=== PATIENT | female | born 1980 | race African-American/Black ===

== ENCOUNTER 2020-04-25 16:19 | Inpatient (IN) | payer SELFPAY ==
[~2020-04-25] VITALS: Ht 167.6 cm; Wt 188.5 kg
[2020-04-25 16:15] VITALS: BP 145/97
[2020-04-25] MEDS ORDERED: TIZA4TAB2 PO (16:32)
[2020-04-25] MEDS ORDERED: PROP80CA3 PO (16:32)
[2020-04-25] MEDS ORDERED: CELE200C PO (16:32)
[2020-04-25] MEDS ORDERED: FLUO20TA11 PO (16:32)
[2020-04-25] MEDS ORDERED: METF-658 PO (16:32)
[2020-04-25] MEDS ORDERED: AMLO10TA8 PO (16:32)
--- NOTE | 2020-04-25 16:50 | NUR ---
The patient, MARGIE MOY, 39 y/o, F admitted by MARIEL AGUIAR MD, was given written information regarding hospital policies, unit procedures and contact persons. Valuables were checked and patient settled in room, orders received from Dr. Aguiar, and consults called.
[2020-04-25] MEDS ORDERED: PIPERACILLIN/TAZOBACTAM 3.375 GM in IV NORMAL SALINE 50ML 50 ML IV SCH (17:00)
[2020-04-25] MEDS: MORPHINE SULFATE 4 MG/ML VIAL. IV PRN (17:27)
[2020-04-25] MEDS: IV NORMAL SALINE 1000ML BAG 1,000 ML IV SCH (17:27)
[2020-04-25 19:00] VITALS: BP 117/82
[2020-04-25] MEDS: PIPERACILLIN/TAZOBACTAM 3.375 GM in IV NORMAL SALINE 50ML 50 ML IV SCH (19:07)
[2020-04-25 23:00] VITALS: BP 106/75
[2020-04-26 03:00] VITALS: BP 102/76
[2020-04-26] MEDS: IV NORMAL SALINE 1000ML BAG 1,000 ML IV SCH (03:45)
[2020-04-26] MEDS: MORPHINE SULFATE 4 MG/ML VIAL. IV PRN ×2 (04:12→15:33)
[2020-04-26] MEDS: ONDANSETRON PF 4 MG/2 ML VIAL. IVP PRN ×3 (04:24→15:45)
[2020-04-26 04:27] LABS: BASO # 0.1 x10^3/uL (0.0-0.2); BASO % 1 % (0-3); EOS # 0.1 x10^3/uL (0.0-0.7); EOS % 2 % (0-3); HEMATOCRIT 35.1 % (36.0-47.0); HEMOGLOBIN 11.3 g/dL (12.0-15.5); LYMPH # 1.8 x10^3/uL (1.0-4.8); LYMPH % 18 % (24-48); MEAN CORPUSCULAR HEMOGLOBIN 27 pg (25-35); MEAN CORPUSCULAR HGB CONC 32 g/dL (31-37); MEAN CORPUSCULAR VOLUME 82 fL (79-100); MONO # 0.6 x10^3/uL (0.0-1.1); MONO % 6 % (0-9); NEUT # 7.2 x10^3/uL (1.8-7.7); NEUT % 74 % (31-73); PLATELET COUNT 240 x10^3/uL (140-400); RED BLOOD COUNT 4.26 x10^6/uL (3.50-5.40); RED CELL DISTRIBUTION WIDTH 15.2 % (11.5-14.5); WHITE BLOOD COUNT 9.7 x10^3/uL (4.0-11.0)
[2020-04-26 04:51] LABS: ALBUMIN 2.3 g/dL (3.4-5.0); ALBUMIN/GLOBULIN RATIO 0.5 (1.0-1.7); CALCIUM 8.4 mg/dL (8.5-10.1); CREATININE 0.8 mg/dL (0.6-1.0); GFR 96.1; POTASSIUM 3.3 mmol/L (3.5-5.1); TOTAL BILIRUBIN 0.5 mg/dL (0.2-1.0); TOTAL PROTEIN 7.1 g/dL (6.4-8.2)
[2020-04-26] MEDS: PIPERACILLIN/TAZOBACTAM 3.375 GM in IV NORMAL SALINE 50ML 50 ML IV SCH ×4 (05:57→18:18)
[2020-04-26 07:59] VITALS: BP 116/75
--- NOTE | 2020-04-26 08:53 | HP ---
ADMIT DATE: 04/25/2020 HISTORY OF PRESENT ILLNESS: The patient is a 39-year-old -[place] female patient, who presented to the Emergency Room of [facility] with a complaint of abdominal pain and discomfort. She stated that her pain started on Tuesday with also some nausea and vomiting and continued on Tuesday and and she came to the Emergency Room yesterday. She stated that she has also had dark and bloody stools over the last 2 days. She stated that blood tinge present when she wipes after a bowel movement. States she is dizzy when she tries to stand or walk, but denied any urinary or vaginal complaints. She is not on any blood thinners. She denies any other complaint. She was evaluated in the Emergency Room. Her lab work showed she has leukocytosis, white cell count of 15,800. Her chemistry was mostly unremarkable and urinalysis was essentially unremarkable. She has had a CT scan of the abdomen and pelvis with oral and IV contrast, which basically showed that she has diverticulitis with walled-off microperforation; there is no free fluid, free air or abscess. The patient was transferred to [facility]. She was kept n.p.o., started on IV fluid, IV antibiotic in the form of Zosyn, and started on pain medication and antiemetic, and we consulted the Surgical team. PAST MEDICAL HISTORY: Significant for hypertension, polycystic ovary syndrome and migraine. PAST SURGICAL HISTORY: Significant for , cholecystectomy and placement of intrauterine device. ALLERGIES: She has no known drug allergies. MEDICATIONS: She is currently on the following medications: She is on propranolol extended release, fluoxetine, Celebrex and metformin 500 mg once a day. FAMILY HISTORY: She has 6 half-sisters from her mother, one half-brother and one half-sister from her father's side and she has 2 stepbrothers. SOCIAL HISTORY: She is single, has a son and a daughter. She smokes occasionally, drinks alcohol occasionally, does not use any drugs. She is currently unemployed. Takes care of her granddaughter. REVIEW OF SYSTEMS: As per history of present illness. PHYSICAL EXAMINATION: GENERAL: On arrival to the Emergency Room, the patient looked well and was clearly in no apparent respiratory distress. No pallor, jaundice, cyanosis or thyromegaly. No jugular venous distention. No lower limb edema. VITAL SIGNS: Her heart rate was 128, blood pressure was 125/74, temperature was 98.1, respiratory rate was 16 and oxygen saturation was 93% on room air. HEAD, EYES, EARS, NOSE AND THROAT: Normocephalic, atraumatic. NECK: Supple. HEART: Showed normal first and second heart sounds. No gallop, rub or murmur. CHEST: Clear to auscultation. No crepitation or rhonchi. ABDOMEN: Distended, soft, with tenderness mostly in the left lower quadrant. There is no guarding or rigidity, no organomegaly. All hernial orifices are intact. Bowel sounds are normal. NEUROLOGICAL: Grossly normal. LABORATORY DATA: Her white cell count was 15,800, hemoglobin 12.5, hematocrit 38.9, MCV 82 and platelet count 254,000. Her chemistry showed a serum sodium of 136, potassium 3.5, chloride 99, bicarbonate 26, anion gap of 11, BUN 10, creatinine 1, estimated GFR was 74 mL per minute, her glucose was 116, calcium was 9.1. Total bilirubin, AST, ALT, alkaline phosphatase were normal. Total protein was 8.2. Albumin was 3.7. Her urinalysis showed the urine was red, bloody, with too numerous to count rbc's, occasional wbc's and few bacteria. Her urine test was negative. IMAGING STUDIES: Her CT scan of the abdomen showed that the patient has linear opacity in the right lung base, likely discoid atelectasis. The appendix is normal. She has an intrauterine device in the uterus that appears to be well seated. There is moderate wall thickening, about 12 cm length, of the proximal and mid sigmoid colon with surrounding inflammation, diverticula, with multiple foci of air projecting outside the lumen, but no walled-off abscess. Her liver, spleen, pancreas, adrenal and kidneys are unremarkable. There is no mass or lymphadenopathy. There is no free air, no free fluid. The urinary bladder was mostly collapsed. ASSESSMENT AND PLAN: The patient basically diagnosed with acute diverticulitis with walled-off microperforation. There is no free fluid or free air or an abscess. The patient was basically transferred to [facility]. She was kept n.p.o., started on IV fluid, also start her on IV Zosyn at 3.375 g IV q.8 hourly, pain medication and antiemetic, and we have consulted the Surgical team. Her other medical problems include hypertension, migraine headache as well as questionable diabetes versus polycystic ovary syndrome. MARIEL AGUIAR MD DR: IMANI/farheen JOB#: [id number] / [id number]
[2020-04-26] MEDS: POTASSIUM CL 40MEQ IN 0.9%NACL 1,000 ML IV SCH ×2 (09:12→21:40)
--- NOTE | 2020-04-26 09:32 | PDOC2 ---
CONSULT Date of Consult Date of Consult DATE: 04/26/20 TIME: 09:29 Reason for Consult Reason for Consult: Abdominal pain with nausea vomiting Referring Physician Referring Physician: Arslan Identification/Chief Complaint Chief Complaint Abdominal pain Source Source: Chart review, Patient History of Present Illness Reason for Visit: 39-year-old morbidly obese female was seen in the emergency department at [facility] with complaints of abdominal pain nausea and some vomiting over the last 4 days as well as some bloody stools. On further evaluation emergency department CT scan done of the abdomen showed inflammation of the sigmoid colon consistent with diverticulitis and a small amount of extraluminal air no free air within the abdomen no ascites or abscess Past Medical History Cardiovascular: HTN Pulmonary: No pertinent hx GI: Other (Morbidly obese) Heme/Onc: No pertinent hx Hepatobiliary: No pertinent hx Psych: No pertinent hx Infectious disease: No pertinent hx ENT: No pertinent hx Renal/: No pertinent hx Endocrine: No pertinent hx Dermatology: No pertinent hx Past Surgical History Past Surgical History: No pertinent history Family History Family History: No Significant Social History No ALCOHOL: rare Drugs: None Lives: with Family Current Medications Current Medications Current Medications Sodium Chloride 1,000 ml @ 100 mls/hr Q10H IV Last administered on 04/26/20at 03:45; Start 04/25/20 at 16:45; Stop 04/26/20 at 08:15; Status DC Morphine Sulfate (Morphine Sulfate) 4 mg PRN Q4HRS PRN IV PAIN Last administered on 04/26/20at 04:12; Start 04/25/20 at 16:45 Ondansetron HCl (Zofran) 4 mg PRN Q4HRS PRN IVP NAUSEA/VOMITING Last administered on 04/26/20at 04:24; Start 04/25/20 at 16:45 Piperacillin Sod/ Tazobactam Sod 3.375 gm/Sodium Chloride 50 ml @ 100 mls/hr Q6HRS IV ; Start 04/25/20 at 17:00; Stop 04/25/20 at 17:16; Status DC Piperacillin Sod/ Tazobactam Sod 3.375 gm/Sodium Chloride 50 ml @ 100 mls/hr Q6HRS IV Last administered on 04/26/20at 05:57; Start 04/25/20 at 19:00 Potassium Chloride/Sodium Chloride 1,000 ml @ 100 mls/hr Q10H IV Last administered on 04/26/20at 09:12; Start 04/26/20 at 08:30 Active Scripts Active Reported Tizanidine Hcl 4 Mg Tablet 1 Tab PO BID Amlodipine Besylate 10 Mg Tablet 10 Mg PO DAILY Celebrex (Celecoxib) 200 Mg Capsule 200 Mg PO DAILY 30 Days Fluoxetine Hcl 20 Mg Tablet 20 Mg PO DAILY Propranolol Hcl 80 Mg Cap.sa.24h 80 Mg PO DAILY Metformin Hcl Er (Metformin Hcl) 500 Mg Tab.er.24h 500 Mg PO DAILYWBKFT Allergies Allergies: Coded Allergies: No Known Drug Allergies (Unverified , 04/25/20) ROS Gastrointestinal: Yes Nausea, Yes Vomiting, Yes Abdominal Pain Physical Exam General: Alert, Oriented X3, Cooperative, mild distress HEENT: Atraumatic Lungs: Clear to auscultation, Normal air movement Heart: Regular rate, No murmurs Abdomen: Normal bowel sounds, Soft, Other (Tender to palpation left lower quadrant) Extremities: No edema Skin: No significant lesion Neuro: Normal speech Psych/Mental Status: Mental status NL Vitals VITALS Vital Signs Date Time Temp Pulse Resp B/P (MAP) Pulse Ox O2 Delivery O2 Flow Rate FiO2 04/26/20 07:59 97.9 95 18 116/75 (89) 93 Room Air 97.9 Labs Labs Laboratory Tests Test 04/25/20 16:47 04/26/20 03:25 Glucose (Fingerstick) 105 mg/dL (70-99) White Blood Count 9.7 x10^3/uL (4.0-11.0) Red Blood Count 4.26 x10^6/uL (3.50-5.40) Hemoglobin 11.3 g/dL (12.0-15.5) Hematocrit 35.1 % (36.0-47.0) Mean Corpuscular Volume 82 fL (79-100) Mean Corpuscular Hemoglobin 27 pg (25-35) Mean Corpuscular Hemoglobin Concent 32 g/dL (31-37) Red Cell Distribution Width 15.2 % (11.5-14.5) Platelet Count 240 x10^3/uL (140-400) Neutrophils (%) (Auto) 74 % (31-73) Lymphocytes (%) (Auto) 18 % (24-48) Monocytes (%) (Auto) 6 % (0-9) Eosinophils (%) (Auto) 2 % (0-3) Basophils (%) (Auto) 1 % (0-3) Neutrophils # (Auto) 7.2 x10^3/uL (1.8-7.7) Lymphocytes # (Auto) 1.8 x10^3/uL (1.0-4.8) Monocytes # (Auto) 0.6 x10^3/uL (0.0-1.1) Eosinophils # (Auto) 0.1 x10^3/uL (0.0-0.7) Basophils # (Auto) 0.1 x10^3/uL (0.0-0.2) Sodium Level 140 mmol/L (136-145) Potassium Level 3.3 mmol/L (3.5-5.1) Chloride Level 104 mmol/L (98-107) Carbon Dioxide Level 26 mmol/L (21-32) Anion Gap 10 (6-14) Blood Urea Nitrogen 10 mg/dL (7-20) Creatinine 0.8 mg/dL (0.6-1.0) Estimated GFR (Cockcroft-Gault) 96.1 BUN/Creatinine Ratio 13 (6-20) Glucose Level 91 mg/dL (70-99) Calcium Level 8.4 mg/dL (8.5-10.1) Total Bilirubin 0.5 mg/dL (0.2-1.0) Aspartate Amino Transf (AST/SGOT) 22 U/L (15-37) Alanine Aminotransferase (ALT/SGPT) 23 U/L (14-59) Alkaline Phosphatase 87 U/L (46-116) Total Protein 7.1 g/dL (6.4-8.2) Albumin 2.3 g/dL (3.4-5.0) Albumin/Globulin Ratio 0.5 (1.0-1.7) Laboratory Tests Test 04/25/20 16:47 04/26/20 03:25 Glucose (Fingerstick) 105 mg/dL (70-99) White Blood Count 9.7 x10^3/uL (4.0-11.0) Red Blood Count 4.26 x10^6/uL (3.50-5.40) Hemoglobin 11.3 g/dL (12.0-15.5) Hematocrit 35.1 % (36.0-47.0) Mean Corpuscular Volume 82 fL (79-100) Mean Corpuscular Hemoglobin 27 pg (25-35) Mean Corpuscular Hemoglobin Concent 32 g/dL (31-37) Red Cell Distribution Width 15.2 % (11.5-14.5) Platelet Count 240 x10^3/uL (140-400) Neutrophils (%) (Auto) 74 % (31-73) Lymphocytes (%) (Auto) 18 % (24-48) Monocytes (%) (Auto) 6 % (0-9) Eosinophils (%) (Auto) 2 % (0-3) Basophils (%) (Auto) 1 % (0-3) Neutrophils # (Auto) 7.2 x10^3/uL (1.8-7.7) Lymphocytes # (Auto) 1.8 x10^3/uL (1.0-4.8) Monocytes # (Auto) 0.6 x10^3/uL (0.0-1.1) Eosinophils # (Auto) 0.1 x10^3/uL (0.0-0.7) Basophils # (Auto) 0.1 x10^3/uL (0.0-0.2) Sodium Level 140 mmol/L (136-145) Potassium Level 3.3 mmol/L (3.5-5.1) Chloride Level 104 mmol/L (98-107) Carbon Dioxide Level 26 mmol/L (21-32) Anion Gap 10 (6-14) Blood Urea Nitrogen 10 mg/dL (7-20) Creatinine 0.8 mg/dL (0.6-1.0) Estimated GFR (Cockcroft-Gault) 96.1 BUN/Creatinine Ratio 13 (6-20) Glucose Level 91 mg/dL (70-99) Calcium Level 8.4 mg/dL (8.5-10.1) Total Bilirubin 0.5 mg/dL (0.2-1.0) Aspartate Amino Transf (AST/SGOT) 22 U/L (15-37) Alanine Aminotransferase (ALT/SGPT) 23 U/L (14-59) Alkaline Phosphatase 87 U/L (46-116) Total Protein 7.1 g/dL (6.4-8.2) Albumin 2.3 g/dL (3.4-5.0) Albumin/Globulin Ratio 0.5 (1.0-1.7) Assessment/Plan Assessment/Plan Diverticulitis with microperforation no free air Agree with bowel rest n.p.o. and IV antibiotics will follow EMILIE MCFADDEN MD Apr 26, 2020 09:32
[2020-04-26] MEDS: ACETAMINOPHEN 325 MG TABLET. PO PRN (09:42)
[2020-04-26 11:59] VITALS: BP 128/84
--- NOTE | 2020-04-26 12:00 | NUR ---
Patient was given Tylenol po with sip water for c/o headache. Patient now relates that her headache is completely gone.
--- NOTE | 2020-04-26 13:10 | PN ---
DATE: 04/26/2020 SUBJECTIVE: The patient is sitting in the edge of the bed comfortably, in no apparent distress. She continued to have abdominal pain, but denied any nausea or vomiting. Denied any chills, rigors or fever. PHYSICAL EXAMINATION: GENERAL: When I examined her, she looked pale, no jaundice, cyanosis or thyromegaly. No jugular venous distention. No lower limb edema. VITAL SIGNS: Her heart rate was 103, blood pressure was 102/76, her temperature was 98.3, respiratory rate was 16, and oxygen saturation was 97% on room air. ABDOMEN: She continued to have tenderness in the left lower quadrant. NEUROLOGIC: She was grossly intact. The rest of clinical exam is stable. Her intake and output are incompletely recorded. LABORATORY DATA: Her lab work this morning showed white cell count is down to 9700, hemoglobin 11, hematocrit 35, MCV 82 and platelet count of 240,000 with normal manual differential. Her chemistry showed a serum sodium 140, potassium 3.3, chloride 104, bicarbonate 26, anion gap of 10, BUN 10, creatinine 0.8, estimated GFR was 96 mL per minute. Her glucose was 91, calcium was 8.4. Total bilirubin, AST, ALT, alkaline phosphatase were normal. Total protein was 7.1 and albumin was 2.3. ASSESSMENT: 1. Diverticulitis with microperforation with no walled off abscess. There is no free air or free fluid. 2. Hypertension. 3. Migraine headache. 4. Polycystic ovary syndrome. 5. Questionable type 2 diabetes. 6. Hypokalemia. PLAN: My plan is to change IV fluid to normal saline with some potassium. We will continue to monitor her progress on a daily basis and if she remained stable, we will start her on a clear liquid diet and advance as tolerated. MARIEL AGUIAR MD DR: IMANI/farheen JOB#: [id number] / [id number]
--- NOTE | 2020-04-26 14:00 | NUR ---
Patient up to bathroom, passing gas, had small loose bm, difficult to assess color, poss yellow. Patient having some bloody spotting, reported hadn't had any for close to year (has Mirena device in place)
--- NOTE | 2020-04-26 14:03 | PDOC2 ---
GI CONSULT Reason For Consult: diverticulitis with microperf HPI: HPI: 39-year-old female patient, who presented to the Emergency Room of [facility] with a complaint of left sided abdominal pain and discomfort and dark and bloody stools over the last 2 days. Her white cell count of 15,800. Her chemistry was mostly unremarkable and urinalysis was essentially unremarkable. CT scan of the abdomen and pelvis with oral and IV contrast showed that she has diverticulitis with walled-off microperforation; there is no free fluid, free air or abscess. PMH: PMH: PAST MEDICAL HISTORY: Significant for hypertension, polycystic ovary syndrome and migraine. PAST SURGICAL HISTORY: Significant for , cholecystectomy and placement of intrauterine device. ALLERGIES: She has no known drug allergies. MEDICATIONS: She is currently on the following medications: She is on propranolol extended release, fluoxetine, Celebrex and metformin 500 mg once a day. FAMILY HISTORY: She has 6 half-sisters from her mother, one half-brother and one half-sister from her father's side and she has 2 stepbrothers. SOCIAL HISTORY: She is single, has a son and a daughter. She smokes occasionally, drinks alcohol occasionally, does not use any drugs. She is currently unemployed. Takes care of her granddaughter. Social History: Smoke: No ALCOHOL: rare Drugs: None ROS: GEN: Denies fevers, chills, sweats HEENT: Denies blurred vision, sore throat CV: Denies chest pain RESP: Denies shortness of air, cough GI: Per HPI : Denies hematuria, dysuria ENDO: Denies weight changes NEURO: Denies confusion, dizziness MSK: Denies weakness, joint pain/swelling SKIN: Denies jaundice, pruritus VItals: Vitals: Vital Signs Date Time Temp Pulse Resp B/P (MAP) Pulse Ox O2 Delivery O2 Flow Rate FiO2 04/26/20 11:59 98.1 93 18 128/84 (99) 98 Room Air 98.1 Labs: Labs: Laboratory Tests Test 04/25/20 16:47 04/26/20 03:25 Glucose (Fingerstick) 105 mg/dL (70-99) White Blood Count 9.7 x10^3/uL (4.0-11.0) Red Blood Count 4.26 x10^6/uL (3.50-5.40) Hemoglobin 11.3 g/dL (12.0-15.5) Hematocrit 35.1 % (36.0-47.0) Mean Corpuscular Volume 82 fL (79-100) Mean Corpuscular Hemoglobin 27 pg (25-35) Mean Corpuscular Hemoglobin Concent 32 g/dL (31-37) Red Cell Distribution Width 15.2 % (11.5-14.5) Platelet Count 240 x10^3/uL (140-400) Neutrophils (%) (Auto) 74 % (31-73) Lymphocytes (%) (Auto) 18 % (24-48) Monocytes (%) (Auto) 6 % (0-9) Eosinophils (%) (Auto) 2 % (0-3) Basophils (%) (Auto) 1 % (0-3) Neutrophils # (Auto) 7.2 x10^3/uL (1.8-7.7) Lymphocytes # (Auto) 1.8 x10^3/uL (1.0-4.8) Monocytes # (Auto) 0.6 x10^3/uL (0.0-1.1) Eosinophils # (Auto) 0.1 x10^3/uL (0.0-0.7) Basophils # (Auto) 0.1 x10^3/uL (0.0-0.2) Sodium Level 140 mmol/L (136-145) Potassium Level 3.3 mmol/L (3.5-5.1) Chloride Level 104 mmol/L (98-107) Carbon Dioxide Level 26 mmol/L (21-32) Anion Gap 10 (6-14) Blood Urea Nitrogen 10 mg/dL (7-20) Creatinine 0.8 mg/dL (0.6-1.0) Estimated GFR (Cockcroft-Gault) 96.1 BUN/Creatinine Ratio 13 (6-20) Glucose Level 91 mg/dL (70-99) Calcium Level 8.4 mg/dL (8.5-10.1) Total Bilirubin 0.5 mg/dL (0.2-1.0) Aspartate Amino Transf (AST/SGOT) 22 U/L (15-37) Alanine Aminotransferase (ALT/SGPT) 23 U/L (14-59) Alkaline Phosphatase 87 U/L (46-116) Total Protein 7.1 g/dL (6.4-8.2) Albumin 2.3 g/dL (3.4-5.0) Albumin/Globulin Ratio 0.5 (1.0-1.7) Imaging: Imaging: CT scan of the abdomen showed that the patient has linear opacity in the right lung base, likely discoid atelectasis. The appendix is normal. She has an intrauterine device in the uterus that appears to be well seated. There is moderate wall thickening, about 12 cm length, of the proximal and mid sigmoid colon with surrounding inflammation, diverticula, with multiple foci of air projecting outside the lumen, but no walled-off abscess. Her liver, spleen, pancreas, adrenal and kidneys are unremarkable. There is no mass or lymphadenopathy. There is no free air, no free fluid. The urinary bladder was mostly collapsed. PE: HEAD, EYES, EARS, NOSE AND THROAT: Normocephalic, atraumatic. NECK: Supple. HEART: Showed normal first and second heart sounds. No gallop, rub or murmur. CHEST: Clear to auscultation. No crepitation or rhonchi. ABDOMEN: Distended, soft, with tenderness mostly in the left lower quadrant. There is no guarding or rigidity, no organomegaly. All hernial orifices are intact. Bowel sounds are normal. NEUROLOGICAL: Grossly normal. A/P: A/P: A) Diverticulitis with microperforation P) 1) IV Abx 2) PO when able 3) Will need colonoscopy 6 weeks after healing of perf AISHA KINCAID MD Apr 26, 2020 14:03
[2020-04-26 15:59] VITALS: BP 143/88
[2020-04-26 19:15] VITALS: BP 108/75
[2020-04-26 23:37] VITALS: BP 133/96
[2020-04-27] MEDS: MORPHINE SULFATE 4 MG/ML VIAL. IV PRN ×3 (00:06→21:02)
[2020-04-27] MEDS: PIPERACILLIN/TAZOBACTAM 3.375 GM in IV NORMAL SALINE 50ML 50 ML IV SCH ×5 (00:06→23:31)
[2020-04-27 03:40] VITALS: BP 125/78
[2020-04-27] MEDS: POTASSIUM CL 40MEQ IN 0.9%NACL 1,000 ML IV SCH ×3 (04:30→21:03)
[2020-04-27 07:31] LABS: HEMATOCRIT 33.8 % (36.0-47.0); HEMOGLOBIN 10.9 g/dL (12.0-15.5); RED BLOOD COUNT 4.13 x10^6/uL (3.50-5.40); RED CELL DISTRIBUTION WIDTH 15.1 % (11.5-14.5)
[2020-04-27 07:48] LABS: CREATININE 0.8 mg/dL (0.6-1.0); GFR 96.1; POTASSIUM 3.7 mmol/L (3.5-5.1)
[2020-04-27 07:59] VITALS: BP 143/106
[2020-04-27] MEDS: ONDANSETRON PF 4 MG/2 ML VIAL. IVP PRN ×2 (08:00→21:02)
[2020-04-27] MEDS: ACETAMINOPHEN 325 MG TABLET. PO PRN (08:06)
--- NOTE | 2020-04-27 08:23 | PDOC ---
SURGICAL PROGRESS NOTE Subjective Patient feeling better today has had several bowel movements mostly loose Vital Signs Vital Signs Date Time Temp Pulse Resp B/P (MAP) Pulse Ox O2 Delivery O2 Flow Rate FiO2 04/27/20 08:06 20 99 Room Air 04/27/20 03:40 98.0 98 125/78 (94) 98.0 I&O Intake and Output 04/27/20 07:00 Intake Total 1790 ml Balance 1790 ml Intake Oral 90 ml IV Total 1700 ml # Voids 1 PATIENT HAS A GAGNON: No General: Alert, Oriented X3, Cooperative, mild distress Abdomen: Normal bowel sounds, Soft, Other (Mildly tender to palpation left lower quadrant improved from yesterday) Labs Laboratory Tests Test 04/25/20 16:47 04/26/20 03:25 04/27/20 06:15 Glucose (Fingerstick) 105 mg/dL (70-99) White Blood Count 9.7 x10^3/uL (4.0-11.0) 7.0 x10^3/uL (4.0-11.0) Red Blood Count 4.26 x10^6/uL (3.50-5.40) 4.13 x10^6/uL (3.50-5.40) Hemoglobin 11.3 g/dL (12.0-15.5) 10.9 g/dL (12.0-15.5) Hematocrit 35.1 % (36.0-47.0) 33.8 % (36.0-47.0) Mean Corpuscular Volume 82 fL (79-100) 82 fL (79-100) Mean Corpuscular Hemoglobin 27 pg (25-35) 26 pg (25-35) Mean Corpuscular Hemoglobin Concent 32 g/dL (31-37) 32 g/dL (31-37) Red Cell Distribution Width 15.2 % (11.5-14.5) 15.1 % (11.5-14.5) Platelet Count 240 x10^3/uL (140-400) 252 x10^3/uL (140-400) Neutrophils (%) (Auto) 74 % (31-73) Lymphocytes (%) (Auto) 18 % (24-48) Monocytes (%) (Auto) 6 % (0-9) Eosinophils (%) (Auto) 2 % (0-3) Basophils (%) (Auto) 1 % (0-3) Neutrophils # (Auto) 7.2 x10^3/uL (1.8-7.7) Lymphocytes # (Auto) 1.8 x10^3/uL (1.0-4.8) Monocytes # (Auto) 0.6 x10^3/uL (0.0-1.1) Eosinophils # (Auto) 0.1 x10^3/uL (0.0-0.7) Basophils # (Auto) 0.1 x10^3/uL (0.0-0.2) Sodium Level 140 mmol/L (136-145) 140 mmol/L (136-145) Potassium Level 3.3 mmol/L (3.5-5.1) 3.7 mmol/L (3.5-5.1) Chloride Level 104 mmol/L (98-107) 104 mmol/L (98-107) Carbon Dioxide Level 26 mmol/L (21-32) 27 mmol/L (21-32) Anion Gap 10 (6-14) 9 (6-14) Blood Urea Nitrogen 10 mg/dL (7-20) 7 mg/dL (7-20) Creatinine 0.8 mg/dL (0.6-1.0) 0.8 mg/dL (0.6-1.0) Estimated GFR (Cockcroft-Gault) 96.1 96.1 BUN/Creatinine Ratio 13 (6-20) Glucose Level 91 mg/dL (70-99) 81 mg/dL (70-99) Calcium Level 8.4 mg/dL (8.5-10.1) 8.0 mg/dL (8.5-10.1) Total Bilirubin 0.5 mg/dL (0.2-1.0) Aspartate Amino Transf (AST/SGOT) 22 U/L (15-37) Alanine Aminotransferase (ALT/SGPT) 23 U/L (14-59) Alkaline Phosphatase 87 U/L (46-116) Total Protein 7.1 g/dL (6.4-8.2) Albumin 2.3 g/dL (3.4-5.0) Albumin/Globulin Ratio 0.5 (1.0-1.7) Laboratory Tests Test 04/27/20 06:15 White Blood Count 7.0 x10^3/uL (4.0-11.0) Red Blood Count 4.13 x10^6/uL (3.50-5.40) Hemoglobin 10.9 g/dL (12.0-15.5) Hematocrit 33.8 % (36.0-47.0) Mean Corpuscular Volume 82 fL (79-100) Mean Corpuscular Hemoglobin 26 pg (25-35) Mean Corpuscular Hemoglobin Concent 32 g/dL (31-37) Red Cell Distribution Width 15.1 % (11.5-14.5) Platelet Count 252 x10^3/uL (140-400) Sodium Level 140 mmol/L (136-145) Potassium Level 3.7 mmol/L (3.5-5.1) Chloride Level 104 mmol/L (98-107) Carbon Dioxide Level 27 mmol/L (21-32) Anion Gap 9 (6-14) Blood Urea Nitrogen 7 mg/dL (7-20) Creatinine 0.8 mg/dL (0.6-1.0) Estimated GFR (Cockcroft-Gault) 96.1 Glucose Level 81 mg/dL (70-99) Calcium Level 8.0 mg/dL (8.5-10.1) Assessment/Plan Diverticulitis sigmoid colon with microperforation appears to be improving on IV antibiotics afebrile white count normal We will continue IV antibiotics advance diet to clear liquids Justicifation of Admission Dx: Justifications for Admission: Justification of Admission Dx: N/A EMILIE MCFADDEN MD Apr 27, 2020 08:22
--- NOTE | 2020-04-27 08:48 | PN ---
DATE: 04/27/2020 SUBJECTIVE: The patient is resting, slightly propped up in bed, in no apparent distress. She is awake, alert. On questioning her, she said she continued to have mild discomfort in her left lower quadrant. Denied any nausea or vomiting. Denied any chills, rigors or fever. PHYSICAL EXAMINATION: GENERAL: When I examined her, she looked well and was clearly in no apparent respiratory distress, pale, but no jaundice or cyanosis. No lymphadenopathy, no thyromegaly. No jugular venous distention. No limb edema. VITAL SIGNS: Her heart rate was 98, blood pressure was 125/78, temperature was 98, respiratory rate was 18 and oxygen saturation was 99%. HEAD, EYES, EARS, NOSE AND THROAT: Showed normocephalic, atraumatic. NECK: Supple. HEART: Showed normal first and second heart sounds. No gallop or murmur. CHEST: Shows central trachea, equal bilateral expansion, air entry, vesicular breath sounds. No crepitation or rhonchi. ABDOMEN: Markedly distended, soft, mild tenderness in the left lower quadrant. There is no guarding or rigidity. No organomegaly. All hernial orifice intact. Bowel sounds normal. NEUROLOGIC: She is awake, alert, responding appropriately. All her cranial nerves intact. She moves extremities without difficulty. She ambulates without assistance or assistive devices. Her intake and output are incompletely recorded. LABORATORY DATA: As of this morning showed a white cell count 7000, hemoglobin 11, hematocrit 33, MCV 82, and platelet count 252,000. Her chemistry showed a serum sodium 140, potassium 3.7, chloride 104, bicarbonate 27, anion gap of 9, BUN 7, creatinine 0.8, estimated GFR was 96 mL per minute. Her glucose was 81, calcium was 8. ASSESSMENT: 1. Diverticulitis with microperforation with no walled off abscess. There is no free air or free fluid, currently on IV antibiotics. 2. Hypertension, well controlled. 3. Migraine headache. 4. Polycystic ovary syndrome. 5. Questionable type 2 diabetes. 6. Hypokalemia which has resolved. PLAN: To continue with IV fluid. Apparently, she was seen by the surgical team and she is now on a clear liquid diet. MARIEL AGUIAR MD DR: IMANI/farheen JOB#: [id number] / [id number]
[2020-04-27 13:00] VITALS: BP 148/112
--- NOTE | 2020-04-27 14:47 | PDOC ---
Subjective: Subjective: feels better. haviing BMs with blood and mucus. LLQ pain better Objective: Vital Signs: Vital Signs Date Time Temp Pulse Resp B/P (MAP) Pulse Ox O2 Delivery O2 Flow Rate FiO2 04/27/20 13:00 97.8 119 20 148/112 (124) 97 Room Air 97.8 Labs: Laboratory Tests Test 04/27/20 06:15 White Blood Count 7.0 x10^3/uL (4.0-11.0) Red Blood Count 4.13 x10^6/uL (3.50-5.40) Hemoglobin 10.9 g/dL (12.0-15.5) Hematocrit 33.8 % (36.0-47.0) Mean Corpuscular Volume 82 fL (79-100) Mean Corpuscular Hemoglobin 26 pg (25-35) Mean Corpuscular Hemoglobin Concent 32 g/dL (31-37) Red Cell Distribution Width 15.1 % (11.5-14.5) Platelet Count 252 x10^3/uL (140-400) Sodium Level 140 mmol/L (136-145) Potassium Level 3.7 mmol/L (3.5-5.1) Chloride Level 104 mmol/L (98-107) Carbon Dioxide Level 27 mmol/L (21-32) Anion Gap 9 (6-14) Blood Urea Nitrogen 7 mg/dL (7-20) Creatinine 0.8 mg/dL (0.6-1.0) Estimated GFR (Cockcroft-Gault) 96.1 Glucose Level 81 mg/dL (70-99) Calcium Level 8.0 mg/dL (8.5-10.1) Iron Level 59 ug/dL (50-170) Total Iron Binding Capacity 230 ug/dL (250-450) Iron Saturation 26 % (15-34) Ferritin 186 ng/mL (8-252) Physical Exam: Physical Exam: HEAD, EYES, EARS, NOSE AND THROAT: Normocephalic, atraumatic. NECK: Supple. HEART: Showed normal first and second heart sounds. No gallop, rub or murmur. CHEST: Clear to auscultation. No crepitation or rhonchi. ABDOMEN: Distended, soft, with tenderness mostly in the left lower quadrant. There is no guarding or rigidity, no organomegaly. All hernial orifices are intact. Bowel sounds are normal. NEUROLOGICAL: Grossly normal. Assessment & Plan: Assessment : A 1) Diverticulitis with microperf 2) indeterminate COVID test Plan: P 1) Favor PO abx when ready 2) ADAT 3) repeat COVID test- defer to primary Justicifation of Admission Dx: Justifications for Admission: Justification of Admission Dx: N/A AISHA KINCAID MD Apr 27, 2020 14:47
[2020-04-27 15:59] VITALS: BP 127/95
[2020-04-27] MEDS: amLODIPine BESYLATE 10 MG TABLET PO SCH (16:04)
[2020-04-27 19:00] VITALS: BP 157/88
[2020-04-27] MEDS: LACTOBACILLUS RHAMNOSUS GG 1 CAPSULE. PO SCH (21:02)
[2020-04-27 23:00] VITALS: BP 133/90
[2020-04-28 03:00] VITALS: BP 139/92
[2020-04-28 04:56] LABS: HEMATOCRIT 33.9 % (36.0-47.0); HEMOGLOBIN 10.8 g/dL (12.0-15.5); RED BLOOD COUNT 4.13 x10^6/uL (3.50-5.40); RED CELL DISTRIBUTION WIDTH 14.9 % (11.5-14.5); WHITE BLOOD COUNT 6.6 x10^3/uL (4.0-11.0)
[2020-04-28 05:12] LABS: CALCIUM 8.2 mg/dL (8.5-10.1); CREATININE 0.8 mg/dL (0.6-1.0); GFR 96.1; POTASSIUM 3.8 mmol/L (3.5-5.1)
[2020-04-28] MEDS: PIPERACILLIN/TAZOBACTAM 3.375 GM in IV NORMAL SALINE 50ML 50 ML IV SCH ×3 (05:36→18:09)
[2020-04-28 07:15] VITALS: BP 150/98
[2020-04-28] MEDS: LACTOBACILLUS RHAMNOSUS GG 1 CAPSULE. PO SCH ×2 (08:27→20:41)
[2020-04-28] MEDS: amLODIPine BESYLATE 10 MG TABLET PO SCH (08:27)
--- NOTE | 2020-04-28 08:51 | NUR ---
SW following. Discussed with RN, pt from home alone, independent. RN advised no SW needs, outpatient colonoscopy recommended. RN anticipates discharge today. SW will continue to follow should any discharge needs arise.
[2020-04-28] MEDS: POTASSIUM CL 40MEQ IN 0.9%NACL 1,000 ML IV SCH ×2 (10:30→20:30)
[2020-04-28 11:00] VITALS: BP 135/84
[2020-04-28] MEDS: ACETAMINOPHEN 325 MG TABLET. PO PRN ×2 (11:05→18:12)
--- NOTE | 2020-04-28 13:33 | PDOC ---
Subjective: Subjective: Tolerating clears, pain is better, going to take a shower. Started spotting before admission - sees scant amount of blood in underwear but usually doesn't see any when she wears a pad. "I don't know where it's coming from." Noted w/ wiping and urinating and stooling. Doesn't have periods because has Mirena. Objective: Vital Signs: Vital Signs Date Time Temp Pulse Resp B/P (MAP) Pulse Ox O2 Delivery O2 Flow Rate FiO2 04/28/20 11:00 97.5 98 16 135/84 (101) 100 Room Air 97.5 PE: GEN: NAD, sitting in chair LUNGS: CTAB HEART: RRR ABD: obese, non-tender NEURO/PSYCH: A & O 3 A/P: Diverticulitis with microperf ?vaginal bleeding vs hematochezia Anemia - low TIBC, iron and saturation WNL -- Seen this morning when [employer] unavailable Nurse says Dr. Mcdaniels would like to possibly advance diet and consider DC - gave okay to try full liquids, will review possible DC w/ Dr. Santa. Outpt colonoscopy in a couple months. Justicifation of Admission Dx: Justifications for Admission: Justification of Admission Dx: N/A BAO EMERSON Apr 28, 2020 13:33
--- NOTE | 2020-04-28 14:12 | PDOC ---
VAN GONZALEZ WINCH OPERATOR 04/28/20 1412: SURGICAL PROGRESS NOTE Subjective tolerating diet feels well no pain Vital Signs Vital Signs Date Time Temp Pulse Resp B/P (MAP) Pulse Ox O2 Delivery O2 Flow Rate FiO2 04/28/20 11:00 97.5 98 16 135/84 (101) 100 Room Air 97.5 I&O Intake and Output 04/28/20 06:59 Intake Total 1250 ml Balance 1250 ml Intake Oral 200 ml IV Total 1050 ml # Voids 2 General: Alert, Oriented X3, Cooperative Abdomen: Soft, No tenderness Labs Laboratory Tests Test 04/27/20 06:15 04/28/20 04:30 White Blood Count 7.0 x10^3/uL (4.0-11.0) 6.6 x10^3/uL (4.0-11.0) Red Blood Count 4.13 x10^6/uL (3.50-5.40) 4.13 x10^6/uL (3.50-5.40) Hemoglobin 10.9 g/dL (12.0-15.5) 10.8 g/dL (12.0-15.5) Hematocrit 33.8 % (36.0-47.0) 33.9 % (36.0-47.0) Mean Corpuscular Volume 82 fL (79-100) 82 fL (79-100) Mean Corpuscular Hemoglobin 26 pg (25-35) 26 pg (25-35) Mean Corpuscular Hemoglobin Concent 32 g/dL (31-37) 32 g/dL (31-37) Red Cell Distribution Width 15.1 % (11.5-14.5) 14.9 % (11.5-14.5) Platelet Count 252 x10^3/uL (140-400) 280 x10^3/uL (140-400) Sodium Level 140 mmol/L (136-145) 141 mmol/L (136-145) Potassium Level 3.7 mmol/L (3.5-5.1) 3.8 mmol/L (3.5-5.1) Chloride Level 104 mmol/L (98-107) 106 mmol/L (98-107) Carbon Dioxide Level 27 mmol/L (21-32) 28 mmol/L (21-32) Anion Gap 9 (6-14) 7 (6-14) Blood Urea Nitrogen 7 mg/dL (7-20) 3 mg/dL (7-20) Creatinine 0.8 mg/dL (0.6-1.0) 0.8 mg/dL (0.6-1.0) Estimated GFR (Cockcroft-Gault) 96.1 96.1 Glucose Level 81 mg/dL (70-99) 97 mg/dL (70-99) Calcium Level 8.0 mg/dL (8.5-10.1) 8.2 mg/dL (8.5-10.1) Iron Level 59 ug/dL (50-170) Total Iron Binding Capacity 230 ug/dL (250-450) Iron Saturation 26 % (15-34) Ferritin 186 ng/mL (8-252) Laboratory Tests Test 04/28/20 04:30 White Blood Count 6.6 x10^3/uL (4.0-11.0) Red Blood Count 4.13 x10^6/uL (3.50-5.40) Hemoglobin 10.8 g/dL (12.0-15.5) Hematocrit 33.9 % (36.0-47.0) Mean Corpuscular Volume 82 fL (79-100) Mean Corpuscular Hemoglobin 26 pg (25-35) Mean Corpuscular Hemoglobin Concent 32 g/dL (31-37) Red Cell Distribution Width 14.9 % (11.5-14.5) Platelet Count 280 x10^3/uL (140-400) Sodium Level 141 mmol/L (136-145) Potassium Level 3.8 mmol/L (3.5-5.1) Chloride Level 106 mmol/L (98-107) Carbon Dioxide Level 28 mmol/L (21-32) Anion Gap 7 (6-14) Blood Urea Nitrogen 3 mg/dL (7-20) Creatinine 0.8 mg/dL (0.6-1.0) Estimated GFR (Cockcroft-Gault) 96.1 Glucose Level 97 mg/dL (70-99) Calcium Level 8.2 mg/dL (8.5-10.1) Problem List diverticulitis improving continue abx, scope as outpt per GI Justicifation of Admission Dx: Justifications for Admission: Justification of Admission Dx: N/A EMILIE MCFADDEN MD 04/29/20 0623: SURGICAL PROGRESS NOTE Assessment/Plan Overall patient improving. Continue with current care. Agree with Delmer's assessment and plan VAN GONZALEZ APRN Apr 28, 2020 14:12 EMILIE MCFADDEN MD Apr 29, 2020 06:23
[2020-04-28] MEDS ORDERED: METR-34 PO (14:48)
[2020-04-28] MEDS ORDERED: CIPR500T94 PO (14:49)
[2020-04-28] MEDS ORDERED: HYDR-2761 PO (14:50)
[2020-04-28 15:00] VITALS: BP 145/94
[2020-04-28 19:00] VITALS: BP 154/98
[2020-04-28 23:00] VITALS: BP 143/85
[2020-04-29] MEDS: PIPERACILLIN/TAZOBACTAM 3.375 GM in IV NORMAL SALINE 50ML 50 ML IV SCH ×3 (00:39→12:00)
[2020-04-29 03:00] VITALS: BP 156/89
[2020-04-29] MEDS: ACETAMINOPHEN 325 MG TABLET. PO PRN (06:12)
[2020-04-29] MEDS: POTASSIUM CL 40MEQ IN 0.9%NACL 1,000 ML IV SCH (06:30)
[2020-04-29 07:00] VITALS: BP 147/90
--- NOTE | 2020-04-29 08:57 | NUR ---
SW following. Discussed with RN, pt did not discharge yesterday as needed one more day of IV abx. RN advised plan for pt to discharge home today. SW will continue to follow should any discharge needs arise.
--- NOTE | 2020-04-29 09:28 | PDOC ---
SURGICAL PROGRESS NOTE Subjective no pain tolerating diet no n/v Vital Signs Vital Signs Date Time Temp Pulse Resp B/P (MAP) Pulse Ox O2 Delivery O2 Flow Rate FiO2 04/29/20 07:00 97.8 110 16 147/90 (109) 95 Room Air 97.8 I&O Intake and Output 04/29/20 07:00 Intake Total 770 ml Balance 770 ml Intake Oral 720 ml IV Total 50 ml # Voids 3 # Bowel Movements 1 General: Alert, Oriented X3, Cooperative Abdomen: Soft, No tenderness Labs Laboratory Tests Test 04/27/20 15:15 04/28/20 04:30 Coronavirus (COVID-19)(PCR) Not detected (NOT DETECT.) White Blood Count 6.6 x10^3/uL (4.0-11.0) Red Blood Count 4.13 x10^6/uL (3.50-5.40) Hemoglobin 10.8 g/dL (12.0-15.5) Hematocrit 33.9 % (36.0-47.0) Mean Corpuscular Volume 82 fL (79-100) Mean Corpuscular Hemoglobin 26 pg (25-35) Mean Corpuscular Hemoglobin Concent 32 g/dL (31-37) Red Cell Distribution Width 14.9 % (11.5-14.5) Platelet Count 280 x10^3/uL (140-400) Sodium Level 141 mmol/L (136-145) Potassium Level 3.8 mmol/L (3.5-5.1) Chloride Level 106 mmol/L (98-107) Carbon Dioxide Level 28 mmol/L (21-32) Anion Gap 7 (6-14) Blood Urea Nitrogen 3 mg/dL (7-20) Creatinine 0.8 mg/dL (0.6-1.0) Estimated GFR (Cockcroft-Gault) 96.1 Glucose Level 97 mg/dL (70-99) Calcium Level 8.2 mg/dL (8.5-10.1) Problem List continue abx, oral at dc FU with GI for scope Justicifation of Admission Dx: Justifications for Admission: Justification of Admission Dx: N/A VAN GONZALEZ BUSINESS SERVICES SPECIALIST SALES Apr 29, 2020 09:28
--- NOTE | 2020-04-29 09:55 | PDOC ---
Subjective: Subjective: Tolerating full liquids, no abd pain, stooling w/o blood, really wants to go home today. Objective: Vital Signs: Vital Signs Date Time Temp Pulse Resp B/P (MAP) Pulse Ox O2 Delivery O2 Flow Rate FiO2 04/29/20 07:00 97.8 110 16 147/90 (109) 95 Room Air 97.8 PE: GEN: NAD LUNGS: CTAB HEART: mildly tachycardic ABD: obese, quiet BS, non-tender NEURO/PSYCH: A & O 3 A/P: Diverticulitis with microperf -- Reviewed w/ Dr. Santa - she's anxious to DC - okay w/ GI on PO antibiotics per primary. Follow-up for colonoscopy as outpt. Justicifation of Admission Dx: Justifications for Admission: Justification of Admission Dx: N/A BAO EMERSON Apr 29, 2020 09:55
[2020-04-29] MEDS: amLODIPine BESYLATE 10 MG TABLET PO SCH (10:09)
[2020-04-29] MEDS: LACTOBACILLUS RHAMNOSUS GG 1 CAPSULE. PO SCH (10:09)
[2020-04-29 11:00] VITALS: BP 127/84
--- NOTE | 2020-04-29 11:04 | DS ---
DATE OF DISCHARGE: 04/29/2020 HOSPITAL COURSE: The patient is a 39-year-old -[place] female patient who was admitted as a transfer from [facility] Emergency Room where she was evaluated and was found to have with acute diverticulitis and walled-off microperforation. She was initially kept n.p.o., started on IV fluid, pain management and antiemetic, and she did well. We did start her on a clear liquid diet and her diet was advanced and she did well. She remained hemodynamically stable, afebrile. She was seen in consultation by the surgical team as well as benefits manager and the patient is tolerating diet. No nausea, no vomiting, no pain and therefore decision was made to discharge her to continue with oral antibiotic, to follow with GI team in 6 weeks' time for colonoscopy. PHYSICAL EXAMINATION: GENERAL: When I saw her this afternoon, she looked well and was clearly in no apparent respiratory distress. No pallor, jaundice, cyanosis or thyromegaly. No jugular venous distention. No limb edema. VITAL SIGNS: Her heart rate was 110, blood pressure was 147/90, her temperature was 97.8, respiratory rate was 16, and oxygen saturation was 95%. HEAD, EYES, EARS, NOSE AND THROAT: Normocephalic, atraumatic. NECK: Supple. HEART: Showed normal first and second heart sounds. No gallop or murmur. CHEST: Clear to auscultation. No crepitation or rhonchi. ABDOMEN: Distended, soft, nontender. NEUROLOGIC: She is awake, alert, responding appropriately. All cranial nerves intact. She moves extremities without difficulty. She ambulates without assistance or assistive devices. Her COVID-19 by PCR was not detected. LABORATORY DATA: White cell count was 6600, hemoglobin 11, hematocrit 33, MCV 82, and platelet count 280,000. Serum sodium was 141, potassium 3.8, chloride 106, bicarbonate 28, anion gap of 7, BUN 3, creatinine 0.8, estimated GFR was 96 mL per minute. Her glucose was 97, calcium was 8.2, serum iron was 59, TIBC was 213, iron saturation was 26%, and serum ferritin was high at 186. Her liver enzymes were all normal. The patient was discharged home to continue on amlodipine besylate 10 mg once a day, Celebrex 200 mg once a day, ciprofloxacin 500 mg twice a day for 7 days, fluoxetine 20 mg daily, hydrocodone/APAP 5/325 one tablet every 6 hours, metformin 500 mg with breakfast, Flagyl 500 mg 3 times a day and propranolol 80 mg daily and tizanidine 4 mg twice a day. FINAL DISCHARGE DIAGNOSES: 1. Acute diverticulitis with walled off microperforation. 2. Other medical problems include hypertension, well controlled. 3. Migraine headache. 4. Polycystic ovary syndrome. 5. Questionable type 2 diabetes. 6. Hypokalemia, it has resolved. MARIEL AGUIAR MD DR: IMANI/farheen JOB#: [id number] / [id number]
--- NOTE | 2020-04-29 11:52 | NUR ---
Patient verbalized discharge instructions. Patient stated she will follow up with Dr. Thong Hodge instead of Dr. Mcdaniels.
--- NOTE | 2020-04-29 12:24 | NUR ---
Patient discharged at approximately 1155.
== END 2020-04-29 11:55 | disposition home or self-care (01) | DRG 392 ==
LOC: 4 NORTH 16:19
PROVIDERS: ADMIT Internal Medicine; ATTEND Internal Medicine
DX: K57.20 Diverticulitis of large intestine with perforation and abscess without bleeding (principal); Z68.44 Body mass index [BMI] 60.0-69.9, adult; Z56.0 Unemployment, unspecified; I10 Essential (primary) hypertension; G43.909 Migraine, unspecified, not intractable, without status migrainosus; F17.200 Nicotine dependence, unspecified, uncomplicated; E87.6 Hypokalemia; E66.01 Morbid (severe) obesity due to excess calories; E28.2 Polycystic ovarian syndrome; Z20.828 Contact with and (suspected) exposure to other viral communicable diseases; Z79.899 Other long term (current) drug therapy; E11.9 Type 2 diabetes mellitus without complications
CPT/HCPCS: 36415; 80048; 80053; 82728; 82962; 83540; 83550; 85025; 85027; 96374; J2270; J2405; J2543; J3480; J7030; P9612; 99285-25; G0378; U0003-CS

== ENCOUNTER 2020-04-30 23:37 | Inpatient (IN) | payer SELFPAY ==
[~2020-04-30] VITALS: Ht 170.2 cm; Wt 191.9 kg
[~2020-04-30 23:37] MED LIST: AMLO10TA8 PO; CELE200C PO; CIPR500T94 PO; FLUO20TA11 PO; HYDR-2761 PO; METF-658 PO; METR-34 PO; PROP80CA3 PO; TIZA4TAB2 PO
--- NOTE | 2020-05-01 00:53 | PHYS DOC ---
Past Medical History Past Medical History: Unknown Smoking Status: Current Some Day Smoker Alcohol Use: Occasionally General Adult EDM: Chief Complaint: ABDOMINAL PAIN HPI: HPI: Patient is a 39 year old female with past medical history of diverticulitis presents with a chief complaint of lower abdominal pain. Patient states abdominal pain started approximately 3045 minutes prior to arrival. Patient states she had just taken a bowel movement and shortly after started to feel pressure in her lower abdomen. Patient denies any associated nausea or vomiting. Patient was just discharged from the hospital yesterday she was diagnosed and treated for diverticulitis. Review of Systems: Review of Systems: Constitutional: Denies fever or chills. [] Eyes: Denies change in visual acuity. [] HENT: Denies nasal congestion or sore throat. [] Respiratory: Denies cough or shortness of breath. [] Cardiovascular: Denies chest pain or edema. [] GI: Positive abdominal pain denies nausea denies vomiting denies diarrhea : Denies dysuria. [] Musculoskeletal: Denies back pain or joint pain. [] Integument: Denies rash. [] Neurologic: Denies headache, focal weakness or sensory changes. [] Endocrine: Denies polyuria or polydipsia. [] Lymphatic: Denies swollen glands. [] Psychiatric: Denies depression or anxiety. [] Heart Score: Risk Factors: Risk Factors: DM, Current or recent (<one month) smoker, HTN, HLP, family history of CAD, obesity. Risk Scores: Score 0 - 3: 2.5% MACE over next 6 weeks - Discharge Home Score 4 - 6: 20.3% MACE over next 6 weeks - Admit for Clinical Observation Score 7 - 10: 72.7% MACE over next 6 weeks - Early Invasive Strategies Current Medications: Current Medications Medications (Trade) Dose Ordered Sig/Keegan Start Time Stop Time Status Last Admin Dose Admin Ketorolac Tromethamine (Toradol 30mg Vial) 30 mg 1X ONCE 05/01/20 01:00 05/01/20 01:01 UNV Allergies: Allergies: Allergies Coded Allergies Type Severity Reaction Last Updated Verified No Known Drug Allergies 04/25/20 No Physical Exam: PE: Constitutional: Well developed, well nourished, no acute distress, non-toxic appearance. [] HENT: Normocephalic, atraumatic, bilateral external ears normal, oropharynx moist, no oral exudates, nose normal. [] Eyes: PERRLA, EOMI, conjunctiva normal, no discharge. [] Neck: Normal range of motion, no tenderness, supple, no stridor. [] Cardiovascular:Heart rate regular rhythm, no murmur [] Lungs & Thorax: Bilateral breath sounds clear to auscultation [] Abdomen: Bowel sounds normal, soft, no tenderness, no masses, no pulsatile masses. [] Skin: Warm, dry, no erythema, no rash. [] Back: No tenderness, no CVA tenderness. [] Extremities: No tenderness, no cyanosis, no clubbing, ROM intact, no edema. [] Neurologic: Alert and oriented X 3, normal motor function, normal sensory function, no focal deficits noted. [] Psychologic: Affect normal, judgement normal, mood normal. [] Current Patient Data: Vital Signs: Vital Signs Date Time Temp Pulse Resp B/P (MAP) Pulse Ox O2 Delivery O2 Flow Rate FiO2 05/01/20 00:15 98.3 80 16 128/74 (92) 100 Room Air 98.3 EKG: EKG: [] Radiology/Procedures: Radiology/Procedures: [] Impression: Comparison: None. Technique: After administration of intravenous contrast, helical CT of the abdomen and pelvis was performed from the lung bases through the ischial tuberosities. Coronal and sagittal reconstructions were obtained. 75 mL of Omnipaque 300 were used. One or more of the following dose reduction techniques were utilized: Automated exposure control (AEC), Adjustment of mA and/or kV according to patient size, Use of iterative reconstruction technique such as ASiR, CT scan done according to ALARA and image gently/image wisely Abdomen Findings: The visualized lung bases are clear. Cholecystectomy. The liver, pancreas, spleen, and bilateral adrenal glands are normal. Symmetric renal enhancement. There is no focal renal mass. There is no hydronephrosis. The visualized loops of small bowel are normal. Sigmoid colon diverticulosis with pericolic inflammation and several foci of adjacent extraluminal gas. Small amount of pneumoperitoneum also noted along the hepatic dome. There is no evidence of bowel obstruction. Appendix is normal. There is no free fluid. There is no mesenteric or retroperitoneal adenopathy. The abdominal aorta is normal in caliber. Pelvis Findings: Urinary bladder is normal. Uterus is present with IUD in place. No pelvic free fluid. There is no pelvic or inguinal adenopathy. There is no acute bony abnormality. IMPRESSION: Acute sigmoid diverticulitis with small amount of pneumoperitoneum adjacent to the colon and along the hepatic dome consistent with perforation. No fluid collection. Course & Med Decision Making: Course & Med Decision Making Pertinent Labs and Imaging studies reviewed. (See chart for details) []CT and labs reviewed. Patient with perforation. Patient treated with morphine and zofran. Kept NPO. Admitted to hospitalist with surgery consult. Dragon Disclaimer: Diana Disclaimer: This electronic medical record was generated, in whole or in part, using a voice recognition dictation system. Departure Departure Impression: Primary Impression: Acute diverticulitis Additional Impressions: Colon perforation Perforated diverticulum Disposition: ADMITTED INPATIENT Admitting Physician: SOLITARIO Condition: STABLE Referrals: NO PCP (PCP) Justicifation of Admission Dx: Justifications for Admission: Justification of Admission Dx: N/A NATALI CORDOBA DO May 01, 2020 00:53
[2020-05-01 00:55] LABS: BASO # 0.1 x10^3/uL (0.0-0.2); BASO % 1 % (0-3); EOS # 0.2 x10^3/uL (0.0-0.7); EOS % 2 % (0-3); HEMATOCRIT 36.3 % (36.0-47.0); HEMOGLOBIN 11.9 g/dL (12.0-15.5); LYMPH % 27 % (24-48); MEAN CORPUSCULAR HEMOGLOBIN 27 pg (25-35); MEAN CORPUSCULAR HGB CONC 33 g/dL (31-37); MEAN CORPUSCULAR VOLUME 82 fL (79-100); MONO # 0.4 x10^3/uL (0.0-1.1); MONO % 5 % (0-9); NEUT # 4.9 x10^3/uL (1.8-7.7); NEUT % 65 % (31-73); PLATELET COUNT 350 x10^3/uL (140-400); RED BLOOD COUNT 4.45 x10^6/uL (3.50-5.40); RED CELL DISTRIBUTION WIDTH 14.7 % (11.5-14.5); WHITE BLOOD COUNT 7.5 x10^3/uL (4.0-11.0)
[2020-05-01] MEDS ORDERED: KETOROLAC 30 MG/ML VIAL. IVP ONE (01:00)
[2020-05-01 01:04] LABS: CALCIUM 8.4 mg/dL (8.5-10.1); CREATININE 0.9 mg/dL (0.6-1.0); GFR 83.9; POTASSIUM 3.3 mmol/L (3.5-5.1)
[2020-05-01 01:10] LABS: ALBUMIN 2.8 g/dL (3.4-5.0); ALBUMIN/GLOBULIN RATIO 0.6 (1.0-1.7); TOTAL BILIRUBIN 0.2 mg/dL (0.2-1.0); TOTAL PROTEIN 7.4 g/dL (6.4-8.2)
[2020-05-01] MEDS ORDERED: IOHEXOL 300 MG/ML 100ML VIAL. IV ONE (02:00)
[2020-05-01] MEDS ORDERED: CONTRAST GIVEN. MC PRN (02:00)
--- NOTE | 2020-05-01 02:21 | RAD ---
CT ABD PELV W/ IV CONTRST ONLY History: Reason: abd pain / Spl. Instructions: / History: Comparison: None. Technique: After administration of intravenous contrast, helical CT of the abdomen and pelvis was performed from the lung bases through the ischial tuberosities. Coronal and sagittal reconstructions were obtained. 75 mL of Omnipaque 300 were used. One or more of the following dose reduction techniques were utilized: Automated exposure control (AEC), Adjustment of mA and/or kV according to patient size, Use of iterative reconstruction technique such as ASiR, CT scan done according to ALARA and image gently/image wisely Abdomen Findings: The visualized lung bases are clear. Cholecystectomy. The liver, pancreas, spleen, and bilateral adrenal glands are normal. Symmetric renal enhancement. There is no focal renal mass. There is no hydronephrosis. The visualized loops of small bowel are normal. Sigmoid colon diverticulosis with pericolic inflammation and several foci of adjacent extraluminal gas. Small amount of pneumoperitoneum also noted along the hepatic dome. There is no evidence of bowel obstruction. Appendix is normal. There is no free fluid. There is no mesenteric or retroperitoneal adenopathy. The abdominal aorta is normal in caliber. Pelvis Findings: Urinary bladder is normal. Uterus is present with IUD in place. No pelvic free fluid. There is no pelvic or inguinal adenopathy. There is no acute bony abnormality. IMPRESSION: Acute sigmoid diverticulitis with small amount of pneumoperitoneum adjacent to the colon and along the hepatic dome consistent with perforation. No fluid collection. Findings were called to the emergency department at 2:15 AM on 05/01/2020. FOR INTERNAL CODING PURPOSES RESULT CODE: (C) Electronically signed by: Stefan Hairston MD (05/01/2020 2:18 AM) [facility]
[2020-05-01] MEDS ORDERED: MORPHINE SULFATE 4 MG/ML VIAL. IV ONE (02:30)
[2020-05-01] MEDS ORDERED: ONDANSETRON PF 4 MG/2 ML VIAL. IM ONE (02:45)
[2020-05-01] MEDS ORDERED: PIPERACILLIN/TAZOBACTAM 4.5 GM in IV NORMAL SALINE 100ML 100 ML IV ONE (03:00)
[2020-05-01 03:39] VITALS: BP 119/76
[2020-05-01] MEDS ORDERED: PIPERACILLIN/TAZOBACTAM 4.5 GM in IV NORMAL SALINE 100ML 100 ML IV SCH (06:00)
[2020-05-01] MEDS: PIPERACILLIN/TAZOBACTAM 4.5 GM in IV NORMAL SALINE 100ML 100 ML IV SCH ×3 (06:12→18:35)
[2020-05-01 07:16] VITALS: BP 123/86
[2020-05-01] MEDS: MORPHINE SULFATE 4 MG/ML VIAL. IV PRN ×3 (09:13→21:05)
[2020-05-01] MEDS: ONDANSETRON PF 4 MG/2 ML VIAL. IVP PRN ×2 (09:14→21:05)
--- NOTE | 2020-05-01 09:45 | PDOC2 ---
VAN GONZALEZ [employer] 05/01/20 0945: CONSULT Date of Consult Date of Consult DATE: 05/01/20 TIME: 09:38 Reason for Consult Reason for Consult: diverticulitis Referring Physician Referring Physician: ER Identification/Chief Complaint Chief Complaint abdominal pain Source Source: Chart review, Patient History of Present Illness Reason for Visit: Known from admission last week, similar pain(however this time it was worse). She discharged on Tuesday and by Tuesday evening pain had returned. [place] pressure to pelvis after using bathroom. Loose stools, no blood Past Medical History Cardiovascular: HTN Pulmonary: No pertinent hx GI: Other Heme/Onc: No pertinent hx Hepatobiliary: No pertinent hx Psych: No pertinent hx Infectious disease: No pertinent hx Renal/: No pertinent hx Endocrine: No pertinent hx Past Surgical History Past Surgical History: No pertinent history Family History Family History: No Significant Social History ALCOHOL: rare Drugs: None Lives: with Family Current Problem List Problem List Problems Medical Problems: (1) Colon perforation Status: Acute (2) Perforated diverticulum Status: Acute Current Medications Current Medications Current Medications Ketorolac Tromethamine (Toradol 30mg Vial) 30 mg 1X ONCE IVP Last administered on 05/01/20at 01:22; Start 05/01/20 at 01:00; Stop 05/01/20 at 01:01; Status DC Iohexol (Omnipaque 300 Mg/ml) 75 ml 1X ONCE IV Last administered on 05/01/20at 02:10; Start 05/01/20 at 02:00; Stop 05/01/20 at 02:01; Status DC Info (CONTRAST GIVEN -- Rx MONITORING) 1 each PRN DAILY PRN MC SEE COMMENTS; Start 05/01/20 at 02:00; Stop 05/03/20 at 01:59 Morphine Sulfate (Morphine Sulfate) 4 mg 1X ONCE IV Last administered on 05/01/20at 02:32; Start 05/01/20 at 02:30; Stop 05/01/20 at 02:31; Status DC Ondansetron HCl (Zofran) 4 mg 1X ONCE IM Last administered on 05/01/20at 02:38; Start 05/01/20 at 02:45; Stop 05/01/20 at 02:46; Status DC Piperacillin Sod/ Tazobactam Sod 4.5 gm/Sodium Chloride 100 ml @ 200 mls/hr 1X ONCE IV Last administered on 05/01/20at 03:12; Start 05/01/20 at 03:00; Stop 05/01/20 at 03:29; Status DC Piperacillin Sod/ Tazobactam Sod 4.5 gm/Sodium Chloride 100 ml @ 200 mls/hr Q6HRS IV ; Start 05/01/20 at 06:00; Stop 05/01/20 at 05:05; Status DC Morphine Sulfate (Morphine Sulfate) 4 mg PRN Q2HR PRN IV PAIN Last administered on 05/01/20at 09:13; Start 05/01/20 at 03:30 Ondansetron HCl (Zofran) 4 mg PRN Q6HRS PRN IVP NAUSEA/VOMITING Last a dministered on 05/01/20at 09:14; Start 05/01/20 at 03:30 Piperacillin Sod/ Tazobactam Sod 4.5 gm/Sodium Chloride 100 ml @ 200 mls/hr Q6HRS IV Last administered on 05/01/20at 06:12; Start 05/01/20 at 06:00 Active Scripts Active Reported Hydrocodone-Apap 5-325 (Hydrocodone Bit/Acetaminophen) 1 Tab Tablet 1 Tab PO PRN Q6HRS PRN Cipro (Ciprofloxacin Hcl) 500 Mg Tablet 1 Tab PO BID 7 Days Metronidazole 500 Mg Tablet 1 Tab PO TID 7 Days Tizanidine Hcl 4 Mg Tablet 1 Tab PO BID Amlodipine Besylate 10 Mg Tablet 10 Mg PO DAILY Celebrex (Celecoxib) 200 Mg Capsule 200 Mg PO DAILY 30 Days Fluoxetine Hcl 20 Mg Tablet 20 Mg PO DAILY Propranolol Hcl 80 Mg Cap.sa.24h 80 Mg PO DAILY Metformin Hcl Er (Metformin Hcl) 500 Mg Tab.er.24h 500 Mg PO DAILYWBKFT Allergies Allergies: Coded Allergies: No Known Drug Allergies (Unverified , 04/25/20) ROS General: No: Chills, Other (fevers ) PSYCHOLOGICAL ROS: No: Anxiety, Depression Eyes: No Blurry vision, No Double vision HEENT: No: Heacaches, Sore Throat Hematological and Lymphatic: No: Bleeding Problems, Blood Clots Respiratory: No: Cough, Shortness of breath Cardiovascular: No Chest Pain, No Palpitations Gastrointestinal: Yes Other (see hpi) Genitourinary: No Dysuria, No Hematuria Musculoskeletal: No Joint Pain, No Muscle Pain Neurological: No Impaired Coord/balance, No Numbness/Tingling Skin: No Pruritus, No Rash Physical Exam General: Alert, Oriented X3, Cooperative HEENT: Atraumatic, PERRLA Lungs: Clear to auscultation Heart: No murmurs, Other (tachy low 100s) Abdomen: Soft, Other (TTP lower abdomen moderate, no guarding ) Extremities: No clubbing, No cyanosis Skin: No rashes, No breakdown Neuro: Normal gait, Normal speech Psych/Mental Status: Mental status NL, Mood NL MUSCULOSKELETAL: No deformity, No swelling Vitals VITALS Vital Signs Date Time Temp Pulse Resp B/P (MAP) Pulse Ox O2 Delivery O2 Flow Rate FiO2 05/01/20 09:13 18 Room Air 05/01/20 07:16 99.1 108 123/86 (98) 96 99.1 Labs Labs Laboratory Tests Test 05/01/20 00:45 White Blood Count 7.5 x10^3/uL (4.0-11.0) Red Blood Count 4.45 x10^6/uL (3.50-5.40) Hemoglobin 11.9 g/dL (12.0-15.5) Hematocrit 36.3 % (36.0-47.0) Mean Corpuscular Volume 82 fL (79-100) Mean Corpuscular Hemoglobin 27 pg (25-35) Mean Corpuscular Hemoglobin Concent 33 g/dL (31-37) Red Cell Distribution Width 14.7 % (11.5-14.5) Platelet Count 350 x10^3/uL (140-400) Neutrophils (%) (Auto) 65 % (31-73) Lymphocytes (%) (Auto) 27 % (24-48) Monocytes (%) (Auto) 5 % (0-9) Eosinophils (%) (Auto) 2 % (0-3) Basophils (%) (Auto) 1 % (0-3) Neutrophils # (Auto) 4.9 x10^3/uL (1.8-7.7) Lymphocytes # (Auto) 2.0 x10^3/uL (1.0-4.8) Monocytes # (Auto) 0.4 x10^3/uL (0.0-1.1) Eosinophils # (Auto) 0.2 x10^3/uL (0.0-0.7) Basophils # (Auto) 0.1 x10^3/uL (0.0-0.2) Sodium Level 142 mmol/L (136-145) Potassium Level 3.3 mmol/L (3.5-5.1) Chloride Level 104 mmol/L (98-107) Carbon Dioxide Level 29 mmol/L (21-32) Anion Gap 9 (6-14) Blood Urea Nitrogen 4 mg/dL (7-20) Creatinine 0.9 mg/dL (0.6-1.0) Estimated GFR (Cockcroft-Gault) 83.9 BUN/Creatinine Ratio 4 (6-20) Glucose Level 118 mg/dL (70-99) Calcium Level 8.4 mg/dL (8.5-10.1) Total Bilirubin 0.2 mg/dL (0.2-1.0) Aspartate Amino Transf (AST/SGOT) 18 U/L (15-37) Alanine Aminotransferase (ALT/SGPT) 32 U/L (14-59) Alkaline Phosphatase 65 U/L (46-116) Total Protein 7.4 g/dL (6.4-8.2) Albumin 2.8 g/dL (3.4-5.0) Albumin/Globulin Ratio 0.6 (1.0-1.7) Laboratory Tests Test 05/01/20 00:45 White Blood Count 7.5 x10^3/uL (4.0-11.0) Red Blood Count 4.45 x10^6/uL (3.50-5.40) Hemoglobin 11.9 g/dL (12.0-15.5) Hematocrit 36.3 % (36.0-47.0) Mean Corpuscular Volume 82 fL (79-100) Mean Corpuscular Hemoglobin 27 pg (25-35) Mean Corpuscular Hemoglobin Concent 33 g/dL (31-37) Red Cell Distribution Width 14.7 % (11.5-14.5) Platelet Count 350 x10^3/uL (140-400) Neutrophils (%) (Auto) 65 % (31-73) Lymphocytes (%) (Auto) 27 % (24-48) Monocytes (%) (Auto) 5 % (0-9) Eosinophils (%) (Auto) 2 % (0-3) Basophils (%) (Auto) 1 % (0-3) Neutrophils # (Auto) 4.9 x10^3/uL (1.8-7.7) Lymphocytes # (Auto) 2.0 x10^3/uL (1.0-4.8) Monocytes # (Auto) 0.4 x10^3/uL (0.0-1.1) Eosinophils # (Auto) 0.2 x10^3/uL (0.0-0.7) Basophils # (Auto) 0.1 x10^3/uL (0.0-0.2) Sodium Level 142 mmol/L (136-145) Potassium Level 3.3 mmol/L (3.5-5.1) Chloride Level 104 mmol/L (98-107) Carbon Dioxide Level 29 mmol/L (21-32) Anion Gap 9 (6-14) Blood Urea Nitrogen 4 mg/dL (7-20) Creatinine 0.9 mg/dL (0.6-1.0) Estimated GFR (Cockcroft-Gault) 83.9 BUN/Creatinine Ratio 4 (6-20) Glucose Level 118 mg/dL (70-99) Calcium Level 8.4 mg/dL (8.5-10.1) Total Bilirubin 0.2 mg/dL (0.2-1.0) Aspartate Amino Transf (AST/SGOT) 18 U/L (15-37) Alanine Aminotransferase (ALT/SGPT) 32 U/L (14-59) Alkaline Phosphatase 65 U/L (46-116) Total Protein 7.4 g/dL (6.4-8.2) Albumin 2.8 g/dL (3.4-5.0) Albumin/Globulin Ratio 0.6 (1.0-1.7) Assessment/Plan Assessment/Plan acute diverticulitis CT reviewed, no fluid collection WBC 7.9 obesity with BMI 66.3 attempt to manage with bowel rest, EMILIE Barboza MD 05/01/20 1040: CONSULT Assessment/Plan Assessment/Plan Patient seen and examined by me she states that she was at home ate a meal "ate the wrong thing and began having more severe abdominal pain is why she came back to the emergency department. Currently resting fairly comfortably in bed she does describe some left lower quadrant abdominal pain abdomen is morbidly obese tender to palpation in the left lower quadrant not much change from when she was previously in the hospital. CT scan reviewed showing diverticulitis similar to when she was previously in no evidence of fluid collection or abscess. Agree with Lay assessment plan treat with antibiotics bowel rest once taking diet might recommend gentle bowel prep with MiraLAX VAN GONZALEZ APRN May 01, 2020 09:45 EMILIE MCFADDEN MD May 01, 2020 10:40
[2020-05-01 11:12] VITALS: BP 114/79
[2020-05-01 11:48] LABS: CALCIUM 8.3 mg/dL (8.5-10.1); CREATININE 0.9 mg/dL (0.6-1.0); GFR 83.9; POTASSIUM 3.6 mmol/L (3.5-5.1)
--- NOTE | 2020-05-01 11:48 | PDOC1 ---
History and Physical Date of Admission: Date of Admission DATE: 05/01/20 TIME: 11:46 Chief Complaint: Problems: (1) Hypertension (2) Colon perforation (3) Perforated diverticulum (4) Acute diverticulitis Chief Complain: Abdominal pain History of Present Illness: HPI: This is a middle-aged -[place] female who had a recent perforated colon She was treated with antibiotics and observation and did well and was discharged a couple days ago Last night she returned after eating some broccoli and cheese soup with increasing abdominal pain I discussed case with ER physician Were going to admit and give her IV antibiotics Past Medical/Surgical History: PMH/PSH: Recent perforated bowel Overweight Allergies: Allergies: Coded Allergies: No Known Drug Allergies (Unverified , 04/25/20) Family History: Family History: Hypertension Current Medications: Current Medications Current Medications Ketorolac Tromethamine (Toradol 30mg Vial) 30 mg 1X ONCE IVP Last administered on 05/01/20at 01:22; Start 05/01/20 at 01:00; Stop 05/01/20 at 01:01; Status DC Iohexol (Omnipaque 300 Mg/ml) 75 ml 1X ONCE IV Last administered on 05/01/20at 02:10; Start 05/01/20 at 02:00; Stop 05/01/20 at 02:01; Status DC Info (CONTRAST GIVEN -- Rx MONITORING) 1 each PRN DAILY PRN MC SEE COMMENTS; Start 05/01/20 at 02:00; Stop 05/03/20 at 01:59 Morphine Sulfate (Morphine Sulfate) 4 mg 1X ONCE IV Last administered on 05/01/20at 02:32; Start 05/01/20 at 02:30; Stop 05/01/20 at 02:31; Status DC Ondansetron HCl (Zofran) 4 mg 1X ONCE IM Last administered on 05/01/20at 02:38; Start 05/01/20 at 02:45; Stop 05/01/20 at 02:46; Status DC Piperacillin Sod/ Tazobactam Sod 4.5 gm/Sodium Chloride 100 ml @ 200 mls/hr 1X ONCE IV Last administered on 05/01/20at 03:12; Start 05/01/20 at 03:00; Stop 05/01/20 at 03:29; Status DC Piperacillin Sod/ Tazobactam Sod 4.5 gm/Sodium Chloride 100 ml @ 200 mls/hr Q6HRS IV ; Start 05/01/20 at 06:00; Stop 05/01/20 at 05:05; Status DC Morphine Sulfate (Morphine Sulfate) 4 mg PRN Q2HR PRN IV PAIN Last administered on 05/01/20at 09:13; Start 05/01/20 at 03:30 Ondansetron HCl (Zofran) 4 mg PRN Q6HRS PRN IVP NAUSEA/VOMITING Last ad ministered on 05/01/20at 09:14; Start 05/01/20 at 03:30 Piperacillin Sod/ Tazobactam Sod 4.5 gm/Sodium Chloride 100 ml @ 200 mls/hr Q6HRS IV Last administered on 05/01/20at 06:12; Start 05/01/20 at 06:00 Metronidazole 100 ml @ 100 mls/hr Q8HRS IV Last administered on 05/01/20at 10:52; Start 05/01/20 at 10:00 Active Scripts Active Reported Hydrocodone-Apap 5-325 (Hydrocodone Bit/Acetaminophen) 1 Tab Tablet 1 Tab PO PRN Q6HRS PRN Cipro (Ciprofloxacin Hcl) 500 Mg Tablet 1 Tab PO BID 7 Days Metronidazole 500 Mg Tablet 1 Tab PO TID 7 Days Tizanidine Hcl 4 Mg Tablet 1 Tab PO BID Amlodipine Besylate 10 Mg Tablet 10 Mg PO DAILY Celebrex (Celecoxib) 200 Mg Capsule 200 Mg PO DAILY 30 Days Fluoxetine Hcl 20 Mg Tablet 20 Mg PO DAILY Propranolol Hcl 80 Mg Cap.sa.24h 80 Mg PO DAILY Metformin Hcl Er (Metformin Hcl) 500 Mg Tab.er.24h 500 Mg PO DAILYWBKFT ROS: Review of Systems Review of System REVIEW OF SYSTEMS: GENERAL: Denies weakness SKIN: No bruising, hair changes or rashes. EYES: No blurred, double or loss of vision. NOSE AND THROAT: No history of nosebleeds, hoarseness or sore throat. HEART: No history of palpitations, chest pain or shortness of breath on exertion. LUNGS: Denies cough, hemoptysis, wheezing or shortness of breath. GASTROINTESTINAL: Denies changes in appetite, nausea, vomiting, diarrhea or constipation. GENITOURINARY: No history of frequency, urgency, hesitancy or nocturia. NEUROLOGIC: Denies history of numbness, tingling, or tremor. PSYCHIATRIC: No history of panic, anxiety or depression. ENDOCRINE: No history of heat or cold intolerance, polyuria or polydipsia. EXTREMITIES: Denies joint pain, pain on walking or stiffness. Physical Exam: Vital Signs: Vital Signs Date Time Temp Pulse Resp B/P (MAP) Pulse Ox O2 Delivery O2 Flow Rate FiO2 05/01/20 11:12 99.2 111 17 114/79 (91) 95 Room Air 99.2 Physcial Exam: GEN: No apparent distress. Alert and oriented HEENT: Normal cephalic, atraumatic, external auditory canals are patent EYES: Extraocular muscles are intact, pupil are equally round and reactive to light and accommodation MUSCULOSKELETAL: Well developed , well nourished, good range of motion ENDOCRINE: No thyromegaly was palpated LYMPHATICS: No cervical chain or axillary nodes were noted HEMATOPOIETIC: No bruising NECK: Supple, no JVD, no thyromegaly was noted LUNGS: Clear to auscultation in all lung santos without rhonchi or wheezing HEART: RRR, S!, S2 present. Peripheral pulses intact, no obvious murmurs noted ABDOMEN: Soft, nontender. Positive bowel sounds, no organomegaly, normal bowel sounds EXTREMITIES: Without clubbing, cyanosis, or edema. Pedal pulses intact. Negative Homans sign NEUROLOGIC: Normal speech and tone. A&O x 3, moves all extremities, no obvious focal deficits PSYCHIATRIC: Normal affect, normal mood. Stable SKIN: No ulcerations or rashes, good skin turgor, no jaundice VASCULAR: Good capillary refill, neurovascular bundle appears to be intact Labs: Labs: Laboratory Tests Test 05/01/20 00:45 White Blood Count 7.5 x10^3/uL (4.0-11.0) Red Blood Count 4.45 x10^6/uL (3.50-5.40) Hemoglobin 11.9 g/dL (12.0-15.5) Hematocrit 36.3 % (36.0-47.0) Mean Corpuscular Volume 82 fL (79-100) Mean Corpuscular Hemoglobin 27 pg (25-35) Mean Corpuscular Hemoglobin Concent 33 g/dL (31-37) Red Cell Distribution Width 14.7 % (11.5-14.5) Platelet Count 350 x10^3/uL (140-400) Neutrophils (%) (Auto) 65 % (31-73) Lymphocytes (%) (Auto) 27 % (24-48) Monocytes (%) (Auto) 5 % (0-9) Eosinophils (%) (Auto) 2 % (0-3) Basophils (%) (Auto) 1 % (0-3) Neutrophils # (Auto) 4.9 x10^3/uL (1.8-7.7) Lymphocytes # (Auto) 2.0 x10^3/uL (1.0-4.8) Monocytes # (Auto) 0.4 x10^3/uL (0.0-1.1) Eosinophils # (Auto) 0.2 x10^3/uL (0.0-0.7) Basophils # (Auto) 0.1 x10^3/uL (0.0-0.2) Sodium Level 142 mmol/L (136-145) Potassium Level 3.3 mmol/L (3.5-5.1) Chloride Level 104 mmol/L (98-107) Carbon Dioxide Level 29 mmol/L (21-32) Anion Gap 9 (6-14) Blood Urea Nitrogen 4 mg/dL (7-20) Creatinine 0.9 mg/dL (0.6-1.0) Estimated GFR (Cockcroft-Gault) 83.9 BUN/Creatinine Ratio 4 (6-20) Glucose Level 118 mg/dL (70-99) Calcium Level 8.4 mg/dL (8.5-10.1) Total Bilirubin 0.2 mg/dL (0.2-1.0) Aspartate Amino Transf (AST/SGOT) 18 U/L (15-37) Alanine Aminotransferase (ALT/SGPT) 32 U/L (14-59) Alkaline Phosphatase 65 U/L (46-116) Total Protein 7.4 g/dL (6.4-8.2) Albumin 2.8 g/dL (3.4-5.0) Albumin/Globulin Ratio 0.6 (1.0-1.7) Laboratory Tests Test 05/01/20 00:45 White Blood Count 7.5 x10^3/uL (4.0-11.0) Red Blood Count 4.45 x10^6/uL (3.50-5.40) Hemoglobin 11.9 g/dL (12.0-15.5) Hematocrit 36.3 % (36.0-47.0) Mean Corpuscular Volume 82 fL (79-100) Mean Corpuscular Hemoglobin 27 pg (25-35) Mean Corpuscular Hemoglobin Concent 33 g/dL (31-37) Red Cell Distribution Width 14.7 % (11.5-14.5) Platelet Count 350 x10^3/uL (140-400) Neutrophils (%) (Auto) 65 % (31-73) Lymphocytes (%) (Auto) 27 % (24-48) Monocytes (%) (Auto) 5 % (0-9) Eosinophils (%) (Auto) 2 % (0-3) Basophils (%) (Auto) 1 % (0-3) Neutrophils # (Auto) 4.9 x10^3/uL (1.8-7.7) Lymphocytes # (Auto) 2.0 x10^3/uL (1.0-4.8) Monocytes # (Auto) 0.4 x10^3/uL (0.0-1.1) Eosinophils # (Auto) 0.2 x10^3/uL (0.0-0.7) Basophils # (Auto) 0.1 x10^3/uL (0.0-0.2) Sodium Level 142 mmol/L (136-145) Potassium Level 3.3 mmol/L (3.5-5.1) Chloride Level 104 mmol/L (98-107) Carbon Dioxide Level 29 mmol/L (21-32) Anion Gap 9 (6-14) Blood Urea Nitrogen 4 mg/dL (7-20) Creatinine 0.9 mg/dL (0.6-1.0) Estimated GFR (Cockcroft-Gault) 83.9 BUN/Creatinine Ratio 4 (6-20) Glucose Level 118 mg/dL (70-99) Calcium Level 8.4 mg/dL (8.5-10.1) Total Bilirubin 0.2 mg/dL (0.2-1.0) Aspartate Amino Transf (AST/SGOT) 18 U/L (15-37) Alanine Aminotransferase (ALT/SGPT) 32 U/L (14-59) Alkaline Phosphatase 65 U/L (46-116) Total Protein 7.4 g/dL (6.4-8.2) Albumin 2.8 g/dL (3.4-5.0) Albumin/Globulin Ratio 0.6 (1.0-1.7) Assessment/Plan Assessment/Plan Perforated bowel diverticulitis overweight Plan IV antibiotics Consult general surgery Home meds DVT prophylaxis Full code N.p.o. IV fluids PRN pain meds Prognosis guarded Justicifation of Admission Dx: Justifications for Admission: Justification of Admission Dx: N/A JESSICA PEREA III DO May 01, 2020 11:48
[2020-05-01 15:10] VITALS: BP 114/79
--- NOTE | 2020-05-01 17:15 | NUR ---
SW following. Reviewed chart and spoke with RN and CM. Pt from home. Pt consulted for pulmonology and nephrology. Pt on oral medications and room air. SW to continue following.
[2020-05-01 19:00] VITALS: BP 115/65
[2020-05-01 23:00] VITALS: BP 110/64
[2020-05-02] MEDS: PIPERACILLIN/TAZOBACTAM 4.5 GM in IV NORMAL SALINE 100ML 100 ML IV SCH ×4 (01:28→17:40)
[2020-05-02 05:47] LABS: BASO % 0 % (0-3); EOS # 0.1 x10^3/uL (0.0-0.7); EOS % 0 % (0-3); HEMATOCRIT 35.2 % (36.0-47.0); HEMOGLOBIN 11.5 g/dL (12.0-15.5); LYMPH # 1.2 x10^3/uL (1.0-4.8); LYMPH % 9 % (24-48); MEAN CORPUSCULAR HEMOGLOBIN 27 pg (25-35); MEAN CORPUSCULAR HGB CONC 33 g/dL (31-37); MEAN CORPUSCULAR VOLUME 82 fL (79-100); MONO # 0.6 x10^3/uL (0.0-1.1); MONO % 4 % (0-9); NEUT # 12.4 x10^3/uL (1.8-7.7); NEUT % 86 % (31-73); PLATELET COUNT 334 x10^3/uL (140-400); RED BLOOD COUNT 4.32 x10^6/uL (3.50-5.40); RED CELL DISTRIBUTION WIDTH 15.3 % (11.5-14.5); WHITE BLOOD COUNT 14.4 x10^3/uL (4.0-11.0)
[2020-05-02] MEDS: ONDANSETRON PF 4 MG/2 ML VIAL. IVP PRN ×2 (06:31→15:38)
[2020-05-02] MEDS: MORPHINE SULFATE 4 MG/ML VIAL. IV PRN (06:32)
[2020-05-02 07:29] LABS: % BANDS 10 % (0-9); % LYMPHS 9 % (24-48); % MONOS 4 % (0-10); % SEGS 77 % (35-66); PLT ESTIMATE ADEQUATE (ADEQUATE)
[2020-05-02 07:55] VITALS: BP 109/65
--- NOTE | 2020-05-02 09:58 | PDOC2 ---
CONSULT Date of Consult Date of Consult DATE: 05/02/20 TIME: 09:53 Reason for Consult Reason for Consult: Abdominal pain history of diverticulitis Referring Physician Referring Physician: Basia Identification/Chief Complaint Chief Complaint Abdominal pain after eating dinner Source Source: Chart review, Patient History of Present Illness Reason for Visit: 39-year-old female morbidly obese hospitalized last week with a diverticulitis with microperforation by CT scan she underwent treatment with IV antibiotics and was improving had started on liquid diet was discharged to home on oral antibiotics. The patient states that she ate broccoli and cheese and became severely ill with severe abdominal pain after eating. She states she is been having bowel movements no blood in her stool this time Past Medical History Cardiovascular: HTN Pulmonary: No pertinent hx GI: Other Heme/Onc: No pertinent hx Hepatobiliary: No pertinent hx Psych: No pertinent hx Infectious disease: No pertinent hx Renal/: No pertinent hx Endocrine: No pertinent hx Past Surgical History Past Surgical History: No pertinent history Family History Family History: No Significant Social History ALCOHOL: rare Drugs: None Lives: with Family Current Problem List Problem List Problems Medical Problems: (1) Colon perforation Status: Acute (2) Perforated diverticulum Status: Acute Current Medications Current Medications Current Medications Ketorolac Tromethamine (Toradol 30mg Vial) 30 mg 1X ONCE IVP Last administered on 05/01/20at 01:22; Start 05/01/20 at 01:00; Stop 05/01/20 at 01:01; Status DC Iohexol (Omnipaque 300 Mg/ml) 75 ml 1X ONCE IV Last administered on 05/01/20at 02:10; Start 05/01/20 at 02:00; Stop 05/01/20 at 02:01; Status DC Info (CONTRAST GIVEN -- Rx MONITORING) 1 each PRN DAILY PRN MC SEE COMMENTS; Start 05/01/20 at 02:00; Stop 05/03/20 at 01:59 Morphine Sulfate (Morphine Sulfate) 4 mg 1X ONCE IV Last administered on 05/01/20at 02:32; Start 05/01/20 at 02:30; Stop 05/01/20 at 02:31; Status DC Ondansetron HCl (Zofran) 4 mg 1X ONCE IM Last administered on 05/01/20at 02:38; Start 05/01/20 at 02:45; Stop 05/01/20 at 02:46; Status DC Piperacillin Sod/ Tazobactam Sod 4.5 gm/Sodium Chloride 100 ml @ 200 mls/hr 1X ONCE IV Last administered on 05/01/20at 03:12; Start 05/01/20 at 03:00; Stop 05/01/20 at 03:29; Status DC Piperacillin Sod/ Tazobactam Sod 4.5 gm/Sodium Chloride 100 ml @ 200 mls/hr Q6HRS IV ; Start 05/01/20 at 06:00; Stop 05/01/20 at 05:05; Status DC Morphine Sulfate (Morphine Sulfate) 4 mg PRN Q2HR PRN IV PAIN Last administered on 05/02/20at 06:32; Start 05/01/20 at 03:30 Ondansetron HCl (Zofran) 4 mg PRN Q6HRS PRN IVP NAUSEA/VOMITING Last administered on 05/02/20at 06:31; Start 05/01/20 at 03:30 Piperacillin Sod/ Tazobactam Sod 4.5 gm/Sodium Chloride 100 ml @ 200 mls/hr Q6HRS IV Last administered on 05/02/20at 06:25; Start 05/01/20 at 06:00 Metronidazole 100 ml @ 100 mls/hr Q8HRS IV Last administered on 05/02/20at 0 6:26; Start 05/01/20 at 10:00 Active Scripts Active Reported Hydrocodone-Apap 5-325 (Hydrocodone Bit/Acetaminophen) 1 Tab Tablet 1 Tab PO PRN Q6HRS PRN Cipro (Ciprofloxacin Hcl) 500 Mg Tablet 1 Tab PO BID 7 Days Metronidazole 500 Mg Tablet 1 Tab PO TID 7 Days Tizanidine Hcl 4 Mg Tablet 1 Tab PO BID Amlodipine Besylate 10 Mg Tablet 10 Mg PO DAILY Celebrex (Celecoxib) 200 Mg Capsule 200 Mg PO DAILY 30 Days Fluoxetine Hcl 20 Mg Tablet 20 Mg PO DAILY Propranolol Hcl 80 Mg Cap.sa.24h 80 Mg PO DAILY Metformin Hcl Er (Metformin Hcl) 500 Mg Tab.er.24h 500 Mg PO DAILYWBKFT Allergies Allergies: Coded Allergies: No Known Drug Allergies (Unverified , 04/25/20) ROS Gastrointestinal: Yes Abdominal Pain Physical Exam General: Alert, Oriented X3, Cooperative, mild distress HEENT: Atraumatic Lungs: Clear to auscultation, Normal air movement Heart: Regular rate, No murmurs Abdomen: Normal bowel sounds, Soft, Other (Tender to palpation across the lower abdomen worse on the right side than left) Extremities: No edema Skin: No significant lesion Neuro: Normal speech Psych/Mental Status: Mental status NL Vitals VITALS Vital Signs Date Time Temp Pulse Resp B/P (MAP) Pulse Ox O2 Delivery O2 Flow Rate FiO2 05/02/20 07:55 97.7 120 16 109/65 (80) 92 Room Air 97.7 Labs Labs Laboratory Tests Test 05/01/20 00:45 05/01/20 11:25 05/02/20 04:30 White Blood Count 7.5 x10^3/uL (4.0-11.0) 14.4 x10^3/uL (4.0-11.0) Red Blood Count 4.45 x10^6/uL (3.50-5.40) 4.32 x10^6/uL (3.50-5.40) Hemoglobin 11.9 g/dL (12.0-15.5) 11.5 g/dL (12.0-15.5) Hematocrit 36.3 % (36.0-47.0) 35.2 % (36.0-47.0) Mean Corpuscular Volume 82 fL (79-100) 82 fL (79-100) Mean Corpuscular Hemoglobin 27 pg (25-35) 27 pg (25-35) Mean Corpuscular Hemoglobin Concent 33 g/dL (31-37) 33 g/dL (31-37) Red Cell Distribution Width 14.7 % (11.5-14.5) 15.3 % (11.5-14.5) Platelet Count 350 x10^3/uL (140-400) 334 x10^3/uL (140-400) Neutrophils (%) (Auto) 65 % (31-73) 86 % (31-73) Lymphocytes (%) (Auto) 27 % (24-48) 9 % (24-48) Monocytes (%) (Auto) 5 % (0-9) 4 % (0-9) Eosinophils (%) (Auto) 2 % (0-3) 0 % (0-3) Basophils (%) (Auto) 1 % (0-3) 0 % (0-3) Neutrophils # (Auto) 4.9 x10^3/uL (1.8-7.7) 12.4 x10^3/uL (1.8-7.7) Lymphocytes # (Auto) 2.0 x10^3/uL (1.0-4.8) 1.2 x10^3/uL (1.0-4.8) Monocytes # (Auto) 0.4 x10^3/uL (0.0-1.1) 0.6 x10^3/uL (0.0-1.1) Eosinophils # (Auto) 0.2 x10^3/uL (0.0-0.7) 0.1 x10^3/uL (0.0-0.7) Basophils # (Auto) 0.1 x10^3/uL (0.0-0.2) 0.0 x10^3/uL (0.0-0.2) Sodium Level 142 mmol/L (136-145) 140 mmol/L (136-145) Potassium Level 3.3 mmol/L (3.5-5.1) 3.6 mmol/L (3.5-5.1) Chloride Level 104 mmol/L (98-107) 103 mmol/L (98-107) Carbon Dioxide Level 29 mmol/L (21-32) 30 mmol/L (21-32) Anion Gap 9 (6-14) 7 (6-14) Blood Urea Nitrogen 4 mg/dL (7-20) 3 mg/dL (7-20) Creatinine 0.9 mg/dL (0.6-1.0) 0.9 mg/dL (0.6-1.0) Estimated GFR (Cockcroft-Gault) 83.9 83.9 BUN/Creatinine Ratio 4 (6-20) Glucose Level 118 mg/dL (70-99) 108 mg/dL (70-99) Calcium Level 8.4 mg/dL (8.5-10.1) 8.3 mg/dL (8.5-10.1) Total Bilirubin 0.2 mg/dL (0.2-1.0) Aspartate Amino Transf (AST/SGOT) 18 U/L (15-37) Alanine Aminotransferase (ALT/SGPT) 32 U/L (14-59) Alkaline Phosphatase 65 U/L (46-116) Total Protein 7.4 g/dL (6.4-8.2) Albumin 2.8 g/dL (3.4-5.0) Albumin/Globulin Ratio 0.6 (1.0-1.7) Segmented Neutrophils % 77 % (35-66) Band Neutrophils % 10 % (0-9) Lymphocytes % 9 % (24-48) Monocytes % 4 % (0-10) Platelet Estimate Adequate (ADEQUATE) Giant Platelets Occ Laboratory Tests Test 05/01/20 11:25 05/02/20 04:30 Sodium Level 140 mmol/L (136-145) Potassium Level 3.6 mmol/L (3.5-5.1) Chloride Level 103 mmol/L (98-107) Carbon Dioxide Level 30 mmol/L (21-32) Anion Gap 7 (6-14) Blood Urea Nitrogen 3 mg/dL (7-20) Creatinine 0.9 mg/dL (0.6-1.0) Estimated GFR (Cockcroft-Gault) 83.9 Glucose Level 108 mg/dL (70-99) Calcium Level 8.3 mg/dL (8.5-10.1) White Blood Count 14.4 x10^3/uL (4.0-11.0) Red Blood Count 4.32 x10^6/uL (3.50-5.40) Hemoglobin 11.5 g/dL (12.0-15.5) Hematocrit 35.2 % (36.0-47.0) Mean Corpuscular Volume 82 fL (79-100) Mean Corpuscular Hemoglobin 27 pg (25-35) Mean Corpuscular Hemoglobin Concent 33 g/dL (31-37) Red Cell Distribution Width 15.3 % (11.5-14.5) Platelet Count 334 x10^3/uL (140-400) Neutrophils (%) (Auto) 86 % (31-73) Lymphocytes (%) (Auto) 9 % (24-48) Monocytes (%) (Auto) 4 % (0-9) Eosinophils (%) (Auto) 0 % (0-3) Basophils (%) (Auto) 0 % (0-3) Neutrophils # (Auto) 12.4 x10^3/uL (1.8-7.7) Lymphocytes # (Auto) 1.2 x10^3/uL (1.0-4.8) Monocytes # (Auto) 0.6 x10^3/uL (0.0-1.1) Eosinophils # (Auto) 0.1 x10^3/uL (0.0-0.7) Basophils # (Auto) 0.0 x10^3/uL (0.0-0.2) Segmented Neutrophils % 77 % (35-66) Band Neutrophils % 10 % (0-9) Lymphocytes % 9 % (24-48) Monocytes % 4 % (0-10) Platelet Estimate Adequate (ADEQUATE) Giant Platelets Occ Assessment/Plan Assessment/Plan Lower abdominal pain likely due to her diverticulitis, leukocytosis low-grade fever Agree with IV antibiotic treatment of her diverticulitis will follow EMILIE MCFADDEN MD May 02, 2020 09:58
[2020-05-02 11:00] VITALS: BP 119/84
[2020-05-02] MEDS: IV NORMAL SALINE 1000ML BAG 1,000 ML IV SCH (12:58)
[2020-05-02] MEDS: metFORMIN XR 500 MG TAB.ER.24H PO SCH (13:00)
--- NOTE | 2020-05-02 13:10 | PDOC ---
[employer] PROGRESS NOTE Chief Complaint Chief Complaint Perforated bowel diverticulitis overweight History of Present Illness History of Present Illness 05/02/2020 Patient seen and examined She is about the same clinically Still having some abdominal pain Her urine looks awfully dark (she has a clear wick device on) Chart reviewed Discussed with case management Discussed with RN Vitals/I&O Vitals/I&O: Vital Signs Date Time Temp Pulse Resp B/P (MAP) Pulse Ox O2 Delivery O2 Flow Rate FiO2 05/02/20 11:00 99.1 122 17 119/84 (96) 95 Room Air 99.1 I & O 05/01/20 05/01/20 05/02/20 15:00 23:00 07:00 Intake Total 50 ml 0 ml 0 ml Output Total 800 ml 600 ml Balance -750 ml -600 ml 0 ml Physical Exam General: Alert, Oriented X3, Cooperative, mild distress Heart: Regular rate, No murmurs Lungs: Clear Abdomen: Normal bowel sounds, Soft, Other (Tender to palpation across the lower abdomen worse on the right side than left) Extremities: No clubbing, No edema Skin: No rashes, No significant lesion Labs Labs: Laboratory Tests Test 05/02/20 04:30 White Blood Count 14.4 x10^3/uL (4.0-11.0) Red Blood Count 4.32 x10^6/uL (3.50-5.40) Hemoglobin 11.5 g/dL (12.0-15.5) Hematocrit 35.2 % (36.0-47.0) Mean Corpuscular Volume 82 fL (79-100) Mean Corpuscular Hemoglobin 27 pg (25-35) Mean Corpuscular Hemoglobin Concent 33 g/dL (31-37) Red Cell Distribution Width 15.3 % (11.5-14.5) Platelet Count 334 x10^3/uL (140-400) Neutrophils (%) (Auto) 86 % (31-73) Lymphocytes (%) (Auto) 9 % (24-48) Monocytes (%) (Auto) 4 % (0-9) Eosinophils (%) (Auto) 0 % (0-3) Basophils (%) (Auto) 0 % (0-3) Neutrophils # (Auto) 12.4 x10^3/uL (1.8-7.7) Lymphocytes # (Auto) 1.2 x10^3/uL (1.0-4.8) Monocytes # (Auto) 0.6 x10^3/uL (0.0-1.1) Eosinophils # (Auto) 0.1 x10^3/uL (0.0-0.7) Basophils # (Auto) 0.0 x10^3/uL (0.0-0.2) Segmented Neutrophils % 77 % (35-66) Band Neutrophils % 10 % (0-9) Lymphocytes % 9 % (24-48) Monocytes % 4 % (0-10) Platelet Estimate Adequate (ADEQUATE) Giant Platelets Occ Assessment and Plan Assessmemt and Plan Problems Medical Problems: (1) Colon perforation Status: Acute (2) Perforated diverticulum Status: Acute Perforated bowel Diverticulitis Overweight Hypertension Plan IV antibiotics General surgery follow Suspect she might need some more imaging but will await subspecialist recommendations on that Home meds if possible PRN ice chips DVT prophylaxis Full code Trend labs PRN pain meds N.p.o. IV fluids PRN pain meds Appreciate subspecialist input Prognosis improved Comment Review of Relevant I have reviewed the following items karyna (where applicable) has been applied. Medications: Current Medications Medications (Trade) Dose Ordered Sig/Keegan Route PRN Reason Start Time Stop Time Status Last Admin Dose Admin Sodium Chloride 1,000 ml @ 75 mls/hr [id number] IV 05/02/20 13:00 05/02/20 12:58 Justicifation of Admission Dx: Justifications for Admission: Justification of Admission Dx: N/A JESSICA PEREA III, DO May 02, 2020 13:10
[2020-05-02] MEDS ORDERED: metroNIDAZOLE 500 MG TABLET PO SCH (14:00)
[2020-05-02 15:00] VITALS: BP 115/76
[2020-05-02] MEDS: PROPRANOLOL ER 80 MG CAP.ER.24H. PO SCH (15:37)
[2020-05-02] MEDS: HYDROcodone/APAP 5/325MG 1 TAB TABLET PO PRN ×2 (15:38→21:48)
[2020-05-02] MEDS: amLODIPine BESYLATE 10 MG TABLET PO SCH (15:38)
[2020-05-02] MEDS: FLUoxetine HCL 20 MG CAPSULE PO SCH (15:38)
[2020-05-02] MEDS: CELECOXIB 100 MG CAPSULE. PO SCH (15:38)
--- NOTE | 2020-05-02 16:36 | NUR ---
SW following. Spoke with RN and reviewed chart. Pt from home with plans to return at discharge. SW to continue following but RN states no SW needs at this time.
[2020-05-02 19:00] VITALS: BP 97/65
[2020-05-02 23:00] VITALS: BP 100/56
[2020-05-03] MEDS: PIPERACILLIN/TAZOBACTAM 4.5 GM in IV NORMAL SALINE 100ML 100 ML IV SCH ×4 (02:01→18:26)
[2020-05-03] MEDS: IV NORMAL SALINE 1000ML BAG 1,000 ML IV SCH ×2 (02:20→20:35)
[2020-05-03 03:33] VITALS: BP 89/55
[2020-05-03 03:47] LABS: BASO # 0.1 x10^3/uL (0.0-0.2); BASO % 0 % (0-3); EOS # 0.2 x10^3/uL (0.0-0.7); EOS % 1 % (0-3); HEMATOCRIT 36.4 % (36.0-47.0); HEMOGLOBIN 11.5 g/dL (12.0-15.5); LYMPH # 1.4 x10^3/uL (1.0-4.8); LYMPH % 8 % (24-48); MEAN CORPUSCULAR HEMOGLOBIN 26 pg (25-35); MEAN CORPUSCULAR HGB CONC 32 g/dL (31-37); MEAN CORPUSCULAR VOLUME 83 fL (79-100); MONO # 0.7 x10^3/uL (0.0-1.1); MONO % 4 % (0-9); NEUT % 86 % (31-73); PLATELET COUNT 303 x10^3/uL (140-400); RED CELL DISTRIBUTION WIDTH 15.5 % (11.5-14.5); WHITE BLOOD COUNT 17.3 x10^3/uL (4.0-11.0)
[2020-05-03 06:43] VITALS: BP 105/68
[2020-05-03] MEDS: HYDROcodone/APAP 5/325MG 1 TAB TABLET PO PRN ×2 (07:05→17:39)
[2020-05-03] MEDS: metFORMIN XR 500 MG TAB.ER.24H PO SCH (08:00)
[2020-05-03] MEDS: amLODIPine BESYLATE 10 MG TABLET PO SCH (09:33)
[2020-05-03] MEDS: CELECOXIB 100 MG CAPSULE. PO SCH (09:33)
[2020-05-03] MEDS: PROPRANOLOL ER 80 MG CAP.ER.24H. PO SCH (09:33)
[2020-05-03] MEDS: FLUoxetine HCL 20 MG CAPSULE PO SCH (09:33)
[2020-05-03 11:00] VITALS: BP 106/67
--- NOTE | 2020-05-03 14:11 | PDOC ---
SURGICAL PROGRESS NOTE Subjective Pt with c/o abd pain, but improved, passing stools Vital Signs Vital Signs Date Time Temp Pulse Resp B/P (MAP) Pulse Ox O2 Delivery O2 Flow Rate FiO2 05/03/20 11:00 98.0 85 20 106/67 (80) Room Air 93.0 98.0 05/03/20 06:43 95 I&O Intake and Output 05/03/20 07:00 Intake Total 0 ml Balance 0 ml Intake Oral 0 ml # Voids 4 # Bowel Movements 2 General: Alert, Oriented X3, Cooperative, No acute distress Abdomen: Soft, Other (mild TTP suprapubic) Labs Laboratory Tests Test 05/02/20 04:30 05/03/20 03:30 White Blood Count 14.4 x10^3/uL (4.0-11.0) 17.3 x10^3/uL (4.0-11.0) Red Blood Count 4.32 x10^6/uL (3.50-5.40) 4.40 x10^6/uL (3.50-5.40) Hemoglobin 11.5 g/dL (12.0-15.5) 11.5 g/dL (12.0-15.5) Hematocrit 35.2 % (36.0-47.0) 36.4 % (36.0-47.0) Mean Corpuscular Volume 82 fL (79-100) 83 fL (79-100) Mean Corpuscular Hemoglobin 27 pg (25-35) 26 pg (25-35) Mean Corpuscular Hemoglobin Concent 33 g/dL (31-37) 32 g/dL (31-37) Red Cell Distribution Width 15.3 % (11.5-14.5) 15.5 % (11.5-14.5) Platelet Count 334 x10^3/uL (140-400) 303 x10^3/uL (140-400) Neutrophils (%) (Auto) 86 % (31-73) 86 % (31-73) Lymphocytes (%) (Auto) 9 % (24-48) 8 % (24-48) Monocytes (%) (Auto) 4 % (0-9) 4 % (0-9) Eosinophils (%) (Auto) 0 % (0-3) 1 % (0-3) Basophils (%) (Auto) 0 % (0-3) 0 % (0-3) Neutrophils # (Auto) 12.4 x10^3/uL (1.8-7.7) 15.0 x10^3/uL (1.8-7.7) Lymphocytes # (Auto) 1.2 x10^3/uL (1.0-4.8) 1.4 x10^3/uL (1.0-4.8) Monocytes # (Auto) 0.6 x10^3/uL (0.0-1.1) 0.7 x10^3/uL (0.0-1.1) Eosinophils # (Auto) 0.1 x10^3/uL (0.0-0.7) 0.2 x10^3/uL (0.0-0.7) Basophils # (Auto) 0.0 x10^3/uL (0.0-0.2) 0.1 x10^3/uL (0.0-0.2) Segmented Neutrophils % 77 % (35-66) Band Neutrophils % 10 % (0-9) Lymphocytes % 9 % (24-48) Monocytes % 4 % (0-10) Platelet Estimate Adequate (ADEQUATE) Giant Platelets Occ Laboratory Tests Test 05/03/20 03:30 White Blood Count 17.3 x10^3/uL (4.0-11.0) Red Blood Count 4.40 x10^6/uL (3.50-5.40) Hemoglobin 11.5 g/dL (12.0-15.5) Hematocrit 36.4 % (36.0-47.0) Mean Corpuscular Volume 83 fL (79-100) Mean Corpuscular Hemoglobin 26 pg (25-35) Mean Corpuscular Hemoglobin Concent 32 g/dL (31-37) Red Cell Distribution Width 15.5 % (11.5-14.5) Platelet Count 303 x10^3/uL (140-400) Neutrophils (%) (Auto) 86 % (31-73) Lymphocytes (%) (Auto) 8 % (24-48) Monocytes (%) (Auto) 4 % (0-9) Eosinophils (%) (Auto) 1 % (0-3) Basophils (%) (Auto) 0 % (0-3) Neutrophils # (Auto) 15.0 x10^3/uL (1.8-7.7) Lymphocytes # (Auto) 1.4 x10^3/uL (1.0-4.8) Monocytes # (Auto) 0.7 x10^3/uL (0.0-1.1) Eosinophils # (Auto) 0.2 x10^3/uL (0.0-0.7) Basophils # (Auto) 0.1 x10^3/uL (0.0-0.2) Problem List Problems Medical Problems: (1) Colon perforation Status: Acute (2) Perforated diverticulum Status: Acute Assessment/Plan will try clears cont abx and supportive care Justicifation of Admission Dx: Justifications for Admission: Justification of Admission Dx: N/A HAMMAD SINGH MD May 03, 2020 14:11
[2020-05-03 15:00] VITALS: BP 112/64
[2020-05-03 17:19] LABS: BILIRUBIN,URINE SMALL (NEG); CLARITY,URINE CLEAR; COLOR,URINE AMBER; NITRITE,URINE NEGATIVE (NEG); PROTEIN,URINE 100 mg/dL (NEG-TRACE); UROBILINOGEN,URINE 0.2 mg/dL (0.2 mg/dL)
[2020-05-03 17:31] LABS: SQUAMOUS EPITHELIAL CELL,UR MANY /LPF
[2020-05-03 17:32] LABS: RBC,URINE >40 /HPF (0-2); YEAST,URINE PRESENT /HPF
[2020-05-03 17:34] LABS: BACTERIA,URINE FEW /HPF (0-FEW)
--- NOTE | 2020-05-03 17:51 | PDOC ---
GENERAL General: Patient examined chart reviewed today is hospital day 3 for this patient with continued severe abdominal pain was here last week with the same issue of acute diverticulitis with perforation. She is doing well with bowel rest. She had clear liquid diet today and tolerated that well. We appreciate surgical support. She is hoping to get away without surgical intervention. Continue intravenous antibiotics. Continue current management otherwise. Problems: (1) Acute diverticulitis (2) Perforated diverticulum VITAL SIGNS Vital Signs/I&O: Vital Signs Date Time Temp Pulse Resp B/P (MAP) Pulse Ox O2 Delivery O2 Flow Rate FiO2 05/03/20 17:39 95 Room Air 93.0 05/03/20 11:00 98.0 85 20 106/67 (80) 98.0 I & O 05/02/20 05/02/20 05/03/20 15:00 23:00 07:00 Intake Total 0 ml Balance 0 ml In general the patient is pleasant alert and oriented x3 no acute distress HEENT exam is unremarkable Chest is clear to auscultation Heart S1-S2 normal regular rate and rhythm no murmurs or gallops are noted Abdomen obese bowel sounds are present though diminished soft nontender nondistended Extremity exam is unremarkable for acute abnormality ALLERGIES Allergies: Allergies Coded Allergies Type Severity Reaction Last Updated Verified No Known Drug Allergies 04/25/20 No MEDS Medications: Current Medications Medications (Trade) Dose Ordered Sig/Keegan Start Time Stop Time Status Last Admin Dose Admin Acetaminophen/ Hydrocodone Bitart (Lortab 5/325) 1 tab PRN Q6HRS PRN 05/02/20 12:30 05/03/20 17:39 Amlodipine Besylate (Norvasc) 10 mg DAILY 05/02/20 13:00 05/03/20 09:33 Celecoxib (CeleBREX) 200 mg DAILY 05/02/20 13:00 05/03/20 09:33 Fluoxetine HCl (PROzac) 20 mg DAILY 05/02/20 13:00 05/03/20 09:33 Info (CONTRAST GIVEN -- Rx MONITORING) 1 each PRN DAILY PRN 05/01/20 02:00 05/03/20 01:59 DC Iohexol (Omnipaque 300 Mg/ml) 75 ml 1X ONCE 05/01/20 02:00 05/01/20 02:01 DC 05/01/20 02:10 Ketorolac Tromethamine (Toradol 30mg Vial) 30 mg 1X ONCE 05/01/20 01:00 05/01/20 01:01 DC 05/01/20 01:22 Metformin HCl (Glucophage Xr) 500 mg [id number] 05/02/20 13:00 Metronidazole (Flagyl) 500 mg TID 05/02/20 14:00 Cancel Morphine Sulfate (Morphine Sulfate) 4 mg PRN Q2HR PRN 05/01/20 03:30 05/02/20 06:32 Ondansetron HCl (Zofran) 4 mg PRN Q6HRS PRN 05/01/20 03:30 05/02/20 15:38 Piperacillin Sod/ Tazobactam Sod 4.5 gm/Sodium Chloride 100 ml @ 200 mls/hr Q6HRS 05/01/20 06:00 05/03/20 13:39 Propranolol HCl (Inderal La) 80 mg DAILY 05/02/20 13:00 05/03/20 09:33 Sodium Chloride 1,000 ml @ 75 mls/hr [id number] 05/02/20 13:00 05/02/20 12:58 LAB Lab: Laboratory Tests Test 05/03/20 03:30 05/03/20 16:45 White Blood Count 17.3 x10^3/uL (4.0-11.0) H Red Blood Count 4.40 x10^6/uL (3.50-5.40) Hemoglobin 11.5 g/dL (12.0-15.5) L Hematocrit 36.4 % (36.0-47.0) Mean Corpuscular Volume 83 fL (79-100) Mean Corpuscular Hemoglobin 26 pg (25-35) Mean Corpuscular Hemoglobin Concent 32 g/dL (31-37) Red Cell Distribution Width 15.5 % (11.5-14.5) H Platelet Count 303 x10^3/uL (140-400) Neutrophils (%) (Auto) 86 % (31-73) H Lymphocytes (%) (Auto) 8 % (24-48) L Monocytes (%) (Auto) 4 % (0-9) Eosinophils (%) (Auto) 1 % (0-3) Basophils (%) (Auto) 0 % (0-3) Neutrophils # (Auto) 15.0 x10^3/uL (1.8-7.7) H Lymphocytes # (Auto) 1.4 x10^3/uL (1.0-4.8) Monocytes # (Auto) 0.7 x10^3/uL (0.0-1.1) Eosinophils # (Auto) 0.2 x10^3/uL (0.0-0.7) Basophils # (Auto) 0.1 x10^3/uL (0.0-0.2) Urine Collection Type Unknown Urine Color Charlene Urine Clarity Clear Urine pH 6.0 (<5.0-8.0) Urine Specific [place] >=1.030 (1.000-1.030) Urine Protein 100 mg/dL (NEG-TRACE) Urine Glucose (UA) Negative mg/dL (NEG) Urine Ketones (Stick) >=80 mg/dL (NEG) Urine Blood Large (NEG) Urine Nitrite Negative (NEG) Urine Bilirubin Small (NEG) Urine Urobilinogen Dipstick 0.2 mg/dL (0.2 mg/dL) Urine Leukocyte Esterase Small (NEG) Urine RBC >40 /HPF (0-2) Urine WBC 1-4 /HPF (0-4) Urine Squamous Epithelial Cells Many /LPF Urine Bacteria Few /HPF (0-FEW) Urine Mucus Mod /LPF Urine Yeast Present /HPF Laboratory Tests 05/03/20 03:30 IMAGING Imaging: Reviewed from admission ASSESSMENT & PLAN A&P Plan as noted above This note was created using [employer] and may have omissions and/or errors due to the nature of real-time voice health systems analyst. Justicifation of Admission Dx: Justifications for Admission: Justification of Admission Dx: N/A JONATHAN MUNOZ MD May 03, 2020 17:51
[2020-05-03 20:38] VITALS: BP 97/62
[2020-05-03] MEDS: ONDANSETRON PF 4 MG/2 ML VIAL. IVP PRN (21:55)
[2020-05-03] MEDS: MORPHINE SULFATE 4 MG/ML VIAL. IV PRN (21:55)
[2020-05-03 23:30] VITALS: BP 102/62
[2020-05-04] VITALS (8 sets, daily range): BP systolic 91–159; BP diastolic 59–85
[2020-05-04] MEDS: IV NORMAL SALINE 1000ML BAG 1,000 ML IV SCH ×2 (00:34→18:20)
[2020-05-04] MEDS: PIPERACILLIN/TAZOBACTAM 4.5 GM in IV NORMAL SALINE 100ML 100 ML IV SCH ×5 (01:02→23:52)
[2020-05-04] MEDS: HYDROcodone/APAP 5/325MG 1 TAB TABLET PO PRN ×3 (03:09→18:04)
[2020-05-04 03:42] LABS: BASO # 0.1 x10^3/uL (0.0-0.2); BASO % 0 % (0-3); EOS # 0.3 x10^3/uL (0.0-0.7); EOS % 2 % (0-3); HEMOGLOBIN 10.9 g/dL (12.0-15.5); LYMPH # 1.4 x10^3/uL (1.0-4.8); LYMPH % 11 % (24-48); MEAN CORPUSCULAR HEMOGLOBIN 26 pg (25-35); MEAN CORPUSCULAR HGB CONC 32 g/dL (31-37); MEAN CORPUSCULAR VOLUME 82 fL (79-100); MONO # 0.4 x10^3/uL (0.0-1.1); MONO % 3 % (0-9); NEUT # 10.7 x10^3/uL (1.8-7.7); NEUT % 83 % (31-73); PLATELET COUNT 304 x10^3/uL (140-400); RED BLOOD COUNT 4.14 x10^6/uL (3.50-5.40); RED CELL DISTRIBUTION WIDTH 15.4 % (11.5-14.5); WHITE BLOOD COUNT 12.9 x10^3/uL (4.0-11.0)
[2020-05-04] MEDS: metFORMIN XR 500 MG TAB.ER.24H PO SCH (08:00)
[2020-05-04] MEDS: amLODIPine BESYLATE 10 MG TABLET PO SCH (09:00)
[2020-05-04] MEDS: FLUoxetine HCL 20 MG CAPSULE PO SCH (09:20)
[2020-05-04] MEDS: CELECOXIB 100 MG CAPSULE. PO SCH (09:20)
[2020-05-04] MEDS: PROPRANOLOL ER 80 MG CAP.ER.24H. PO SCH (09:21)
--- NOTE | 2020-05-04 11:28 | PDOC ---
SURGICAL PROGRESS NOTE Subjective Pt feels somewhat better, no N/V, laila clears, passing stools Vital Signs Vital Signs Date Time Temp Pulse Resp B/P (MAP) Pulse Ox O2 Delivery O2 Flow Rate FiO2 05/04/20 09:21 95 93/63 05/04/20 09:21 18 Room Air 05/04/20 07:00 97.6 95 97.6 05/03/20 17:39 93.0 I&O Intake and Output 05/04/20 07:00 Intake Total 1630 ml Output Total 150 ml Balance 1480 ml Intake Oral 1380 ml Blood Product IV Normal Saline Flush 250 ml Output Urine Total 150 ml # Voids 3 # Bowel Movements 2 General: Alert, Oriented X3, Cooperative, No acute distress Abdomen: Soft, Other (mild TTP) Labs Laboratory Tests Test 05/03/20 03:30 05/03/20 16:45 05/04/20 03:30 White Blood Count 17.3 x10^3/uL (4.0-11.0) 12.9 x10^3/uL (4.0-11.0) Red Blood Count 4.40 x10^6/uL (3.50-5.40) 4.14 x10^6/uL (3.50-5.40) Hemoglobin 11.5 g/dL (12.0-15.5) 10.9 g/dL (12.0-15.5) Hematocrit 36.4 % (36.0-47.0) 34.0 % (36.0-47.0) Mean Corpuscular Volume 83 fL (79-100) 82 fL (79-100) Mean Corpuscular Hemoglobin 26 pg (25-35) 26 pg (25-35) Mean Corpuscular Hemoglobin Concent 32 g/dL (31-37) 32 g/dL (31-37) Red Cell Distribution Width 15.5 % (11.5-14.5) 15.4 % (11.5-14.5) Platelet Count 303 x10^3/uL (140-400) 304 x10^3/uL (140-400) Neutrophils (%) (Auto) 86 % (31-73) 83 % (31-73) Lymphocytes (%) (Auto) 8 % (24-48) 11 % (24-48) Monocytes (%) (Auto) 4 % (0-9) 3 % (0-9) Eosinophils (%) (Auto) 1 % (0-3) 2 % (0-3) Basophils (%) (Auto) 0 % (0-3) 0 % (0-3) Neutrophils # (Auto) 15.0 x10^3/uL (1.8-7.7) 10.7 x10^3/uL (1.8-7.7) Lymphocytes # (Auto) 1.4 x10^3/uL (1.0-4.8) 1.4 x10^3/uL (1.0-4.8) Monocytes # (Auto) 0.7 x10^3/uL (0.0-1.1) 0.4 x10^3/uL (0.0-1.1) Eosinophils # (Auto) 0.2 x10^3/uL (0.0-0.7) 0.3 x10^3/uL (0.0-0.7) Basophils # (Auto) 0.1 x10^3/uL (0.0-0.2) 0.1 x10^3/uL (0.0-0.2) Urine Collection Type Unknown Urine Color Charlene Urine Clarity Clear Urine pH 6.0 (<5.0-8.0) Urine Specific [place] >=1.030 (1.000-1.030) Urine Protein 100 mg/dL (NEG-TRACE) Urine Glucose (UA) Negative mg/dL (NEG) Urine Ketones (Stick) >=80 mg/dL (NEG) Urine Blood Large (NEG) Urine Nitrite Negative (NEG) Urine Bilirubin Small (NEG) Urine Urobilinogen Dipstick 0.2 mg/dL (0.2 mg/dL) Urine Leukocyte Esterase Small (NEG) Urine RBC >40 /HPF (0-2) Urine WBC 1-4 /HPF (0-4) Urine Squamous Epithelial Cells Many /LPF Urine Bacteria Few /HPF (0-FEW) Urine Mucus Mod /LPF Urine Yeast Present /HPF Laboratory Tests Test 05/03/20 16:45 05/04/20 03:30 Urine Collection Type Unknown Urine Color Charlene Urine Clarity Clear Urine pH 6.0 (<5.0-8.0) Urine Specific [place] >=1.030 (1.000-1.030) Urine Protein 100 mg/dL (NEG-TRACE) Urine Glucose (UA) Negative mg/dL (NEG) Urine Ketones (Stick) >=80 mg/dL (NEG) Urine Blood Large (NEG) Urine Nitrite Negative (NEG) Urine Bilirubin Small (NEG) Urine Urobilinogen Dipstick 0.2 mg/dL (0.2 mg/dL) Urine Leukocyte Esterase Small (NEG) Urine RBC >40 /HPF (0-2) Urine WBC 1-4 /HPF (0-4) Urine Squamous Epithelial Cells Many /LPF Urine Bacteria Few /HPF (0-FEW) Urine Mucus Mod /LPF Urine Yeast Present /HPF White Blood Count 12.9 x10^3/uL (4.0-11.0) Red Blood Count 4.14 x10^6/uL (3.50-5.40) Hemoglobin 10.9 g/dL (12.0-15.5) Hematocrit 34.0 % (36.0-47.0) Mean Corpuscular Volume 82 fL (79-100) Mean Corpuscular Hemoglobin 26 pg (25-35) Mean Corpuscular Hemoglobin Concent 32 g/dL (31-37) Red Cell Distribution Width 15.4 % (11.5-14.5) Platelet Count 304 x10^3/uL (140-400) Neutrophils (%) (Auto) 83 % (31-73) Lymphocytes (%) (Auto) 11 % (24-48) Monocytes (%) (Auto) 3 % (0-9) Eosinophils (%) (Auto) 2 % (0-3) Basophils (%) (Auto) 0 % (0-3) Neutrophils # (Auto) 10.7 x10^3/uL (1.8-7.7) Lymphocytes # (Auto) 1.4 x10^3/uL (1.0-4.8) Monocytes # (Auto) 0.4 x10^3/uL (0.0-1.1) Eosinophils # (Auto) 0.3 x10^3/uL (0.0-0.7) Basophils # (Auto) 0.1 x10^3/uL (0.0-0.2) Problem List Problems Medical Problems: (1) Colon perforation Status: Acute (2) Perforated diverticulum Status: Acute Assessment/Plan will try full liquids cont abx consider outpt colonoscopy however, pt would be poor surgical candidate, given super obesity Justicifation of Admission Dx: Justifications for Admission: Justification of Admission Dx: N/A HAMMAD SINGH MD May 04, 2020 11:28
--- NOTE | 2020-05-04 17:34 | PDOC ---
GENERAL General: Patient examined chart reviewed doing a little bit better today. She is tolerated a full liquid diet. Pain is controlled. She denies any nausea or v omiting. Stools are soft. We appreciate subspecialty support. Continue conservative management for her diverticulitis. Problems: (1) Acute diverticulitis VITAL SIGNS Vital Signs/I&O: Vital Signs Date Time Temp Pulse Resp B/P (MAP) Pulse Ox O2 Delivery O2 Flow Rate FiO2 05/04/20 17:00 98.0 86 18 132/85 (101) 96 Room Air 98.0 05/04/20 15:00 96.0 I & O 05/03/20 05/03/20 05/04/20 15:00 23:00 07:00 Intake Total 480 ml 450 ml 700 ml Output Total 150 ml Balance 480 ml 300 ml 700 ml In general the patient is pleasant resting comfortably in her bed no acute distress Chest is clear to auscultation Heart S1-S2 normal regular rate and rhythm no murmurs or gallops are noted Abdomen is obese soft nontender nondistended no masses organomegaly noted Extremity exam is unremarkable for acute abnormality ALLERGIES Allergies: Allergies Coded Allergies Type Severity Reaction Last Updated Verified No Known Drug Allergies 04/25/20 No MEDS Medications: Current Medications Medications (Trade) Dose Ordered Sig/Keegan Start Time Stop Time Status Last Admin Dose Admin Acetaminophen/ Hydrocodone Bitart (Lortab 5/325) 1 tab PRN Q6HRS PRN 05/02/20 12:30 05/04/20 09:21 Amlodipine Besylate (Norvasc) 10 mg DAILY 05/02/20 13:00 05/03/20 09:33 Celecoxib (CeleBREX) 200 mg DAILY 05/02/20 13:00 05/04/20 09:20 Fluoxetine HCl (PROzac) 20 mg DAILY 05/02/20 13:00 05/04/20 09:20 Info (CONTRAST GIVEN -- Rx MONITORING) 1 each PRN DAILY PRN 05/01/20 02:00 05/03/20 01:59 DC Iohexol (Omnipaque 300 Mg/ml) 75 ml 1X ONCE 05/01/20 02:00 05/01/20 02:01 DC 05/01/20 02:10 Ketorolac Tromethamine (Toradol 30mg Vial) 30 mg 1X ONCE 05/01/20 01:00 05/01/20 01:01 DC 05/01/20 01:22 Metformin HCl (Glucophage Xr) 500 mg DAILYWBKFT 05/02/20 13:00 Metronidazole (Flagyl) 500 mg TID 05/02/20 14:00 Cancel Morphine Sulfate (Morphine Sulfate) 4 mg PRN Q2HR PRN 05/01/20 03:30 05/03/20 21:55 Ondansetron HCl (Zofran) 4 mg PRN Q6HRS PRN 05/01/20 03:30 05/03/20 21:55 Piperacillin Sod/ Tazobactam Sod 4.5 gm/Sodium Chloride 100 ml @ 200 mls/hr Q6HRS 05/01/20 06:00 05/04/20 12:13 Propranolol HCl (Inderal La) 80 mg DAILY 05/02/20 13:00 05/04/20 09:21 Sodium Chloride 1,000 ml @ 75 mls/hr [id number] 05/02/20 13:00 05/04/20 00:34 LAB Lab: Laboratory Tests Test 05/04/20 03:30 White Blood Count 12.9 x10^3/uL (4.0-11.0) H Red Blood Count 4.14 x10^6/uL (3.50-5.40) Hemoglobin 10.9 g/dL (12.0-15.5) L Hematocrit 34.0 % (36.0-47.0) L Mean Corpuscular Volume 82 fL (79-100) Mean Corpuscular Hemoglobin 26 pg (25-35) Mean Corpuscular Hemoglobin Concent 32 g/dL (31-37) Red Cell Distribution Width 15.4 % (11.5-14.5) H Platelet Count 304 x10^3/uL (140-400) Neutrophils (%) (Auto) 83 % (31-73) H Lymphocytes (%) (Auto) 11 % (24-48) L Monocytes (%) (Auto) 3 % (0-9) Eosinophils (%) (Auto) 2 % (0-3) Basophils (%) (Auto) 0 % (0-3) Neutrophils # (Auto) 10.7 x10^3/uL (1.8-7.7) H Lymphocytes # (Auto) 1.4 x10^3/uL (1.0-4.8) Monocytes # (Auto) 0.4 x10^3/uL (0.0-1.1) Eosinophils # (Auto) 0.3 x10^3/uL (0.0-0.7) Basophils # (Auto) 0.1 x10^3/uL (0.0-0.2) Laboratory Tests 05/04/20 03:30 ASSESSMENT & PLAN A&P Plan as noted above This note was created using [employer] and may have omissions and/or errors due to the nature of real-time voice supervisor hand workers. Justicifation of Admission Dx: Justifications for Admission: Justification of Admission Dx: N/A JONATHAN MUNOZ MD May 04, 2020 17:34
[2020-05-05] MEDS: HYDROcodone/APAP 5/325MG 1 TAB TABLET PO PRN ×3 (00:11→16:25)
[2020-05-05 03:03] VITALS: BP 124/80
[2020-05-05 05:22] LABS: BASO % 0 % (0-3); EOS # 0.3 x10^3/uL (0.0-0.7); EOS % 3 % (0-3); HEMATOCRIT 33.2 % (36.0-47.0); LYMPH # 1.1 x10^3/uL (1.0-4.8); LYMPH % 11 % (24-48); MEAN CORPUSCULAR HEMOGLOBIN 27 pg (25-35); MEAN CORPUSCULAR HGB CONC 33 g/dL (31-37); MEAN CORPUSCULAR VOLUME 80 fL (79-100); MONO # 0.4 x10^3/uL (0.0-1.1); MONO % 4 % (0-9); NEUT % 81 % (31-73); PLATELET COUNT 346 x10^3/uL (140-400); RED BLOOD COUNT 4.13 x10^6/uL (3.50-5.40); RED CELL DISTRIBUTION WIDTH 15.1 % (11.5-14.5); WHITE BLOOD COUNT 9.8 x10^3/uL (4.0-11.0)
[2020-05-05 05:45] LABS: ALBUMIN/GLOBULIN RATIO 0.4 (1.0-1.7); CALCIUM 8.1 mg/dL (8.5-10.1); CREATININE 0.7 mg/dL (0.6-1.0); GFR 112.1; TOTAL BILIRUBIN 0.1 mg/dL (0.2-1.0); TOTAL PROTEIN 6.5 g/dL (6.4-8.2)
[2020-05-05 07:00] VITALS: BP 136/85
[2020-05-05] MEDS: PIPERACILLIN/TAZOBACTAM 4.5 GM in IV NORMAL SALINE 100ML 100 ML IV SCH ×4 (07:28→23:35)
[2020-05-05] MEDS: FLUoxetine HCL 20 MG CAPSULE PO SCH (07:34)
[2020-05-05] MEDS: CELECOXIB 100 MG CAPSULE. PO SCH (07:35)
[2020-05-05] MEDS: PROPRANOLOL ER 80 MG CAP.ER.24H. PO SCH (07:35)
[2020-05-05] MEDS: amLODIPine BESYLATE 10 MG TABLET PO SCH (07:35)
[2020-05-05] MEDS: IV NORMAL SALINE 1000ML BAG 1,000 ML IV SCH ×2 (07:36→21:00)
[2020-05-05] MEDS: metFORMIN XR 500 MG TAB.ER.24H PO SCH (07:36)
--- NOTE | 2020-05-05 08:47 | PDOC ---
PROGRESS NOTES Chief Complaint Chief Complaint IMPRESSION: Acute sigmoid diverticulitis with small amount of pneumoperitoneum adjacent to the colon and along the hepatic dome consistent with perforation. No fluid collection. overweight poor surgical candidate, given super obesity PLAN Surgery consulted npo iv fluid support IV ANTIBIOTICS, CONTINUE History of Present Illness History of Present Illness 05/05/2020 Patient seen and examined She is about the same clinically Still having some abdominal pain Chart reviewed Discussed with case management Discussed with RN Vitals Vitals Vital Signs Date Time Temp Pulse Resp B/P (MAP) Pulse Ox O2 Delivery O2 Flow Rate FiO2 05/05/20 08:00 Room Air 05/05/20 07:35 83 136/85 05/05/20 07:00 97.9 16 16 97.9 05/04/20 15:00 96.0 Physical Exam General: Alert, Oriented X3, Cooperative, No acute distress Heart: Regular rate, No murmurs Lungs: Clear Abdomen: Soft, Other (mild TTP) Extremities: No clubbing, No edema Skin: No rashes, No significant lesion Labs LABS CT ABD PELV W/ IV CONTRST ONLY History: Reason: abd pain / Spl. Instructions: / History: Comparison: None. Technique: After administration of intravenous contrast, helical CT of the abdomen and pelvis was performed from the lung bases through the ischial tuberosities. Coronal and sagittal reconstructions were obtained. 75 mL of Omnipaque 300 were used. One or more of the following dose reduction techniques were utilized: Automated exposure control (AEC), Adjustment of mA and/or kV according to patient size, Use of iterative reconstruction technique such as ASiR, CT scan done according to ALARA and image gently/image wisely Abdomen Findings: The visualized lung bases are clear. Cholecystectomy. The liver, pancreas, spleen, and bilateral adrenal glands are normal. Symmetric renal enhancement. There is no focal renal mass. There is no hydronephrosis. The visualized loops of small bowel are normal. Sigmoid colon diverticulosis with pericolic inflammation and several foci of adjacent extraluminal gas. Small amount of pneumoperitoneum also noted along the hepatic dome. There is no evidence of bowel obstruction. Appendix is normal. There is no free fluid. There is no mesenteric or retroperitoneal adenopathy. The abdominal aorta is normal in caliber. Pelvis Findings: Urinary bladder is normal. Uterus is present with IUD in place. No pelvic free fluid. There is no pelvic or inguinal adenopathy. There is no acute bony abnormality. IMPRESSION: Acute sigmoid diverticulitis with small amount of pneumoperitoneum adjacent to the colon and along the hepatic dome consistent with perforation. No fluid collection. Findings were called to the emergency department at 2:15 AM on 05/01/2020. FOR INTERNAL CODING PURPOSES RESULT CODE: (C) Electronically signed by: Sendy Haas MD (05/01/2020 2:18 AM) [facility] DICTATED and SIGNED BY: SENDY HAAS MD DATE: 05/01/20 0218 Laboratory Tests Test 05/05/20 03:40 White Blood Count 9.8 x10^3/uL (4.0-11.0) Red Blood Count 4.13 x10^6/uL (3.50-5.40) Hemoglobin 11.0 g/dL (12.0-15.5) Hematocrit 33.2 % (36.0-47.0) Mean Corpuscular Volume 80 fL (79-100) Mean Corpuscular Hemoglobin 27 pg (25-35) Mean Corpuscular Hemoglobin Concent 33 g/dL (31-37) Red Cell Distribution Width 15.1 % (11.5-14.5) Platelet Count 346 x10^3/uL (140-400) Neutrophils (%) (Auto) 81 % (31-73) Lymphocytes (%) (Auto) 11 % (24-48) Monocytes (%) (Auto) 4 % (0-9) Eosinophils (%) (Auto) 3 % (0-3) Basophils (%) (Auto) 0 % (0-3) Neutrophils # (Auto) 8.0 x10^3/uL (1.8-7.7) Lymphocytes # (Auto) 1.1 x10^3/uL (1.0-4.8) Monocytes # (Auto) 0.4 x10^3/uL (0.0-1.1) Eosinophils # (Auto) 0.3 x10^3/uL (0.0-0.7) Basophils # (Auto) 0.0 x10^3/uL (0.0-0.2) Sodium Level 140 mmol/L (136-145) Potassium Level 3.0 mmol/L (3.5-5.1) Chloride Level 102 mmol/L (98-107) Carbon Dioxide Level 28 mmol/L (21-32) Anion Gap 10 (6-14) Blood Urea Nitrogen 6 mg/dL (7-20) Creatinine 0.7 mg/dL (0.6-1.0) Estimated GFR (Cockcroft-Gault) 112.1 BUN/Creatinine Ratio 9 (6-20) Glucose Level 85 mg/dL (70-99) Calcium Level 8.1 mg/dL (8.5-10.1) Total Bilirubin 0.1 mg/dL (0.2-1.0) Aspartate Amino Transf (AST/SGOT) 10 U/L (15-37) Alanine Aminotransferase (ALT/SGPT) 14 U/L (14-59) Alkaline Phosphatase 74 U/L (46-116) Total Protein 6.5 g/dL (6.4-8.2) Albumin 2.0 g/dL (3.4-5.0) Albumin/Globulin Ratio 0.4 (1.0-1.7) Assessment and Plan Assessmemt and Plan Problems Medical Problems: (1) Colon perforation Status: Acute (2) Perforated diverticulum Status: Acute Comment Review of Relevant I have reviewed the following items karyna (where applicable) has been applied. Labs Laboratory Tests Test 05/03/20 16:45 05/04/20 03:30 05/05/20 03:40 Urine Collection Type Unknown Urine Color Charlene Urine Clarity Clear Urine pH 6.0 (<5.0-8.0) Urine Specific [place] >=1.030 (1.000-1.030) Urine Protein 100 mg/dL (NEG-TRACE) Urine Glucose (UA) Negative mg/dL (NEG) Urine Ketones (Stick) >=80 mg/dL (NEG) Urine Blood Large (NEG) Urine Nitrite Negative (NEG) Urine Bilirubin Small (NEG) Urine Urobilinogen Dipstick 0.2 mg/dL (0.2 mg/dL) Urine Leukocyte Esterase Small (NEG) Urine RBC >40 /HPF (0-2) Urine WBC 1-4 /HPF (0-4) Urine Squamous Epithelial Cells Many /LPF Urine Bacteria Few /HPF (0-FEW) Urine Mucus Mod /LPF Urine Yeast Present /HPF White Blood Count 12.9 x10^3/uL (4.0-11.0) 9.8 x10^3/uL (4.0-11.0) Red Blood Count 4.14 x10^6/uL (3.50-5.40) 4.13 x10^6/uL (3.50-5.40) Hemoglobin 10.9 g/dL (12.0-15.5) 11.0 g/dL (12.0-15.5) Hematocrit 34.0 % (36.0-47.0) 33.2 % (36.0-47.0) Mean Corpuscular Volume 82 fL (79-100) 80 fL (79-100) Mean Corpuscular Hemoglobin 26 pg (25-35) 27 pg (25-35) Mean Corpuscular Hemoglobin Concent 32 g/dL (31-37) 33 g/dL (31-37) Red Cell Distribution Width 15.4 % (11.5-14.5) 15.1 % (11.5-14.5) Platelet Count 304 x10^3/uL (140-400) 346 x10^3/uL (140-400) Neutrophils (%) (Auto) 83 % (31-73) 81 % (31-73) Lymphocytes (%) (Auto) 11 % (24-48) 11 % (24-48) Monocytes (%) (Auto) 3 % (0-9) 4 % (0-9) Eosinophils (%) (Auto) 2 % (0-3) 3 % (0-3) Basophils (%) (Auto) 0 % (0-3) 0 % (0-3) Neutrophils # (Auto) 10.7 x10^3/uL (1.8-7.7) 8.0 x10^3/uL (1.8-7.7) Lymphocytes # (Auto) 1.4 x10^3/uL (1.0-4.8) 1.1 x10^3/uL (1.0-4.8) Monocytes # (Auto) 0.4 x10^3/uL (0.0-1.1) 0.4 x10^3/uL (0.0-1.1) Eosinophils # (Auto) 0.3 x10^3/uL (0.0-0.7) 0.3 x10^3/uL (0.0-0.7) Basophils # (Auto) 0.1 x10^3/uL (0.0-0.2) 0.0 x10^3/uL (0.0-0.2) Sodium Level 140 mmol/L (136-145) Potassium Level 3.0 mmol/L (3.5-5.1) Chloride Level 102 mmol/L (98-107) Carbon Dioxide Level 28 mmol/L (21-32) Anion Gap 10 (6-14) Blood Urea Nitrogen 6 mg/dL (7-20) Creatinine 0.7 mg/dL (0.6-1.0) Estimated GFR (Cockcroft-Gault) 112.1 BUN/Creatinine Ratio 9 (6-20) Glucose Level 85 mg/dL (70-99) Calcium Level 8.1 mg/dL (8.5-10.1) Total Bilirubin 0.1 mg/dL (0.2-1.0) Aspartate Amino Transf (AST/SGOT) 10 U/L (15-37) Alanine Aminotransferase (ALT/SGPT) 14 U/L (14-59) Alkaline Phosphatase 74 U/L (46-116) Total Protein 6.5 g/dL (6.4-8.2) Albumin 2.0 g/dL (3.4-5.0) Albumin/Globulin Ratio 0.4 (1.0-1.7) Laboratory Tests Test 05/05/20 03:40 White Blood Count 9.8 x10^3/uL (4.0-11.0) Red Blood Count 4.13 x10^6/uL (3.50-5.40) Hemoglobin 11.0 g/dL (12.0-15.5) Hematocrit 33.2 % (36.0-47.0) Mean Corpuscular Volume 80 fL (79-100) Mean Corpuscular Hemoglobin 27 pg (25-35) Mean Corpuscular Hemoglobin Concent 33 g/dL (31-37) Red Cell Distribution Width 15.1 % (11.5-14.5) Platelet Count 346 x10^3/uL (140-400) Neutrophils (%) (Auto) 81 % (31-73) Lymphocytes (%) (Auto) 11 % (24-48) Monocytes (%) (Auto) 4 % (0-9) Eosinophils (%) (Auto) 3 % (0-3) Basophils (%) (Auto) 0 % (0-3) Neutrophils # (Auto) 8.0 x10^3/uL (1.8-7.7) Lymphocytes # (Auto) 1.1 x10^3/uL (1.0-4.8) Monocytes # (Auto) 0.4 x10^3/uL (0.0-1.1) Eosinophils # (Auto) 0.3 x10^3/uL (0.0-0.7) Basophils # (Auto) 0.0 x10^3/uL (0.0-0.2) Sodium Level 140 mmol/L (136-145) Potassium Level 3.0 mmol/L (3.5-5.1) Chloride Level 102 mmol/L (98-107) Carbon Dioxide Level 28 mmol/L (21-32) Anion Gap 10 (6-14) Blood Urea Nitrogen 6 mg/dL (7-20) Creatinine 0.7 mg/dL (0.6-1.0) Estimated GFR (Cockcroft-Gault) 112.1 BUN/Creatinine Ratio 9 (6-20) Glucose Level 85 mg/dL (70-99) Calcium Level 8.1 mg/dL (8.5-10.1) Total Bilirubin 0.1 mg/dL (0.2-1.0) Aspartate Amino Transf (AST/SGOT) 10 U/L (15-37) Alanine Aminotransferase (ALT/SGPT) 14 U/L (14-59) Alkaline Phosphatase 74 U/L (46-116) Total Protein 6.5 g/dL (6.4-8.2) Albumin 2.0 g/dL (3.4-5.0) Albumin/Globulin Ratio 0.4 (1.0-1.7) Medications Current Medications Ketorolac Tromethamine (Toradol 30mg Vial) 30 mg 1X ONCE IVP Last administered on 05/01/20at 01:22; Start 05/01/20 at 01:00; Stop 05/01/20 at 01:01; Status DC Iohexol (Omnipaque 300 Mg/ml) 75 ml 1X ONCE IV Last administered on 05/01/20at 02:10; Start 05/01/20 at 02:00; Stop 05/01/20 at 02:01; Status DC Info (CONTRAST GIVEN -- Rx MONITORING) 1 each PRN DAILY PRN MC SEE COMMENTS; Start 05/01/20 at 02:00; Stop 05/03/20 at 01:59; Status DC Morphine Sulfate (Morphine Sulfate) 4 mg 1X ONCE IV Last administered on 05/01/20at 02:32; Start 05/01/20 at 02:30; Stop 05/01/20 at 02:31; Status DC Ondansetron HCl (Zofran) 4 mg 1X ONCE IM Last administered on 05/01/20at 02:38; Start 05/01/20 at 02:45; Stop 05/01/20 at 02:46; Status DC Piperacillin Sod/ Tazobactam Sod 4.5 gm/Sodium Chloride 100 ml @ 200 mls/hr 1X ONCE IV Last administered on 05/01/20at 03:12; Start 05/01/20 at 03:00; Stop 05/01/20 at 03:29; Status DC Piperacillin Sod/ Tazobactam Sod 4.5 gm/Sodium Chloride 100 ml @ 200 mls/hr Q6HRS IV ; Start 05/01/20 at 06:00; Stop 05/01/20 at 05:05; Status DC Morphine Sulfate (Morphine Sulfate) 4 mg PRN Q2HR PRN IV PAIN Last administered on 05/03/20at 21:55; Start 05/01/20 at 03:30 Ondansetron HCl (Zofran) 4 mg PRN Q6HRS PRN IVP NAUSEA/VOMITING Last administered on 05/03/20at 21:55; Start 05/01/20 at 03:30 Piperacillin Sod/ Tazobactam Sod 4.5 gm/Sodium Chloride 100 ml @ 200 mls/hr Q6HRS IV Last administered on 05/05/20at 07:28; Start 05/01/20 at 06:00 Metronidazole 100 ml @ 100 mls/hr Q8HRS IV Last administered on 05/05/20at 06:12; Start 05/01/20 at 10:00 Amlodipine Besylate (Norvasc) 10 mg DAILY PO Last administered on 05/05/20at 07:35; Start 05/02/20 at 13:00 Acetaminophen/ Hydrocodone Bitart (Lortab 5/325) 1 tab PRN Q6HRS PRN PO PAIN Last administered on 05/05/20at 06:15; Start 05/02/20 at 12:30 Metformin HCl (Glucophage Xr) 500 mg DAILYWBKFT PO ; Start 05/02/20 at 13:00 Metronidazole (Flagyl) 500 mg TID PO ; Start 05/02/20 at 14:00; Status Cancel Propranolol HCl (Inderal La) 80 mg DAILY PO Last administered on 05/05/20at 07:35; Start 05/02/20 at 13:00 Celecoxib (CeleBREX) 200 mg DAILY PO Last administered on 05/05/20at 07:35; Start 05/02/20 at 13:00 Fluoxetine HCl (PROzac) 20 mg DAILY PO Last administered on 05/05/20at 07:34; Start 05/02/20 at 13:00 Sodium Chloride 1,000 ml @ 75 mls/hr [id number] IV Last administered on 05/04/20at 00:34; Start 05/02/20 at 13:00 Active Scripts Active Reported Hydrocodone-Apap 5-325 (Hydrocodone Bit/Acetaminophen) 1 Tab Tablet 1 Tab PO PRN Q6HRS PRN Cipro (Ciprofloxacin Hcl) 500 Mg Tablet 1 Tab PO BID 7 Days Metronidazole 500 Mg Tablet 1 Tab PO TID 7 Days Tizanidine Hcl 4 Mg Tablet 1 Tab PO BID Amlodipine Besylate 10 Mg Tablet 10 Mg PO DAILY Celebrex (Celecoxib) 200 Mg Capsule 200 Mg PO DAILY 30 Days Fluoxetine Hcl 20 Mg Tablet 20 Mg PO DAILY Propranolol Hcl 80 Mg Cap.sa.24h 80 Mg PO DAILY Metformin Hcl Er (Metformin Hcl) 500 Mg Tab.er.24h 500 Mg PO DAILYWBKFT Vitals/I & O Vital Sign - Last 24 Hours 05/04/20 05/04/20 05/04/20 05/04/20 09:00 09:21 09:21 10:21 Pulse 94 95 Resp 18 18 B/P (MAP) 100/59 93/63 O2 Delivery Room Air Room Air 05/04/20 05/04/20 05/04/20 05/04/20 11:00 15:00 17:00 18:04 Temp 97.8 98.0 98.0 97.8 98.0 98.0 Pulse 94 86 86 Resp 18 18 18 18 B/P (MAP) 100/59 (73) 132/85 (101) 132/85 (101) Pulse Ox 96 96 O2 Delivery Room Air Room Air Room Air Room Air O2 Flow Rate 96.0 05/04/20 05/04/20 05/04/20 05/04/20 19:45 22:12 23:00 23:00 Temp 98.4 97.5 98.4 97.5 Pulse 87 85 Resp 18 20 B/P (MAP) 102/72 (82) 118/73 (88) Pulse Ox 96 94 O2 Delivery Room Air Room Air Room Air Room Air 05/05/20 05/05/20 05/05/20 05/05/20 00:11 01:11 03:03 06:15 Temp 98.0 98.0 Pulse 92 Resp 18 20 B/P (MAP) 124/80 (95) Pulse Ox 99 O2 Delivery Room Air Room Air Room Air Room Air 05/05/20 05/05/20 05/05/20 05/05/20 07:00 07:35 07:35 07:36 Temp 97.9 97.9 Pulse 80 83 83 Resp 16 B/P (MAP) 136/85 (102) 136/85 136/85 Pulse Ox 16 O2 Delivery Room Air Room Air 05/05/20 08:00 O2 Delivery Room Air Intake and Output 05/04/20 05/04/20 05/05/20 15:00 23:00 07:00 Intake Total 970 ml 920 ml Output Total 0 ml Balance 970 ml 920 ml 0 ml Justicifation of Admission Dx: Justifications for Admission: Justification of Admission Dx: N/A EMILIE ALVAREZ MD May 05, 2020 08:47
--- NOTE | 2020-05-05 08:56 | PDOC ---
[facility] [employer] 05/05/20 0856: SURGICAL PROGRESS NOTE Subjective taking full liquids pain mainly with movement --about the same no emesis Vital Signs Vital Signs Date Time Temp Pulse Resp B/P (MAP) Pulse Ox O2 Delivery O2 Flow Rate FiO2 05/05/20 08:00 Room Air 05/05/20 07:35 83 136/85 05/05/20 07:00 97.9 16 16 97.9 05/04/20 15:00 96.0 I&O Intake and Output 05/05/20 07:00 Intake Total 1890 ml Output Total 0 ml Balance 1890 ml Intake Oral 1890 ml Output Urine Total 0 ml # Voids 4 # Bowel Movements 3 General: Alert, Oriented X3, Cooperative Abdomen: Soft, No tenderness Labs Laboratory Tests Test 05/03/20 16:45 05/04/20 03:30 05/05/20 03:40 Urine Collection Type Unknown Urine Color Charlene Urine Clarity Clear Urine pH 6.0 (<5.0-8.0) Urine Specific [place] >=1.030 (1.000-1.030) Urine Protein 100 mg/dL (NEG-TRACE) Urine Glucose (UA) Negative mg/dL (NEG) Urine Ketones (Stick) >=80 mg/dL (NEG) Urine Blood Large (NEG) Urine Nitrite Negative (NEG) Urine Bilirubin Small (NEG) Urine Urobilinogen Dipstick 0.2 mg/dL (0.2 mg/dL) Urine Leukocyte Esterase Small (NEG) Urine RBC >40 /HPF (0-2) Urine WBC 1-4 /HPF (0-4) Urine Squamous Epithelial Cells Many /LPF Urine Bacteria Few /HPF (0-FEW) Urine Mucus Mod /LPF Urine Yeast Present /HPF White Blood Count 12.9 x10^3/uL (4.0-11.0) 9.8 x10^3/uL (4.0-11.0) Red Blood Count 4.14 x10^6/uL (3.50-5.40) 4.13 x10^6/uL (3.50-5.40) Hemoglobin 10.9 g/dL (12.0-15.5) 11.0 g/dL (12.0-15.5) Hematocrit 34.0 % (36.0-47.0) 33.2 % (36.0-47.0) Mean Corpuscular Volume 82 fL (79-100) 80 fL (79-100) Mean Corpuscular Hemoglobin 26 pg (25-35) 27 pg (25-35) Mean Corpuscular Hemoglobin Concent 32 g/dL (31-37) 33 g/dL (31-37) Red Cell Distribution Width 15.4 % (11.5-14.5) 15.1 % (11.5-14.5) Platelet Count 304 x10^3/uL (140-400) 346 x10^3/uL (140-400) Neutrophils (%) (Auto) 83 % (31-73) 81 % (31-73) Lymphocytes (%) (Auto) 11 % (24-48) 11 % (24-48) Monocytes (%) (Auto) 3 % (0-9) 4 % (0-9) Eosinophils (%) (Auto) 2 % (0-3) 3 % (0-3) Basophils (%) (Auto) 0 % (0-3) 0 % (0-3) Neutrophils # (Auto) 10.7 x10^3/uL (1.8-7.7) 8.0 x10^3/uL (1.8-7.7) Lymphocytes # (Auto) 1.4 x10^3/uL (1.0-4.8) 1.1 x10^3/uL (1.0-4.8) Monocytes # (Auto) 0.4 x10^3/uL (0.0-1.1) 0.4 x10^3/uL (0.0-1.1) Eosinophils # (Auto) 0.3 x10^3/uL (0.0-0.7) 0.3 x10^3/uL (0.0-0.7) Basophils # (Auto) 0.1 x10^3/uL (0.0-0.2) 0.0 x10^3/uL (0.0-0.2) Sodium Level 140 mmol/L (136-145) Potassium Level 3.0 mmol/L (3.5-5.1) Chloride Level 102 mmol/L (98-107) Carbon Dioxide Level 28 mmol/L (21-32) Anion Gap 10 (6-14) Blood Urea Nitrogen 6 mg/dL (7-20) Creatinine 0.7 mg/dL (0.6-1.0) Estimated GFR (Cockcroft-Gault) 112.1 BUN/Creatinine Ratio 9 (6-20) Glucose Level 85 mg/dL (70-99) Calcium Level 8.1 mg/dL (8.5-10.1) Total Bilirubin 0.1 mg/dL (0.2-1.0) Aspartate Amino Transf (AST/SGOT) 10 U/L (15-37) Alanine Aminotransferase (ALT/SGPT) 14 U/L (14-59) Alkaline Phosphatase 74 U/L (46-116) Total Protein 6.5 g/dL (6.4-8.2) Albumin 2.0 g/dL (3.4-5.0) Albumin/Globulin Ratio 0.4 (1.0-1.7) Laboratory Tests Test 05/05/20 03:40 White Blood Count 9.8 x10^3/uL (4.0-11.0) Red Blood Count 4.13 x10^6/uL (3.50-5.40) Hemoglobin 11.0 g/dL (12.0-15.5) Hematocrit 33.2 % (36.0-47.0) Mean Corpuscular Volume 80 fL (79-100) Mean Corpuscular Hemoglobin 27 pg (25-35) Mean Corpuscular Hemoglobin Concent 33 g/dL (31-37) Red Cell Distribution Width 15.1 % (11.5-14.5) Platelet Count 346 x10^3/uL (140-400) Neutrophils (%) (Auto) 81 % (31-73) Lymphocytes (%) (Auto) 11 % (24-48) Monocytes (%) (Auto) 4 % (0-9) Eosinophils (%) (Auto) 3 % (0-3) Basophils (%) (Auto) 0 % (0-3) Neutrophils # (Auto) 8.0 x10^3/uL (1.8-7.7) Lymphocytes # (Auto) 1.1 x10^3/uL (1.0-4.8) Monocytes # (Auto) 0.4 x10^3/uL (0.0-1.1) Eosinophils # (Auto) 0.3 x10^3/uL (0.0-0.7) Basophils # (Auto) 0.0 x10^3/uL (0.0-0.2) Sodium Level 140 mmol/L (136-145) Potassium Level 3.0 mmol/L (3.5-5.1) Chloride Level 102 mmol/L (98-107) Carbon Dioxide Level 28 mmol/L (21-32) Anion Gap 10 (6-14) Blood Urea Nitrogen 6 mg/dL (7-20) Creatinine 0.7 mg/dL (0.6-1.0) Estimated GFR (Cockcroft-Gault) 112.1 BUN/Creatinine Ratio 9 (6-20) Glucose Level 85 mg/dL (70-99) Calcium Level 8.1 mg/dL (8.5-10.1) Total Bilirubin 0.1 mg/dL (0.2-1.0) Aspartate Amino Transf (AST/SGOT) 10 U/L (15-37) Alanine Aminotransferase (ALT/SGPT) 14 U/L (14-59) Alkaline Phosphatase 74 U/L (46-116) Total Protein 6.5 g/dL (6.4-8.2) Albumin 2.0 g/dL (3.4-5.0) Albumin/Globulin Ratio 0.4 (1.0-1.7) Problem List Problems Medical Problems: (1) Colon perforation Status: Acute (2) Perforated diverticulum Status: Acute Assessment/Plan continue abx gradual improvement Justicifation of Admission Dx: Justifications for Admission: Justification of Admission Dx: N/A EMILIE MCFADDEN MD 05/05/20 1001: SURGICAL PROGRESS NOTE Assessment/Plan Agree with Rosanne assessment and plan advance diet as tolerated will ask nutrition consult for a low fiber diet until acute episode is resolved and she has gotten her colonoscopy VAN GONZALEZ APRN May 05, 2020 08:56 EMILIE MCFADDEN MD May 05, 2020 10:01
[2020-05-05] MEDS: POLYETHYLENE GLYCOL 3350 17 GM PACKET. PO SCH (10:00)
[2020-05-05 11:00] VITALS: BP 120/76
--- NOTE | 2020-05-05 12:11 | NUR ---
SW following. Discussed with RN, pt from home, room air, IV abx. RN advised pt is not being discharged today because of the IV abx. HCFS following for self pay status. SW will continue to follow.
[2020-05-05 15:00] VITALS: BP 114/82
[2020-05-05 19:00] VITALS: BP 121/80
[2020-05-05] MEDS: LACTOBACILLUS RHAMNOSUS GG 1 CAPSULE. PO SCH (21:20)
[2020-05-05 23:00] VITALS: BP 129/80
[2020-05-06] MEDS: HYDROcodone/APAP 5/325MG 1 TAB TABLET PO PRN ×3 (03:30→20:24)
[2020-05-06] MEDS: PIPERACILLIN/TAZOBACTAM 4.5 GM in IV NORMAL SALINE 100ML 100 ML IV SCH ×4 (06:00→23:42)
[2020-05-06 07:00] VITALS: BP 128/83
[2020-05-06] MEDS: metFORMIN XR 500 MG TAB.ER.24H PO SCH (08:00)
[2020-05-06 08:43] LABS: BASO % 0 % (0-3); EOS # 0.3 x10^3/uL (0.0-0.7); EOS % 3 % (0-3); HEMATOCRIT 33.5 % (36.0-47.0); HEMOGLOBIN 10.7 g/dL (12.0-15.5); LYMPH # 1.5 x10^3/uL (1.0-4.8); LYMPH % 16 % (24-48); MEAN CORPUSCULAR HEMOGLOBIN 26 pg (25-35); MEAN CORPUSCULAR HGB CONC 32 g/dL (31-37); MEAN CORPUSCULAR VOLUME 81 fL (79-100); MONO # 0.6 x10^3/uL (0.0-1.1); MONO % 6 % (0-9); NEUT # 7.2 x10^3/uL (1.8-7.7); NEUT % 75 % (31-73); PLATELET COUNT 342 x10^3/uL (140-400); RED BLOOD COUNT 4.14 x10^6/uL (3.50-5.40); RED CELL DISTRIBUTION WIDTH 15.5 % (11.5-14.5); WHITE BLOOD COUNT 9.5 x10^3/uL (4.0-11.0)
[2020-05-06 08:47] LABS: ALBUMIN/GLOBULIN RATIO 0.4 (1.0-1.7); CALCIUM 8.1 mg/dL (8.5-10.1); CREATININE 0.6 mg/dL (0.6-1.0); TOTAL BILIRUBIN 0.1 mg/dL (0.2-1.0); TOTAL PROTEIN 6.5 g/dL (6.4-8.2)
[2020-05-06] MEDS: POLYETHYLENE GLYCOL 3350 17 GM PACKET. PO SCH (09:00)
[2020-05-06] MEDS: LACTOBACILLUS RHAMNOSUS GG 1 CAPSULE. PO SCH ×2 (09:22→20:23)
[2020-05-06] MEDS: FLUoxetine HCL 20 MG CAPSULE PO SCH (09:23)
[2020-05-06] MEDS: PROPRANOLOL ER 80 MG CAP.ER.24H. PO SCH (09:23)
[2020-05-06] MEDS: CELECOXIB 100 MG CAPSULE. PO SCH (09:23)
[2020-05-06] MEDS: amLODIPine BESYLATE 10 MG TABLET PO SCH (09:23)
[2020-05-06] MEDS: IV NORMAL SALINE 1000ML BAG 1,000 ML IV SCH ×2 (09:24→20:26)
--- NOTE | 2020-05-06 09:42 | PDOC ---
VAN GONZALEZ CO DIRECTOR 05/06/20 0942: SURGICAL PROGRESS NOTE Subjective tolerating diet mild LLQ pain no n/v Vital Signs Vital Signs Date Time Temp Pulse Resp B/P (MAP) Pulse Ox O2 Delivery O2 Flow Rate FiO2 05/06/20 09:23 100 128/83 05/06/20 08:00 Room Air 05/06/20 07:00 97.5 20 96 97.5 I&O Intake and Output 05/06/20 06:59 Intake Total 120 ml Balance 120 ml Intake Oral 120 ml # Voids 4 General: Alert, Oriented X3, Cooperative Abdomen: Soft, Other (NTTP) Labs Laboratory Tests Test 05/05/20 03:40 05/06/20 05:25 White Blood Count 9.8 x10^3/uL (4.0-11.0) 9.5 x10^3/uL (4.0-11.0) Red Blood Count 4.13 x10^6/uL (3.50-5.40) 4.14 x10^6/uL (3.50-5.40) Hemoglobin 11.0 g/dL (12.0-15.5) 10.7 g/dL (12.0-15.5) Hematocrit 33.2 % (36.0-47.0) 33.5 % (36.0-47.0) Mean Corpuscular Volume 80 fL (79-100) 81 fL (79-100) Mean Corpuscular Hemoglobin 27 pg (25-35) 26 pg (25-35) Mean Corpuscular Hemoglobin Concent 33 g/dL (31-37) 32 g/dL (31-37) Red Cell Distribution Width 15.1 % (11.5-14.5) 15.5 % (11.5-14.5) Platelet Count 346 x10^3/uL (140-400) 342 x10^3/uL (140-400) Neutrophils (%) (Auto) 81 % (31-73) 75 % (31-73) Lymphocytes (%) (Auto) 11 % (24-48) 16 % (24-48) Monocytes (%) (Auto) 4 % (0-9) 6 % (0-9) Eosinophils (%) (Auto) 3 % (0-3) 3 % (0-3) Basophils (%) (Auto) 0 % (0-3) 0 % (0-3) Neutrophils # (Auto) 8.0 x10^3/uL (1.8-7.7) 7.2 x10^3/uL (1.8-7.7) Lymphocytes # (Auto) 1.1 x10^3/uL (1.0-4.8) 1.5 x10^3/uL (1.0-4.8) Monocytes # (Auto) 0.4 x10^3/uL (0.0-1.1) 0.6 x10^3/uL (0.0-1.1) Eosinophils # (Auto) 0.3 x10^3/uL (0.0-0.7) 0.3 x10^3/uL (0.0-0.7) Basophils # (Auto) 0.0 x10^3/uL (0.0-0.2) 0.0 x10^3/uL (0.0-0.2) Sodium Level 140 mmol/L (136-145) 140 mmol/L (136-145) Potassium Level 3.0 mmol/L (3.5-5.1) 3.0 mmol/L (3.5-5.1) Chloride Level 102 mmol/L (98-107) 102 mmol/L (98-107) Carbon Dioxide Level 28 mmol/L (21-32) 27 mmol/L (21-32) Anion Gap 10 (6-14) 11 (6-14) Blood Urea Nitrogen 6 mg/dL (7-20) 4 mg/dL (7-20) Creatinine 0.7 mg/dL (0.6-1.0) 0.6 mg/dL (0.6-1.0) Estimated GFR (Cockcroft-Gault) 112.1 134.0 BUN/Creatinine Ratio 9 (6-20) 7 (6-20) Glucose Level 85 mg/dL (70-99) 83 mg/dL (70-99) Calcium Level 8.1 mg/dL (8.5-10.1) 8.1 mg/dL (8.5-10.1) Total Bilirubin 0.1 mg/dL (0.2-1.0) 0.1 mg/dL (0.2-1.0) Aspartate Amino Transf (AST/SGOT) 10 U/L (15-37) 12 U/L (15-37) Alanine Aminotransferase (ALT/SGPT) 14 U/L (14-59) 11 U/L (14-59) Alkaline Phosphatase 74 U/L (46-116) 51 U/L (46-116) Total Protein 6.5 g/dL (6.4-8.2) 6.5 g/dL (6.4-8.2) Albumin 2.0 g/dL (3.4-5.0) 2.0 g/dL (3.4-5.0) Albumin/Globulin Ratio 0.4 (1.0-1.7) 0.4 (1.0-1.7) Laboratory Tests Test 05/06/20 05:25 White Blood Count 9.5 x10^3/uL (4.0-11.0) Red Blood Count 4.14 x10^6/uL (3.50-5.40) Hemoglobin 10.7 g/dL (12.0-15.5) Hematocrit 33.5 % (36.0-47.0) Mean Corpuscular Volume 81 fL (79-100) Mean Corpuscular Hemoglobin 26 pg (25-35) Mean Corpuscular Hemoglobin Concent 32 g/dL (31-37) Red Cell Distribution Width 15.5 % (11.5-14.5) Platelet Count 342 x10^3/uL (140-400) Neutrophils (%) (Auto) 75 % (31-73) Lymphocytes (%) (Auto) 16 % (24-48) Monocytes (%) (Auto) 6 % (0-9) Eosinophils (%) (Auto) 3 % (0-3) Basophils (%) (Auto) 0 % (0-3) Neutrophils # (Auto) 7.2 x10^3/uL (1.8-7.7) Lymphocytes # (Auto) 1.5 x10^3/uL (1.0-4.8) Monocytes # (Auto) 0.6 x10^3/uL (0.0-1.1) Eosinophils # (Auto) 0.3 x10^3/uL (0.0-0.7) Basophils # (Auto) 0.0 x10^3/uL (0.0-0.2) Sodium Level 140 mmol/L (136-145) Potassium Level 3.0 mmol/L (3.5-5.1) Chloride Level 102 mmol/L (98-107) Carbon Dioxide Level 27 mmol/L (21-32) Anion Gap 11 (6-14) Blood Urea Nitrogen 4 mg/dL (7-20) Creatinine 0.6 mg/dL (0.6-1.0) Estimated GFR (Cockcroft-Gault) 134.0 BUN/Creatinine Ratio 7 (6-20) Glucose Level 83 mg/dL (70-99) Calcium Level 8.1 mg/dL (8.5-10.1) Total Bilirubin 0.1 mg/dL (0.2-1.0) Aspartate Amino Transf (AST/SGOT) 12 U/L (15-37) Alanine Aminotransferase (ALT/SGPT) 11 U/L (14-59) Alkaline Phosphatase 51 U/L (46-116) Total Protein 6.5 g/dL (6.4-8.2) Albumin 2.0 g/dL (3.4-5.0) Albumin/Globulin Ratio 0.4 (1.0-1.7) Problem List Problems Medical Problems: (1) Colon perforation Status: Acute (2) Perforated diverticulum Status: Acute Assessment/Plan WBC normal tolerating diet could work toward DC home on oral abx when medically ready, K low--defer to IPC Justicifation of Admission Dx: Justifications for Admission: Justification of Admission Dx: N/A EMILIE MCFADDEN MD 05/06/20 1420: SURGICAL PROGRESS NOTE Assessment/Plan Patient appears to be improving clinically normal white count tolerating diet having bowel movements. Agree with Lay assessment plan for discharge home on oral antibiotics when medically stable. No surgical plans VAN GONZALEZ APRN May 06, 2020 09:42 EMILIE MCFADDEN MD May 06, 2020 14:20
--- NOTE | 2020-05-06 10:02 | PDOC ---
PROGRESS NOTES Chief Complaint Chief Complaint IMPRESSION: Acute sigmoid diverticulitis with small amount of pneumoperitoneum adjacent to the colon and along the hepatic dome consistent with perforation. No fluid collection. overweight poor surgical candidate, given super obesity REPLACE K PLAN Surgery consulted npo iv fluid support IV ANTIBIOTICS, CONTINUE REPEAT CT ID CONSULT IV K D/W RN History of Present Illness History of Present Illness 05/05/2020 Patient seen and examined She is about the same clinically Still having some abdominal pain Chart reviewed Discussed with case management Discussed with RN Vitals Vitals Vital Signs Date Time Temp Pulse Resp B/P (MAP) Pulse Ox O2 Delivery O2 Flow Rate FiO2 05/06/20 09:23 100 128/83 05/06/20 08:00 Room Air 05/06/20 07:00 97.5 20 96 97.5 Physical Exam General: Alert, Oriented X3, Cooperative Heart: Regular rate, No murmurs Lungs: Clear Abdomen: Soft, Other (NTTP) Extremities: No clubbing, No edema Skin: No rashes, No significant lesion Labs LABS History: Reason: abd pain / Spl. Instructions: / History: Comparison: None. Technique: After administration of intravenous contrast, helical CT of the abdomen and pelvis was performed from the lung bases through the ischial tuberosities. Coronal and sagittal reconstructions were obtained. 75 mL of Omnipaque 300 were used. One or more of the following dose reduction techniques were utilized: Automated exposure control (AEC), Adjustment of mA and/or kV according to patient size, Use of iterative reconstruction technique such as ASiR, CT scan done according to ALARA and image gently/image wisely Abdomen Findings: The visualized lung bases are clear. Cholecystectomy. The liver, pancreas, spleen, and bilateral adrenal glands are normal. Symmetric renal enhancement. There is no focal renal mass. There is no hydronephrosis. The visualized loops of small bowel are normal. Sigmoid colon diverticulosis with pericolic inflammation and several foci of adjacent extraluminal gas. Small amount of pneumoperitoneum also noted along the hepatic dome. There is no evidence of bowel obstruction. Appendix is normal. There is no free fluid. There is no mesenteric or retroperitoneal adenopathy. The abdominal aorta is normal in caliber. Pelvis Findings: Urinary bladder is normal. Uterus is present with IUD in place. No pelvic free fluid. There is no pelvic or inguinal adenopathy. There is no acute bony abnormality. IMPRESSION: Acute sigmoid diverticulitis with small amount of pneumoperitoneum adjacent to the colon and along the hepatic dome consistent with perforation. No fluid collection. Findings were called to the emergency department at 2:15 AM on 05/01/2020. FOR INTERNAL CODING PURPOSES RESULT CODE: (C) Electronically signed by: Stefan Hairston MD (05/01/2020 2:18 AM) [facility] Laboratory Tests Test 05/06/20 05:25 White Blood Count 9.5 x10^3/uL (4.0-11.0) Red Blood Count 4.14 x10^6/uL (3.50-5.40) Hemoglobin 10.7 g/dL (12.0-15.5) Hematocrit 33.5 % (36.0-47.0) Mean Corpuscular Volume 81 fL (79-100) Mean Corpuscular Hemoglobin 26 pg (25-35) Mean Corpuscular Hemoglobin Concent 32 g/dL (31-37) Red Cell Distribution Width 15.5 % (11.5-14.5) Platelet Count 342 x10^3/uL (140-400) Neutrophils (%) (Auto) 75 % (31-73) Lymphocytes (%) (Auto) 16 % (24-48) Monocytes (%) (Auto) 6 % (0-9) Eosinophils (%) (Auto) 3 % (0-3) Basophils (%) (Auto) 0 % (0-3) Neutrophils # (Auto) 7.2 x10^3/uL (1.8-7.7) Lymphocytes # (Auto) 1.5 x10^3/uL (1.0-4.8) Monocytes # (Auto) 0.6 x10^3/uL (0.0-1.1) Eosinophils # (Auto) 0.3 x10^3/uL (0.0-0.7) Basophils # (Auto) 0.0 x10^3/uL (0.0-0.2) Sodium Level 140 mmol/L (136-145) Potassium Level 3.0 mmol/L (3.5-5.1) Chloride Level 102 mmol/L (98-107) Carbon Dioxide Level 27 mmol/L (21-32) Anion Gap 11 (6-14) Blood Urea Nitrogen 4 mg/dL (7-20) Creatinine 0.6 mg/dL (0.6-1.0) Estimated GFR (Cockcroft-Gault) 134.0 BUN/Creatinine Ratio 7 (6-20) Glucose Level 83 mg/dL (70-99) Calcium Level 8.1 mg/dL (8.5-10.1) Total Bilirubin 0.1 mg/dL (0.2-1.0) Aspartate Amino Transf (AST/SGOT) 12 U/L (15-37) Alanine Aminotransferase (ALT/SGPT) 11 U/L (14-59) Alkaline Phosphatase 51 U/L (46-116) Total Protein 6.5 g/dL (6.4-8.2) Albumin 2.0 g/dL (3.4-5.0) Albumin/Globulin Ratio 0.4 (1.0-1.7) Assessment and Plan Assessmemt and Plan Problems Medical Problems: (1) Colon perforation Status: Acute (2) Perforated diverticulum Status: Acute Comment Review of Relevant I have reviewed the following items karyna (where applicable) has been applied. Labs Laboratory Tests Test 05/05/20 03:40 05/06/20 05:25 White Blood Count 9.8 x10^3/uL (4.0-11.0) 9.5 x10^3/uL (4.0-11.0) Red Blood Count 4.13 x10^6/uL (3.50-5.40) 4.14 x10^6/uL (3.50-5.40) Hemoglobin 11.0 g/dL (12.0-15.5) 10.7 g/dL (12.0-15.5) Hematocrit 33.2 % (36.0-47.0) 33.5 % (36.0-47.0) Mean Corpuscular Volume 80 fL (79-100) 81 fL (79-100) Mean Corpuscular Hemoglobin 27 pg (25-35) 26 pg (25-35) Mean Corpuscular Hemoglobin Concent 33 g/dL (31-37) 32 g/dL (31-37) Red Cell Distribution Width 15.1 % (11.5-14.5) 15.5 % (11.5-14.5) Platelet Count 346 x10^3/uL (140-400) 342 x10^3/uL (140-400) Neutrophils (%) (Auto) 81 % (31-73) 75 % (31-73) Lymphocytes (%) (Auto) 11 % (24-48) 16 % (24-48) Monocytes (%) (Auto) 4 % (0-9) 6 % (0-9) Eosinophils (%) (Auto) 3 % (0-3) 3 % (0-3) Basophils (%) (Auto) 0 % (0-3) 0 % (0-3) Neutrophils # (Auto) 8.0 x10^3/uL (1.8-7.7) 7.2 x10^3/uL (1.8-7.7) Lymphocytes # (Auto) 1.1 x10^3/uL (1.0-4.8) 1.5 x10^3/uL (1.0-4.8) Monocytes # (Auto) 0.4 x10^3/uL (0.0-1.1) 0.6 x10^3/uL (0.0-1.1) Eosinophils # (Auto) 0.3 x10^3/uL (0.0-0.7) 0.3 x10^3/uL (0.0-0.7) Basophils # (Auto) 0.0 x10^3/uL (0.0-0.2) 0.0 x10^3/uL (0.0-0.2) Sodium Level 140 mmol/L (136-145) 140 mmol/L (136-145) Potassium Level 3.0 mmol/L (3.5-5.1) 3.0 mmol/L (3.5-5.1) Chloride Level 102 mmol/L (98-107) 102 mmol/L (98-107) Carbon Dioxide Level 28 mmol/L (21-32) 27 mmol/L (21-32) Anion Gap 10 (6-14) 11 (6-14) Blood Urea Nitrogen 6 mg/dL (7-20) 4 mg/dL (7-20) Creatinine 0.7 mg/dL (0.6-1.0) 0.6 mg/dL (0.6-1.0) Estimated GFR (Cockcroft-Gault) 112.1 134.0 BUN/Creatinine Ratio 9 (6-20) 7 (6-20) Glucose Level 85 mg/dL (70-99) 83 mg/dL (70-99) Calcium Level 8.1 mg/dL (8.5-10.1) 8.1 mg/dL (8.5-10.1) Total Bilirubin 0.1 mg/dL (0.2-1.0) 0.1 mg/dL (0.2-1.0) Aspartate Amino Transf (AST/SGOT) 10 U/L (15-37) 12 U/L (15-37) Alanine Aminotransferase (ALT/SGPT) 14 U/L (14-59) 11 U/L (14-59) Alkaline Phosphatase 74 U/L (46-116) 51 U/L (46-116) Total Protein 6.5 g/dL (6.4-8.2) 6.5 g/dL (6.4-8.2) Albumin 2.0 g/dL (3.4-5.0) 2.0 g/dL (3.4-5.0) Albumin/Globulin Ratio 0.4 (1.0-1.7) 0.4 (1.0-1.7) Laboratory Tests Test 05/06/20 05:25 White Blood Count 9.5 x10^3/uL (4.0-11.0) Red Blood Count 4.14 x10^6/uL (3.50-5.40) Hemoglobin 10.7 g/dL (12.0-15.5) Hematocrit 33.5 % (36.0-47.0) Mean Corpuscular Volume 81 fL (79-100) Mean Corpuscular Hemoglobin 26 pg (25-35) Mean Corpuscular Hemoglobin Concent 32 g/dL (31-37) Red Cell Distribution Width 15.5 % (11.5-14.5) Platelet Count 342 x10^3/uL (140-400) Neutrophils (%) (Auto) 75 % (31-73) Lymphocytes (%) (Auto) 16 % (24-48) Monocytes (%) (Auto) 6 % (0-9) Eosinophils (%) (Auto) 3 % (0-3) Basophils (%) (Auto) 0 % (0-3) Neutrophils # (Auto) 7.2 x10^3/uL (1.8-7.7) Lymphocytes # (Auto) 1.5 x10^3/uL (1.0-4.8) Monocytes # (Auto) 0.6 x10^3/uL (0.0-1.1) Eosinophils # (Auto) 0.3 x10^3/uL (0.0-0.7) Basophils # (Auto) 0.0 x10^3/uL (0.0-0.2) Sodium Level 140 mmol/L (136-145) Potassium Level 3.0 mmol/L (3.5-5.1) Chloride Level 102 mmol/L (98-107) Carbon Dioxide Level 27 mmol/L (21-32) Anion Gap 11 (6-14) Blood Urea Nitrogen 4 mg/dL (7-20) Creatinine 0.6 mg/dL (0.6-1.0) Estimated GFR (Cockcroft-Gault) 134.0 BUN/Creatinine Ratio 7 (6-20) Glucose Level 83 mg/dL (70-99) Calcium Level 8.1 mg/dL (8.5-10.1) Total Bilirubin 0.1 mg/dL (0.2-1.0) Aspartate Amino Transf (AST/SGOT) 12 U/L (15-37) Alanine Aminotransferase (ALT/SGPT) 11 U/L (14-59) Alkaline Phosphatase 51 U/L (46-116) Total Protein 6.5 g/dL (6.4-8.2) Albumin 2.0 g/dL (3.4-5.0) Albumin/Globulin Ratio 0.4 (1.0-1.7) Medications Current Medications Ketorolac Tromethamine (Toradol 30mg Vial) 30 mg 1X ONCE IVP Last administered on 05/01/20at 01:22; Start 05/01/20 at 01:00; Stop 05/01/20 at 01:01; Status DC Iohexol (Omnipaque 300 Mg/ml) 75 ml 1X ONCE IV Last administered on 05/01/20at 02:10; Start 05/01/20 at 02:00; Stop 05/01/20 at 02:01; Status DC Info (CONTRAST GIVEN -- Rx MONITORING) 1 each PRN DAILY PRN MC SEE COMMENTS; Start 05/01/20 at 02:00; Stop 05/03/20 at 01:59; Status DC Morphine Sulfate (Morphine Sulfate) 4 mg 1X ONCE IV Last administered on 05/01/20at 02:32; Start 05/01/20 at 02:30; Stop 05/01/20 at 02:31; Status DC Ondansetron HCl (Zofran) 4 mg 1X ONCE IM Last administered on 05/01/20at 02:38; Start 05/01/20 at 02:45; Stop 05/01/20 at 02:46; Status DC Piperacillin Sod/ Tazobactam Sod 4.5 gm/Sodium Chloride 100 ml @ 200 mls/hr 1X ONCE IV Last administered on 05/01/20at 03:12; Start 05/01/20 at 03:00; Stop 05/01/20 at 03:29; Status DC Piperacillin Sod/ Tazobactam Sod 4.5 gm/Sodium Chloride 100 ml @ 200 mls/hr Q6HRS IV ; Start 05/01/20 at 06:00; Stop 05/01/20 at 05:05; Status DC Morphine Sulfate (Morphine Sulfate) 4 mg PRN Q2HR PRN IV PAIN Last administered on 05/03/20at 21:55; Start 05/01/20 at 03:30 Ondansetron HCl (Zofran) 4 mg PRN Q6HRS PRN IVP NAUSEA/VOMITING Last administered on 05/03/20at 21:55; Start 05/01/20 at 03:30 Piperacillin Sod/ Tazobactam Sod 4.5 gm/Sodium Chloride 100 ml @ 200 mls/hr Q6HRS IV Last administered on 05/06/20at 06:00; Start 05/01/20 at 06:00 Metronidazole 100 ml @ 100 mls/hr Q8HRS IV Last administered on 05/06/20at 06:35; Start 05/01/20 at 10:00 Amlodipine Besylate (Norvasc) 10 mg DAILY PO Last administered on 05/06/20at 09:23; Start 05/02/20 at 13:00 Acetaminophen/ Hydrocodone Bitart (Lortab 5/325) 1 tab PRN Q6HRS PRN PO PAIN Last administered on 05/06/20at 03:30; Start 05/02/20 at 12:30 Metformin HCl (Glucophage Xr) 500 mg DAILYWBKFT PO ; Start 05/02/20 at 13:00 Metronidazole (Flagyl) 500 mg TID PO ; Start 05/02/20 at 14:00; Status Cancel Propranolol HCl (Inderal La) 80 mg DAILY PO Last administered on 05/06/20at 09:23; Start 05/02/20 at 13:00 Celecoxib (CeleBREX) 200 mg DAILY PO Last administered on 05/06/20at 09:23; Start 05/02/20 at 13:00 Fluoxetine HCl (PROzac) 20 mg DAILY PO Last administered on 05/06/20at 09:23; Start 05/02/20 at 13:00 Sodium Chloride 1,000 ml @ 75 mls/hr [id number] IV Last administered on 05/04/20at 00:34; Start 05/02/20 at 13:00 Polyethylene Glycol (miraLAX PACKET) 17 gm DAILY PO ; Start 05/05/20 at 10:00 Lactobacillus Rhamnosus (Culturelle) 1 cap BID PO Last administered on 05/06/20at 09:22; Start 05/05/20 at 21:00 Active Scripts Active Reported Hydrocodone-Apap 5-325 (Hydrocodone Bit/Acetaminophen) 1 Tab Tablet 1 Tab PO PRN Q6HRS PRN Cipro (Ciprofloxacin Hcl) 500 Mg Tablet 1 Tab PO BID 7 Days Metronidazole 500 Mg Tablet 1 Tab PO TID 7 Days Tizanidine Hcl 4 Mg Tablet 1 Tab PO BID Amlodipine Besylate 10 Mg Tablet 10 Mg PO DAILY Celebrex (Celecoxib) 200 Mg Capsule 200 Mg PO DAILY 30 Days Fluoxetine Hcl 20 Mg Tablet 20 Mg PO DAILY Propranolol Hcl 80 Mg Cap.sa.24h 80 Mg PO DAILY Metformin Hcl Er (Metformin Hcl) 500 Mg Tab.er.24h 500 Mg PO DAILYWBKFT Vitals/I & O Vital Sign - Last 24 Hours 05/05/20 05/05/20 05/05/20 05/05/20 11:00 15:00 16:25 17:25 Temp 98.3 98.4 98.3 98.4 Pulse 87 90 Resp 16 16 B/P (MAP) 120/76 (91) 114/82 (93) Pulse Ox 96 97 O2 Delivery Room Air Room Air Room Air Room Air 7/05/05/20 05/05/20 05/06/20 19:00 20:00 23:00 03:30 Temp 98.2 98.1 98.2 98.1 Pulse 89 95 Resp 18 18 14 B/P (MAP) 121/80 (94) 129/80 (96) Pulse Ox 100 97 O2 Delivery Room Air Room Air Room Air Room Air 05/06/20 05/06/20 05/06/20 05/06/20 07:00 08:00 09:23 09:23 Temp 97.5 97.5 Pulse 100 100 100 Resp 20 B/P (MAP) 128/83 (98) 128/83 128/83 Pulse Ox 96 O2 Delivery Room Air Room Air Intake and Output 05/05/20 05/05/20 05/06/20 15:00 23:00 07:00 Intake Total 120 ml Balance 120 ml Justicifation of Admission Dx: Justifications for Admission: Justification of Admission Dx: N/A EMILIE ALVAREZ MD May 06, 2020 10:02
[2020-05-06 11:00] VITALS: BP 112/94
--- NOTE | 2020-05-06 11:39 | NUR ---
SW following. Discussed with RN, pt discharging home today with self care. RN advised no SW needs.
[2020-05-06] MEDS ORDERED: POTASSIUM CHLORIDE 10MEQ 100 ML IV SCH (12:00)
--- NOTE | 2020-05-06 12:24 | PDOC ---
Infectious Disease Note Vital Sign Vital Signs Vital Signs Date Time Temp Pulse Resp B/P (MAP) Pulse Ox O2 Delivery O2 Flow Rate FiO2 05/06/20 11:00 97.8 102 16 112/94 (100) 98 Room Air 97.8 Labs Lab Laboratory Tests Test 05/06/20 05:25 White Blood Count 9.5 x10^3/uL (4.0-11.0) Red Blood Count 4.14 x10^6/uL (3.50-5.40) Hemoglobin 10.7 g/dL (12.0-15.5) Hematocrit 33.5 % (36.0-47.0) Mean Corpuscular Volume 81 fL (79-100) Mean Corpuscular Hemoglobin 26 pg (25-35) Mean Corpuscular Hemoglobin Concent 32 g/dL (31-37) Red Cell Distribution Width 15.5 % (11.5-14.5) Platelet Count 342 x10^3/uL (140-400) Neutrophils (%) (Auto) 75 % (31-73) Lymphocytes (%) (Auto) 16 % (24-48) Monocytes (%) (Auto) 6 % (0-9) Eosinophils (%) (Auto) 3 % (0-3) Basophils (%) (Auto) 0 % (0-3) Neutrophils # (Auto) 7.2 x10^3/uL (1.8-7.7) Lymphocytes # (Auto) 1.5 x10^3/uL (1.0-4.8) Monocytes # (Auto) 0.6 x10^3/uL (0.0-1.1) Eosinophils # (Auto) 0.3 x10^3/uL (0.0-0.7) Basophils # (Auto) 0.0 x10^3/uL (0.0-0.2) Sodium Level 140 mmol/L (136-145) Potassium Level 3.0 mmol/L (3.5-5.1) Chloride Level 102 mmol/L (98-107) Carbon Dioxide Level 27 mmol/L (21-32) Anion Gap 11 (6-14) Blood Urea Nitrogen 4 mg/dL (7-20) Creatinine 0.6 mg/dL (0.6-1.0) Estimated GFR (Cockcroft-Gault) 134.0 BUN/Creatinine Ratio 7 (6-20) Glucose Level 83 mg/dL (70-99) Calcium Level 8.1 mg/dL (8.5-10.1) Total Bilirubin 0.1 mg/dL (0.2-1.0) Aspartate Amino Transf (AST/SGOT) 12 U/L (15-37) Alanine Aminotransferase (ALT/SGPT) 11 U/L (14-59) Alkaline Phosphatase 51 U/L (46-116) Total Protein 6.5 g/dL (6.4-8.2) Albumin 2.0 g/dL (3.4-5.0) Albumin/Globulin Ratio 0.4 (1.0-1.7) Objective Assessment pt seen, consult dictated Plan Plan of Care / CAITLIN MORGAN MD May 06, 2020 12:24
--- NOTE | 2020-05-06 12:39 | CONS ---
DATE OF CONSULTATION: 05/06/2020 REQUESTING PHYSICIAN: Jack Flor MD REASON FOR CONSULTATION: Diverticulitis, antibiotic management. HISTORY OF PRESENT ILLNESS: This is a 39-year-old -Citizen Of [place] female with morbid obesity, who presented with abdominal pain. The patient was diagnosed having diverticulitis with microperforation. The patient had been treated with conservative management and antibiotics. The patient has improved. The patient did have leukocytosis. The patient received Zosyn and Flagyl, feeling much better, and has no nausea, vomiting, diarrhea, chest pain, shortness of breath, abdominal pain. Repeat CT has been pending today. PAST MEDICAL HISTORY: Positive for morbid obesity and no other significant history. The patient does have polycystic ovarian disease, hypertension, has had cholecystectomy, depression. SOCIAL HISTORY: Positive for smoking, no alcohol use or drug use. ALLERGIES: No known drug allergies. CURRENT MEDICATIONS: Reviewed. REVIEW OF SYSTEMS: As per HPI, all other systems reviewed are negative. PHYSICAL EXAMINATION: GENERAL: Alert and oriented female, not in distress. VITAL SIGNS: Stable, afebrile. HEENT: NAD. NECK: Supple, no JVP, no lymphadenopathy. LUNGS: Clear. HEART: S1, S2 regular. ABDOMEN: Benign. EXTREMITIES: No edema, cyanosis. SKIN: Unremarkable. NEUROLOGIC: The patient is alert, awake and appropriate. No focal neurologic deficit. LABORATORY DATA: White count is down from 17,000 to normal. BUN and creatinine is normal. Urinalysis showing blood. CT, last CT was done on 05/01/2020 reviewed. IMPRESSION: 1. Diverticulitis with microperforation. 2. Morbid obesity. 3. Hypertension. 4. Chronic back problems. 5. Leukocytosis, which has improved. RECOMMENDATIONS: Repeat CT is improved. The patient can be discharged on p.o. Augmentin. Weight reduction advised to the patient, supportive care and discussed with Dr. Flor. Thank you very much, Dr. Flor, for giving me the opportunity to participate in this patient's care. CAITLIN MORGAN MD DR: KAMILA/farheen JOB#: [id number] / [id number]
[2020-05-06] MEDS ORDERED: POTASSIUM CHLORIDE 20 MEQ TABLET.ER. PO ONE (14:15)
[2020-05-06 15:00] VITALS: BP 119/82
--- NOTE | 2020-05-06 15:54 | RAD ---
Examination: CT ABDOMEN PELVIS WO CONTRAST History: Reason: PERFORATION DIVERTICULI / Comparison/Correlation: 05/01/2020 CT abdomen and pelvis with contrast Findings: Axial images of the abdomen and pelvis were obtained without contrast. Sagittal and coronal reformatted images were provided. There is moderate pleural effusion is present. Visualized lung bases are clear. Liver, spleen, pancreas, adrenal glands, and kidneys are unremarkable. Cholecystectomy noted. No radiopaque collecting system calculi. Appendix is normal. Small umbilical hernia containing omental fat. Extraluminal gas is present in small quantity within the nondependent abdomen primarily. There is a large gas/fluid collection along the right margin of the distal descending colon and proximal rectum measuring 11.7 cm longitudinal by 6.3 cm transverse by 9.2 cm anteroposterior. Mass effect upon the distal sigmoid colon with displacement to the left is noted. Circumferential wall thickening of the proximal and mid sigmoid colon is present. Small amount of fluid is present at the left iliac fossa and within the dependent pelvis. Intrauterine device is present within the uterus. Sacroiliac joint vacuum phenomenon is evident. Impression: Interval development of a large gas-fluid collection within the right pelvis extending slightly into the abdomen. Extraluminal gas. Circumferential wall thickening proximal to mid sigmoid colon of concern for acute acute diverticulitis. Follow-up to resolution recommended. The patient's nurse Rosana was informed on 05/06/2020 3:46 PM. PQRS Compliance Statement: One or more of the following individualized dose reduction techniques were utilized for this examination: 1. Automated exposure control 2. Adjustment of the mA and/or kV according to patient size 3. Use of iterative reconstruction technique Electronically signed by: Donte Valverde MD (05/06/2020 3:51 PM) [id number]
[2020-05-06 19:00] VITALS: BP 112/76
[2020-05-06 19:30] LABS: PROTHROMBIN TIME PATIENT 16.7 SEC (11.7-14.0)
[2020-05-06 23:00] VITALS: BP 120/72
[2020-05-07] VITALS (27 sets, daily range): BP systolic 106–136; BP diastolic 66–89
[2020-05-07] MEDS: IV NORMAL SALINE 1000ML BAG 1,000 ML IV SCH ×2 (04:28→11:53)
[2020-05-07] MEDS: PIPERACILLIN/TAZOBACTAM 4.5 GM in IV NORMAL SALINE 100ML 100 ML IV SCH ×3 (05:25→17:57)
--- NOTE | 2020-05-07 07:17 | PDOC ---
SURGICAL PROGRESS NOTE Subjective Patient states overall she is feeling well does have a little bit of abdominal pain periumbilical no nausea vomiting has been passing stool Vital Signs Vital Signs Date Time Temp Pulse Resp B/P (MAP) Pulse Ox O2 Delivery O2 Flow Rate FiO2 05/07/20 03:00 98.0 73 18 116/70 (85) 97 Room Air 98.0 I&O Intake and Output 05/07/20 07:00 Intake Total 1140 ml Output Total 0 ml Balance 1140 ml Intake Oral 520 ml IV Total 500 ml Other 120 ml Output Urine Total 0 ml # Voids 5 # Bowel Movements 1 PATIENT HAS A GAGNON: No General: Alert, Oriented X3, Cooperative, No acute distress Abdomen: Normal bowel sounds, Soft, Other (Mildly tender to palpation periumbilical no peritoneal signs) Labs Laboratory Tests Test 05/06/20 05:25 05/06/20 19:10 White Blood Count 9.5 x10^3/uL (4.0-11.0) Red Blood Count 4.14 x10^6/uL (3.50-5.40) Hemoglobin 10.7 g/dL (12.0-15.5) Hematocrit 33.5 % (36.0-47.0) Mean Corpuscular Volume 81 fL (79-100) Mean Corpuscular Hemoglobin 26 pg (25-35) Mean Corpuscular Hemoglobin Concent 32 g/dL (31-37) Red Cell Distribution Width 15.5 % (11.5-14.5) Platelet Count 342 x10^3/uL (140-400) Neutrophils (%) (Auto) 75 % (31-73) Lymphocytes (%) (Auto) 16 % (24-48) Monocytes (%) (Auto) 6 % (0-9) Eosinophils (%) (Auto) 3 % (0-3) Basophils (%) (Auto) 0 % (0-3) Neutrophils # (Auto) 7.2 x10^3/uL (1.8-7.7) Lymphocytes # (Auto) 1.5 x10^3/uL (1.0-4.8) Monocytes # (Auto) 0.6 x10^3/uL (0.0-1.1) Eosinophils # (Auto) 0.3 x10^3/uL (0.0-0.7) Basophils # (Auto) 0.0 x10^3/uL (0.0-0.2) Sodium Level 140 mmol/L (136-145) Potassium Level 3.0 mmol/L (3.5-5.1) Chloride Level 102 mmol/L (98-107) Carbon Dioxide Level 27 mmol/L (21-32) Anion Gap 11 (6-14) Blood Urea Nitrogen 4 mg/dL (7-20) Creatinine 0.6 mg/dL (0.6-1.0) Estimated GFR (Cockcroft-Gault) 134.0 BUN/Creatinine Ratio 7 (6-20) Glucose Level 83 mg/dL (70-99) Calcium Level 8.1 mg/dL (8.5-10.1) Total Bilirubin 0.1 mg/dL (0.2-1.0) Aspartate Amino Transf (AST/SGOT) 12 U/L (15-37) Alanine Aminotransferase (ALT/SGPT) 11 U/L (14-59) Alkaline Phosphatase 51 U/L (46-116) C-Reactive Protein, Quantitative 119.6 mg/L (0-3.3) Total Protein 6.5 g/dL (6.4-8.2) Albumin 2.0 g/dL (3.4-5.0) Albumin/Globulin Ratio 0.4 (1.0-1.7) Prothrombin Time 16.7 SEC (11.7-14.0) Prothromb Time International Ratio 1.4 (0.8-1.1) Laboratory Tests Test 05/06/20 19:10 Prothrombin Time 16.7 SEC (11.7-14.0) Prothromb Time International Ratio 1.4 (0.8-1.1) I have reviewed the following CT scan done 714 showing fluid collection within the pelvis consistent with abscess plan for drainage today Problem List Problems Medical Problems: (1) Colon perforation Status: Acute (2) Perforated diverticulum Status: Acute Assessment/Plan Diverticulitis with pelvic abscess IR to drain today White count normal afebrile Continue current therapies Justicifation of Admission Dx: Justifications for Admission: Justification of Admission Dx: N/A EMILIE MCFADDEN MD May 07, 2020 07:17
[2020-05-07] MEDS: metFORMIN XR 500 MG TAB.ER.24H PO SCH (08:00)
[2020-05-07] MEDS: MORPHINE SULFATE 4 MG/ML VIAL. IV PRN (08:09)
[2020-05-07 08:10] LABS: BASO % 0 % (0-3); EOS # 0.2 x10^3/uL (0.0-0.7); EOS % 1 % (0-3); HEMATOCRIT 33.3 % (36.0-47.0); HEMOGLOBIN 10.9 g/dL (12.0-15.5); LYMPH # 1.3 x10^3/uL (1.0-4.8); LYMPH % 11 % (24-48); MEAN CORPUSCULAR HEMOGLOBIN 26 pg (25-35); MEAN CORPUSCULAR HGB CONC 33 g/dL (31-37); MEAN CORPUSCULAR VOLUME 81 fL (79-100); MONO # 0.6 x10^3/uL (0.0-1.1); MONO % 5 % (0-9); NEUT % 83 % (31-73); PLATELET COUNT 353 x10^3/uL (140-400); RED BLOOD COUNT 4.12 x10^6/uL (3.50-5.40); RED CELL DISTRIBUTION WIDTH 15.5 % (11.5-14.5); WHITE BLOOD COUNT 12.1 x10^3/uL (4.0-11.0)
[2020-05-07] MEDS: ONDANSETRON PF 4 MG/2 ML VIAL. IVP PRN (08:11)
[2020-05-07 08:14] LABS: ALBUMIN/GLOBULIN RATIO 0.5 (1.0-1.7); CALCIUM 7.8 mg/dL (8.5-10.1); CREATININE 0.6 mg/dL (0.6-1.0); POTASSIUM 3.5 mmol/L (3.5-5.1); TOTAL BILIRUBIN 0.3 mg/dL (0.2-1.0); TOTAL PROTEIN 6.4 g/dL (6.4-8.2)
--- NOTE | 2020-05-07 08:37 | PDOC ---
PROGRESS NOTES Chief Complaint Chief Complaint IMPRESSION: Acute sigmoid diverticulitis with small amount of pneumoperitoneum adjacent to the colon and along the hepatic dome consistent with perforation. No fluid collection. 05/07Interval development of a large gas-fluid collection within the right pelvis extending slightly into the abdomen. Extraluminal gas. Circumferential wall thickening proximal to mid sigmoid colon of concern for acute acute diverticulitis. Follow-up to resolution recommended. 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 38 min pt exam, chart review, > 50% of time spent with exam, chart review, pt care coordination History of Present Illness History of Present Illness 05/05/2020 Patient seen and examined She is about the same clinically Still having some abdominal pain Chart reviewed Discussed with case management Discussed with RN Vitals Vitals Vital Signs Date Time Temp Pulse Resp B/P (MAP) Pulse Ox O2 Delivery O2 Flow Rate FiO2 05/07/20 08:09 Room Air 05/07/20 03:00 98.0 73 18 116/70 (85) 97 98.0 Physical Exam General: Alert, Oriented X3, Cooperative, No acute distress Heart: Regular rate, No murmurs Lungs: Clear Abdomen: Normal bowel sounds, Soft, Other (Mildly tender to palpation periumbilical no peritoneal signs) Extremities: No clubbing, No edema Skin: No rashes, No significant lesion Labs LABS PATIENT: MARGIE MOY AACCOUNT: [id number] : 1980 LOCATION: [address] [place] [address] AGE: 39 SEX: F EXAM STATUS: ADM IN ORD. PHYSICIAN: EMILIE ALVAREZ MD REASON: PERFORATION DIVERTICULI PROCEDURE: CT ABDOMEN PELVIS WO CONTRAST Examination: CT ABDOMEN PELVIS WO CONTRAST History: Reason: PERFORATION DIVERTICULI / Comparison/Correlation: 05/01/2020 CT abdomen and pelvis with contrast Findings: Axial images of the abdomen and pelvis were obtained without contrast. Sagittal and coronal reformatted images were provided. There is moderate pleural effusion is present. Visualized lung bases are clear. Liver, spleen, pancreas, adrenal glands, and kidneys are unremarkable. Cholecystectomy noted. No radiopaque collecting system calculi. Appendix is normal. Small umbilical hernia containing omental fat. Extraluminal gas is present in small quantity within the nondependent abdomen primarily. There is a large gas/fluid collection along the right margin of the distal descending colon and proximal rectum measuring 11.7 cm longitudinal by 6.3 cm transverse by 9.2 cm anteroposterior. Mass effect upon the distal sigmoid colon with displacement to the left is noted. Circumferential wall thickening of the proximal and mid sigmoid colon is present. Small amount of fluid is present at the left iliac fossa and within the dependent pelvis. Intrauterine device is present within the uterus. Sacroiliac joint vacuum phenomenon is evident. Impression: Interval development of a large gas-fluid collection within the right pelvis extending slightly into the abdomen. Extraluminal gas. Circumferential wall thickening proximal to mid sigmoid colon of concern for acute acute diverticulitis. Follow-up to resolution recommended. The patient's nurse Rosana was informed on 05/06/2020 3:46 PM. PQRS Compliance Statement: One or more of the following individualized dose reduction techniques were utilized for this examination: 1. Automated exposure control 2. Adjustment of the mA and/or kV according to patient size 3. Use of iterative reconstruction technique Electronically signed by: Donte Banerjee MD (05/06/2020 3:51 PM) [id number] DICTATED and SIGNED BY: DONTE BANERJEE MD DATE: 05/06/20 1551 Laboratory Tests Test 05/06/20 19:10 05/07/20 07:17 05/07/20 07:21 Prothrombin Time 16.7 SEC (11.7-14.0) Prothromb Time International Ratio 1.4 (0.8-1.1) White Blood Count 12.1 x10^3/uL (4.0-11.0) Red Blood Count 4.12 x10^6/uL (3.50-5.40) Hemoglobin 10.9 g/dL (12.0-15.5) Hematocrit 33.3 % (36.0-47.0) Mean Corpuscular Volume 81 fL (79-100) Mean Corpuscular Hemoglobin 26 pg (25-35) Mean Corpuscular Hemoglobin Concent 33 g/dL (31-37) Red Cell Distribution Width 15.5 % (11.5-14.5) Platelet Count 353 x10^3/uL (140-400) Neutrophils (%) (Auto) 83 % (31-73) Lymphocytes (%) (Auto) 11 % (24-48) Monocytes (%) (Auto) 5 % (0-9) Eosinophils (%) (Auto) 1 % (0-3) Basophils (%) (Auto) 0 % (0-3) Neutrophils # (Auto) 10.0 x10^3/uL (1.8-7.7) Lymphocytes # (Auto) 1.3 x10^3/uL (1.0-4.8) Monocytes # (Auto) 0.6 x10^3/uL (0.0-1.1) Eosinophils # (Auto) 0.2 x10^3/uL (0.0-0.7) Basophils # (Auto) 0.0 x10^3/uL (0.0-0.2) Sodium Level 139 mmol/L (136-145) Potassium Level 3.5 mmol/L (3.5-5.1) Chloride Level 102 mmol/L (98-107) Carbon Dioxide Level 27 mmol/L (21-32) Anion Gap 10 (6-14) Blood Urea Nitrogen 3 mg/dL (7-20) Creatinine 0.6 mg/dL (0.6-1.0) Estimated GFR (Cockcroft-Gault) 134.0 BUN/Creatinine Ratio 5 (6-20) Glucose Level 92 mg/dL (70-99) Calcium Level 7.8 mg/dL (8.5-10.1) Total Bilirubin 0.3 mg/dL (0.2-1.0) Aspartate Amino Transf (AST/SGOT) 20 U/L (15-37) Alanine Aminotransferase (ALT/SGPT) 15 U/L (14-59) Alkaline Phosphatase 79 U/L (46-116) Total Protein 6.4 g/dL (6.4-8.2) Albumin 2.0 g/dL (3.4-5.0) Albumin/Globulin Ratio 0.5 (1.0-1.7) Assessment and Plan Assessmemt and Plan Problems Medical Problems: (1) Colon perforation Status: Acute (2) Perforated diverticulum Status: Acute Comment Review of Relevant I have reviewed the following items karyna (where applicable) has been applied. Labs Laboratory Tests Test 05/06/20 05:25 05/06/20 19:10 05/07/20 07:17 05/07/20 07:21 White Blood Count 9.5 x10^3/uL (4.0-11.0) 12.1 x10^3/uL (4.0-11.0) Red Blood Count 4.14 x10^6/uL (3.50-5.40) 4.12 x10^6/uL (3.50-5.40) Hemoglobin 10.7 g/dL (12.0-15.5) 10.9 g/dL (12.0-15.5) Hematocrit 33.5 % (36.0-47.0) 33.3 % (36.0-47.0) Mean Corpuscular Volume 81 fL (79-100) 81 fL (79-100) Mean Corpuscular Hemoglobin 26 pg (25-35) 26 pg (25-35) Mean Corpuscular Hemoglobin Concent 32 g/dL (31-37) 33 g/dL (31-37) Red Cell Distribution Width 15.5 % (11.5-14.5) 15.5 % (11.5-14.5) Platelet Count 342 x10^3/uL (140-400) 353 x10^3/uL (140-400) Neutrophils (%) (Auto) 75 % (31-73) 83 % (31-73) Lymphocytes (%) (Auto) 16 % (24-48) 11 % (24-48) Monocytes (%) (Auto) 6 % (0-9) 5 % (0-9) Eosinophils (%) (Auto) 3 % (0-3) 1 % (0-3) Basophils (%) (Auto) 0 % (0-3) 0 % (0-3) Neutrophils # (Auto) 7.2 x10^3/uL (1.8-7.7) 10.0 x10^3/uL (1.8-7.7) Lymphocytes # (Auto) 1.5 x10^3/uL (1.0-4.8) 1.3 x10^3/uL (1.0-4.8) Monocytes # (Auto) 0.6 x10^3/uL (0.0-1.1) 0.6 x10^3/uL (0.0-1.1) Eosinophils # (Auto) 0.3 x10^3/uL (0.0-0.7) 0.2 x10^3/uL (0.0-0.7) Basophils # (Auto) 0.0 x10^3/uL (0.0-0.2) 0.0 x10^3/uL (0.0-0.2) Sodium Level 140 mmol/L (136-145) 139 mmol/L (136-145) Potassium Level 3.0 mmol/L (3.5-5.1) 3.5 mmol/L (3.5-5.1) Chloride Level 102 mmol/L (98-107) 102 mmol/L (98-107) Carbon Dioxide Level 27 mmol/L (21-32) 27 mmol/L (21-32) Anion Gap 11 (6-14) 10 (6-14) Blood Urea Nitrogen 4 mg/dL (7-20) 3 mg/dL (7-20) Creatinine 0.6 mg/dL (0.6-1.0) 0.6 mg/dL (0.6-1.0) Estimated GFR (Cockcroft-Gault) 134.0 134.0 BUN/Creatinine Ratio 7 (6-20) 5 (6-20) Glucose Level 83 mg/dL (70-99) 92 mg/dL (70-99) Calcium Level 8.1 mg/dL (8.5-10.1) 7.8 mg/dL (8.5-10.1) Total Bilirubin 0.1 mg/dL (0.2-1.0) 0.3 mg/dL (0.2-1.0) Aspartate Amino Transf (AST/SGOT) 12 U/L (15-37) 20 U/L (15-37) Alanine Aminotransferase (ALT/SGPT) 11 U/L (14-59) 15 U/L (14-59) Alkaline Phosphatase 51 U/L (46-116) 79 U/L (46-116) C-Reactive Protein, Quantitative 119.6 mg/L (0-3.3) Total Protein 6.5 g/dL (6.4-8.2) 6.4 g/dL (6.4-8.2) Albumin 2.0 g/dL (3.4-5.0) 2.0 g/dL (3.4-5.0) Albumin/Globulin Ratio 0.4 (1.0-1.7) 0.5 (1.0-1.7) Prothrombin Time 16.7 SEC (11.7-14.0) Prothromb Time International Ratio 1.4 (0.8-1.1) Laboratory Tests Test 05/06/20 19:10 05/07/20 07:17 05/07/20 07:21 Prothrombin Time 16.7 SEC (11.7-14.0) Prothromb Time International Ratio 1.4 (0.8-1.1) White Blood Count 12.1 x10^3/uL (4.0-11.0) Red Blood Count 4.12 x10^6/uL (3.50-5.40) Hemoglobin 10.9 g/dL (12.0-15.5) Hematocrit 33.3 % (36.0-47.0) Mean Corpuscular Volume 81 fL (79-100) Mean Corpuscular Hemoglobin 26 pg (25-35) Mean Corpuscular Hemoglobin Concent 33 g/dL (31-37) Red Cell Distribution Width 15.5 % (11.5-14.5) Platelet Count 353 x10^3/uL (140-400) Neutrophils (%) (Auto) 83 % (31-73) Lymphocytes (%) (Auto) 11 % (24-48) Monocytes (%) (Auto) 5 % (0-9) Eosinophils (%) (Auto) 1 % (0-3) Basophils (%) (Auto) 0 % (0-3) Neutrophils # (Auto) 10.0 x10^3/uL (1.8-7.7) Lymphocytes # (Auto) 1.3 x10^3/uL (1.0-4.8) Monocytes # (Auto) 0.6 x10^3/uL (0.0-1.1) Eosinophils # (Auto) 0.2 x10^3/uL (0.0-0.7) Basophils # (Auto) 0.0 x10^3/uL (0.0-0.2) Sodium Level 139 mmol/L (136-145) Potassium Level 3.5 mmol/L (3.5-5.1) Chloride Level 102 mmol/L (98-107) Carbon Dioxide Level 27 mmol/L (21-32) Anion Gap 10 (6-14) Blood Urea Nitrogen 3 mg/dL (7-20) Creatinine 0.6 mg/dL (0.6-1.0) Estimated GFR (Cockcroft-Gault) 134.0 BUN/Creatinine Ratio 5 (6-20) Glucose Level 92 mg/dL (70-99) Calcium Level 7.8 mg/dL (8.5-10.1) Total Bilirubin 0.3 mg/dL (0.2-1.0) Aspartate Amino Transf (AST/SGOT) 20 U/L (15-37) Alanine Aminotransferase (ALT/SGPT) 15 U/L (14-59) Alkaline Phosphatase 79 U/L (46-116) Total Protein 6.4 g/dL (6.4-8.2) Albumin 2.0 g/dL (3.4-5.0) Albumin/Globulin Ratio 0.5 (1.0-1.7) Microbiology 05/03/20 Urine Culture - Final, Complete Medications Current Medications Ketorolac Tromethamine (Toradol 30mg Vial) 30 mg 1X ONCE IVP Last administered on 05/01/20at 01:22; Start 05/01/20 at 01:00; Stop 05/01/20 at 01:01; Status DC Iohexol (Omnipaque 300 Mg/ml) 75 ml 1X ONCE IV Last administered on 05/01/20at 02:10; Start 05/01/20 at 02:00; Stop 05/01/20 at 02:01; Status DC Info (CONTRAST GIVEN -- Rx MONITORING) 1 each PRN DAILY PRN MC SEE COMMENTS; Start 05/01/20 at 02:00; Stop 05/03/20 at 01:59; Status DC Morphine Sulfate (Morphine Sulfate) 4 mg 1X ONCE IV Last administered on 05/01/20at 02:32; Start 05/01/20 at 02:30; Stop 05/01/20 at 02:31; Status DC Ondansetron HCl (Zofran) 4 mg 1X ONCE IM Last administered on 05/01/20at 02:38; Start 05/01/20 at 02:45; Stop 05/01/20 at 02:46; Status DC Piperacillin Sod/ Tazobactam Sod 4.5 gm/Sodium Chloride 100 ml @ 200 mls/hr 1X ONCE IV Last administered on 05/01/20at 03:12; Start 05/01/20 at 03:00; Stop 05/01/20 at 03:29; Status DC Piperacillin Sod/ Tazobactam Sod 4.5 gm/Sodium Chloride 100 ml @ 200 mls/hr Q6HRS IV ; Start 05/01/20 at 06:00; Stop 05/01/20 at 05:05; Status DC Morphine Sulfate (Morphine Sulfate) 4 mg PRN Q2HR PRN IV PAIN Last administered on 05/07/20at 08:09; Start 05/01/20 at 03:30 Ondansetron HCl (Zofran) 4 mg PRN Q6HRS PRN IVP NAUSEA/VOMITING Last administered on 05/07/20at 08:11; Start 05/01/20 at 03:30 Piperacillin Sod/ Tazobactam Sod 4.5 gm/Sodium Chloride 100 ml @ 200 mls/hr Q6HRS IV Last administered on 05/07/20at 05:25; Start 05/01/20 at 06:00 Metronidazole 100 ml @ 100 mls/hr Q8HRS IV Last administered on 05/07/20at 05:26; Start 05/01/20 at 10:00 Amlodipine Besylate (Norvasc) 10 mg DAILY PO Last administered on 05/06/20at 09:23; Start 05/02/20 at 13:00 Acetaminophen/ Hydrocodone Bitart (Lortab 5/325) 1 tab PRN Q6HRS PRN PO PAIN Last administered on 05/06/20at 20:24; Start 05/02/20 at 12:30 Metformin HCl (Glucophage Xr) 500 mg DAILYWBKFT PO ; Start 05/02/20 at 13:00 Metronidazole (Flagyl) 500 mg TID PO ; Start 05/02/20 at 14:00; Status Cancel Propranolol HCl (Inderal La) 80 mg DAILY PO Last administered on 05/06/20at 09:23; Start 05/02/20 at 13:00 Celecoxib (CeleBREX) 200 mg DAILY PO Last administered on 05/06/20at 09:23; Start 05/02/20 at 13:00 Fluoxetine HCl (PROzac) 20 mg DAILY PO Last administered on 05/06/20at 09:23; Start 05/02/20 at 13:00 Sodium Chloride 1,000 ml @ 135 mls/hr Q7H25M IV Last administered on 05/04/20at 00:34; Start 05/02/20 at 13:00 Polyethylene Glycol (miraLAX PACKET) 17 gm DAILY PO ; Start 05/05/20 at 10:00 Lactobacillus Rhamnosus (Culturelle) 1 cap BID PO Last administered on 05/06/20at 20:23; Start 05/05/20 at 21:00 Potassium Chloride/Water 100 ml @ 100 mls/hr Q1H IV ; Start 05/06/20 at 12:00; Stop 05/06/20 at 14:07; Status DC Potassium Chloride (Klor-Con) 40 meq 1X ONCE PO Last administered on 05/06/20at 14:15; Start 05/06/20 at 14:15; Stop 05/06/20 at 14:16; Status DC Active Scripts Active Reported Hydrocodone-Apap 5-325 (Hydrocodone Bit/Acetaminophen) 1 Tab Tablet 1 Tab PO PRN Q6HRS PRN Cipro (Ciprofloxacin Hcl) 500 Mg Tablet 1 Tab PO BID 7 Days Metronidazole 500 Mg Tablet 1 Tab PO TID 7 Days Tizanidine Hcl 4 Mg Tablet 1 Tab PO BID Amlodipine Besylate 10 Mg Tablet 10 Mg PO DAILY Celebrex (Celecoxib) 200 Mg Capsule 200 Mg PO DAILY 30 Days Fluoxetine Hcl 20 Mg Tablet 20 Mg PO DAILY Propranolol Hcl 80 Mg Cap.sa.24h 80 Mg PO DAILY Metformin Hcl Er (Metformin Hcl) 500 Mg Tab.er.24h 500 Mg PO DAILYWBKFT Vitals/I & O Vital Sign - Last 24 Hours 05/06/20 05/06/20 05/06/20 05/06/20 09:23 09:23 11:00 14:15 Temp 97.8 97.8 Pulse 100 100 102 Resp 16 B/P (MAP) 128/83 128/83 112/94 (100) Pulse Ox 98 O2 Delivery Room Air Room Air 05/06/20 05/06/20 05/06/20 05/06/20 15:00 15:15 19:00 20:00 Temp 97.8 98.9 97.8 98.9 Pulse 91 94 Resp 18 18 B/P (MAP) 119/82 (94) 112/76 (88) Pulse Ox 96 96 O2 Delivery Room Air Room Air Room Air Room Air 05/06/20 05/06/20 05/06/20 05/07/20 20:24 21:24 23:00 03:00 Temp 97.8 98.0 97.8 98.0 Pulse 96 73 Resp 16 16 18 18 B/P (MAP) 120/72 (88) 116/70 (85) Pulse Ox 95 97 O2 Delivery Room Air Room Air Room Air Room Air 05/07/20 08:09 O2 Delivery Room Air Intake and Output 05/06/20 05/06/20 05/07/20 15:00 23:00 07:00 Intake Total 120 ml 1020 ml Output Total 0 ml Balance 120 ml 1020 ml Justicifation of Admission Dx: Justifications for Admission: Justification of Admission Dx: N/A EMILIE ALVAREZ MD May 07, 2020 08:37
[2020-05-07] MEDS: FLUoxetine HCL 20 MG CAPSULE PO SCH (09:00)
[2020-05-07] MEDS: CELECOXIB 100 MG CAPSULE. PO SCH (09:00)
[2020-05-07] MEDS: amLODIPine BESYLATE 10 MG TABLET PO SCH (09:00)
[2020-05-07] MEDS: POLYETHYLENE GLYCOL 3350 17 GM PACKET. PO SCH (09:00)
[2020-05-07] MEDS: PROPRANOLOL ER 80 MG CAP.ER.24H. PO SCH (09:00)
[2020-05-07] MEDS: LACTOBACILLUS RHAMNOSUS GG 1 CAPSULE. PO SCH ×2 (09:00→20:48)
--- NOTE | 2020-05-07 09:55 | PDOC ---
Infectious Disease Note Subjective Subjective Patient is feeling good has no complaints ROS ROS Denies nausea vomiting diarrhea chest pain shortness of breath abdominal pain Vital Sign Vital Signs Vital Signs Date Time Temp Pulse Resp B/P (MAP) Pulse Ox O2 Delivery O2 Flow Rate FiO2 05/07/20 09:30 Room Air 05/07/20 07:00 97.9 97 17 106/76 (86) 96 97.9 Physical Exam PHYSICAL EXAM GENERAL: Alert and oriented female, not in distress. VITAL SIGNS: Stable, afebrile. HEENT: NAD. NECK: Supple, no JVP, no lymphadenopathy. LUNGS: Clear. HEART: S1, S2 regular. ABDOMEN: Benign. EXTREMITIES: No edema, cyanosis. SKIN: Unremarkable. NEUROLOGIC: The patient is alert, awake and appropriate. No focal neurologic deficit. Labs Lab Laboratory Tests Test 05/06/20 19:10 05/07/20 07:17 05/07/20 07:21 Prothrombin Time 16.7 SEC (11.7-14.0) Prothromb Time International Ratio 1.4 (0.8-1.1) White Blood Count 12.1 x10^3/uL (4.0-11.0) Red Blood Count 4.12 x10^6/uL (3.50-5.40) Hemoglobin 10.9 g/dL (12.0-15.5) Hematocrit 33.3 % (36.0-47.0) Mean Corpuscular Volume 81 fL (79-100) Mean Corpuscular Hemoglobin 26 pg (25-35) Mean Corpuscular Hemoglobin Concent 33 g/dL (31-37) Red Cell Distribution Width 15.5 % (11.5-14.5) Platelet Count 353 x10^3/uL (140-400) Neutrophils (%) (Auto) 83 % (31-73) Lymphocytes (%) (Auto) 11 % (24-48) Monocytes (%) (Auto) 5 % (0-9) Eosinophils (%) (Auto) 1 % (0-3) Basophils (%) (Auto) 0 % (0-3) Neutrophils # (Auto) 10.0 x10^3/uL (1.8-7.7) Lymphocytes # (Auto) 1.3 x10^3/uL (1.0-4.8) Monocytes # (Auto) 0.6 x10^3/uL (0.0-1.1) Eosinophils # (Auto) 0.2 x10^3/uL (0.0-0.7) Basophils # (Auto) 0.0 x10^3/uL (0.0-0.2) Sodium Level 139 mmol/L (136-145) Potassium Level 3.5 mmol/L (3.5-5.1) Chloride Level 102 mmol/L (98-107) Carbon Dioxide Level 27 mmol/L (21-32) Anion Gap 10 (6-14) Blood Urea Nitrogen 3 mg/dL (7-20) Creatinine 0.6 mg/dL (0.6-1.0) Estimated GFR (Cockcroft-Gault) 134.0 BUN/Creatinine Ratio 5 (6-20) Glucose Level 92 mg/dL (70-99) Calcium Level 7.8 mg/dL (8.5-10.1) Total Bilirubin 0.3 mg/dL (0.2-1.0) Aspartate Amino Transf (AST/SGOT) 20 U/L (15-37) Alanine Aminotransferase (ALT/SGPT) 15 U/L (14-59) Alkaline Phosphatase 79 U/L (46-116) Total Protein 6.4 g/dL (6.4-8.2) Albumin 2.0 g/dL (3.4-5.0) Albumin/Globulin Ratio 0.5 (1.0-1.7) Micro Microbiology 05/03/20 Urine Culture - Final, Complete Objective Assessment IMPRESSION: 1. Diverticulitis with perforation., Now has a large abdominal abscess 2. Morbid obesity. 3. Hypertension. 4. Chronic back problems. 5. Leukocytosis, which has improved. Plan Plan of Care CT drainage of the abscess and cultures Continue Zosyn Continue supportive care CAITLIN MORGAN MD May 07, 2020 09:55
--- NOTE | 2020-05-07 10:34 | PDOC2 ---
GI CONSULT Reason For Consult: diverticular mass/pelvic mass HPI: HPI: 39 y/o female who we recently saw for diverticulitis w/ microperf. Discharged last week on PO atbx and then returned a day or so later w/ worsening pain. [place] better w/ improvement of pain again, was eating bland diet and stooling. Then suddenly pain worsening yesterday and abdomen felt hard. Interval CTs as below, now w/ fluid collection. EGD in [place] >5 years ago for "ulcers." No previous colonoscopy. S/p cholecystectomy for stones. No pancreas or liver history. Celebrex on summary list. Surgery, ID, and [employer] following. PMH: PMH: diverticulitis, HTN, depression, PCOS cholecystectomy, , IUD FH: Family History: Other (mother - diverticulitis) Social History: Smoke: <1 pack per day ALCOHOL: none Drugs: None ROS: GEN: Denies fevers, chills, sweats HEENT: Denies blurred vision, sore throat CV: Denies chest pain RESP: Denies shortness of air, cough GI: Per HPI : Denies hematuria, dysuria ENDO: Denies weight changes NEURO: Denies confusion, dizziness MSK: Denies weakness, joint pain/swelling SKIN: Denies jaundice, pruritus Vitals: Vitals: Vital Signs Date Time Temp Pulse Resp B/P (MAP) Pulse Ox O2 Delivery O2 Flow Rate FiO2 05/07/20 09:30 Room Air 05/07/20 07:00 97.9 97 17 106/76 (86) 96 97.9 Labs: Labs: Laboratory Tests Test 05/06/20 19:10 05/07/20 07:17 05/07/20 07:21 Prothrombin Time 16.7 SEC (11.7-14.0) Prothromb Time International Ratio 1.4 (0.8-1.1) White Blood Count 12.1 x10^3/uL (4.0-11.0) Red Blood Count 4.12 x10^6/uL (3.50-5.40) Hemoglobin 10.9 g/dL (12.0-15.5) Hematocrit 33.3 % (36.0-47.0) Mean Corpuscular Volume 81 fL (79-100) Mean Corpuscular Hemoglobin 26 pg (25-35) Mean Corpuscular Hemoglobin Concent 33 g/dL (31-37) Red Cell Distribution Width 15.5 % (11.5-14.5) Platelet Count 353 x10^3/uL (140-400) Neutrophils (%) (Auto) 83 % (31-73) Lymphocytes (%) (Auto) 11 % (24-48) Monocytes (%) (Auto) 5 % (0-9) Eosinophils (%) (Auto) 1 % (0-3) Basophils (%) (Auto) 0 % (0-3) Neutrophils # (Auto) 10.0 x10^3/uL (1.8-7.7) Lymphocytes # (Auto) 1.3 x10^3/uL (1.0-4.8) Monocytes # (Auto) 0.6 x10^3/uL (0.0-1.1) Eosinophils # (Auto) 0.2 x10^3/uL (0.0-0.7) Basophils # (Auto) 0.0 x10^3/uL (0.0-0.2) Sodium Level 139 mmol/L (136-145) Potassium Level 3.5 mmol/L (3.5-5.1) Chloride Level 102 mmol/L (98-107) Carbon Dioxide Level 27 mmol/L (21-32) Anion Gap 10 (6-14) Blood Urea Nitrogen 3 mg/dL (7-20) Creatinine 0.6 mg/dL (0.6-1.0) Estimated GFR (Cockcroft-Gault) 134.0 BUN/Creatinine Ratio 5 (6-20) Glucose Level 92 mg/dL (70-99) Calcium Level 7.8 mg/dL (8.5-10.1) Total Bilirubin 0.3 mg/dL (0.2-1.0) Aspartate Amino Transf (AST/SGOT) 20 U/L (15-37) Alanine Aminotransferase (ALT/SGPT) 15 U/L (14-59) Alkaline Phosphatase 79 U/L (46-116) Total Protein 6.4 g/dL (6.4-8.2) Albumin 2.0 g/dL (3.4-5.0) Albumin/Globulin Ratio 0.5 (1.0-1.7) URINE CULTURE Final Final 40,000 CFU/ML YEAST on 05/06/20 at 1421 FINAL ID= [ROSE ALBICANS] Allergies: Coded Allergies: No Known Drug Allergies (Unverified , 04/25/20) Medications: Current Medications Medications (Trade) Dose Ordered Sig/Keegan Route PRN Reason Start Time Stop Time Status Last Admin Dose Admin Potassium Chloride (Klor-Con) 40 meq 1X ONCE PO 05/06/20 14:15 05/06/20 14:16 DC 05/06/20 14:15 Imaging: Imaging: CT A/P 05/01 IMPRESSION: Acute sigmoid diverticulitis with small amount of pneumoperitoneum adjacent to the colon and along the hepatic dome consistent with perforation. No fluid collection. CT A/P 05/06 Impression: Interval development of a large gas-fluid collection within the right pelvis extending slightly into the abdomen. Extraluminal gas. Circumferential wall thickening proximal to mid sigmoid colon of concern for acute acute diverticulitis. Follow-up to resolution recommended. PE: GEN: NAD, up in chair HEENT: Atraumatic, PERRL LUNGS: CTAB HEART: RRR ABD: obese, quiet BS, right-sided discomfort EXTREMITY: No edema SKIN: No rashes, no jaundice NEURO/PSYCH: A & O 3 A/P: A/P: Worsening abd pain Leukocytosis, anemia (stable) Perforated diverticulitis w/ fluid collection - CTs as above Remote h/o "ulcers" CRC screen - none S/p cholecystectomy NSAID use COVID-19 negative 04/27 Obesity -- IR ask to see re: drainage, await this. Continue atbx per ID. Empiric acid-dyeing machine tender for h/o ulcers and NSAID use. BAO EMERSON May 07, 2020 10:34
--- NOTE | 2020-05-07 10:36 | PDOC2 ---
CONSULT Date of Consult Date of Consult DATE: 05/07/20 TIME: 10:34 Reason for Consult Reason for Consult: Pelvic mass with IUD History of Present Illness Reason for Visit: HPI: 39y who was admitted for acute sigmoid diverticulitis. The pt originally presented on 04/25 with significant pain. She was dxed with diverticulitis with walled off microperforation. She was d/chad on 04/29, but ret urned to the ER on 05/01 with abd pain. She underwent a CT revealing a colon perforation. At that time no free fluid or pelvic adenopathy was noted. She was admitted for bowel rest and abx. When imaging was repeated on 05/06 revealed: Interval development of a large gas-fluid collection within the right pelvis extending slightly into the abdomen. Extraluminal gas. Circumferential wall thickening proximal to mid sigmoid colon of concern for acute acute diverticulitis. On both imaging the pts has been seen. She had her IUD placed May 2019 for contraception at the [facility]. She has had no issues with the device since placed. The pt was informed that the IUD should not impact the tx course and should not lead to any additional infection. With the IUD in place the pt typically does not have periods. Prior to the IUD the pt used Depo for ~3yrs. She was dxed with PCOS. The dxed was made based on her heavy periods. The pt states that w/o contraception she has nml monthly periods, but has at times gone 2-3 months of uninterrupted bleeding. The IUD many have the benefit of preventing hyperplasia as well as contraception. 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 SH: PPW, occ EtOH Past Medical History Cardiovascular: HTN Pulmonary: No pertinent hx GI: Other Heme/Onc: No pertinent hx Hepatobiliary: No pertinent hx Psych: No pertinent hx Infectious disease: No pertinent hx Renal/: No pertinent hx Endocrine: No pertinent hx Past Surgical History Past Surgical History: No pertinent history Family History Family History: No Significant Social History ALCOHOL: rare Drugs: None Lives: with Family Current Problem List Problem List Problems Medical Problems: (1) Colon perforation Status: Acute (2) Perforated diverticulum Status: Acute Current Medications Current Medications Current Medications Ketorolac Tromethamine (Toradol 30mg Vial) 30 mg 1X ONCE IVP Last administered on 05/01/20at 01:22; Start 05/01/20 at 01:00; Stop 05/01/20 at 01:01; Status DC Iohexol (Omnipaque 300 Mg/ml) 75 ml 1X ONCE IV Last administered on 05/01/20at 02:10; Start 05/01/20 at 02:00; Stop 05/01/20 at 02:01; Status DC Info (CONTRAST GIVEN -- Rx MONITORING) 1 each PRN DAILY PRN MC SEE COMMENTS; Start 05/01/20 at 02:00; Stop 05/03/20 at 01:59; Status DC Morphine Sulfate (Morphine Sulfate) 4 mg 1X ONCE IV Last administered on 05/01/20at 02:32; Start 05/01/20 at 02:30; Stop 05/01/20 at 02:31; Status DC Ondansetron HCl (Zofran) 4 mg 1X ONCE IM Last administered on 05/01/20at 02:38; Start 05/01/20 at 02:45; Stop 05/01/20 at 02:46; Status DC Piperacillin Sod/ Tazobactam Sod 4.5 gm/Sodium Chloride 100 ml @ 200 mls/hr 1X ONCE IV Last administered on 05/01/20at 03:12; Start 05/01/20 at 03:00; Stop 05/01/20 at 03:29; Status DC Piperacillin Sod/ Tazobactam Sod 4.5 gm/Sodium Chloride 100 ml @ 200 mls/hr Q6HRS IV ; Start 05/01/20 at 06:00; Stop 05/01/20 at 05:05; Status DC Morphine Sulfate (Morphine Sulfate) 4 mg PRN Q2HR PRN IV PAIN Last administered on 05/07/20at 08:09; Start 05/01/20 at 03:30 Ondansetron HCl (Zofran) 4 mg PRN Q6HRS PRN IVP NAUSEA/VOMITING Last administered on 05/07/20 08:11; Start 05/01/20 at 03:30 Piperacillin Sod/ Tazobactam Sod 4.5 gm/Sodium Chloride 100 ml @ 200 mls/hr Q6HRS IV Last administered on 05/07/20 05:25; Start 05/01/20 at 06:00 Metronidazole 100 ml @ 100 mls/hr Q8HRS IV Last administered on 05/07/20 05:26; Start 05/01/20 at 10:00 Amlodipine Besylate (Norvasc) 10 mg DAILY PO Last administered on 05/06/20 09:23; Start 05/02/20 at 13:00 Acetaminophen/ Hydrocodone Bitart (Lortab 5/325) 1 tab PRN Q6HRS PRN PO PAIN Last administered on 05/06/20 20:24; Start 05/02/20 at 12:30 Metformin HCl (Glucophage Xr) 500 mg DAILYWBKFT PO ; Start 05/02/20 at 13:00 Metronidazole (Flagyl) 500 mg TID PO ; Start 05/02/20 at 14:00; Status Cancel Propranolol HCl (Inderal La) 80 mg DAILY PO Last administered on 05/06/20 09:23; Start 05/02/20 at 13:00 Celecoxib (CeleBREX) 200 mg DAILY PO Last administered on 05/06/20 09:23; Start 05/02/20 at 13:00 Fluoxetine HCl (PROzac) 20 mg DAILY PO Last administered on 05/06/20at 09:23; Start 05/02/20 at 13:00 Sodium Chloride 1,000 ml @ 135 mls/hr Q7H25M IV Last administered on 05/04/20at 00:34; Start 05/02/20 at 13:00 Polyethylene Glycol (miraLAX PACKET) 17 gm DAILY PO ; Start 05/05/20 at 10:00 Lactobacillus Rhamnosus (Culturelle) 1 cap BID PO Last administered on 05/06/20at 20:23; Start 05/05/20 at 21:00 Potassium Chloride/Water 100 ml @ 100 mls/hr Q1H IV ; Start 05/06/20 at 12:00; Stop 05/06/20 at 14:07; Status DC Potassium Chloride (Klor-Con) 40 meq 1X ONCE PO Last administered on 05/06/20at 14:15; Start 05/06/20 at 14:15; Stop 05/06/20 at 14:16; Status DC Active Scripts Active Reported Hydrocodone-Apap 5-325 (Hydrocodone Bit/Acetaminophen) 1 Tab Tablet 1 Tab PO PRN Q6HRS PRN Cipro (Ciprofloxacin Hcl) 500 Mg Tablet 1 Tab PO BID 7 Days Metronidazole 500 Mg Tablet 1 Tab PO TID 7 Days Tizanidine Hcl 4 Mg Tablet 1 Tab PO BID Amlodipine Besylate 10 Mg Tablet 10 Mg PO DAILY Celebrex (Celecoxib) 200 Mg Capsule 200 Mg PO DAILY 30 Days Fluoxetine Hcl 20 Mg Tablet 20 Mg PO DAILY Propranolol Hcl 80 Mg Cap.sa.24h 80 Mg PO DAILY Metformin Hcl Er (Metformin Hcl) 500 Mg Tab.er.24h 500 Mg PO DAILYWBKFT Allergies Allergies: Coded Allergies: No Known Drug Allergies (Unverified , 04/25/20) Vitals VITALS Vital Signs Date Time Temp Pulse Resp B/P (MAP) Pulse Ox O2 Delivery O2 Flow Rate FiO2 05/07/20 09:30 Room Air 05/07/20 07:00 97.9 97 17 106/76 (86) 96 97.9 Labs Labs Laboratory Tests Test 05/06/20 05:25 05/06/20 19:10 05/07/20 07:17 05/07/20 07:21 White Blood Count 9.5 x10^3/uL (4.0-11.0) 12.1 x10^3/uL (4.0-11.0) Red Blood Count 4.14 x10^6/uL (3.50-5.40) 4.12 x10^6/uL (3.50-5.40) Hemoglobin 10.7 g/dL (12.0-15.5) 10.9 g/dL (12.0-15.5) Hematocrit 33.5 % (36.0-47.0) 33.3 % (36.0-47.0) Mean Corpuscular Volume 81 fL (79-100) 81 fL (79-100) Mean Corpuscular Hemoglobin 26 pg (25-35) 26 pg (25-35) Mean Corpuscular Hemoglobin Concent 32 g/dL (31-37) 33 g/dL (31-37) Red Cell Distribution Width 15.5 % (11.5-14.5) 15.5 % (11.5-14.5) Platelet Count 342 x10^3/uL (140-400) 353 x10^3/uL (140-400) Neutrophils (%) (Auto) 75 % (31-73) 83 % (31-73) Lymphocytes (%) (Auto) 16 % (24-48) 11 % (24-48) Monocytes (%) (Auto) 6 % (0-9) 5 % (0-9) Eosinophils (%) (Auto) 3 % (0-3) 1 % (0-3) Basophils (%) (Auto) 0 % (0-3) 0 % (0-3) Neutrophils # (Auto) 7.2 x10^3/uL (1.8-7.7) 10.0 x10^3/uL (1.8-7.7) Lymphocytes # (Auto) 1.5 x10^3/uL (1.0-4.8) 1.3 x10^3/uL (1.0-4.8) Monocytes # (Auto) 0.6 x10^3/uL (0.0-1.1) 0.6 x10^3/uL (0.0-1.1) Eosinophils # (Auto) 0.3 x10^3/uL (0.0-0.7) 0.2 x10^3/uL (0.0-0.7) Basophils # (Auto) 0.0 x10^3/uL (0.0-0.2) 0.0 x10^3/uL (0.0-0.2) Sodium Level 140 mmol/L (136-145) 139 mmol/L (136-145) Potassium Level 3.0 mmol/L (3.5-5.1) 3.5 mmol/L (3.5-5.1) Chloride Level 102 mmol/L (98-107) 102 mmol/L (98-107) Carbon Dioxide Level 27 mmol/L (21-32) 27 mmol/L (21-32) Anion Gap 11 (6-14) 10 (6-14) Blood Urea Nitrogen 4 mg/dL (7-20) 3 mg/dL (7-20) Creatinine 0.6 mg/dL (0.6-1.0) 0.6 mg/dL (0.6-1.0) Estimated GFR (Cockcroft-Gault) 134.0 134.0 BUN/Creatinine Ratio 7 (6-20) 5 (6-20) Glucose Level 83 mg/dL (70-99) 92 mg/dL (70-99) Calcium Level 8.1 mg/dL (8.5-10.1) 7.8 mg/dL (8.5-10.1) Total Bilirubin 0.1 mg/dL (0.2-1.0) 0.3 mg/dL (0.2-1.0) Aspartate Amino Transf (AST/SGOT) 12 U/L (15-37) 20 U/L (15-37) Alanine Aminotransferase (ALT/SGPT) 11 U/L (14-59) 15 U/L (14-59) Alkaline Phosphatase 51 U/L (46-116) 79 U/L (46-116) C-Reactive Protein, Quantitative 119.6 mg/L (0-3.3) Total Protein 6.5 g/dL (6.4-8.2) 6.4 g/dL (6.4-8.2) Albumin 2.0 g/dL (3.4-5.0) 2.0 g/dL (3.4-5.0) Albumin/Globulin Ratio 0.4 (1.0-1.7) 0.5 (1.0-1.7) Prothrombin Time 16.7 SEC (11.7-14.0) Prothromb Time International Ratio 1.4 (0.8-1.1) Laboratory Tests Test 05/06/20 19:10 05/07/20 07:17 05/07/20 07:21 Prothrombin Time 16.7 SEC (11.7-14.0) Prothromb Time International Ratio 1.4 (0.8-1.1) White Blood Count 12.1 x10^3/uL (4.0-11.0) Red Blood Count 4.12 x10^6/uL (3.50-5.40) Hemoglobin 10.9 g/dL (12.0-15.5) Hematocrit 33.3 % (36.0-47.0) Mean Corpuscular Volume 81 fL (79-100) Mean Corpuscular Hemoglobin 26 pg (25-35) Mean Corpuscular Hemoglobin Concent 33 g/dL (31-37) Red Cell Distribution Width 15.5 % (11.5-14.5) Platelet Count 353 x10^3/uL (140-400) Neutrophils (%) (Auto) 83 % (31-73) Lymphocytes (%) (Auto) 11 % (24-48) Monocytes (%) (Auto) 5 % (0-9) Eosinophils (%) (Auto) 1 % (0-3) Basophils (%) (Auto) 0 % (0-3) Neutrophils # (Auto) 10.0 x10^3/uL (1.8-7.7) Lymphocytes # (Auto) 1.3 x10^3/uL (1.0-4.8) Monocytes # (Auto) 0.6 x10^3/uL (0.0-1.1) Eosinophils # (Auto) 0.2 x10^3/uL (0.0-0.7) Basophils # (Auto) 0.0 x10^3/uL (0.0-0.2) Sodium Level 139 mmol/L (136-145) Potassium Level 3.5 mmol/L (3.5-5.1) Chloride Level 102 mmol/L (98-107) Carbon Dioxide Level 27 mmol/L (21-32) Anion Gap 10 (6-14) Blood Urea Nitrogen 3 mg/dL (7-20) Creatinine 0.6 mg/dL (0.6-1.0) Estimated GFR (Cockcroft-Gault) 134.0 BUN/Creatinine Ratio 5 (6-20) Glucose Level 92 mg/dL (70-99) Calcium Level 7.8 mg/dL (8.5-10.1) Total Bilirubin 0.3 mg/dL (0.2-1.0) Aspartate Amino Transf (AST/SGOT) 20 U/L (15-37) Alanine Aminotransferase (ALT/SGPT) 15 U/L (14-59) Alkaline Phosphatase 79 U/L (46-116) Total Protein 6.4 g/dL (6.4-8.2) Albumin 2.0 g/dL (3.4-5.0) Albumin/Globulin Ratio 0.5 (1.0-1.7) Assessment/Plan Assessment/Plan Assessment: 39y who was admitted for acute sigmoid diverticulitis Recommendations: 1.) Diverticulitis with pelvic abscess GI and Gen surg following, plan to have IR to drain abscess today 2.) Contraception IUD in place. Can remain in place, not likely to be nidus of infection or should lead to any drug interaction with tx plan 3.) PCOS IUD in place, should prevent endometrial hyperplasia. Pt with no bleeding with IUD in place. On Meformin 4.) HTN managed per primary team. Does not have a regular PCP (Sees DALY Hodge at clinic occ) 5.) Will continue to follow REED RAZO MD May 07, 2020 10:36
--- NOTE | 2020-05-07 11:21 | NUR ---
SW following. Discussed with RN, pt had CT scan yesterday which revealed an abscess. Pt having drain placed today. DR. Wharton advised pt may need superintendent container terminal IV abx, unknown at this stage. SW will continue to follow.
[2020-05-07] MEDS: PANTOPRAZOLE IV PUSH 40 MG VIAL. IVP SCH (11:57)
[2020-05-07] MEDS ORDERED: LIDOCAINE WITH 8.4% SOD BICARB 3 ML DISP.SYRIN. ONE ×3 (12:25→13:54)
[2020-05-07] MEDS ORDERED: fentaNYL PF VIAL 100 MCG/2 ML VIAL ONE (12:56)
[2020-05-07] MEDS ORDERED: MIDAZOLAM HCL/PF 5 MG/5 ML VIAL. ONE (12:56)
[2020-05-07] MEDS ORDERED: fentaNYL PF VIAL 100 MCG/2 ML VIAL IV ONE (13:15)
[2020-05-07] MEDS ORDERED: MIDAZOLAM HCL/PF 5 MG/5 ML VIAL. IV ONE (13:15)
[2020-05-07] MEDS ORDERED: LIDOCAINE WITH 8.4% SOD BICARB 3 ML DISP.SYRIN. IJ ONE (13:15)
[2020-05-07] MEDS: AMINO AC 3%/ELECTROLYTE/GLYCER 1,000 ML IV SCH (15:56)
[2020-05-07] MEDS: HYDROcodone/APAP 5/325MG 1 TAB TABLET PO PRN ×2 (17:57→22:06)
[2020-05-08] MEDS ORDERED: MORPHINE SULFATE 2 MG/ML VIAL. IV PRN
[2020-05-08] MEDS: PIPERACILLIN/TAZOBACTAM 4.5 GM in IV NORMAL SALINE 100ML 100 ML IV SCH ×4 (00:07→17:46)
[2020-05-08] MEDS: AMINO AC 3%/ELECTROLYTE/GLYCER 1,000 ML IV SCH ×4 (00:07→22:28)
[2020-05-08] MEDS ORDERED: HYDROcodone/APAP 5/325MG 1 TAB TABLET PO PRN (02:30)
[2020-05-08 03:08] VITALS: BP 113/73
[2020-05-08 03:47] LABS: BASO % 0 % (0-3); EOS # 0.2 x10^3/uL (0.0-0.7); EOS % 2 % (0-3); HEMATOCRIT 32.2 % (36.0-47.0); HEMOGLOBIN 10.6 g/dL (12.0-15.5); LYMPH # 1.4 x10^3/uL (1.0-4.8); LYMPH % 18 % (24-48); MEAN CORPUSCULAR HEMOGLOBIN 27 pg (25-35); MEAN CORPUSCULAR HGB CONC 33 g/dL (31-37); MEAN CORPUSCULAR VOLUME 80 fL (79-100); MONO # 0.4 x10^3/uL (0.0-1.1); MONO % 6 % (0-9); NEUT # 5.5 x10^3/uL (1.8-7.7); NEUT % 74 % (31-73); PLATELET COUNT 315 x10^3/uL (140-400); RED CELL DISTRIBUTION WIDTH 15.6 % (11.5-14.5); WHITE BLOOD COUNT 7.5 x10^3/uL (4.0-11.0)
[2020-05-08] MEDS: HYDROcodone/APAP 10/325 1 TAB TABLET PO PRN ×3 (04:31→17:51)
[2020-05-08] MEDS: PANTOPRAZOLE IV PUSH 40 MG VIAL. IVP SCH (05:27)
[2020-05-08 07:00] VITALS: BP 128/85
[2020-05-08] MEDS: metFORMIN XR 500 MG TAB.ER.24H PO SCH (08:00)
[2020-05-08] MEDS: POLYETHYLENE GLYCOL 3350 17 GM PACKET. PO SCH (08:25)
[2020-05-08] MEDS: FLUoxetine HCL 20 MG CAPSULE PO SCH (08:25)
[2020-05-08] MEDS: amLODIPine BESYLATE 10 MG TABLET PO SCH (08:26)
[2020-05-08] MEDS: PROPRANOLOL ER 80 MG CAP.ER.24H. PO SCH (08:26)
[2020-05-08] MEDS: LACTOBACILLUS RHAMNOSUS GG 1 CAPSULE. PO SCH ×2 (08:27→20:11)
[2020-05-08] MEDS: CELECOXIB 100 MG CAPSULE. PO SCH (08:27)
--- NOTE | 2020-05-08 08:31 | PDOC ---
PROGRESS NOTES Chief Complaint Chief Complaint IMPRESSION: Acute sigmoid diverticulitis with small amount of pneumoperitoneum adjacent to the colon and along the hepatic dome consistent with perforation. No fluid collection. 05/07Interval development of a large gas-fluid collection within the right pelvis extending slightly into the abdomen. Extraluminal gas. Circumferential wall thickening proximal to mid sigmoid colon of concern for acute acute diverticulitis. Follow-up to resolution recommended. 05/07 overweight poor surgical candidate, given super obesity REPLACE K Perforated diverticulitis w/ fluid collection s/p IR drainage - culture pending, atbx per ID PLAN admit Surgery consulted npo iv fluid support IV ANTIBIOTICS, CONTINUE REPEAT CT ID CONSULT IV K CONSULT IR CONSULT GI CONSULT RANGE AID 37 min pt exam, chart review, > 50% of time spent with exam, chart review, pt care coordination History of Present Illness History of Present Illness 05/05/2020 Patient seen and examined She is about the same clinically Still having some abdominal pain Chart reviewed Discussed with case management Discussed with RN Vitals Vitals Vital Signs Date Time Temp Pulse Resp B/P (MAP) Pulse Ox O2 Delivery O2 Flow Rate FiO2 05/08/20 08:26 104 128/85 05/08/20 07:00 98.1 17 94 Room Air 98.1 05/07/20 14:44 2.0 Physical Exam Physical Exam GENERAL: Alert and oriented female, not in distress. VITAL SIGNS: Stable, afebrile. HEENT: NAD. NECK: Supple, no JVP, no lymphadenopathy. LUNGS: Clear. HEART: S1, S2 regular. ABDOMEN: Benign. EXTREMITIES: No edema, cyanosis. SKIN: Unremarkable. NEUROLOGIC: The patient is alert, awake and appropriate. No focal neurologic deficit. General: Alert, Oriented X3, Cooperative, No acute distress Heart: Regular rate, No murmurs Lungs: Clear Abdomen: Normal bowel sounds, Soft, Other (Mildly tender to palpation periumbilical no peritoneal signs) Extremities: No clubbing, No edema Skin: No rashes, No significant lesion Labs LABS Laboratory Tests Test 05/08/20 03:00 White Blood Count 7.5 x10^3/uL (4.0-11.0) Red Blood Count 4.00 x10^6/uL (3.50-5.40) Hemoglobin 10.6 g/dL (12.0-15.5) Hematocrit 32.2 % (36.0-47.0) Mean Corpuscular Volume 80 fL (79-100) Mean Corpuscular Hemoglobin 27 pg (25-35) Mean Corpuscular Hemoglobin Concent 33 g/dL (31-37) Red Cell Distribution Width 15.6 % (11.5-14.5) Platelet Count 315 x10^3/uL (140-400) Neutrophils (%) (Auto) 74 % (31-73) Lymphocytes (%) (Auto) 18 % (24-48) Monocytes (%) (Auto) 6 % (0-9) Eosinophils (%) (Auto) 2 % (0-3) Basophils (%) (Auto) 0 % (0-3) Neutrophils # (Auto) 5.5 x10^3/uL (1.8-7.7) Lymphocytes # (Auto) 1.4 x10^3/uL (1.0-4.8) Monocytes # (Auto) 0.4 x10^3/uL (0.0-1.1) Eosinophils # (Auto) 0.2 x10^3/uL (0.0-0.7) Basophils # (Auto) 0.0 x10^3/uL (0.0-0.2) Assessment and Plan Assessmemt and Plan Problems Medical Problems: (1) Colon perforation Status: Acute (2) Perforated diverticulum Status: Acute Comment Review of Relevant I have reviewed the following items karyna (where applicable) has been applied. Labs Laboratory Tests Test 05/06/20 19:10 05/07/20 07:17 05/07/20 07:21 05/08/20 03:00 Prothrombin Time 16.7 SEC (11.7-14.0) Prothromb Time International Ratio 1.4 (0.8-1.1) White Blood Count 12.1 x10^3/uL (4.0-11.0) 7.5 x10^3/uL (4.0-11.0) Red Blood Count 4.12 x10^6/uL (3.50-5.40) 4.00 x10^6/uL (3.50-5.40) Hemoglobin 10.9 g/dL (12.0-15.5) 10.6 g/dL (12.0-15.5) Hematocrit 33.3 % (36.0-47.0) 32.2 % (36.0-47.0) Mean Corpuscular Volume 81 fL (79-100) 80 fL (79-100) Mean Corpuscular Hemoglobin 26 pg (25-35) 27 pg (25-35) Mean Corpuscular Hemoglobin Concent 33 g/dL (31-37) 33 g/dL (31-37) Red Cell Distribution Width 15.5 % (11.5-14.5) 15.6 % (11.5-14.5) Platelet Count 353 x10^3/uL (140-400) 315 x10^3/uL (140-400) Neutrophils (%) (Auto) 83 % (31-73) 74 % (31-73) Lymphocytes (%) (Auto) 11 % (24-48) 18 % (24-48) Monocytes (%) (Auto) 5 % (0-9) 6 % (0-9) Eosinophils (%) (Auto) 1 % (0-3) 2 % (0-3) Basophils (%) (Auto) 0 % (0-3) 0 % (0-3) Neutrophils # (Auto) 10.0 x10^3/uL (1.8-7.7) 5.5 x10^3/uL (1.8-7.7) Lymphocytes # (Auto) 1.3 x10^3/uL (1.0-4.8) 1.4 x10^3/uL (1.0-4.8) Monocytes # (Auto) 0.6 x10^3/uL (0.0-1.1) 0.4 x10^3/uL (0.0-1.1) Eosinophils # (Auto) 0.2 x10^3/uL (0.0-0.7) 0.2 x10^3/uL (0.0-0.7) Basophils # (Auto) 0.0 x10^3/uL (0.0-0.2) 0.0 x10^3/uL (0.0-0.2) Sodium Level 139 mmol/L (136-145) Potassium Level 3.5 mmol/L (3.5-5.1) Chloride Level 102 mmol/L (98-107) Carbon Dioxide Level 27 mmol/L (21-32) Anion Gap 10 (6-14) Blood Urea Nitrogen 3 mg/dL (7-20) Creatinine 0.6 mg/dL (0.6-1.0) Estimated GFR (Cockcroft-Gault) 134.0 BUN/Creatinine Ratio 5 (6-20) Glucose Level 92 mg/dL (70-99) Calcium Level 7.8 mg/dL (8.5-10.1) Total Bilirubin 0.3 mg/dL (0.2-1.0) Aspartate Amino Transf (AST/SGOT) 20 U/L (15-37) Alanine Aminotransferase (ALT/SGPT) 15 U/L (14-59) Alkaline Phosphatase 79 U/L (46-116) Total Protein 6.4 g/dL (6.4-8.2) Albumin 2.0 g/dL (3.4-5.0) Albumin/Globulin Ratio 0.5 (1.0-1.7) Laboratory Tests Test 05/08/20 03:00 White Blood Count 7.5 x10^3/uL (4.0-11.0) Red Blood Count 4.00 x10^6/uL (3.50-5.40) Hemoglobin 10.6 g/dL (12.0-15.5) Hematocrit 32.2 % (36.0-47.0) Mean Corpuscular Volume 80 fL (79-100) Mean Corpuscular Hemoglobin 27 pg (25-35) Mean Corpuscular Hemoglobin Concent 33 g/dL (31-37) Red Cell Distribution Width 15.6 % (11.5-14.5) Platelet Count 315 x10^3/uL (140-400) Neutrophils (%) (Auto) 74 % (31-73) Lymphocytes (%) (Auto) 18 % (24-48) Monocytes (%) (Auto) 6 % (0-9) Eosinophils (%) (Auto) 2 % (0-3) Basophils (%) (Auto) 0 % (0-3) Neutrophils # (Auto) 5.5 x10^3/uL (1.8-7.7) Lymphocytes # (Auto) 1.4 x10^3/uL (1.0-4.8) Monocytes # (Auto) 0.4 x10^3/uL (0.0-1.1) Eosinophils # (Auto) 0.2 x10^3/uL (0.0-0.7) Basophils # (Auto) 0.0 x10^3/uL (0.0-0.2) Microbiology 05/06/20 Blood Culture - Preliminary, Resulted NO GROWTH AFTER 1 DAY 05/03/20 Urine Culture - Final, Complete Medications Current Medications Ketorolac Tromethamine (Toradol 30mg Vial) 30 mg 1X ONCE IVP Last administered on 05/01/20at 01:22; Start 05/01/20 at 01:00; Stop 05/01/20 at 01:01; Status DC Iohexol (Omnipaque 300 Mg/ml) 75 ml 1X ONCE IV Last administered on 05/01/20at 02:10; Start 05/01/20 at 02:00; Stop 05/01/20 at 02:01; Status DC Info (CONTRAST GIVEN -- Rx MONITORING) 1 each PRN DAILY PRN MC SEE COMMENTS; Start 05/01/20 at 02:00; Stop 05/03/20 at 01:59; Status DC Morphine Sulfate (Morphine Sulfate) 4 mg 1X ONCE IV Last administered on 05/01/20at 02:32; Start 05/01/20 at 02:30; Stop 05/01/20 at 02:31; Status DC Ondansetron HCl (Zofran) 4 mg 1X ONCE IM Last administered on 05/01/20at 02:38; Start 05/01/20 at 02:45; Stop 05/01/20 at 02:46; Status DC Piperacillin Sod/ Tazobactam Sod 4.5 gm/Sodium Chloride 100 ml @ 200 mls/hr 1X ONCE IV Last administered on 05/01/20at 03:12; Start 05/01/20 at 03:00; Stop 05/01/20 at 03:29; Status DC Piperacillin Sod/ Tazobactam Sod 4.5 gm/Sodium Chloride 100 ml @ 200 mls/hr Q6HRS IV ; Start 05/01/20 at 06:00; Stop 05/01/20 at 05:05; Status DC Morphine Sulfate (Morphine Sulfate) 4 mg PRN Q2HR PRN IV PAIN Last administered on 05/07/20at 08:09; Start 05/01/20 at 03:30; Stop 05/07/20 at 23:51; Status DC Ondansetron HCl (Zofran) 4 mg PRN Q6HRS PRN IVP NAUSEA/VOMITING Last administered on 05/07/20 08:11; Start 05/01/20 at 03:30 Piperacillin Sod/ Tazobactam Sod 4.5 gm/Sodium Chloride 100 ml @ 200 mls/hr Q6HRS IV Last administered on 05/08/20 05:26; Start 05/01/20 at 06:00 Metronidazole 100 ml @ 100 mls/hr Q8HRS IV Last administered on 05/07/20 05:26; Start 05/01/20 at 10:00; Stop 05/07/20 at 12:35; Status DC Amlodipine Besylate (Norvasc) 10 mg DAILY PO Last administered on 05/08/20 08:26; Start 05/02/20 at 13:00 Acetaminophen/ Hydrocodone Bitart (Lortab 5/325) 1 tab PRN Q6HRS PRN PO PAIN Last administered on 05/07/20at 22:06; Start 05/02/20 at 12:30; Stop 05/07/20 at 23:51; Status DC Metformin HCl (Glucophage Xr) 500 mg DAILYWBKFT PO ; Start 05/02/20 at 13:00 Metronidazole (Flagyl) 500 mg TID PO ; Start 05/02/20 at 14:00; Status Cancel Propranolol HCl (Inderal La) 80 mg DAILY PO Last administered on 05/08/20 08:26; Start 05/02/20 at 13:00 Celecoxib (CeleBREX) 200 mg DAILY PO Last administered on 05/08/20at 08:27; Start 05/02/20 at 13:00 Fluoxetine HCl (PROzac) 20 mg DAILY PO Last administered on 05/08/20 08:25; Start 05/02/20 at 13:00 Sodium Chloride 1,000 ml @ 135 mls/hr Q7H25M IV Last administered on 05/04/20at 00:34; Start 05/02/20 at 13:00; Stop 05/07/20 at 14:18; Status DC Polyethylene Glycol (miraLAX PACKET) 17 gm DAILY PO Last administered on 05/08/20 08:25; Start 05/05/20 at 10:00 Lactobacillus Rhamnosus (Culturelle) 1 cap BID PO Last administered on 05/08/20at 08:27; Start 05/05/20 at 21:00 Potassium Chloride/Water 100 ml @ 100 mls/hr Q1H IV ; Start 05/06/20 at 12:00; Stop 05/06/20 at 14:07; Status DC Potassium Chloride (Klor-Con) 40 meq 1X ONCE PO Last administered on 05/06/20at 14:15; Start 05/06/20 at 14:15; Stop 05/06/20 at 14:16; Status DC Pantoprazole Sodium (PROTONIX VIAL for IV PUSH) 40 mg DAILYAC IVP Last administered on 05/08/20at 05:27; Start 05/07/20 at 11:30 Lidocaine HCl (Buffered Lidocaine 1%) 3 ml STK-MED ONCE .ROUTE ; Start 05/07/20 at 12:25; Stop 05/07/20 at 12:25; Status DC Midazolam HCl (Versed) 5 mg STK-MED ONCE .ROUTE ; Start 05/07/20 at 12:56; Stop 05/07/20 at 12:56; Status DC Fentanyl Citrate (Fentanyl 2ml Vial) 100 mcg STK-MED ONCE .ROUTE ; Start 05/07/20 at 12:56; Stop 05/07/20 at 12:57; Status DC Lidocaine HCl (Buffered Lidocaine 1%) 3 ml 1X ONCE IJ Last administered on 05/07/20at 13:15; Start 05/07/20 at 13:15; Stop 05/07/20 at 13:18; Status DC Midazolam HCl (Versed) 5 mg 1X ONCE IV Last administered on 05/07/20at 13:08; Start 05/07/20 at 13:15; Stop 05/07/20 at 13:18; Status DC Fentanyl Citrate (Fentanyl 2ml Vial) 100 mcg 1X ONCE IV Last administered on 05/07/20at 13:08; Start 05/07/20 at 13:15; Stop 05/07/20 at 13:18; Status DC Lidocaine HCl (Buffered Lidocaine 1%) 3 ml STK-MED ONCE .ROUTE ; Start 05/07/20 at 13:50; Stop 05/07/20 at 13:50; Status DC Lidocaine HCl (Buffered Lidocaine 1%) 3 ml STK-MED ONCE .ROUTE ; Start 05/07/20 at 13:54; Stop 05/07/20 at 13:54; Status DC Amino Acids/ Glycerin/ Electrolytes 1,000 ml @ 100 mls/hr Q10H IV Last administered on 05/08/20at 00:07; Start 05/07/20 at 14:30 Acetaminophen/ Hydrocodone Bitart (Lortab 5/325) 1 tab PRN Q4HRS PRN PO MODERATE PAIN 4-6; Start 05/08/20 at 02:30 Acetaminophen/ Hydrocodone Bitart (Lortab 10/325) 1 tab PRN Q4HRS PRN PO SEVERE PAIN 7-10 Last administered on 05/08/20at 04:31; Start 05/08/20 at 00:00 Morphine Sulfate (Morphine Sulfate) 2 mg PRN Q2HR PRN IV BREAKTHROUGH PAIN; Start 05/08/20 at 00:00 Active Scripts Active Reported Hydrocodone-Apap 5-325 (Hydrocodone Bit/Acetaminophen) 1 Tab Tablet 1 Tab PO PRN Q6HRS PRN Cipro (Ciprofloxacin Hcl) 500 Mg Tablet 1 Tab PO BID 7 Days Metronidazole 500 Mg Tablet 1 Tab PO TID 7 Days Tizanidine Hcl 4 Mg Tablet 1 Tab PO BID Amlodipine Besylate 10 Mg Tablet 10 Mg PO DAILY Celebrex (Celecoxib) 200 Mg Capsule 200 Mg PO DAILY 30 Days Fluoxetine Hcl 20 Mg Tablet 20 Mg PO DAILY Propranolol Hcl 80 Mg Cap.sa.24h 80 Mg PO DAILY Metformin Hcl Er (Metformin Hcl) 500 Mg Tab.er.24h 500 Mg PO DAILYWBKFT Vitals/I & O Vital Sign - Last 24 Hours 05/07/20 05/07/20 05/07/20 05/07/20 09:30 11:00 13:00 13:08 Temp 98.5 98.5 Pulse 95 103 Resp 18 22 17 B/P (MAP) 121/80 (94) Pulse Ox 95 97 O2 Delivery Room Air Room Air Room Air 05/07/20 05/07/20 05/07/20 05/07/20 13:09 13:12 13:17 13:20 Pulse 98 81 97 95 Resp 12 20 14 14 B/P (MAP) 109/82 (91) 118/80 (93) 125/82 (96) 125/81 (96) Pulse Ox 99 98 98 98 O2 Delivery Nasal Cannula Nasal Cannula Nasal Cannula Nasal Cannula O2 Flow Rate 2.0 2.0 2.0 2.0 05/07/20 05/07/20 05/07/20 05/07/20 13:25 13:30 13:35 13:40 Pulse 85 94 93 88 Resp 15 15 17 15 B/P (MAP) 114/81 (92) 125/89 (101) 120/81 (94) 123/85 (98) Pulse Ox 98 99 99 99 O2 Delivery Nasal Cannula Nasal Cannula Nasal Cannula Nasal Cannula O2 Flow Rate 2.0 2.0 2.0 2.0 05/07/20 05/07/20 05/07/20 05/07/20 13:45 13:50 13:55 14:00 Pulse 88 89 83 93 Resp 15 18 15 18 B/P (MAP) 131/85 (100) 123/85 (98) 126/82 (97) 120/88 (99) Pulse Ox 100 99 99 98 O2 Delivery Nasal Cannula Nasal Cannula Nasal Cannula Nasal Cannula O2 Flow Rate 2.0 2.0 2.0 2.0 05/07/20 05/07/20 05/07/20 05/07/20 14:05 14:10 14:15 14:20 Pulse 84 84 72 90 Resp 20 20 17 14 B/P (MAP) 119/80 (93) 112/88 (96) 121/80 (94) 121/88 (99) Pulse Ox 99 99 99 98 O2 Delivery Nasal Cannula Nasal Cannula Nasal Cannula Nasal Cannula O2 Flow Rate 2.0 2.0 2.0 2.0 05/07/20 05/07/20 05/07/20 05/07/20 14:25 14:30 14:35 14:44 Pulse 92 82 77 89 Resp 15 14 19 14 B/P (MAP) 117/79 (92) 124/84 (97) 124/81 (95) Pulse Ox 98 98 99 98 O2 Delivery Nasal Cannula Nasal Cannula Nasal Cannula Nasal Cannula O2 Flow Rate 2.0 2.0 2.0 2.0 05/07/20 05/07/20 05/07/20 05/07/20 15:00 15:47 17:57 19:00 Temp 98.1 98.5 98.1 98.5 Pulse 95 101 Resp 17 18 B/P (MAP) 130/83 (99) 123/80 (94) Pulse Ox 96 95 O2 Delivery Room Air Room Air Room Air Room Air 05/07/20 05/07/20 05/07/20 05/07/20 20:00 22:06 23:00 23:07 Temp 98.1 98.1 Pulse 102 Resp 16 18 16 B/P (MAP) 122/76 (91) Pulse Ox 96 O2 Delivery Room Air Room Air Room Air Room Air 05/08/20 05/08/20 05/08/20 05/08/20 03:08 04:31 05:31 07:00 Temp 98.1 98.1 98.1 98.1 Pulse 100 104 Resp 18 16 17 B/P (MAP) 113/73 (86) 128/85 (99) Pulse Ox 96 94 O2 Delivery Room Air Room Air Room Air Room Air 05/08/20 05/08/20 08:26 08:26 Pulse 104 104 B/P (MAP) 128/85 128/85 Intake and Output 05/07/20 05/07/20 05/08/20 15:00 23:00 07:00 Intake Total 400 ml 1500 ml Output Total 110 ml 10 ml Balance 290 ml 1490 ml Justicifation of Admission Dx: Justifications for Admission: Justification of Admission Dx: N/A EMILIE ALVAREZ MD May 08, 2020 08:30
--- NOTE | 2020-05-08 08:47 | PDOC ---
VAN G[employer] [employer] 05/08/20 0847: SURGICAL PROGRESS NOTE Subjective drain site pain overall does feel better no n/v Vital Signs Vital Signs Date Time Temp Pulse Resp B/P (MAP) Pulse Ox O2 Delivery O2 Flow Rate FiO2 05/08/20 08:26 104 128/85 05/08/20 07:00 98.1 17 94 Room Air 98.1 05/07/20 14:44 2.0 I&O Intake and Output 05/08/20 07:00 Intake Total 1900 ml Output Total 120 ml Balance 1780 ml Intake Oral 400 ml IV Total 1500 ml Drainage Total 120 ml # Voids 4 # Bowel Movements 1 General: Alert, Oriented X3, Cooperative Abdomen: Soft, Other (drain purulent ) Labs Laboratory Tests Test 05/06/20 19:10 05/07/20 07:17 05/07/20 07:21 05/08/20 03:00 Prothrombin Time 16.7 SEC (11.7-14.0) Prothromb Time International Ratio 1.4 (0.8-1.1) White Blood Count 12.1 x10^3/uL (4.0-11.0) 7.5 x10^3/uL (4.0-11.0) Red Blood Count 4.12 x10^6/uL (3.50-5.40) 4.00 x10^6/uL (3.50-5.40) Hemoglobin 10.9 g/dL (12.0-15.5) 10.6 g/dL (12.0-15.5) Hematocrit 33.3 % (36.0-47.0) 32.2 % (36.0-47.0) Mean Corpuscular Volume 81 fL (79-100) 80 fL (79-100) Mean Corpuscular Hemoglobin 26 pg (25-35) 27 pg (25-35) Mean Corpuscular Hemoglobin Concent 33 g/dL (31-37) 33 g/dL (31-37) Red Cell Distribution Width 15.5 % (11.5-14.5) 15.6 % (11.5-14.5) Platelet Count 353 x10^3/uL (140-400) 315 x10^3/uL (140-400) Neutrophils (%) (Auto) 83 % (31-73) 74 % (31-73) Lymphocytes (%) (Auto) 11 % (24-48) 18 % (24-48) Monocytes (%) (Auto) 5 % (0-9) 6 % (0-9) Eosinophils (%) (Auto) 1 % (0-3) 2 % (0-3) Basophils (%) (Auto) 0 % (0-3) 0 % (0-3) Neutrophils # (Auto) 10.0 x10^3/uL (1.8-7.7) 5.5 x10^3/uL (1.8-7.7) Lymphocytes # (Auto) 1.3 x10^3/uL (1.0-4.8) 1.4 x10^3/uL (1.0-4.8) Monocytes # (Auto) 0.6 x10^3/uL (0.0-1.1) 0.4 x10^3/uL (0.0-1.1) Eosinophils # (Auto) 0.2 x10^3/uL (0.0-0.7) 0.2 x10^3/uL (0.0-0.7) Basophils # (Auto) 0.0 x10^3/uL (0.0-0.2) 0.0 x10^3/uL (0.0-0.2) Sodium Level 139 mmol/L (136-145) Potassium Level 3.5 mmol/L (3.5-5.1) Chloride Level 102 mmol/L (98-107) Carbon Dioxide Level 27 mmol/L (21-32) Anion Gap 10 (6-14) Blood Urea Nitrogen 3 mg/dL (7-20) Creatinine 0.6 mg/dL (0.6-1.0) Estimated GFR (Cockcroft-Gault) 134.0 BUN/Creatinine Ratio 5 (6-20) Glucose Level 92 mg/dL (70-99) Calcium Level 7.8 mg/dL (8.5-10.1) Total Bilirubin 0.3 mg/dL (0.2-1.0) Aspartate Amino Transf (AST/SGOT) 20 U/L (15-37) Alanine Aminotransferase (ALT/SGPT) 15 U/L (14-59) Alkaline Phosphatase 79 U/L (46-116) Total Protein 6.4 g/dL (6.4-8.2) Albumin 2.0 g/dL (3.4-5.0) Albumin/Globulin Ratio 0.5 (1.0-1.7) Laboratory Tests Test 05/08/20 03:00 White Blood Count 7.5 x10^3/uL (4.0-11.0) Red Blood Count 4.00 x10^6/uL (3.50-5.40) Hemoglobin 10.6 g/dL (12.0-15.5) Hematocrit 32.2 % (36.0-47.0) Mean Corpuscular Volume 80 fL (79-100) Mean Corpuscular Hemoglobin 27 pg (25-35) Mean Corpuscular Hemoglobin Concent 33 g/dL (31-37) Red Cell Distribution Width 15.6 % (11.5-14.5) Platelet Count 315 x10^3/uL (140-400) Neutrophils (%) (Auto) 74 % (31-73) Lymphocytes (%) (Auto) 18 % (24-48) Monocytes (%) (Auto) 6 % (0-9) Eosinophils (%) (Auto) 2 % (0-3) Basophils (%) (Auto) 0 % (0-3) Neutrophils # (Auto) 5.5 x10^3/uL (1.8-7.7) Lymphocytes # (Auto) 1.4 x10^3/uL (1.0-4.8) Monocytes # (Auto) 0.4 x10^3/uL (0.0-1.1) Eosinophils # (Auto) 0.2 x10^3/uL (0.0-0.7) Basophils # (Auto) 0.0 x10^3/uL (0.0-0.2) Problem List Problems Medical Problems: (1) Colon perforation Status: Acute (2) Perforated diverticulum Status: Acute Assessment/Plan perc drain, abx Justicifation of Admission Dx: Justifications for Admission: Justification of Admission Dx: N/A EMILIE MCFADDEN MD 05/08/20 1129: SURGICAL PROGRESS NOTE Assessment/Plan Patient overall is feeling well she does describe some pain at the drain site. Drain in place with purulent material. Agree with Rosanne assessment plan continued IV antibiotics and drain will follow [employer] May 08, 2020 08:47 EMILIE MCFADDEN MD May 08, 2020 11:29
--- NOTE | 2020-05-08 09:09 | NUR ---
TIKA JAMAAL drain flushed with 10cc NS.
--- NOTE | 2020-05-08 09:28 | PDOC ---
Infectious Disease Note Subjective Subjective Patient is feeling good has no complaints Vital Sign Vital Signs Vital Signs Date Time Temp Pulse Resp B/P (MAP) Pulse Ox O2 Delivery O2 Flow Rate FiO2 05/08/20 08:26 104 128/85 05/08/20 07:25 Room Air 05/08/20 07:00 98.1 17 94 98.1 05/07/20 14:44 2.0 Physical Exam PHYSICAL EXAM GENERAL: Alert and oriented female, not in distress. VITAL SIGNS: Stable, afebrile. HEENT: NAD. NECK: Supple, no JVP, no lymphadenopathy. LUNGS: Clear. HEART: S1, S2 regular. ABDOMEN: Benign. EXTREMITIES: No edema, cyanosis. SKIN: Unremarkable. NEUROLOGIC: The patient is alert, awake and appropriate. No focal neurologic deficit. Labs Lab Laboratory Tests Test 05/08/20 03:00 White Blood Count 7.5 x10^3/uL (4.0-11.0) Red Blood Count 4.00 x10^6/uL (3.50-5.40) Hemoglobin 10.6 g/dL (12.0-15.5) Hematocrit 32.2 % (36.0-47.0) Mean Corpuscular Volume 80 fL (79-100) Mean Corpuscular Hemoglobin 27 pg (25-35) Mean Corpuscular Hemoglobin Concent 33 g/dL (31-37) Red Cell Distribution Width 15.6 % (11.5-14.5) Platelet Count 315 x10^3/uL (140-400) Neutrophils (%) (Auto) 74 % (31-73) Lymphocytes (%) (Auto) 18 % (24-48) Monocytes (%) (Auto) 6 % (0-9) Eosinophils (%) (Auto) 2 % (0-3) Basophils (%) (Auto) 0 % (0-3) Neutrophils # (Auto) 5.5 x10^3/uL (1.8-7.7) Lymphocytes # (Auto) 1.4 x10^3/uL (1.0-4.8) Monocytes # (Auto) 0.4 x10^3/uL (0.0-1.1) Eosinophils # (Auto) 0.2 x10^3/uL (0.0-0.7) Basophils # (Auto) 0.0 x10^3/uL (0.0-0.2) Micro Microbiology 05/03/20 Urine Culture - Final, Complete Objective Assessment IMPRESSION: 1. Diverticulitis with perforation., Now has a large abdominal abscess 2. Morbid obesity. 3. Hypertension. 4. Chronic back problems. 5. Leukocytosis, which has improved. Plan Plan of Care CT drainage of the abscess and cultures Continue Zosyn Continue supportive care CAITLIN MORGAN MD May 08, 2020 09:28
--- NOTE | 2020-05-08 10:00 | NUR ---
JACQUELINE following. Discussed with RN, and Dr. Wharton, pt had JAMAAL drain placed yesterday. Drainage from abscess cultured, IV abx currently. Dr. Wharton advised pt will likely have a couple of days with drain, then repeat CT scan to ensure abscess has improved. JACQUELINE will continue to follow.
[2020-05-08 11:00] VITALS: BP 105/68
--- NOTE | 2020-05-08 11:12 | PDOC ---
Subjective: Subjective: Feels better - thinks just a bit achy from hospital bed. Eating. Objective: Objective: D/w nurse. Vital Signs: Vital Signs Date Time Temp Pulse Resp B/P (MAP) Pulse Ox O2 Delivery O2 Flow Rate FiO2 05/08/20 08:26 104 128/85 05/08/20 07:25 Room Air 05/08/20 07:00 98.1 17 94 98.1 05/07/20 14:44 2.0 Labs: Laboratory Tests Test 05/08/20 03:00 White Blood Count 7.5 x10^3/uL Red Blood Count 4.00 x10^6/uL Hemoglobin 10.6 g/dL Hematocrit 32.2 % Mean Corpuscular Volume 80 fL Mean Corpuscular Hemoglobin 27 pg Mean Corpuscular Hemoglobin Concent 33 g/dL Red Cell Distribution Width 15.6 % Platelet Count 315 x10^3/uL Neutrophils (%) (Auto) 74 % Lymphocytes (%) (Auto) 18 % Monocytes (%) (Auto) 6 % Eosinophils (%) (Auto) 2 % Basophils (%) (Auto) 0 % Neutrophils # (Auto) 5.5 x10^3/uL Lymphocytes # (Auto) 1.4 x10^3/uL Monocytes # (Auto) 0.4 x10^3/uL Eosinophils # (Auto) 0.2 x10^3/uL Basophils # (Auto) 0.0 x10^3/uL Imaging: IR procedure 05/07 report pending PE: GEN: NAD, in chair LUNGS: CTAB HEART: RRR ABD: right-sided abd drain w/ purulent material NEURO/PSYCH: A & O 3 A/P: Perforated diverticulitis w/ fluid collection s/p IR drainage - culture pending, atbx per ID -- Pain improved w/ drainage, continue treatment. Justicifation of Admission Dx: Justifications for Admission: Justification of Admission Dx: N/A BAO EMERSON May 08, 2020 11:12
--- NOTE | 2020-05-08 11:39 | PDOC ---
Infectious Disease Note Subjective Subjective Patient is feeling good has no complaints ROS ROS No nausea vomiting diarrhea chest pain or abdominal pain Vital Sign Vital Signs Vital Signs Date Time Temp Pulse Resp B/P (MAP) Pulse Ox O2 Delivery O2 Flow Rate FiO2 05/08/20 08:26 104 128/85 05/08/20 07:25 Room Air 05/08/20 07:00 98.1 17 94 98.1 05/07/20 14:44 2.0 Physical Exam PHYSICAL EXAM GENERAL: Alert and oriented female, not in distress. VITAL SIGNS: Stable, afebrile. HEENT: NAD. NECK: Supple, no JVP, no lymphadenopathy. LUNGS: Clear. HEART: S1, S2 regular. ABDOMEN: Benign. Does have a JAMAAL drain EXTREMITIES: No edema, cyanosis. SKIN: Unremarkable. NEUROLOGIC: The patient is alert, awake and appropriate. No focal neurologic deficit. Labs Lab Laboratory Tests Test 05/08/20 03:00 White Blood Count 7.5 x10^3/uL (4.0-11.0) Red Blood Count 4.00 x10^6/uL (3.50-5.40) Hemoglobin 10.6 g/dL (12.0-15.5) Hematocrit 32.2 % (36.0-47.0) Mean Corpuscular Volume 80 fL (79-100) Mean Corpuscular Hemoglobin 27 pg (25-35) Mean Corpuscular Hemoglobin Concent 33 g/dL (31-37) Red Cell Distribution Width 15.6 % (11.5-14.5) Platelet Count 315 x10^3/uL (140-400) Neutrophils (%) (Auto) 74 % (31-73) Lymphocytes (%) (Auto) 18 % (24-48) Monocytes (%) (Auto) 6 % (0-9) Eosinophils (%) (Auto) 2 % (0-3) Basophils (%) (Auto) 0 % (0-3) Neutrophils # (Auto) 5.5 x10^3/uL (1.8-7.7) Lymphocytes # (Auto) 1.4 x10^3/uL (1.0-4.8) Monocytes # (Auto) 0.4 x10^3/uL (0.0-1.1) Eosinophils # (Auto) 0.2 x10^3/uL (0.0-0.7) Basophils # (Auto) 0.0 x10^3/uL (0.0-0.2) Micro Microbiology 05/03/20 Urine Culture - Final, Complete Objective Assessment IMPRESSION: 1. Diverticulitis with perforation., Now has a large abdominal abscess, status post drainage 2. Morbid obesity. 3. Hypertension. 4. Chronic back problems. 5. Leukocytosis, which has improved. Plan Plan of Care Culture is pending Continue Zosyn Continue supportive care CAITLIN MORGAN MD May 08, 2020 11:39
--- NOTE | 2020-05-08 12:37 | PDOC ---
GRAVITY PROSPECTING OBSERVER HELPER PROGRESS NOTE Subjective: The pt feels better Objective: Vital Signs: Vital Signs Date Time Temp Pulse Resp B/P (MAP) Pulse Ox O2 Delivery O2 Flow Rate FiO2 05/07/20 07:00 97.9 97 17 106/76 (86) 96 Room Air 97.9 05/07/20 13:09 2.0 Vital Signs Date Time Temp Pulse Resp B/P (MAP) Pulse Ox O2 Delivery O2 Flow Rate FiO2 05/08/20 11:00 97.4 88 18 105/68 (80) 92 Room Air 97.4 05/07/20 14:44 2.0 Labs: Laboratory Tests Test 05/08/20 03:00 White Blood Count 7.5 x10^3/uL (4.0-11.0) Red Blood Count 4.00 x10^6/uL (3.50-5.40) Hemoglobin 10.6 g/dL (12.0-15.5) L Hematocrit 32.2 % (36.0-47.0) L Mean Corpuscular Volume 80 fL (79-100) Mean Corpuscular Hemoglobin 27 pg (25-35) Mean Corpuscular Hemoglobin Concent 33 g/dL (31-37) Red Cell Distribution Width 15.6 % (11.5-14.5) H Platelet Count 315 x10^3/uL (140-400) Neutrophils (%) (Auto) 74 % (31-73) H Lymphocytes (%) (Auto) 18 % (24-48) L Monocytes (%) (Auto) 6 % (0-9) Eosinophils (%) (Auto) 2 % (0-3) Basophils (%) (Auto) 0 % (0-3) Neutrophils # (Auto) 5.5 x10^3/uL (1.8-7.7) Lymphocytes # (Auto) 1.4 x10^3/uL (1.0-4.8) Monocytes # (Auto) 0.4 x10^3/uL (0.0-1.1) Eosinophils # (Auto) 0.2 x10^3/uL (0.0-0.7) Basophils # (Auto) 0.0 x10^3/uL (0.0-0.2) Laboratory Tests 05/08/20 03:00 Laboratory Tests 05/08/20 03:00 Physical Exam: GENERAL: No apparent distress. Alert and oriented. HEENT: Head normocephalic, atraumatic. NECK: Supple LUNGS: Clear to auscultation. HEART: RRR, S1, S2 present, pulses intact ABDOMEN: Soft, positive bowel sounds. EXTREMITIES: No cyanosis or edema. NEUROLOGIC: Normal speech, normal tone PSYCHIATRIC: Normal affect, normal mood. SKIN: No ulceration. Assessment & Plan: A/P 39y who was admitted for acute sigmoid diverticulitis 1.) Diverticulitis with pelvic abscess IR drain placed, WBC decreasing again, GI and Gen surg following 2.) Contraception IUD in place. Can remain in place, not likely to be nidus of infection or should lead to any drug interaction with tx plan 3.) PCOS on Meformin 4.) HTN managed per primary team. 5.) Will continue to follow REED RAZO MD May 08, 2020 12:37
[2020-05-08 15:00] VITALS: BP 120/76
[2020-05-08 19:00] VITALS: BP 98/71
[2020-05-08 23:00] VITALS: BP 117/64
[2020-05-09] MEDS: HYDROcodone/APAP 10/325 1 TAB TABLET PO PRN ×4 (01:33→20:25)
[2020-05-09] MEDS: PIPERACILLIN/TAZOBACTAM 4.5 GM in IV NORMAL SALINE 100ML 100 ML IV SCH ×4 (01:34→18:00)
[2020-05-09 03:00] VITALS: BP 114/70
--- NOTE | 2020-05-09 06:36 | PDOC ---
PROGRESS NOTES Chief Complaint Chief Complaint IMPRESSION: Acute sigmoid diverticulitis with small amount of pneumoperitoneum adjacent to the colon and along the hepatic dome consistent with perforation. No fluid collection. 05/07Interval development of a large gas-fluid collection within the right pelvis extending slightly into the abdomen. Extraluminal gas. Circumferential wall thickening proximal to mid sigmoid colon of concern for acute acute diverticulitis. Follow-up to resolution recommended. 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 VITAL SIGNS: Stable, afebrile. HEENT: NAD. NECK: Supple, no JVP, no lymphadenopathy. LUNGS: Clear. HEART: S1, S2 regular. ABDOMEN: Benign. Does have a JAMAAL drain EXTREMITIES: No edema, cyanosis. SKIN: Unremarkable. NEUROLOGIC: The patient is alert, awake and appropriate. No focal neurologic deficit. General: Alert, Oriented X3, Cooperative Heart: Regular rate, No murmurs Lungs: Clear Abdomen: Soft, Other (drain purulent ) Extremities: No clubbing, No edema Skin: No rashes, No significant lesion Assessment and Plan Assessmemt and Plan Problems Medical Problems: (1) Colon perforation Status: Acute (2) Perforated diverticulum Status: Acute Comment Review of Relevant I have reviewed the following items karyna (where applicable) has been applied. Labs Laboratory Tests Test 05/07/20 07:17 05/07/20 07:21 05/08/20 03:00 White Blood Count 12.1 x10^3/uL (4.0-11.0) 7.5 x10^3/uL (4.0-11.0) Red Blood Count 4.12 x10^6/uL (3.50-5.40) 4.00 x10^6/uL (3.50-5.40) Hemoglobin 10.9 g/dL (12.0-15.5) 10.6 g/dL (12.0-15.5) Hematocrit 33.3 % (36.0-47.0) 32.2 % (36.0-47.0) Mean Corpuscular Volume 81 fL (79-100) 80 fL (79-100) Mean Corpuscular Hemoglobin 26 pg (25-35) 27 pg (25-35) Mean Corpuscular Hemoglobin Concent 33 g/dL (31-37) 33 g/dL (31-37) Red Cell Distribution Width 15.5 % (11.5-14.5) 15.6 % (11.5-14.5) Platelet Count 353 x10^3/uL (140-400) 315 x10^3/uL (140-400) Neutrophils (%) (Auto) 83 % (31-73) 74 % (31-73) Lymphocytes (%) (Auto) 11 % (24-48) 18 % (24-48) Monocytes (%) (Auto) 5 % (0-9) 6 % (0-9) Eosinophils (%) (Auto) 1 % (0-3) 2 % (0-3) Basophils (%) (Auto) 0 % (0-3) 0 % (0-3) Neutrophils # (Auto) 10.0 x10^3/uL (1.8-7.7) 5.5 x10^3/uL (1.8-7.7) Lymphocytes # (Auto) 1.3 x10^3/uL (1.0-4.8) 1.4 x10^3/uL (1.0-4.8) Monocytes # (Auto) 0.6 x10^3/uL (0.0-1.1) 0.4 x10^3/uL (0.0-1.1) Eosinophils # (Auto) 0.2 x10^3/uL (0.0-0.7) 0.2 x10^3/uL (0.0-0.7) Basophils # (Auto) 0.0 x10^3/uL (0.0-0.2) 0.0 x10^3/uL (0.0-0.2) Sodium Level 139 mmol/L (136-145) Potassium Level 3.5 mmol/L (3.5-5.1) Chloride Level 102 mmol/L (98-107) Carbon Dioxide Level 27 mmol/L (21-32) Anion Gap 10 (6-14) Blood Urea Nitrogen 3 mg/dL (7-20) Creatinine 0.6 mg/dL (0.6-1.0) Estimated GFR (Cockcroft-Gault) 134.0 BUN/Creatinine Ratio 5 (6-20) Glucose Level 92 mg/dL (70-99) Calcium Level 7.8 mg/dL (8.5-10.1) Total Bilirubin 0.3 mg/dL (0.2-1.0) Aspartate Amino Transf (AST/SGOT) 20 U/L (15-37) Alanine Aminotransferase (ALT/SGPT) 15 U/L (14-59) Alkaline Phosphatase 79 U/L (46-116) Total Protein 6.4 g/dL (6.4-8.2) Albumin 2.0 g/dL (3.4-5.0) Albumin/Globulin Ratio 0.5 (1.0-1.7) Microbiology 05/07/20 Gram Stain - Final, Resulted 05/07/20 Aerobic and Anaerobic Culture, Resulted Pending 05/06/20 Blood Culture - Preliminary, Resulted NO GROWTH AFTER 2 DAYS 05/03/20 Urine Culture - Final, Complete Medications Current Medications Ketorolac Tromethamine (Toradol 30mg Vial) 30 mg 1X ONCE IVP Last administered on 05/01/20at 01:22; Start 05/01/20 at 01:00; Stop 05/01/20 at 01:01; Status DC Iohexol (Omnipaque 300 Mg/ml) 75 ml 1X ONCE IV Last administered on 05/01/20at 02:10; Start 05/01/20 at 02:00; Stop 05/01/20 at 02:01; Status DC Info (CONTRAST GIVEN -- Rx MONITORING) 1 each PRN DAILY PRN MC SEE COMMENTS; Start 05/01/20 at 02:00; Stop 05/03/20 at 01:59; Status DC Morphine Sulfate (Morphine Sulfate) 4 mg 1X ONCE IV Last administered on 05/01/20at 02:32; Start 05/01/20 at 02:30; Stop 05/01/20 at 02:31; Status DC Ondansetron HCl (Zofran) 4 mg 1X ONCE IM Last administered on 05/01/20at 02:38; Start 05/01/20 at 02:45; Stop 05/01/20 at 02:46; Status DC Piperacillin Sod/ Tazobactam Sod 4.5 gm/Sodium Chloride 100 ml @ 200 mls/hr 1X ONCE IV Last administered on 05/01/20at 03:12; Start 05/01/20 at 03:00; Stop 05/01/20 at 03:29; Status DC Piperacillin Sod/ Tazobactam Sod 4.5 gm/Sodium Chloride 100 ml @ 200 mls/hr Q6HRS IV ; Start 05/01/20 at 06:00; Stop 05/01/20 at 05:05; Status DC Morphine Sulfate (Morphine Sulfate) 4 mg PRN Q2HR PRN IV PAIN Last administered on 05/07/20at 08:09; Start 05/01/20 at 03:30; Stop 05/07/20 at 23:51; Status DC Ondansetron HCl (Zofran) 4 mg PRN Q6HRS PRN IVP NAUSEA/VOMITING Last administered on 05/07/20at 08:11; Start 05/01/20 at 03:30 Piperacillin Sod/ Tazobactam Sod 4.5 gm/Sodium Chloride 100 ml @ 200 mls/hr Q6HRS IV Last administered on 05/09/20at 06:06; Start 05/01/20 at 06:00 Metronidazole 100 ml @ 100 mls/hr Q8HRS IV Last administered on 05/07/20at 05:26; Start 05/01/20 at 10:00; Stop 05/07/20 at 12:35; Status DC Amlodipine Besylate (Norvasc) 10 mg DAILY PO Last administered on 05/08/20at 08:26; Start 05/02/20 at 13:00 Acetaminophen/ Hydrocodone Bitart (Lortab 5/325) 1 tab PRN Q6HRS PRN PO PAIN Last administered on 05/07/20at 22:06; Start 05/02/20 at 12:30; Stop 05/07/20 at 23:51; Status DC Metformin HCl (Glucophage Xr) 500 mg DAILYWBKFT PO ; Start 05/02/20 at 13:00 Metronidazole (Flagyl) 500 mg TID PO ; Start 05/02/20 at 14:00; Status Cancel Propranolol HCl (Inderal La) 80 mg DAILY PO Last administered on 05/08/20at 08:26; Start 05/02/20 at 13:00 Celecoxib (CeleBREX) 200 mg DAILY PO Last administered on 05/08/20at 08:27; Start 05/02/20 at 13:00 Fluoxetine HCl (PROzac) 20 mg DAILY PO Last administered on 05/08/20at 08:25; Start 05/02/20 at 13:00 Sodium Chloride 1,000 ml @ 135 mls/hr Q7H25M IV Last administered on 05/04/20at 00:34; Start 05/02/20 at 13:00; Stop 05/07/20 at 14:18; Status DC Polyethylene Glycol (miraLAX PACKET) 17 gm DAILY PO Last administered on 05/08/20at 08:25; Start 05/05/20 at 10:00 Lactobacillus Rhamnosus (Culturelle) 1 cap BID PO Last administered on 05/08/20at 20:11; Start 05/05/20 at 21:00 Potassium Chloride/Water 100 ml @ 100 mls/hr Q1H IV ; Start 05/06/20 at 12:00; Stop 05/06/20 at 14:07; Status DC Potassium Chloride (Klor-Con) 40 meq 1X ONCE PO Last administered on 05/06/20at 14:15; Start 05/06/20 at 14:15; Stop 05/06/20 at 14:16; Status DC Pantoprazole Sodium (PROTONIX VIAL for IV PUSH) 40 mg DAILYAC IVP Last administered on 05/08/20at 05:27; Start 05/07/20 at 11:30; Stop 05/08/20 at 11:13; Status DC Lidocaine HCl (Buffered Lidocaine 1%) 3 ml STK-MED ONCE .ROUTE ; Start 05/07/20 at 12:25; Stop 05/07/20 at 12:25; Status DC Midazolam HCl (Versed) 5 mg STK-MED ONCE .ROUTE ; Start 05/07/20 at 12:56; Stop 05/07/20 at 12:56; Status DC Fentanyl Citrate (Fentanyl 2ml Vial) 100 mcg STK-MED ONCE .ROUTE ; Start 05/07/20 at 12:56; Stop 05/07/20 at 12:57; Status DC Lidocaine HCl (Buffered Lidocaine 1%) 3 ml 1X ONCE IJ Last administered on 05/07/20at 13:15; Start 05/07/20 at 13:15; Stop 05/07/20 at 13:18; Status DC Midazolam HCl (Versed) 5 mg 1X ONCE IV Last administered on 05/07/20at 13:08; Start 05/07/20 at 13:15; Stop 05/07/20 at 13:18; Status DC Fentanyl Citrate (Fentanyl 2ml Vial) 100 mcg 1X ONCE IV Last administered on 05/07/20at 13:08; Start 05/07/20 at 13:15; Stop 05/07/20 at 13:18; Status DC Lidocaine HCl (Buffered Lidocaine 1%) 3 ml STK-MED ONCE .ROUTE ; Start 05/07/20 at 13:50; Stop 05/07/20 at 13:50; Status DC Lidocaine HCl (Buffered Lidocaine 1%) 3 ml STK-MED ONCE .ROUTE ; Start 05/07/20 at 13:54; Stop 05/07/20 at 13:54; Status DC Amino Acids/ Glycerin/ Electrolytes 1,000 ml @ 130 mls/hr Q7H42M IV Last administered on 05/08/20at 22:28; Start 05/07/20 at 14:30 Acetaminophen/ Hydrocodone Bitart (Lortab 5/325) 1 tab PRN Q4HRS PRN PO MODERATE PAIN 4-6; Start 05/08/20 at 02:30 Acetaminophen/ Hydrocodone Bitart (Lortab 10/325) 1 tab PRN Q4HRS PRN PO SEVERE PAIN 7-10 Last administered on 05/09/20at 01:33; Start 05/08/20 at 00:00 Morphine Sulfate (Morphine Sulfate) 2 mg PRN Q2HR PRN IV BREAKTHROUGH PAIN; Start 05/08/20 at 00:00 Pantoprazole Sodium (Protonix) 40 mg DAILYAC PO ; Start 05/09/20 at 07:30 Active Scripts Active Reported Hydrocodone-Apap 5-325 (Hydrocodone Bit/Acetaminophen) 1 Tab Tablet 1 Tab PO PRN Q6HRS PRN Cipro (Ciprofloxacin Hcl) 500 Mg Tablet 1 Tab PO BID 7 Days Metronidazole 500 Mg Tablet 1 Tab PO TID 7 Days Tizanidine Hcl 4 Mg Tablet 1 Tab PO BID Amlodipine Besylate 10 Mg Tablet 10 Mg PO DAILY Celebrex (Celecoxib) 200 Mg Capsule 200 Mg PO DAILY 30 Days Fluoxetine Hcl 20 Mg Tablet 20 Mg PO DAILY Propranolol Hcl 80 Mg Cap.sa.24h 80 Mg PO DAILY Metformin Hcl Er (Metformin Hcl) 500 Mg Tab.er.24h 500 Mg PO DAILYWBKFT Vitals/I & O Vital Sign - Last 24 Hours 05/08/20 05/08/20 05/08/20 05/08/20 07:00 07:25 08:26 08:26 Temp 98.1 98.1 Pulse 104 104 104 Resp 17 B/P (MAP) 128/85 (99) 128/85 128/85 Pulse Ox 94 O2 Delivery Room Air Room Air 05/08/20 05/08/20 05/08/20 05/08/20 11:00 13:33 15:00 17:51 Temp 97.4 98.6 97.4 98.6 Pulse 88 93 Resp 18 18 B/P (MAP) 105/68 (80) 120/76 (91) Pulse Ox 92 96 O2 Delivery Room Air Room Air Room Air Nasal Cannula 05/08/20 05/08/20 05/08/20 05/08/20 19:00 19:04 20:00 23:00 Temp 98.0 98.6 98.0 98.6 Pulse 91 80 Resp 18 18 B/P (MAP) 98/71 (80) 117/64 (81) Pulse Ox 94 96 O2 Delivery Room Air Room Air Room Air Room Air 05/09/20 05/09/20 05/09/20 01:33 02:33 03:00 Temp 97.9 97.9 Pulse 81 Resp 20 18 18 B/P (MAP) 114/70 (85) Pulse Ox 96 96 96 O2 Delivery Room Air Room Air Room Air O2 Flow Rate 2.0 Justicifation of Admission Dx: Justifications for Admission: Justification of Admission Dx: N/A EMILIE ALVAREZ MD May 09, 2020 06:36
[2020-05-09 07:00] VITALS: BP 101/73
[2020-05-09] MEDS: AMINO AC 3%/ELECTROLYTE/GLYCER 1,000 ML IV SCH ×2 (07:11→14:56)
[2020-05-09] MEDS: PANTOPRAZOLE 40 MG TABLET.DR. PO SCH (07:11)
[2020-05-09] MEDS: POLYETHYLENE GLYCOL 3350 17 GM PACKET. PO SCH (07:53)
[2020-05-09] MEDS: metFORMIN XR 500 MG TAB.ER.24H PO SCH (07:53)
[2020-05-09] MEDS: CELECOXIB 100 MG CAPSULE. PO SCH (08:37)
[2020-05-09] MEDS: PROPRANOLOL ER 80 MG CAP.ER.24H. PO SCH (08:37)
[2020-05-09] MEDS: amLODIPine BESYLATE 10 MG TABLET PO SCH (08:37)
[2020-05-09] MEDS: FLUoxetine HCL 20 MG CAPSULE PO SCH (08:37)
[2020-05-09] MEDS: LACTOBACILLUS RHAMNOSUS GG 1 CAPSULE. PO SCH ×2 (08:37→20:25)
--- NOTE | 2020-05-09 08:41 | NUR ---
TIKA Hunter drain flushed with 10cc NS.
--- NOTE | 2020-05-09 08:51 | NUR ---
SW following. Discussed with RN, pt still on IV abx, still has JAMAAL drain, pt moving better today. SW will continue to follow.
--- NOTE | 2020-05-09 08:57 | PDOC ---
VAN GONZALEZ WORD PROCESSOR OPERATOR 05/09/20 0857: SURGICAL PROGRESS NOTE Subjective feels better pain mainly with movement at drain site Vital Signs Vital Signs Date Time Temp Pulse Resp B/P (MAP) Pulse Ox O2 Delivery O2 Flow Rate FiO2 05/09/20 08:37 Room Air 05/09/20 08:37 80 101/73 05/09/20 07:00 98.0 18 94 98.0 05/09/20 02:33 2.0 General: Alert, Oriented X3, Cooperative Abdomen: Soft, Other (drain more serous ) Labs Laboratory Tests Test 05/08/20 03:00 White Blood Count 7.5 x10^3/uL (4.0-11.0) Red Blood Count 4.00 x10^6/uL (3.50-5.40) Hemoglobin 10.6 g/dL (12.0-15.5) Hematocrit 32.2 % (36.0-47.0) Mean Corpuscular Volume 80 fL (79-100) Mean Corpuscular Hemoglobin 27 pg (25-35) Mean Corpuscular Hemoglobin Concent 33 g/dL (31-37) Red Cell Distribution Width 15.6 % (11.5-14.5) Platelet Count 315 x10^3/uL (140-400) Neutrophils (%) (Auto) 74 % (31-73) Lymphocytes (%) (Auto) 18 % (24-48) Monocytes (%) (Auto) 6 % (0-9) Eosinophils (%) (Auto) 2 % (0-3) Basophils (%) (Auto) 0 % (0-3) Neutrophils # (Auto) 5.5 x10^3/uL (1.8-7.7) Lymphocytes # (Auto) 1.4 x10^3/uL (1.0-4.8) Monocytes # (Auto) 0.4 x10^3/uL (0.0-1.1) Eosinophils # (Auto) 0.2 x10^3/uL (0.0-0.7) Basophils # (Auto) 0.0 x10^3/uL (0.0-0.2) Problem List Problems Medical Problems: (1) Colon perforation Status: Acute (2) Perforated diverticulum Status: Acute Assessment/Plan diverticulitis with abscess continue abx/drain--cultures pending Justicifation of Admission Dx: Justifications for Admission: Justification of Admission Dx: N/A EMILIE MCFADDEN MD 05/09/20 0918: SURGICAL PROGRESS NOTE Assessment/Plan Patient seen and examined by me she is resting comfortably in bed describes a little bit of pain at the drain site. JAMAAL drain intact with serous output nonpurulent. Agree with Rosanne assessment and plan awaiting IDs recommendations on oral antibiotics VAN GONZALEZ APRN May 09, 2020 08:57 EMILIE MCFADDEN MD May 09, 2020 09:18
--- NOTE | 2020-05-09 09:13 | PDOC ---
Infectious Disease Note Subjective Subjective Patient is feeling good has no complaints ROS ROS no n/v/d/sob Vital Sign Vital Signs Vital Signs Date Time Temp Pulse Resp B/P (MAP) Pulse Ox O2 Delivery O2 Flow Rate FiO2 05/09/20 08:37 Room Air 05/09/20 08:37 80 101/73 05/09/20 07:00 98.0 18 94 98.0 05/09/20 02:33 2.0 Physical Exam PHYSICAL EXAM GENERAL: Alert and oriented female, not in distress. VITAL SIGNS: Stable, afebrile. HEENT: NAD. NECK: Supple, no JVP, no lymphadenopathy. LUNGS: Clear. HEART: S1, S2 regular. ABDOMEN: Benign. Does have a JAMAAL drain EXTREMITIES: No edema, cyanosis. SKIN: Unremarkable. NEUROLOGIC: The patient is alert, awake and appropriate. No focal neurologic deficit. Labs Micro Microbiology 05/03/20 Urine Culture - Final, Complete Objective Assessment IMPRESSION: 1. Diverticulitis with perforation., Now has a large abdominal abscess, status post drainage 2. Morbid obesity. 3. Hypertension. 4. Chronic back problems. 5. Leukocytosis, which has improved. Plan Plan of Care Culture is pending Continue Zosyn Continue supportive care CAITLIN MORGAN MD May 09, 2020 09:13
--- NOTE | 2020-05-09 10:37 | PDOC ---
ASSOCIATE PRODUCT INTEGRITY ENGINEER PROGRESS NOTE Subjective: The pt feels better. Objective: Vital Signs: Vital Signs Date Time Temp Pulse Resp B/P (MAP) Pulse Ox O2 Delivery O2 Flow Rate FiO2 05/08/20 07:00 98.1 104 17 128/85 (99) 94 Room Air 98.1 05/09/20 02:33 2.0 Vital Signs Date Time Temp Pulse Resp B/P (MAP) Pulse Ox O2 Delivery O2 Flow Rate FiO2 05/09/20 08:37 Room Air 05/09/20 08:37 80 101/73 05/09/20 07:00 98.0 18 94 98.0 05/09/20 02:33 2.0 Physical Exam: GENERAL: No apparent distress. Alert and oriented. HEENT: Head normocephalic, atraumatic. NECK: Supple LUNGS: Clear to auscultation. HEART: RRR, S1, S2 present, pulses intact ABDOMEN: Soft, positive bowel sounds. EXTREMITIES: No cyanosis or edema. NEUROLOGIC: Normal speech, normal tone PSYCHIATRIC: Normal affect, normal mood. SKIN: No ulceration. Assessment & Plan: A/P 39y who was admitted for acute sigmoid diverticulitis 1.) Diverticulitis with pelvic abscess IR drain placed, WBC decreasing, May consider re-imaging tomorrow, GI and Gen surg following 2.) Contraception IUD in place. No indication for removal 3.) PCOS on Meformin 4.) HTN managed per primary team. REED RAZO MD May 09, 2020 10:37
[2020-05-09 11:00] VITALS: BP 112/72
--- NOTE | 2020-05-09 13:05 | PDOC ---
Objective: Objective: Reviewed chart. Vital Signs: Vital Signs Date Time Temp Pulse Resp B/P (MAP) Pulse Ox O2 Delivery O2 Flow Rate FiO2 05/09/20 11:00 98.0 86 18 112/72 (85) 94 Room Air 98.0 05/09/20 02:33 2.0 Labs: GRAM STAIN Final Final NO ORGANISMS SEEN. SQUAMOUS EPI CELL:NOT APPLICABLE PMN (WBCs):MANY Unless otherwise specified, Testing Performed by: [address] [address] For Inquires, the Physician may contact the Microbiology department at [phone] ANAEROBIC-AEROBIC CULTURE PENDING PE: GEN: NAD - in chair talking on phone - waves and says she's doing okay LUNGS: clear HEART: RRR ABD: drain output looks thinner NEURO/PSYCH: A & O 3 A/P: Perforated diverticulitis w/ fluid collection s/p IR drainage -- Continue per surgery, ID. Justicifation of Admission Dx: Justifications for Admission: Justification of Admission Dx: N/A BAO EMERSON May 09, 2020 13:05
[2020-05-09 15:00] VITALS: BP 150/92
--- NOTE | 2020-05-09 17:36 | NUR ---
Unable to obtain new iV. Jumana, Rn nursing line construction supervisor stated she would come look.
[2020-05-09 19:00] VITALS: BP 163/97
--- NOTE | 2020-05-09 22:41 | NUR ---
restaurant shift supervisor notified of IV access needing re-started.
[2020-05-09 23:00] VITALS: BP 120/40
[2020-05-10] MEDS: PIPERACILLIN/TAZOBACTAM 4.5 GM in IV NORMAL SALINE 100ML 100 ML IV SCH ×6 (02:26→23:32)
[2020-05-10 03:00] VITALS: BP 140/90
[2020-05-10] MEDS: HYDROcodone/APAP 10/325 1 TAB TABLET PO PRN ×4 (04:49→20:48)
[2020-05-10 07:00] VITALS: BP 106/39
[2020-05-10] MEDS: PANTOPRAZOLE 40 MG TABLET.DR. PO SCH (07:11)
[2020-05-10] MEDS: metFORMIN XR 500 MG TAB.ER.24H PO SCH (08:00)
[2020-05-10] MEDS: AMINO AC 3%/ELECTROLYTE/GLYCER 1,000 ML IV SCH ×2 (08:10→16:59)
[2020-05-10] MEDS: amLODIPine BESYLATE 10 MG TABLET PO SCH (08:59)
[2020-05-10] MEDS: PROPRANOLOL ER 80 MG CAP.ER.24H. PO SCH (08:59)
[2020-05-10] MEDS: POLYETHYLENE GLYCOL 3350 17 GM PACKET. PO SCH (08:59)
[2020-05-10] MEDS: FLUoxetine HCL 20 MG CAPSULE PO SCH (09:00)
[2020-05-10] MEDS: LACTOBACILLUS RHAMNOSUS GG 1 CAPSULE. PO SCH ×2 (09:00→20:46)
[2020-05-10] MEDS: CELECOXIB 100 MG CAPSULE. PO SCH (09:00)
--- NOTE | 2020-05-10 10:49 | PDOC ---
Infectious Disease Note Subjective Subjective Little bit of pain at the drain insertion site, otherwise comfortable Denies N/V/D/F/C ROS ROS as mentioned above Vital Sign Vital Signs Vital Signs Date Time Temp Pulse Resp B/P (MAP) Pulse Ox O2 Delivery O2 Flow Rate FiO2 05/10/20 08:59 94 106/39 05/10/20 08:58 95 Room Air 05/10/20 07:00 98.3 16 98.3 Physical Exam PHYSICAL EXAM GENERAL: Propped up in bed, alert and in NAD HEENT: Oral cavity clear NECK: Supple LUNGS: Clear. HEART: S1, S2 regular. ABDOMEN: Obese, soft and nontender. Right-sided JAMAAL intact EXTREMITIES: No edema, cyanosis. SKIN: warm to touch. No signs of rash NEUROLOGIC: ALert and answers questions appropriately PIV ok Labs Micro 05/03. URINE CULTURE Final Final 40,000 CFU/ML YEAST on 05/06/20 at 1421 FINAL ID= [ROSE ALBICANS] 05/06. BLOOD CULTURE Preliminary NO GROWTH AFTER 3 DAYS 05/07. ABD FL GRAM STAIN Final Final NO ORGANISMS SEEN. SQUAMOUS EPI CELL:NOT APPLICABLE PMN (WBCs):MANY ANAEROBIC-AEROBIC CULTURE PENDING Objective Assessment Diverticulitis with perforation., Now has a large abdominal abscess, status post drainage, 05/07. culture pending Morbid obesity. Hypertension. Chronic back problems. Leukocytosis, which has improved. Plan Plan of Care Continue Zosyn Probiotics f/u cultures Monitor WBC/temp Supportive care Attending Co-Sign The patient was seen and interviewed as well as examined at the bedside. The chart was reviewed. The case was discussed. Agree with the plan of care. MORENO AIKEN APRN May 10, 2020 10:49 CAITLIN MORGAN MD May 10, 2020 13:28
[2020-05-10 11:00] VITALS: BP 136/95
--- NOTE | 2020-05-10 11:22 | PDOC ---
PROGRESS NOTES Subjective Subjective pt states prior pain resolved; only pain is at drain site Objective Objective Vital Signs Date Time Temp Pulse Resp B/P (MAP) Pulse Ox O2 Delivery O2 Flow Rate FiO2 05/10/20 08:59 94 106/39 05/10/20 08:58 95 Room Air 05/10/20 07:00 98.3 16 98.3 05/09/20 02:33 2.0 Intake and Output 05/10/20 07:00 Intake Total 1080 ml Output Total 50 ml Balance 1030 ml Intake Oral 1080 ml Drainage Total 50 ml # Voids 4 # Bowel Movements 3 Physical Exam Abdomen: Soft, No tenderness, Other (R abdominal drain in place) Heart: Regular rate General: Alert, Oriented X3 HEENT: Atraumatic Lungs: Clear to auscultation Neuro: Normal speech Psych/Mental Status: Mental status NL Assessment Assessment Problems Medical Problems: (1) Colon perforation Status: Acute (2) Perforated diverticulum Status: Acute Plan Plan of Care Good improvement with drainage, abx; no surgical plans. Dr Corrales to revisit Tuesday, please call if needed sooner Comment Review of Relevant I have reviewed the following items karyna (where applicable) has been applied. Labs Microbiology 05/07/20 Gram Stain - Final, Resulted 05/07/20 Aerobic and Anaerobic Culture, Resulted Pending 05/06/20 Blood Culture - Preliminary, Resulted NO GROWTH AFTER 3 DAYS 05/03/20 Urine Culture - Final, Complete Medications Current Medications Ketorolac Tromethamine (Toradol 30mg Vial) 30 mg 1X ONCE IVP Last administered on 05/01/20at 01:22; Start 05/01/20 at 01:00; Stop 05/01/20 at 01:01; Status DC Iohexol (Omnipaque 300 Mg/ml) 75 ml 1X ONCE IV Last administered on 05/01/20at 02:10; Start 05/01/20 at 02:00; Stop 05/01/20 at 02:01; Status DC Info (CONTRAST GIVEN -- Rx MONITORING) 1 each PRN DAILY PRN MC SEE COMMENTS; Start 05/01/20 at 02:00; Stop 05/03/20 at 01:59; Status DC Morphine Sulfate (Morphine Sulfate) 4 mg 1X ONCE IV Last administered on 05/01/20at 02:32; Start 05/01/20 at 02:30; Stop 05/01/20 at 02:31; Status DC Ondansetron HCl (Zofran) 4 mg 1X ONCE IM Last administered on 05/01/20at 02:38; Start 05/01/20 at 02:45; Stop 05/01/20 at 02:46; Status DC Piperacillin Sod/ Tazobactam Sod 4.5 gm/Sodium Chloride 100 ml @ 200 mls/hr 1X ONCE IV Last administered on 05/01/20at 03:12; Start 05/01/20 at 03:00; Stop 05/01/20 at 03:29; Status DC Piperacillin Sod/ Tazobactam Sod 4.5 gm/Sodium Chloride 100 ml @ 200 mls/hr Q6HRS IV ; Start 05/01/20 at 06:00; Stop 05/01/20 at 05:05; Status DC Morphine Sulfate (Morphine Sulfate) 4 mg PRN Q2HR PRN IV PAIN Last administered on 05/07/20at 08:09; Start 05/01/20 at 03:30; Stop 05/07/20 at 23:51; Status DC Ondansetron HCl (Zofran) 4 mg PRN Q6HRS PRN IVP NAUSEA/VOMITING Last administered on 05/07/20at 08:11; Start 05/01/20 at 03:30 Piperacillin Sod/ Tazobactam Sod 4.5 gm/Sodium Chloride 100 ml @ 200 mls/hr Q6HRS IV Last administered on 05/10/20at 07:11; Start 05/01/20 at 06:00 Metronidazole 100 ml @ 100 mls/hr Q8HRS IV Last administered on 05/07/20at 05:26; Start 05/01/20 at 10:00; Stop 05/07/20 at 12:35; Status DC Amlodipine Besylate (Norvasc) 10 mg DAILY PO Last administered on 05/10/20at 08:59; Start 05/02/20 at 13:00 Acetaminophen/ Hydrocodone Bitart (Lortab 5/325) 1 tab PRN Q6HRS PRN PO PAIN Last administered on 05/07/20at 22:06; Start 05/02/20 at 12:30; Stop 05/07/20 at 23:51; Status DC Metformin HCl (Glucophage Xr) 500 mg DAILYWBKFT PO ; Start 05/02/20 at 13:00 Metronidazole (Flagyl) 500 mg TID PO ; Start 05/02/20 at 14:00; Status Cancel Propranolol HCl (Inderal La) 80 mg DAILY PO Last administered on 05/10/20at 08:59; Start 05/02/20 at 13:00 Celecoxib (CeleBREX) 200 mg DAILY PO Last administered on 05/10/20at 09:00; Start 05/02/20 at 13:00 Fluoxetine HCl (PROzac) 20 mg DAILY PO Last administered on 05/10/20at 09:00; Start 05/02/20 at 13:00 Sodium Chloride 1,000 ml @ 135 mls/hr Q7H25M IV Last administered on 05/04/20at 00:34; Start 05/02/20 at 13:00; Stop 05/07/20 at 14:18; Status DC Polyethylene Glycol (miraLAX PACKET) 17 gm DAILY PO Last administered on 05/10/20at 08:59; Start 05/05/20 at 10:00 Lactobacillus Rhamnosus (Culturelle) 1 cap BID PO Last administered on 05/10/20at 09:00; Start 05/05/20 at 21:00 Potassium Chloride/Water 100 ml @ 100 mls/hr Q1H IV ; Start 05/06/20 at 12:00; Stop 05/06/20 at 14:07; Status DC Potassium Chloride (Klor-Con) 40 meq 1X ONCE PO Last administered on 05/06/20at 14:15; Start 05/06/20 at 14:15; Stop 05/06/20 at 14:16; Status DC Pantoprazole Sodium (PROTONIX VIAL for IV PUSH) 40 mg DAILYAC IVP Last administered on 05/08/20at 05:27; Start 05/07/20 at 11:30; Stop 05/08/20 at 11:13; Status DC Lidocaine HCl (Buffered Lidocaine 1%) 3 ml STK-MED ONCE .ROUTE ; Start 05/07/20 at 12:25; Stop 05/07/20 at 12:25; Status DC Midazolam HCl (Versed) 5 mg STK-MED ONCE .ROUTE ; Start 05/07/20 at 12:56; Stop 05/07/20 at 12:56; Status DC Fentanyl Citrate (Fentanyl 2ml Vial) 100 mcg STK-MED ONCE .ROUTE ; Start 05/07/20 at 12:56; Stop 05/07/20 at 12:57; Status DC Lidocaine HCl (Buffered Lidocaine 1%) 3 ml 1X ONCE IJ Last administered on 05/07/20at 13:15; Start 05/07/20 at 13:15; Stop 05/07/20 at 13:18; Status DC Midazolam HCl (Versed) 5 mg 1X ONCE IV Last administered on 05/07/20at 13:08; Start 05/07/20 at 13:15; Stop 05/07/20 at 13:18; Status DC Fentanyl Citrate (Fentanyl 2ml Vial) 100 mcg 1X ONCE IV Last administered on 05/07/20at 13:08; Start 05/07/20 at 13:15; Stop 05/07/20 at 13:18; Status DC Lidocaine HCl (Buffered Lidocaine 1%) 3 ml STK-MED ONCE .ROUTE ; Start 05/07/20 at 13:50; Stop 05/07/20 at 13:50; Status DC Lidocaine HCl (Buffered Lidocaine 1%) 3 ml STK-MED ONCE .ROUTE ; Start 05/07/20 at 13:54; Stop 05/07/20 at 13:54; Status DC Amino Acids/ Glycerin/ Electrolytes 1,000 ml @ 80 mls/hr [id number] IV Last administered on 05/09/20at 14:56; Start 05/07/20 at 14:30 Acetaminophen/ Hydrocodone Bitart (Lortab 5/325) 1 tab PRN Q4HRS PRN PO MODERATE PAIN 4-6; Start 05/08/20 at 02:30 Acetaminophen/ Hydrocodone Bitart (Lortab 10/325) 1 tab PRN Q4HRS PRN PO SEVERE PAIN 7-10 Last administered on 05/10/20at 08:58; Start 05/08/20 at 00:00 Morphine Sulfate (Morphine Sulfate) 2 mg PRN Q2HR PRN IV BREAKTHROUGH PAIN; Start 05/08/20 at 00:00 Pantoprazole Sodium (Protonix) 40 mg DAILYAC PO Last administered on 05/10/20at 07:11; Start 05/09/20 at 07:30 Active Scripts Active Reported Hydrocodone-Apap 5-325 (Hydrocodone Bit/Acetaminophen) 1 Tab Tablet 1 Tab PO PRN Q6HRS PRN Cipro (Ciprofloxacin Hcl) 500 Mg Tablet 1 Tab PO BID 7 Days Metronidazole 500 Mg Tablet 1 Tab PO TID 7 Days Tizanidine Hcl 4 Mg Tablet 1 Tab PO BID Amlodipine Besylate 10 Mg Tablet 10 Mg PO DAILY Celebrex (Celecoxib) 200 Mg Capsule 200 Mg PO DAILY 30 Days Fluoxetine Hcl 20 Mg Tablet 20 Mg PO DAILY Propranolol Hcl 80 Mg Cap.sa.24h 80 Mg PO DAILY Metformin Hcl Er (Metformin Hcl) 500 Mg Tab.er.24h 500 Mg PO DAILYWBKFT Vitals/I & O Vital Sign - Last 24 Hours 05/09/20 05/09/20 05/09/20 05/09/20 14:54 15:00 16:43 19:00 Temp 98.0 98.1 98.0 98.1 Pulse 89 86 Resp 18 18 B/P (MAP) 150/92 (111) 163/97 (119) Pulse Ox 96 95 O2 Delivery Room Air Room Air Room Air Room Air 05/09/20 05/09/20 05/09/20 05/09/20 20:00 20:25 21:25 23:00 Temp 97.9 97.9 Pulse 98 Resp 20 20 18 B/P (MAP) 120/40 (66) Pulse Ox 96 95 95 O2 Delivery Room Air Room Air Room Air Room Air 05/10/20 05/10/20 05/10/20 05/10/20 03:00 04:49 07:00 08:58 Temp 97.6 98.3 97.6 98.3 Pulse 79 94 Resp 18 20 16 B/P (MAP) 140/90 (107) 106/39 (61) Pulse Ox 95 95 96 95 O2 Delivery Room Air Room Air Room Air Room Air 05/10/20 05/10/20 08:59 08:59 Pulse 94 94 B/P (MAP) 106/39 106/39 Intake and Output 05/09/20 05/09/20 05/10/20 15:00 23:00 07:00 Intake Total 480 ml 600 ml Output Total 50 ml Balance 480 ml 550 ml Justicifation of Admission Dx: Justifications for Admission: Justification of Admission Dx: N/A CLARE HUDSON MD May 10, 2020 11:22
--- NOTE | 2020-05-10 12:07 | PDOC ---
PROGRESS NOTES Chief Complaint Chief Complaint IMPRESSION: Acute sigmoid diverticulitis with small amount of pneumoperitoneum adjacent to the colon and along the hepatic dome consistent with perforation. No fluid collection. 05/07Interval development of a large gas-fluid collection within the right pelvis extending slightly into the abdomen. Extraluminal gas. Circumferential wall thickening proximal to mid sigmoid colon of concern for acute acute diverticulitis. Follow-up to resolution recommended. 05/07 overweight poor surgical candidate, given super obesity REPLACE K Perforated diverticulitis w/ fluid collection s/p IR drainage - culture pending, atbx per ID PLAN admit Surgery consulted npo iv fluid support IV ANTIBIOTICS, CONTINUE REPEAT CT ID CONSULT IV K CONSULT IR CONSULT GI CONSULT [employer] Good improvement with drainage, abx; no surgical plans. Dr Corrales to revisit Saturday 05/12 29 min pt exam, chart review, > 50% of time spent with exam, chart review, pt care coordination History of Present Illness History of Present Illness 05/10/2020 Patient seen and examined She is about the same clinically Still having some abdominal pain Chart reviewed Discussed with case management Discussed with RN Vitals Vitals Vital Signs Date Time Temp Pulse Resp B/P (MAP) Pulse Ox O2 Delivery O2 Flow Rate FiO2 05/10/20 11:38 98 Room Air 05/10/20 11:00 97.8 77 18 136/95 (109) 97.8 Physical Exam Physical Exam GENERAL: Propped up in bed, alert and in NAD HEENT: Oral cavity clear NECK: Supple LUNGS: Clear. HEART: S1, S2 regular. ABDOMEN: Obese, soft and nontender. Right-sided JAMAAL intact EXTREMITIES: No edema, cyanosis. SKIN: warm to touch. No signs of rash NEUROLOGIC: ALert and answers questions appropriately PIV ok General: Alert, Oriented X3, Cooperative, No acute distress Heart: Regular rate, Normal S1, Normal S2 Lungs: Clear Abdomen: Normal bowel sounds, Soft, No tenderness, Other (R abdominal drain in place) Extremities: No clubbing, No edema Skin: No rashes, No significant lesion Assessment and Plan Assessmemt and Plan Problems Medical Problems: (1) Colon perforation Status: Acute (2) Perforated diverticulum Status: Acute Comment Review of Relevant I have reviewed the following items karyna (where applicable) has been applied. Labs Microbiology 05/07/20 Gram Stain - Final, Resulted 05/07/20 Aerobic and Anaerobic Culture, Resulted Pending 05/06/20 Blood Culture - Preliminary, Resulted NO GROWTH AFTER 3 DAYS 05/03/20 Urine Culture - Final, Complete Medications Current Medications Ketorolac Tromethamine (Toradol 30mg Vial) 30 mg 1X ONCE IVP Last administered on 05/01/20at 01:22; Start 05/01/20 at 01:00; Stop 05/01/20 at 01:01; Status DC Iohexol (Omnipaque 300 Mg/ml) 75 ml 1X ONCE IV Last administered on 05/01/20at 02:10; Start 05/01/20 at 02:00; Stop 05/01/20 at 02:01; Status DC Info (CONTRAST GIVEN -- Rx MONITORING) 1 each PRN DAILY PRN MC SEE COMMENTS; Start 05/01/20 at 02:00; Stop 05/03/20 at 01:59; Status DC Morphine Sulfate (Morphine Sulfate) 4 mg 1X ONCE IV Last administered on 05/01/20at 02:32; Start 05/01/20 at 02:30; Stop 05/01/20 at 02:31; Status DC Ondansetron HCl (Zofran) 4 mg 1X ONCE IM Last administered on 05/01/20at 02:38; Start 05/01/20 at 02:45; Stop 05/01/20 at 02:46; Status DC Piperacillin Sod/ Tazobactam Sod 4.5 gm/Sodium Chloride 100 ml @ 200 mls/hr 1X ONCE IV Last administered on 05/01/20at 03:12; Start 05/01/20 at 03:00; Stop 05/01/20 at 03:29; Status DC Piperacillin Sod/ Tazobactam Sod 4.5 gm/Sodium Chloride 100 ml @ 200 mls/hr Q6HRS IV ; Start 05/01/20 at 06:00; Stop 05/01/20 at 05:05; Status DC Morphine Sulfate (Morphine Sulfate) 4 mg PRN Q2HR PRN IV PAIN Last administered on 05/07/20at 08:09; Start 05/01/20 at 03:30; Stop 05/07/20 at 23:51; Status DC Ondansetron HCl (Zofran) 4 mg PRN Q6HRS PRN IVP NAUSEA/VOMITING Last administered on 05/07/20at 08:11; Start 05/01/20 at 03:30 Piperacillin Sod/ Tazobactam Sod 4.5 gm/Sodium Chloride 100 ml @ 200 mls/hr Q6HRS IV Last administered on 05/10/20at 07:11; Start 05/01/20 at 06:00 Metronidazole 100 ml @ 100 mls/hr Q8HRS IV Last administered on 05/07/20at 05:26; Start 05/01/20 at 10:00; Stop 05/07/20 at 12:35; Status DC Amlodipine Besylate (Norvasc) 10 mg DAILY PO Last administered on 05/10/20at 08:59; Start 05/02/20 at 13:00 Acetaminophen/ Hydrocodone Bitart (Lortab 5/325) 1 tab PRN Q6HRS PRN PO PAIN Last administered on 05/07/20at 22:06; Start 05/02/20 at 12:30; Stop 05/07/20 at 23:51; Status DC Metformin HCl (Glucophage Xr) 500 mg DAILYWBKFT PO ; Start 05/02/20 at 13:00 Metronidazole (Flagyl) 500 mg TID PO ; Start 05/02/20 at 14:00; Status Cancel Propranolol HCl (Inderal La) 80 mg DAILY PO Last administered on 05/10/20at 08:59; Start 05/02/20 at 13:00 Celecoxib (CeleBREX) 200 mg DAILY PO Last administered on 05/10/20at 09:00; Start 05/02/20 at 13:00 Fluoxetine HCl (PROzac) 20 mg DAILY PO Last administered on 05/10/20at 09:00; Start 05/02/20 at 13:00 Sodium Chloride 1,000 ml @ 135 mls/hr Q7H25M IV Last administered on 05/04/20at 00:34; Start 05/02/20 at 13:00; Stop 05/07/20 at 14:18; Status DC Polyethylene Glycol (miraLAX PACKET) 17 gm DAILY PO Last administered on 0at 08:59; Start 05/05/20 at 10:00 Lactobacillus Rhamnosus (Culturelle) 1 cap BID PO Last administered on 05/10/20at 09:00; Start 05/05/20 at 21:00 Potassium Chloride/Water 100 ml @ 100 mls/hr Q1H IV ; Start 05/06/20 at 12:00; Stop 05/06/20 at 14:07; Status DC Potassium Chloride (Klor-Con) 40 meq 1X ONCE PO Last administered on 05/06/20at 14:15; Start 05/06/20 at 14:15; Stop 05/06/20 at 14:16; Status DC Pantoprazole Sodium (PROTONIX VIAL for IV PUSH) 40 mg DAILYAC IVP Last administered on 05/08/20at 05:27; Start 05/07/20 at 11:30; Stop 05/08/20 at 11:13; Status DC Lidocaine HCl (Buffered Lidocaine 1%) 3 ml STK-MED ONCE .ROUTE ; Start 05/07/20 at 12:25; Stop 05/07/20 at 12:25; Status DC Midazolam HCl (Versed) 5 mg STK-MED ONCE .ROUTE ; Start 05/07/20 at 12:56; Stop 05/07/20 at 12:56; Status DC Fentanyl Citrate (Fentanyl 2ml Vial) 100 mcg STK-MED ONCE .ROUTE ; Start 05/07/20 at 12:56; Stop 05/07/20 at 12:57; Status DC Lidocaine HCl (Buffered Lidocaine 1%) 3 ml 1X ONCE IJ Last administered on 05/07/20at 13:15; Start 05/07/20 at 13:15; Stop 05/07/20 at 13:18; Status DC Midazolam HCl (Versed) 5 mg 1X ONCE IV Last administered on 05/07/20at 13:08; Start 05/07/20 at 13:15; Stop 05/07/20 at 13:18; Status DC Fentanyl Citrate (Fentanyl 2ml Vial) 100 mcg 1X ONCE IV Last administered on 05/07/20at 13:08; Start 05/07/20 at 13:15; Stop 05/07/20 at 13:18; Status DC Lidocaine HCl (Buffered Lidocaine 1%) 3 ml STK-MED ONCE .ROUTE ; Start 05/07/20 at 13:50; Stop 05/07/20 at 13:50; Status DC Lidocaine HCl (Buffered Lidocaine 1%) 3 ml STK-MED ONCE .ROUTE ; Start 05/07/20 at 13:54; Stop 05/07/20 at 13:54; Status DC Amino Acids/ Glycerin/ Electrolytes 1,000 ml @ 80 mls/hr [id number] IV Last administered on 05/09/20at 14:56; Start 05/07/20 at 14:30 Acetaminophen/ Hydrocodone Bitart (Lortab 5/325) 1 tab PRN Q4HRS PRN PO MODERATE PAIN 4-6; Start 05/08/20 at 02:30 Acetaminophen/ Hydrocodone Bitart (Lortab 10/325) 1 tab PRN Q4HRS PRN PO SEVERE PAIN 7-10 Last administered on 05/10/20at 08:58; Start 05/08/20 at 00:00 Morphine Sulfate (Morphine Sulfate) 2 mg PRN Q2HR PRN IV BREAKTHROUGH PAIN; Start 05/08/20 at 00:00 Pantoprazole Sodium (Protonix) 40 mg DAILYAC PO Last administered on 05/10/20at 07:11; Start 05/09/20 at 07:30 Active Scripts Active Reported Hydrocodone-Apap 5-325 (Hydrocodone Bit/Acetaminophen) 1 Tab Tablet 1 Tab PO PRN Q6HRS PRN Cipro (Ciprofloxacin Hcl) 500 Mg Tablet 1 Tab PO BID 7 Days Metronidazole 500 Mg Tablet 1 Tab PO TID 7 Days Tizanidine Hcl 4 Mg Tablet 1 Tab PO BID Amlodipine Besylate 10 Mg Tablet 10 Mg PO DAILY Celebrex (Celecoxib) 200 Mg Capsule 200 Mg PO DAILY 30 Days Fluoxetine Hcl 20 Mg Tablet 20 Mg PO DAILY Propranolol Hcl 80 Mg Cap.sa.24h 80 Mg PO DAILY Metformin Hcl Er (Metformin Hcl) 500 Mg Tab.er.24h 500 Mg PO DAILYWBKFT Vitals/I & O Vital Sign - Last 24 Hours 05/09/20 05/09/20 05/09/20 05/09/20 14:54 15:00 16:43 19:00 Temp 98.0 98.1 98.0 98.1 Pulse 89 86 Resp 18 18 B/P (MAP) 150/92 (111) 163/97 (119) Pulse Ox 96 95 O2 Delivery Room Air Room Air Room Air Room Air 05/09/20 05/09/20 05/09/20 05/09/20 20:00 20:25 21:25 23:00 Temp 97.9 97.9 Pulse 98 Resp 20 20 18 B/P (MAP) 120/40 (66) Pulse Ox 96 95 95 O2 Delivery Room Air Room Air Room Air Room Air 05/10/20 05/10/20 05/10/20 05/10/20 03:00 04:49 07:00 08:00 Temp 97.6 98.3 97.6 98.3 Pulse 79 94 Resp 18 20 16 B/P (MAP) 140/90 (107) 106/39 (61) Pulse Ox 95 95 96 O2 Delivery Room Air Room Air Room Air Room Air 05/10/20 05/10/20 05/10/20 05/10/20 08:58 08:59 08:59 11:00 Temp 97.8 97.8 Pulse 94 94 77 Resp 18 B/P (MAP) 106/39 106/39 136/95 (109) Pulse Ox 95 98 O2 Delivery Room Air Room Air 05/10/20 11:38 Pulse Ox 98 O2 Delivery Room Air Intake and Output 05/09/20 05/09/20 05/10/20 15:00 23:00 07:00 Intake Total 480 ml 600 ml Output Total 50 ml Balance 480 ml 550 ml Justicifation of Admission Dx: Justifications for Admission: Justification of Admission Dx: N/A EMILIE ALVAREZ MD May 10, 2020 12:07
[2020-05-10 15:00] VITALS: BP 127/91
[2020-05-10 19:00] VITALS: BP 114/78
--- NOTE | 2020-05-10 20:00 | PDOC ---
[employer] PROGRESS NOTE Subjective: Pt feels good Objective: Vital Signs: Vital Signs Date Time Temp Pulse Resp B/P (MAP) Pulse Ox O2 Delivery O2 Flow Rate FiO2 05/09/20 07:00 98.0 80 18 101/73 (82) 94 Room Air 98.0 Vital Signs Date Time Temp Pulse Resp B/P (MAP) Pulse Ox O2 Delivery O2 Flow Rate FiO2 05/10/20 15:00 98.7 77 16 127/91 (103) 99 Room Air 98.7 Physical Exam: GENERAL: No apparent distress. Alert and oriented. HEENT: Head normocephalic, atraumatic. NECK: Supple LUNGS: Clear to auscultation. HEART: RRR, S1, S2 present, pulses intact ABDOMEN: Soft, positive bowel sounds. EXTREMITIES: No cyanosis or edema. NEUROLOGIC: Normal speech, normal tone PSYCHIATRIC: Normal affect, normal mood. SKIN: No ulceration. Assessment & Plan: A/P 39y who was admitted for acute sigmoid diverticulitis 1.) Diverticulitis with pelvic abscess IR drain placed, WBC improving since, GI and Gen surg following 2.) Contraception IUD in place. No indication for removal 3.) PCOS on Meformin 4.) HTN managed per primary team. REED RAZO MD May 10, 2020 20:00
[2020-05-10] MEDS: ONDANSETRON PF 4 MG/2 ML VIAL. IVP PRN (20:46)
[2020-05-10 23:00] VITALS: BP 124/94
[2020-05-11 03:00] VITALS: BP 135/81
[2020-05-11] MEDS: HYDROcodone/APAP 10/325 1 TAB TABLET PO PRN ×3 (05:35→18:04)
[2020-05-11] MEDS: PANTOPRAZOLE 40 MG TABLET.DR. PO SCH (05:35)
[2020-05-11] MEDS: AMINO AC 3%/ELECTROLYTE/GLYCER 1,000 ML IV SCH ×2 (05:36→18:00)
[2020-05-11] MEDS: PIPERACILLIN/TAZOBACTAM 4.5 GM in IV NORMAL SALINE 100ML 100 ML IV SCH ×3 (05:36→18:01)
[2020-05-11 07:00] VITALS: BP 156/104
[2020-05-11] MEDS: metFORMIN XR 500 MG TAB.ER.24H PO SCH (08:00)
[2020-05-11] MEDS: LACTOBACILLUS RHAMNOSUS GG 1 CAPSULE. PO SCH ×2 (08:49→20:27)
[2020-05-11] MEDS: FLUoxetine HCL 20 MG CAPSULE PO SCH (08:49)
[2020-05-11] MEDS: CELECOXIB 100 MG CAPSULE. PO SCH (08:49)
[2020-05-11] MEDS: POLYETHYLENE GLYCOL 3350 17 GM PACKET. PO SCH (08:50)
[2020-05-11] MEDS: amLODIPine BESYLATE 10 MG TABLET PO SCH (08:50)
[2020-05-11] MEDS: PROPRANOLOL ER 80 MG CAP.ER.24H. PO SCH (08:52)
--- NOTE | 2020-05-11 09:17 | PDOC ---
Infectious Disease Note Subjective Subjective Feeling alright Denies pain/F/C/N/V/D/SOA ROS ROS as mentioned above Vital Sign Vital Signs Vital Signs Date Time Temp Pulse Resp B/P (MAP) Pulse Ox O2 Delivery O2 Flow Rate FiO2 05/11/20 08:52 79 156/104 05/11/20 07:00 97.9 16 98 Room Air 97.9 Physical Exam PHYSICAL EXAM GENERAL: Propped up in bed, alert and in NAD HEENT: Oral cavity clear NECK: Supple LUNGS: Clear. HEART: S1, S2 regular. ABDOMEN: Obese, soft and nontender. Right-sided JAMAAL + purulence EXTREMITIES: No edema, cyanosis. SKIN: warm to touch. No signs of rash NEUROLOGIC: Alert and answers questions appropriately RUE-midline -bleeding/oozing Labs Micro 05/03. URINE CULTURE Final Final 40,000 CFU/ML YEAST on 05/06/20 at 1421 FINAL ID= [ROSE ALBICANS] 05/06. BLOOD CULTURE Preliminary NO GROWTH AFTER 4 DAYS 05/07. ABD FL GRAM STAIN Final Final NO ORGANISMS SEEN. SQUAMOUS EPI CELL:NOT APPLICABLE PMN (WBCs):MANY ANAEROBIC-AEROBIC CULTURE Preliminary Preliminary FEW [ROSE ALBICANS] on 05/10/20 at 1803 ROSE ALBICANS Objective Assessment Diverticulitis with perforation., Now has a large abdominal abscess, status post drainage, 05/07. + CALB Morbid obesity. Hypertension. Chronic back problems. Leukocytosis, which has improved. Plan Plan of Care Continue Zosyn, add antifungal coverage Probiotics f/u cultures Monitor WBC/temp Supportive care Attending Co-Sign The patient was seen and interviewed as well as examined at the bedside. The chart was reviewed. The case was discussed. Agree with the plan of care. MORENO AIKEN APRN May 11, 2020 09:17 CAITLIN MORGAN MD May 11, 2020 10:28
[2020-05-11 11:00] VITALS: BP 130/95
[2020-05-11] MEDS: FLUCONAZOLE 100 MG TABLET. PO SCH (12:35)
--- NOTE | 2020-05-11 13:52 | PDOC ---
PROGRESS NOTES Chief Complaint Chief Complaint IMPRESSION: Acute sigmoid diverticulitis with small amount of pneumoperitoneum adjacent to the colon and along the hepatic dome consistent with perforation. No fluid collection. 05/07Interval development of a large gas-fluid collection within the right pelvis extending slightly into the abdomen. Extraluminal gas. Circumferential wall thickening proximal to mid sigmoid colon of concern for acute acute diverticulitis. Follow-up to resolution recommended. 05/07 overweight poor surgical candidate, given super obesity REPLACE K Perforated diverticulitis w/ fluid collection s/p IR drainage - culture pending, atbx per ID PLAN admit Surgery consulted npo iv fluid support IV ANTIBIOTICS, CONTINUE REPEAT CT ID CONSULT IV K CONSULT IR CONSULT GI CONSULT [employer] Good improvement with drainage, abx; no surgical plans. Dr Corrales to revisit 05/12 still too MUCH DISCOMFORT TO SIT IN BEDSIDE CHAIR 27 min pt exam, chart review, > 50% of time spent with exam, chart review, pt care coordination History of Present Illness History of Present Illness 05/10/2020 Patient seen and examined She is about the same clinically Still having some abdominal pain Chart reviewed Discussed with case management Discussed with RN Vitals Vitals Vital Signs Date Time Temp Pulse Resp B/P (MAP) Pulse Ox O2 Delivery O2 Flow Rate FiO2 05/11/20 12:04 Room Air 05/11/20 11:00 98.3 90 16 130/95 (107) 95 98.3 Physical Exam Physical Exam GENERAL: Propped up in bed, alert and in NAD HEENT: Oral cavity clear NECK: Supple LUNGS: Clear. HEART: S1, S2 regular. ABDOMEN: Obese, soft and nontender. Right-sided JAMAAL + purulence EXTREMITIES: No edema, cyanosis. SKIN: warm to touch. No signs of rash NEUROLOGIC: Alert and answers questions appropriately RUE-midline -bleeding/oozing General: Alert, Oriented X3, Cooperative, No acute distress Heart: Regular rate, Normal S1, Normal S2 Lungs: Clear Abdomen: Normal bowel sounds, Soft, No tenderness, Other (R abdominal drain in place) Extremities: No clubbing, No edema Skin: No rashes, No significant lesion Assessment and Plan Assessmemt and Plan Problems Medical Problems: (1) Colon perforation Status: Acute (2) Perforated diverticulum Status: Acute Comment Review of Relevant I have reviewed the following items karyna (where applicable) has been applied. Labs Microbiology 05/07/20 Gram Stain - Final, Resulted 05/07/20 Aerobic and Anaerobic Culture - Preliminary, Resulted 05/06/20 Blood Culture - Preliminary, Resulted NO GROWTH AFTER 4 DAYS 05/03/20 Urine Culture - Final, Complete Medications Current Medications Ketorolac Tromethamine (Toradol 30mg Vial) 30 mg 1X ONCE IVP Last administered on 05/01/20at 01:22; Start 05/01/20 at 01:00; Stop 05/01/20 at 01:01; Status DC Iohexol (Omnipaque 300 Mg/ml) 75 ml 1X ONCE IV Last administered on 05/01/20at 02:10; Start 05/01/20 at 02:00; Stop 05/01/20 at 02:01; Status DC Info (CONTRAST GIVEN -- Rx MONITORING) 1 each PRN DAILY PRN MC SEE COMMENTS; Start 05/01/20 at 02:00; Stop 05/03/20 at 01:59; Status DC Morphine Sulfate (Morphine Sulfate) 4 mg 1X ONCE IV Last administered on 05/01/20at 02:32; Start 05/01/20 at 02:30; Stop 05/01/20 at 02:31; Status DC Ondansetron HCl (Zofran) 4 mg 1X ONCE IM Last administered on 05/01/20at 02:38; Start 05/01/20 at 02:45; Stop 05/01/20 at 02:46; Status DC Piperacillin Sod/ Tazobactam Sod 4.5 gm/Sodium Chloride 100 ml @ 200 mls/hr 1X ONCE IV Last administered on 05/01/20at 03:12; Start 05/01/20 at 03:00; Stop 05/01/20 at 03:29; Status DC Piperacillin Sod/ Tazobactam Sod 4.5 gm/Sodium Chloride 100 ml @ 200 mls/hr Q6HRS IV ; Start 05/01/20 at 06:00; Stop 05/01/20 at 05:05; Status DC Morphine Sulfate (Morphine Sulfate) 4 mg PRN Q2HR PRN IV PAIN Last administered on 05/07/20at 08:09; Start 05/01/20 at 03:30; Stop 05/07/20 at 23:51; Status DC Ondansetron HCl (Zofran) 4 mg PRN Q6HRS PRN IVP NAUSEA/VOMITING Last administered on 05/10/20at 20:46; Start 05/01/20 at 03:30 Piperacillin Sod/ Tazobactam Sod 4.5 gm/Sodium Chloride 100 ml @ 200 mls/hr Q6HRS IV Last administered on 05/11/20at 12:35; Start 05/01/20 at 06:00 Metronidazole 100 ml @ 100 mls/hr Q8HRS IV Last administered on 05/07/20at 05:26; Start 05/01/20 at 10:00; Stop 05/07/20 at 12:35; Status DC Amlodipine Besylate (Norvasc) 10 mg DAILY PO Last administered on 05/11/20 08:50; Start 05/02/20 at 13:00 Acetaminophen/ Hydrocodone Bitart (Lortab 5/325) 1 tab PRN Q6HRS PRN PO PAIN Last administered on 05/07/20at 22:06; Start 05/02/20 at 12:30; Stop 05/07/20 at 23:51; Status DC Metformin HCl (Glucophage Xr) 500 mg DAILYWBKFT PO ; Start 05/02/20 at 13:00 Metronidazole (Flagyl) 500 mg TID PO ; Start 05/02/20 at 14:00; Status Cancel Propranolol HCl (Inderal La) 80 mg DAILY PO Last administered on 05/11/20at 08:52; Start 05/02/20 at 13:00 Celecoxib (CeleBREX) 200 mg DAILY PO Last administered on 05/11/20at 08:49; Start 05/02/20 at 13:00 Fluoxetine HCl (PROzac) 20 mg DAILY PO Last administered on 05/11/20at 08:49; Start 05/02/20 at 13:00 Sodium Chloride 1,000 ml @ 135 mls/hr Q7H25M IV Last administered on 05/04/20at 00:34; Start 05/02/20 at 13:00; Stop 05/07/20 at 14:18; Status DC Polyethylene Glycol (miraLAX PACKET) 17 gm DAILY PO Last administered on 05/10/20at 08:59; Start 05/05/20 at 10:00 Lactobacillus Rhamnosus (Culturelle) 1 cap BID PO Last administered on 05/11/20at 08:49; Start 05/05/20 at 21:00 Potassium Chloride/Water 100 ml @ 100 mls/hr Q1H IV ; Start 05/06/20 at 12:00; Stop 05/06/20 at 14:07; Status DC Potassium Chloride (Klor-Con) 40 meq 1X ONCE PO Last administered on 05/06/20at 14:15; Start 05/06/20 at 14:15; Stop 05/06/20 at 14:16; Status DC Pantoprazole Sodium (PROTONIX VIAL for IV PUSH) 40 mg DAILYAC IVP Last administered on 05/08/20at 05:27; Start 05/07/20 at 11:30; Stop 05/08/20 at 11:13; Status DC Lidocaine HCl (Buffered Lidocaine 1%) 3 ml STK-MED ONCE .ROUTE ; Start 05/07/20 at 12:25; Stop 05/07/20 at 12:25; Status DC Midazolam HCl (Versed) 5 mg STK-MED ONCE .ROUTE ; Start 05/07/20 at 12:56; Stop 05/07/20 at 12:56; Status DC Fentanyl Citrate (Fentanyl 2ml Vial) 100 mcg STK-MED ONCE .ROUTE ; Start 05/07/20 at 12:56; Stop 05/07/20 at 12:57; Status DC Lidocaine HCl (Buffered Lidocaine 1%) 3 ml 1X ONCE IJ Last administered on 05/07/20at 13:15; Start 05/07/20 at 13:15; Stop 05/07/20 at 13:18; Status DC Midazolam HCl (Versed) 5 mg 1X ONCE IV Last administered on 05/07/20at 13:08; Start 05/07/20 at 13:15; Stop 05/07/20 at 13:18; Status DC Fentanyl Citrate (Fentanyl 2ml Vial) 100 mcg 1X ONCE IV Last administered on 05/07/20at 13:08; Start 05/07/20 at 13:15; Stop 05/07/20 at 13:18; Status DC Lidocaine HCl (Buffered Lidocaine 1%) 3 ml STK-MED ONCE .ROUTE ; Start 05/07/20 at 13:50; Stop 05/07/20 at 13:50; Status DC Lidocaine HCl (Buffered Lidocaine 1%) 3 ml STK-MED ONCE .ROUTE ; Start 05/07/20 at 13:54; Stop 05/07/20 at 13:54; Status DC Amino Acids/ Glycerin/ Electrolytes 1,000 ml @ 80 mls/hr [id number] IV Last administered on 05/11/20at 05:36; Start 05/07/20 at 14:30 Acetaminophen/ Hydrocodone Bitart (Lortab 5/325) 1 tab PRN Q4HRS PRN PO MODERATE PAIN 4-6; Start 05/08/20 at 02:30 Acetaminophen/ Hydrocodone Bitart (Lortab 10/325) 1 tab PRN Q4HRS PRN PO SEVERE PAIN 7-10 Last administered on 05/11/20at 11:04; Start 05/08/20 at 00:00 Morphine Sulfate (Morphine Sulfate) 2 mg PRN Q2HR PRN IV BREAKTHROUGH PAIN; Start 05/08/20 at 00:00 Pantoprazole Sodium (Protonix) 40 mg DAILYAC PO Last administered on 05/11/20at 05:35; Start 05/09/20 at 07:30 Fluconazole (Diflucan) 200 mg DAILY PO Last administered on 05/11/20at 12:35; Start 05/11/20 at 12:00 Active Scripts Active Reported Hydrocodone-Apap 5-325 (Hydrocodone Bit/Acetaminophen) 1 Tab Tablet 1 Tab PO PRN Q6HRS PRN Cipro (Ciprofloxacin Hcl) 500 Mg Tablet 1 Tab PO BID 7 Days Metronidazole 500 Mg Tablet 1 Tab PO TID 7 Days Tizanidine Hcl 4 Mg Tablet 1 Tab PO BID Amlodipine Besylate 10 Mg Tablet 10 Mg PO DAILY Celebrex (Celecoxib) 200 Mg Capsule 200 Mg PO DAILY 30 Days Fluoxetine Hcl 20 Mg Tablet 20 Mg PO DAILY Propranolol Hcl 80 Mg Cap.sa.24h 80 Mg PO DAILY Metformin Hcl Er (Metformin Hcl) 500 Mg Tab.er.24h 500 Mg PO DAILYWBKFT Vitals/I & O Vital Sign - Last 24 Hours 05/10/20 05/10/20 05/10/20 05/10/20 15:00 19:00 20:00 20:48 Temp 98.7 98.0 98.7 98.0 Pulse 77 81 Resp 16 18 16 B/P (MAP) 127/91 (103) 114/78 (90) Pulse Ox 99 100 O2 Delivery Room Air Room Air Room Air Room Air 05/10/20 05/10/20 05/11/20 05/11/20 21:48 23:00 03:00 05:35 Temp 98.8 98.0 98.8 98.0 Pulse 84 87 Resp 18 18 18 16 B/P (MAP) 124/94 (104) 135/81 (99) Pulse Ox 100 97 O2 Delivery Room Air Room Air Room Air Room Air 05/11/20 05/11/20 05/11/20 05/11/20 06:47 07:00 08:00 08:50 Temp 97.9 97.9 Pulse 79 79 Resp 16 16 B/P (MAP) 156/104 (121) 156/104 Pulse Ox 98 O2 Delivery Room Air Room Air Room Air 05/11/20 05/11/20 05/11/20 05/11/20 08:52 11:00 11:04 12:04 Temp 98.3 98.3 Pulse 79 90 Resp 16 B/P (MAP) 156/104 130/95 (107) Pulse Ox 95 O2 Delivery Room Air Room Air Room Air Intake and Output 05/10/20 05/10/20 05/11/20 15:00 23:00 07:00 Intake Total 200 ml 890 ml Output Total 25 ml 30 ml Balance -25 ml 200 ml 860 ml Justicifation of Admission Dx: Justifications for Admission: Justification of Admission Dx: N/A EMILIE ALVAREZ MD May 11, 2020 13:52
[2020-05-11 15:00] VITALS: BP 136/76
[2020-05-11] MEDS: ONDANSETRON PF 4 MG/2 ML VIAL. IVP PRN (18:00)
--- NOTE | 2020-05-11 18:31 | NUR ---
Flushed drain with 10cc of NS.
[2020-05-11 19:00] VITALS: BP 120/79
[2020-05-11 23:00] VITALS: BP 129/89
[2020-05-12] MEDS: PIPERACILLIN/TAZOBACTAM 4.5 GM in IV NORMAL SALINE 100ML 100 ML IV SCH ×4 (00:26→16:55)
[2020-05-12 03:00] VITALS: BP 142/88
[2020-05-12] MEDS: PANTOPRAZOLE 40 MG TABLET.DR. PO SCH (06:13)
[2020-05-12] MEDS: HYDROcodone/APAP 10/325 1 TAB TABLET PO PRN ×2 (06:14→18:37)
[2020-05-12 07:00] VITALS: BP 126/92
[2020-05-12] MEDS: metFORMIN XR 500 MG TAB.ER.24H PO SCH ×2 (08:00→08:24)
[2020-05-12] MEDS: FLUCONAZOLE 100 MG TABLET. PO SCH (08:24)
[2020-05-12] MEDS: FLUoxetine HCL 20 MG CAPSULE PO SCH (08:24)
[2020-05-12] MEDS: LACTOBACILLUS RHAMNOSUS GG 1 CAPSULE. PO SCH ×2 (08:24→20:40)
[2020-05-12] MEDS: CELECOXIB 100 MG CAPSULE. PO SCH (08:25)
[2020-05-12] MEDS: PROPRANOLOL ER 80 MG CAP.ER.24H. PO SCH (08:25)
[2020-05-12] MEDS: amLODIPine BESYLATE 10 MG TABLET PO SCH (08:29)
[2020-05-12] MEDS: POLYETHYLENE GLYCOL 3350 17 GM PACKET. PO SCH (08:30)
--- NOTE | 2020-05-12 09:21 | PDOC ---
PROGRESS NOTES Chief Complaint Chief Complaint IMPRESSION: Acute sigmoid diverticulitis with small amount of pneumoperitoneum adjacent to the colon and along the hepatic dome consistent with perforation. No fluid collection. 05/07Interval development of a large gas-fluid collection within the right pelvis extending slightly into the abdomen. Extraluminal gas. Circumferential wall thickening proximal to mid sigmoid colon of concern for acute acute diverticulitis. Follow-up to resolution recommended. 05/07 overweight poor surgical candidate, given super obesity REPLACE K Perforated diverticulitis w/ fluid collection s/p IR drainage - culture pending, atbx per ID PLAN admit Surgery consulted npo iv fluid support IV ANTIBIOTICS, CONTINUE REPEAT CT ID CONSULT IV K CONSULT IR CONSULT GI CONSULT [employer] Good improvement with drainage, abx; no surgical plans. Dr Corrales to revisit Saturday 05/12 Continue Zosyn, fluconazole Probiotics 05/11 still too MUCH DISCOMFORT TO SIT IN BEDSIDE CHAIR 37 min pt exam, chart review, > 50% of time spent with exam, chart review, pt c are coordination History of Present Illness History of Present Illness 05/10/2020 Patient seen and examined She is about the same clinically Still having some abdominal pain Chart reviewed Discussed with case management Discussed with RN Vitals Vitals Vital Signs Date Time Temp Pulse Resp B/P (MAP) Pulse Ox O2 Delivery O2 Flow Rate FiO2 05/12/20 08:29 74 126/92 05/12/20 08:04 Room Air 05/12/20 07:21 16 05/12/20 07:00 97.5 96 97.5 Physical Exam Physical Exam GENERAL: Propped up in bed, alert and in NAD HEENT: Oral cavity clear NECK: Supple LUNGS: Clear. HEART: S1, S2 regular. ABDOMEN: Obese, soft and nontender. Right-sided JAMAAL + purulence EXTREMITIES: No edema, cyanosis. SKIN: warm to touch. No signs of rash NEUROLOGIC: Alert and answers questions appropriately RUE-midline -bleeding/oozing General: Alert, Oriented X3, Cooperative, No acute distress Heart: Regular rate, Normal S1, Normal S2 Lungs: Clear Abdomen: Normal bowel sounds, Soft, No tenderness, Other (R abdominal drain in place) Extremities: No clubbing, No edema Skin: No rashes, No significant lesion Assessment and Plan Assessmemt and Plan Problems Medical Problems: (1) Colon perforation Status: Acute (2) Perforated diverticulum Status: Acute Comment Review of Relevant I have reviewed the following items karyna (where applicable) has been applied. Labs Microbiology 05/07/20 Gram Stain - Final, Resulted 05/07/20 Aerobic and Anaerobic Culture - Preliminary, Resulted 05/06/20 Blood Culture - Final, Complete NO GROWTH AFTER 5 DAYS 05/03/20 Urine Culture - Final, Complete Medications Current Medications Ketorolac Tromethamine (Toradol 30mg Vial) 30 mg 1X ONCE IVP Last administered on 05/01/20at 01:22; Start 05/01/20 at 01:00; Stop 05/01/20 at 01:01; Status DC Iohexol (Omnipaque 300 Mg/ml) 75 ml 1X ONCE IV Last administered on 05/01/20at 02:10; Start 05/01/20 at 02:00; Stop 05/01/20 at 02:01; Status DC Info (CONTRAST GIVEN -- Rx MONITORING) 1 each PRN DAILY PRN MC SEE COMMENTS; Start 05/01/20 at 02:00; Stop 05/03/20 at 01:59; Status DC Morphine Sulfate (Morphine Sulfate) 4 mg 1X ONCE IV Last administered on 05/01/20at 02:32; Start 05/01/20 at 02:30; Stop 05/01/20 at 02:31; Status DC Ondansetron HCl (Zofran) 4 mg 1X ONCE IM Last administered on 05/01/20at 02:38; Start 05/01/20 at 02:45; Stop 05/01/20 at 02:46; Status DC Piperacillin Sod/ Tazobactam Sod 4.5 gm/Sodium Chloride 100 ml @ 200 mls/hr 1X ONCE IV Last administered on 05/01/20at 03:12; Start 05/01/20 at 03:00; Stop 05/01/20 at 03:29; Status DC Piperacillin Sod/ Tazobactam Sod 4.5 gm/Sodium Chloride 100 ml @ 200 mls/hr Q6HRS IV ; Start 05/01/20 at 06:00; Stop 05/01/20 at 05:05; Status DC Morphine Sulfate (Morphine Sulfate) 4 mg PRN Q2HR PRN IV PAIN Last administered on 05/07/20at 08:09; Start 05/01/20 at 03:30; Stop 05/07/20 at 23:51; Status DC Ondansetron HCl (Zofran) 4 mg PRN Q6HRS PRN IVP NAUSEA/VOMITING Last adm inistered on 05/11/20at 18:00; Start 05/01/20 at 03:30 Piperacillin Sod/ Tazobactam Sod 4.5 gm/Sodium Chloride 100 ml @ 200 mls/hr Q6HRS IV Last administered on 05/12/20 06:13; Start 05/01/20 at 06:00 Metronidazole 100 ml @ 100 mls/hr Q8HRS IV Last administered on 05/07/20 05:26; Start 05/01/20 at 10:00; Stop 05/07/20 at 12:35; Status DC Amlodipine Besylate (Norvasc) 10 mg DAILY PO Last administered on 05/12/20 08:29; Start 05/02/20 at 13:00 Acetaminophen/ Hydrocodone Bitart (Lortab 5/325) 1 tab PRN Q6HRS PRN PO PAIN Last administered on 05/07/20at 22:06; Start 05/02/20 at 12:30; Stop 05/07/20 at 23:51; Status DC Metformin HCl (Glucophage Xr) 500 mg DAILYWBKFT PO ; Start 05/02/20 at 13:00 Metronidazole (Flagyl) 500 mg TID PO ; Start 05/02/20 at 14:00; Status Cancel Propranolol HCl (Inderal La) 80 mg DAILY PO Last administered on 05/12/20 08:25; Start 05/02/20 at 13:00 Celecoxib (CeleBREX) 200 mg DAILY PO Last administered on 05/12/20at 08:25; Start 05/02/20 at 13:00 Fluoxetine HCl (PROzac) 20 mg DAILY PO Last administered on 05/12/20 08:24; Start 05/02/20 at 13:00 Sodium Chloride 1,000 ml @ 135 mls/hr Q7H25M IV Last administered on 05/04/20at 00:34; Start 05/02/20 at 13:00; Stop 05/07/20 at 14:18; Status DC Polyethylene Glycol (miraLAX PACKET) 17 gm DAILY PO Last administered on 05/10/20 08:59; Start 05/05/20 at 10:00 Lactobacillus Rhamnosus (Culturelle) 1 cap BID PO Last administered on 05/12/20at 08:24; Start 05/05/20 at 21:00 Potassium Chloride/Water 100 ml @ 100 mls/hr Q1H IV ; Start 05/06/20 at 12:00; Stop 05/06/20 at 14:07; Status DC Potassium Chloride (Klor-Con) 40 meq 1X ONCE PO Last administered on 05/06/20at 14:15; Start 05/06/20 at 14:15; Stop 05/06/20 at 14:16; Status DC Pantoprazole Sodium (PROTONIX VIAL for IV PUSH) 40 mg DAILYAC IVP Last administered on 05/08/20at 05:27; Start 05/07/20 at 11:30; Stop 05/08/20 at 11:13; Status DC Lidocaine HCl (Buffered Lidocaine 1%) 3 ml STK-MED ONCE .ROUTE ; Start 05/07/20 at 12:25; Stop 05/07/20 at 12:25; Status DC Midazolam HCl (Versed) 5 mg STK-MED ONCE .ROUTE ; Start 05/07/20 at 12:56; Stop 05/07/20 at 12:56; Status DC Fentanyl Citrate (Fentanyl 2ml Vial) 100 mcg STK-MED ONCE .ROUTE ; Start 05/07/20 at 12:56; Stop 05/07/20 at 12:57; Status DC Lidocaine HCl (Buffered Lidocaine 1%) 3 ml 1X ONCE IJ Last administered on 05/07/20at 13:15; Start 05/07/20 at 13:15; Stop 05/07/20 at 13:18; Status DC Midazolam HCl (Versed) 5 mg 1X ONCE IV Last administered on 05/07/20at 13:08; Start 05/07/20 at 13:15; Stop 05/07/20 at 13:18; Status DC Fentanyl Citrate (Fentanyl 2ml Vial) 100 mcg 1X ONCE IV Last administered on 05/07/20at 13:08; Start 05/07/20 at 13:15; Stop 05/07/20 at 13:18; Status DC Lidocaine HCl (Buffered Lidocaine 1%) 3 ml STK-MED ONCE .ROUTE ; Start 05/07/20 at 13:50; Stop 05/07/20 at 13:50; Status DC Lidocaine HCl (Buffered Lidocaine 1%) 3 ml STK-MED ONCE .ROUTE ; Start 05/07/20 at 13:54; Stop 05/07/20 at 13:54; Status DC Amino Acids/ Glycerin/ Electrolytes 1,000 ml @ 80 mls/hr [id number] IV Last administered on 05/11/20at 18:00; Start 05/07/20 at 14:30 Acetaminophen/ Hydrocodone Bitart (Lortab 5/325) 1 tab PRN Q4HRS PRN PO MODERATE PAIN 4-6; Start 05/08/20 at 02:30 Acetaminophen/ Hydrocodone Bitart (Lortab 10/325) 1 tab PRN Q4HRS PRN PO SEVERE PAIN 7-10 Last administered on 05/12/20at 06:14; Start 05/08/20 at 00:00 Morphine Sulfate (Morphine Sulfate) 2 mg PRN Q2HR PRN IV BREAKTHROUGH PAIN; Start 05/08/20 at 00:00 Pantoprazole Sodium (Protonix) 40 mg DAILYAC PO Last administered on 05/12/20at 06:13; Start 05/09/20 at 07:30 Fluconazole (Diflucan) 200 mg DAILY PO Last administered on 05/12/20at 08:24; Start 05/11/20 at 12:00 Active Scripts Active Reported Hydrocodone-Apap 5-325 (Hydrocodone Bit/Acetaminophen) 1 Tab Tablet 1 Tab PO PRN Q6HRS PRN Cipro (Ciprofloxacin Hcl) 500 Mg Tablet 1 Tab PO BID 7 Days Metronidazole 500 Mg Tablet 1 Tab PO TID 7 Days Tizanidine Hcl 4 Mg Tablet 1 Tab PO BID Amlodipine Besylate 10 Mg Tablet 10 Mg PO DAILY Celebrex (Celecoxib) 200 Mg Capsule 200 Mg PO DAILY 30 Days Fluoxetine Hcl 20 Mg Tablet 20 Mg PO DAILY Propranolol Hcl 80 Mg Cap.sa.24h 80 Mg PO DAILY Metformin Hcl Er (Metformin Hcl) 500 Mg Tab.er.24h 500 Mg PO DAILYWBKFT Vitals/I & O Vital Sign - Last 24 Hours 05/11/20 05/11/20 05/11/20 05/11/20 11:00 11:04 12:04 15:00 Temp 98.3 97.9 98.3 97.9 Pulse 90 75 Resp 16 18 B/P (MAP) 130/95 (107) 136/76 (96) Pulse Ox 95 96 O2 Delivery Room Air Room Air Room Air Room Air 05/11/20 05/11/20 05/11/20 05/11/20 18:04 19:00 19:05 20:00 Temp 98.0 98.0 Pulse 77 Resp 16 18 B/P (MAP) 120/79 (93) Pulse Ox 100 O2 Delivery Room Air Room Air Room Air Room Air 05/11/20 05/12/20 05/12/20 05/12/20 23:00 03:00 06:14 07:00 Temp 98.0 98.0 97.5 98.0 98.0 97.5 Pulse 94 85 74 Resp 16 16 16 18 B/P (MAP) 129/89 (102) 142/88 (106) 126/92 (103) Pulse Ox 93 100 96 O2 Delivery Room Air Room Air Room Air Room Air 05/12/20 05/12/20 05/12/20 05/12/20 07:21 08:04 08:25 08:29 Pulse 74 74 Resp 16 B/P (MAP) 126/92 126/92 O2 Delivery Room Air Room Air Intake and Output 05/11/20 05/11/20 05/12/20 15:00 23:00 07:00 Intake Total 160 ml 200 ml 2230 ml Output Total 30 ml Balance 160 ml 200 ml 2200 ml Justicifation of Admission Dx: Justifications for Admission: Justification of Admission Dx: N/A EMILIE ALVAREZ MD May 12, 2020 09:21
--- NOTE | 2020-05-12 10:06 | PDOC ---
Infectious Disease Note Subjective: Subjective Feeling alright Denies pain/F/C/N/V/D/SOA Vital Signs: Vital Signs Vital Signs Date Time Temp Pulse Resp B/P (MAP) Pulse Ox O2 Delivery O2 Flow Rate FiO2 05/12/20 08:29 74 126/92 05/12/20 08:04 Room Air 05/12/20 07:21 16 05/12/20 07:00 97.5 96 97.5 Physical Exam: PHYSICAL EXAM GENERAL: Propped up in bed, alert and in NAD HEENT: Oral cavity clear NECK: Supple LUNGS: Clear. HEART: S1, S2 regular. ABDOMEN: Obese, soft and nontender. Right-sided JAMAAL + purulence EXTREMITIES: No edema, cyanosis. SKIN: warm to touch. No signs of rash NEUROLOGIC: Alert and answers questions appropriately RUE-midline -bleeding/oozing Medications: Inpatient Meds: Current Medications Medications (Trade) Dose Ordered Sig/Keegan Start Time Stop Time Status Last Admin Dose Admin Acetaminophen/ Hydrocodone Bitart (Lortab 10/325) 1 tab PRN Q4HRS PRN 05/08/20 00:00 05/12/20 06:14 1 TAB Acetaminophen/ Hydrocodone Bitart (Lortab 5/325) 1 tab PRN Q4HRS PRN 05/08/20 02:30 Amino Acids/ Glycerin/ Electrolytes 1,000 ml @ 80 mls/hr [id number] 05/07/20 14:30 05/11/20 18:00 80 MLS/HR Amlodipine Besylate (Norvasc) 10 mg DAILY 05/02/20 13:00 05/12/20 08:29 10 MG Celecoxib (CeleBREX) 200 mg DAILY 05/02/20 13:00 05/12/20 08:25 200 MG Fentanyl Citrate (Fentanyl 2ml Vial) 100 mcg 1X ONCE 05/07/20 13:15 05/07/20 13:18 DC 05/07/20 13:08 100 MCG Fluconazole (Diflucan) 200 mg DAILY 05/11/20 12:00 05/12/20 08:24 200 MG Fluoxetine HCl (PROzac) 20 mg DAILY 05/02/20 13:00 05/12/20 08:24 20 MG Info (CONTRAST GIVEN -- Rx MONITORING) 1 each PRN DAILY PRN 05/01/20 02:00 05/03/20 01:59 DC Iohexol (Omnipaque 300 Mg/ml) 75 ml 1X ONCE 05/01/20 02:00 05/01/20 02:01 DC 05/01/20 02:10 75 ML Ketorolac Tromethamine (Toradol 30mg Vial) 30 mg 1X ONCE 05/01/20 01:00 05/01/20 01:01 DC 05/01/20 01:22 30 MG Lactobacillus Rhamnosus (Culturelle) 1 cap BID 05/05/20 21:00 05/12/20 08:24 1 CAP Lidocaine HCl (Buffered Lidocaine 1%) 3 ml STK-MED ONCE 05/07/20 13:54 05/07/20 13:54 DC Metformin HCl (Glucophage Xr) 500 mg DAILYWBKFT 05/02/20 13:00 Metronidazole (Flagyl) 500 mg TID 05/02/20 14:00 Cancel Midazolam HCl (Versed) 5 mg 1X ONCE 05/07/20 13:15 05/07/20 13:18 DC 05/07/20 13:08 3 MG Morphine Sulfate (Morphine Sulfate) 2 mg PRN Q2HR PRN 05/08/20 00:00 Ondansetron HCl (Zofran) 4 mg PRN Q6HRS PRN 05/01/20 03:30 05/11/20 18:00 4 MG Pantoprazole Sodium (PROTONIX VIAL for IV PUSH) 40 mg DAILYAC 05/07/20 11:30 05/08/20 11:13 DC 05/08/20 05:27 40 MG Pantoprazole Sodium (Protonix) 40 mg DAILYAC 05/09/20 07:30 05/12/20 06:13 40 MG Piperacillin Sod/ Tazobactam Sod 4.5 gm/Sodium Chloride 100 ml @ 200 mls/hr Q6HRS 05/01/20 06:00 05/12/20 06:13 200 MLS/HR Polyethylene Glycol (miraLAX PACKET) 17 gm DAILY 05/05/20 10:00 05/10/20 08:59 17 GM Potassium Chloride/Water 100 ml @ 100 mls/hr Q1H 05/06/20 12:00 05/06/20 14:07 DC Potassium Chloride (Klor-Con) 40 meq 1X ONCE 05/06/20 14:15 05/06/20 14:16 DC 05/06/20 14:15 40 MEQ Propranolol HCl (Inderal La) 80 mg DAILY 05/02/20 13:00 05/12/20 08:25 80 MG Sodium Chloride 1,000 ml @ 135 mls/hr Q7H25M 05/02/20 13:00 05/07/20 14:18 DC 05/04/20 00:34 75 MLS/HR Objective: Assessment: Diverticulitis with perforation., Now has a large abdominal abscess, status post drainage, 05/07. + CALB Morbid obesity. Hypertension. Chronic back problems. Leukocytosis, which has improved. Plan: Plan of Care Continue Zosyn, fluconazole Probiotics f/u cultures Monitor WBC/temp Supportive care MYRON MORGAN MD May 12, 2020 10:06
--- NOTE | 2020-05-12 10:18 | PDOC ---
VAN GONZALEZ APRN 05/12/20 1018: SURGICAL PROGRESS NOTE Subjective no pain no nausea tolerating diet stooling Vital Signs Vital Signs Date Time Temp Pulse Resp B/P (MAP) Pulse Ox O2 Delivery O2 Flow Rate FiO2 05/12/20 08:29 74 126/92 05/12/20 08:04 Room Air 05/12/20 07:21 16 05/12/20 07:00 97.5 96 97.5 I&O Intake and Output 05/12/20 07:00 Intake Total 2590 ml Output Total 30 ml Balance 2560 ml Intake Oral 610 ml IV Total 1980 ml Drainage Total 30 ml # Voids 6 # Bowel Movements 1 General: Alert, Oriented X3, Cooperative Abdomen: Soft, No tenderness, Other (bernard drain, cloudy serous fluid ) Problem List Problems Medical Problems: (1) Colon perforation Status: Acute (2) Perforated diverticulum Status: Acute Assessment/Plan drain, abx Justicifation of Admission Dx: Justifications for Admission: Justification of Admission Dx: N/A EMILIE MCFADDEN MD 05/12/20 1257: SURGICAL PROGRESS NOTE Assessment/Plan Patient is clinically improved. No surgical plans at this time agree with Lay assessment plan VAN GONZALEZ APRN May 12, 2020 10:18 EMILIE MCFADDEN MD May 12, 2020 12:57
--- NOTE | 2020-05-12 10:39 | RAD ---
Procedure: CT-guided drainage, pelvic abscess Clinical Indication: Diverticular abscess Sedation: Conscious sedation was administered for 98 minutes. The patient was monitored by a qualified independent observer throughout the time of sedation. Please refer to the medical record for exact doses of medications utilized to achieve moderate sedation. Sterility: The procedure was performed in its entirety using appropriate elements of sterile technique. Consent: The procedure was explained in its entirety to the patient or the patients designated telephone sales representative by a member of the treatment team, including a discussion of the risks, benefits and commonly accepted alternatives to the procedure, as well as the expected consequences of no therapy whatsoever. Discussion of the risks included, but was not limited to, those that are most frequent and those that are rare but possibly severe or life-threatening, as well as the possibility of unforeseen complications. Technique and Findings: Following informed consent, the patient was prepped and draped in the usual sterile fashion. CT imaging redemonstrates a pelvic abscess, as previously seen. 1% lidocaine was administered for local anesthesia to the skin and subcutaneous tissues. A small dermatotomy was made. Under intermittent CT guidance a 17-gauge needle was advanced into the collection. A wire was advanced through this needle into the collection over which following dilatation a 10 Thai drain was placed. Serous material was aspirated and sent for Gram stain and culture. No immediate complications were identified. The catheter secured in place and sterile dressings were applied. Impression: CT-guided drainage, pelvic abscess PQRS Compliance Statement: One or more of the following individualized dose reduction techniques were utilized for this examination: 1. Automated exposure control 2. Adjustment of the mA and/or kV according to patient size 3. Use of iterative reconstruction technique
[2020-05-12] MEDS: AMINO AC 3%/ELECTROLYTE/GLYCER 1,000 ML IV SCH (10:48)
[2020-05-12 11:00] VITALS: BP 120/85
--- NOTE | 2020-05-12 11:29 | PDOC ---
Subjective: Subjective: Pain at drain site, otherwise doing okay. Stooling and eating. Objective: Vital Signs: Vital Signs Date Time Temp Pulse Resp B/P (MAP) Pulse Ox O2 Delivery O2 Flow Rate FiO2 05/12/20 08:29 74 126/92 05/12/20 08:04 Room Air 05/12/20 07:21 16 05/12/20 07:00 97.5 96 97.5 Labs: GRAM STAIN Final Final NO ORGANISMS SEEN. SQUAMOUS EPI CELL:NOT APPLICABLE PMN (WBCs):MANY Unless otherwise specified, Testing Performed by: [address] [id number] For Inquires, the Physician may contact the Microbiology department at [phone] ANAEROBIC-AEROBIC CULTURE Preliminary Preliminary FEW [ROSE ALBICANS] on 05/10/20 at 1803 ROSE ALBICANS PE: GEN: NAD, obese LUNGS: CTAB HEART: RRR ABD: soft, non-tender, right-sided drain w/ cloudy/watery material NEURO/PSYCH: A & O 3 A/P: Perforated diverticulitis w/ fluid collection s/p IR drain -- Continue per surgery, ID. Justicifation of Admission Dx: Justifications for Admission: Justification of Admission Dx: N/A BAO EMERSON May 12, 2020 11:29
[2020-05-12 15:12] VITALS: BP 133/85
--- NOTE | 2020-05-12 17:04 | NUR ---
SW following. Spoke with RN and reviewed chart. Pt can discharge 05/13/[address] Sutton. Pt remains on room air and IV Zosyn. Pt tolerating diet. SW to continue following as needed.
[2020-05-12 19:00] VITALS: BP 145/97
[2020-05-12] MEDS: NYSTATIN TOPICAL POWDER 15GM BOTTLE. TP SCH (20:40)
[2020-05-12 23:00] VITALS: BP 143/97
[2020-05-13] MEDS: AMINO AC 3%/ELECTROLYTE/GLYCER 1,000 ML IV SCH ×3 (00:21→23:40)
[2020-05-13] MEDS: PIPERACILLIN/TAZOBACTAM 4.5 GM in IV NORMAL SALINE 100ML 100 ML IV SCH ×4 (00:21→18:01)
[2020-05-13 03:00] VITALS: BP 138/78
[2020-05-13] MEDS: PANTOPRAZOLE 40 MG TABLET.DR. PO SCH (05:38)
[2020-05-13] MEDS: HYDROcodone/APAP 10/325 1 TAB TABLET PO PRN ×3 (05:39→18:40)
[2020-05-13 07:18] VITALS: BP 120/83
[2020-05-13] MEDS: metFORMIN XR 500 MG TAB.ER.24H PO SCH (08:00)
--- NOTE | 2020-05-13 08:25 | PDOC ---
PROGRESS NOTES Chief Complaint Chief Complaint IMPRESSION: Acute sigmoid diverticulitis with small amount of pneumoperitoneum adjacent to the colon and along the hepatic dome consistent with perforation. No fluid collection. 05/07Interval development of a large gas-fluid collection within the right pelvis extending slightly into the abdomen. Extraluminal gas. Circumferential wall thickening proximal to mid sigmoid colon of concern for acute acute diverticulitis. Follow-up to resolution recommended. 05/07 overweight poor surgical candidate, given super obesity REPLACE K Perforated diverticulitis w/ fluid collection s/p IR drainage - culture pending, atbx per ID PLAN admit Surgery consulted npo iv fluid support IV ANTIBIOTICS, CONTINUE REPEAT CT ID CONSULT IV K CONSULT IR CONSULT GI CONSULT PARTS WASHER Good improvement with drainage, abx; no surgical plans. Dr Corrales to revisit Saturday 05/12 Continue Zosyn, fluconazole Probiotics 05/11 still too MUCH DISCOMFORT TO SIT IN BEDSIDE CHAIR 05/13 SOME dce perfusion of feet noted in IR, CONSULT DR MUNOZ 37 min pt exam, chart review, > 50% of time spent with exam, chart review, pt care coordination History of Present Illness History of Present Illness 05/10/2020 Patient seen and examined She is about the same clinically Still having some abdominal pain Chart reviewed Discussed with case management Discussed with RN Vitals Vitals Vital Signs Date Time Temp Pulse Resp B/P (MAP) Pulse Ox O2 Delivery O2 Flow Rate FiO2 05/13/20 07:18 97.8 78 18 120/83 (95) 93 Room Air 97.8 Physical Exam Physical Exam GENERAL: Propped up in bed, alert and in NAD HEENT: Oral cavity clear NECK: Supple LUNGS: Clear. HEART: S1, S2 regular. ABDOMEN: Obese, soft and nontender. Right-sided BERNARD + purulence EXTREMITIES: No edema, cyanosis. SKIN: warm to touch. No signs of rash NEUROLOGIC: Alert and answers questions appropriately RUE-midline -bleeding/oozing General: Alert, Oriented X3, Cooperative, No acute distress Heart: Regular rate, Normal S1, Normal S2, No murmurs Lungs: Clear Abdomen: Normal bowel sounds, Soft, No tenderness, Other (bernard drain, cloudy serous fluid ) Extremities: No clubbing, No edema Skin: No rashes, No significant lesion Assessment and Plan Assessmemt and Plan Problems Medical Problems: (1) Colon perforation Status: Acute (2) Perforated diverticulum Status: Acute Comment Review of Relevant I have reviewed the following items karyna (where applicable) has been applied. Labs Microbiology 05/07/20 Gram Stain - Final, Resulted 05/07/20 Aerobic and Anaerobic Culture - Preliminary, Resulted 05/06/20 Blood Culture - Final, Complete NO GROWTH AFTER 5 DAYS 05/03/20 Urine Culture - Final, Complete Medications Current Medications Ketorolac Tromethamine (Toradol 30mg Vial) 30 mg 1X ONCE IVP Last administered on 05/01/20at 01:22; Start 05/01/20 at 01:00; Stop 05/01/20 at 01:01; Status DC Iohexol (Omnipaque 300 Mg/ml) 75 ml 1X ONCE IV Last administered on 05/01/20at 02:10; Start 05/01/20 at 02:00; Stop 05/01/20 at 02:01; Status DC Info (CONTRAST GIVEN -- Rx MONITORING) 1 each PRN DAILY PRN MC SEE COMMENTS; Start 05/01/20 at 02:00; Stop 05/03/20 at 01:59; Status DC Morphine Sulfate (Morphine Sulfate) 4 mg 1X ONCE IV Last administered on 05/01/20at 02:32; Start 05/01/20 at 02:30; Stop 05/01/20 at 02:31; Status DC Ondansetron HCl (Zofran) 4 mg 1X ONCE IM Last administered on 05/01/20at 02:38; Start 05/01/20 at 02:45; Stop 05/01/20 at 02:46; Status DC Piperacillin Sod/ Tazobactam Sod 4.5 gm/Sodium Chloride 100 ml @ 200 mls/hr 1X ONCE IV Last administered on 05/01/20at 03:12; Start 05/01/20 at 03:00; Stop 05/01/20 at 03:29; Status DC Piperacillin Sod/ Tazobactam Sod 4.5 gm/Sodium Chloride 100 ml @ 200 mls/hr Q6HRS IV ; Start 05/01/20 at 06:00; Stop 05/01/20 at 05:05; Status DC Morphine Sulfate (Morphine Sulfate) 4 mg PRN Q2HR PRN IV PAIN Last administered on 05/07/20at 08:09; Start 05/01/20 at 03:30; Stop 05/07/20 at 23:51; Status DC Ondansetron HCl (Zofran) 4 mg PRN Q6HRS PRN IVP NAUSEA/VOMITING Last administered on 05/11/20at 18:00; Start 05/01/20 at 03:30 Piperacillin Sod/ Tazobactam Sod 4.5 gm/Sodium Chloride 100 ml @ 200 mls/hr Q6HRS IV Last administered on 05/13/20at 05:38; Start 05/01/20 at 06:00 Metronidazole 100 ml @ 100 mls/hr Q8HRS IV Last administered on 05/07/20at 05:26; Start 05/01/20 at 10:00; Stop 05/07/20 at 12:35; Status DC Amlodipine Besylate (Norvasc) 10 mg DAILY PO Last administered on 05/12/20 08:29; Start 05/02/20 at 13:00 Acetaminophen/ Hydrocodone Bitart (Lortab 5/325) 1 tab PRN Q6HRS PRN PO PAIN Last administered on 05/07/20at 22:06; Start 05/02/20 at 12:30; Stop 05/07/20 at 23:51; Status DC Metformin HCl (Glucophage Xr) 500 mg DAILYWBKFT PO ; Start 05/02/20 at 13:00 Metronidazole (Flagyl) 500 mg TID PO ; Start 05/02/20 at 14:00; Status Cancel Propranolol HCl (Inderal La) 80 mg DAILY PO Last administered on 05/12/20at 08:25; Start 05/02/20 at 13:00 Celecoxib (CeleBREX) 200 mg DAILY PO Last administered on 05/12/20at 08:25; Start 05/02/20 at 13:00 Fluoxetine HCl (PROzac) 20 mg DAILY PO Last administered on 05/12/20at 08:24; Start 05/02/20 at 13:00 Sodium Chloride 1,000 ml @ 135 mls/hr Q7H25M IV Last administered on 05/04/20at 00:34; Start 05/02/20 at 13:00; Stop 05/07/20 at 14:18; Status DC Polyethylene Glycol (miraLAX PACKET) 17 gm DAILY PO Last administered on 05/10/20at 08:59; Start 05/05/20 at 10:00 Lactobacillus Rhamnosus (Culturelle) 1 cap BID PO Last administered on 05/12/20at 20:40; Start 05/05/20 at 21:00 Potassium Chloride/Water 100 ml @ 100 mls/hr Q1H IV ; Start 05/06/20 at 12:00; Stop 05/06/20 at 14:07; Status DC Potassium Chloride (Klor-Con) 40 meq 1X ONCE PO Last administered on 05/06/20at 14:15; Start 05/06/20 at 14:15; Stop 05/06/20 at 14:16; Status DC Pantoprazole Sodium (PROTONIX VIAL for IV PUSH) 40 mg DAILYAC IVP Last administered on 05/08/20at 05:27; Start 05/07/20 at 11:30; Stop 05/08/20 at 11:13; Status DC Lidocaine HCl (Buffered Lidocaine 1%) 3 ml STK-MED ONCE .ROUTE ; Start 05/07/20 at 12:25; Stop 05/07/20 at 12:25; Status DC Midazolam HCl (Versed) 5 mg STK-MED ONCE .ROUTE ; Start 05/07/20 at 12:56; Stop 05/07/20 at 12:56; Status DC Fentanyl Citrate (Fentanyl 2ml Vial) 100 mcg STK-MED ONCE .ROUTE ; Start 05/07/20 at 12:56; Stop 05/07/20 at 12:57; Status DC Lidocaine HCl (Buffered Lidocaine 1%) 3 ml 1X ONCE IJ Last administered on 05/07/20at 13:15; Start 05/07/20 at 13:15; Stop 05/07/20 at 13:18; Status DC Midazolam HCl (Versed) 5 mg 1X ONCE IV Last administered on 05/07/20at 13:08; Start 05/07/20 at 13:15; Stop 05/07/20 at 13:18; Status DC Fentanyl Citrate (Fentanyl 2ml Vial) 100 mcg 1X ONCE IV Last administered on 05/07/20at 13:08; Start 05/07/20 at 13:15; Stop 05/07/20 at 13:18; Status DC Lidocaine HCl (Buffered Lidocaine 1%) 3 ml STK-MED ONCE .ROUTE ; Start 05/07/20 at 13:50; Stop 05/07/20 at 13:50; Status DC Lidocaine HCl (Buffered Lidocaine 1%) 3 ml STK-MED ONCE .ROUTE ; Start 05/07/20 at 13:54; Stop 05/07/20 at 13:54; Status DC Amino Acids/ Glycerin/ Electrolytes 1,000 ml @ 80 mls/hr [id number] IV Last administered on 05/13/20at 00:21; Start 05/07/20 at 14:30 Acetaminophen/ Hydrocodone Bitart (Lortab 5/325) 1 tab PRN Q4HRS PRN PO MODERATE PAIN 4-6; Start 05/08/20 at 02:30 Acetaminophen/ Hydrocodone Bitart (Lortab 10/325) 1 tab PRN Q4HRS PRN PO SEVERE PAIN 7-10 Last administered on 05/13/20at 05:39; Start 05/08/20 at 00:00 Morphine Sulfate (Morphine Sulfate) 2 mg PRN Q2HR PRN IV BREAKTHROUGH PAIN; Start 05/08/20 at 00:00 Pantoprazole Sodium (Protonix) 40 mg DAILYAC PO Last administered on 05/13/20at 05:38; Start 05/09/20 at 07:30 Fluconazole (Diflucan) 200 mg DAILY PO Last administered on 05/12/20at 08:24; Start 05/11/20 at 12:00 Nystatin (Nystop) 1 chip BID TP Last administered on 05/12/20at 20:40; Start 05/12/20 at 21:00 Active Scripts Active Reported Hydrocodone-Apap 5-325 (Hydrocodone Bit/Acetaminophen) 1 Tab Tablet 1 Tab PO PRN Q6HRS PRN Cipro (Ciprofloxacin Hcl) 500 Mg Tablet 1 Tab PO BID 7 Days Metronidazole 500 Mg Tablet 1 Tab PO TID 7 Days Tizanidine Hcl 4 Mg Tablet 1 Tab PO BID Amlodipine Besylate 10 Mg Tablet 10 Mg PO DAILY Celebrex (Celecoxib) 200 Mg Capsule 200 Mg PO DAILY 30 Days Fluoxetine Hcl 20 Mg Tablet 20 Mg PO DAILY Propranolol Hcl 80 Mg Cap.sa.24h 80 Mg PO DAILY Metformin Hcl Er (Metformin Hcl) 500 Mg Tab.er.24h 500 Mg PO DAILYWBKFT Vitals/I & O Vital Sign - Last 24 Hours 05/12/20 05/12/20 05/12/20 05/12/20 08:29 11:00 15:12 18:37 Temp 98.0 98.0 98.0 98.0 Pulse 74 84 77 Resp 20 20 18 B/P (MAP) 126/92 120/85 (97) 133/85 (101) Pulse Ox 93 97 O2 Delivery Room Air Room Air 05/12/20 05/12/20 05/12/20 05/12/20 19:00 20:00 20:00 23:00 Temp 98.0 98.1 98.0 98.1 Pulse 82 78 Resp 18 18 18 B/P (MAP) 145/97 (113) 143/97 (112) Pulse Ox 93 92 O2 Delivery Room Air Room Air Room Air Room Air 05/13/20 05/13/20 05/13/20 05/13/20 03:00 05:39 07:16 07:18 Temp 98.1 97.8 98.1 97.8 Pulse 76 78 Resp 18 18 16 18 B/P (MAP) 138/78 (98) 120/83 (95) Pulse Ox 93 93 O2 Delivery Room Air Room Air Room Air Room Air Intake and Output 05/12/20 05/12/20 05/13/20 15:00 23:00 07:00 Intake Total 100 ml 2300 ml Output Total 35 ml Balance 100 ml 2265 ml Justicifation of Admission Dx: Justifications for Admission: Justification of Admission Dx: N/A EMILIE ALVAREZ MD May 13, 2020 08:25
[2020-05-13] MEDS: amLODIPine BESYLATE 10 MG TABLET PO SCH (08:26)
[2020-05-13] MEDS: LACTOBACILLUS RHAMNOSUS GG 1 CAPSULE. PO SCH ×2 (08:26→21:04)
[2020-05-13] MEDS: CELECOXIB 100 MG CAPSULE. PO SCH (08:26)
[2020-05-13] MEDS: FLUoxetine HCL 20 MG CAPSULE PO SCH (08:26)
[2020-05-13] MEDS: PROPRANOLOL ER 80 MG CAP.ER.24H. PO SCH (08:26)
[2020-05-13] MEDS: FLUCONAZOLE 100 MG TABLET. PO SCH (08:26)
[2020-05-13] MEDS: NYSTATIN TOPICAL POWDER 15GM BOTTLE. TP SCH ×2 (08:27→21:06)
[2020-05-13] MEDS: POLYETHYLENE GLYCOL 3350 17 GM PACKET. PO SCH (08:27)
--- NOTE | 2020-05-13 09:30 | PDOC ---
VAN GONZALEZ APRN 05/13/20 0929: SURGICAL PROGRESS NOTE Subjective pain to drain with movement no other complaints Vital Signs Vital Signs Date Time Temp Pulse Resp B/P (MAP) Pulse Ox O2 Delivery O2 Flow Rate FiO2 05/13/20 08:26 78 120/83 05/13/20 08:00 Room Air 05/13/20 07:18 97.8 18 93 97.8 I&O Intake and Output 05/13/20 07:00 Intake Total 2400 ml Output Total 35 ml Balance 2365 ml Intake Oral 1000 ml IV Total 1400 ml Drainage Total 35 ml # Voids 4 # Bowel Movements 2 General: Alert, Oriented X3, Cooperative Abdomen: Soft, Other (scant drainage in bernard) Problem List Problems Medical Problems: (1) Colon perforation Status: Acute (2) Perforated diverticulum Status: Acute Assessment/Plan stable, drain, abx no surgical plans Justicifation of Admission Dx: Justifications for Admission: Justification of Admission Dx: N/A EMILIE MCFADDEN MD 05/13/20 1348: SURGICAL PROGRESS NOTE Assessment/Plan No acute changes. Continue with medical therapy. No surgical plans at this time agree with Rosanne assessment plan VAN GONZALEZ APRN May 13, 2020 09:29 EMILIE MCFADDEN MD May 13, 2020 13:48
--- NOTE | 2020-05-13 09:48 | PDOC ---
Infectious Disease Note Subjective: Subjective Patient feels better Has abdominal pain with any movement occasional loose bowel movement Denies F/C/N/V/D/SOA Vital Signs: Vital Signs Vital Signs Date Time Temp Pulse Resp B/P (MAP) Pulse Ox O2 Delivery O2 Flow Rate FiO2 05/13/20 08:26 78 120/83 05/13/20 08:00 Room Air 05/13/20 07:18 97.8 18 93 97.8 Physical Exam: PHYSICAL EXAM GENERAL: Propped up in bed, alert and in NAD HEENT: Oral cavity clear NECK: Supple LUNGS: Clear. HEART: S1, S2 regular. ABDOMEN: Obese, soft and nontender. Right-sided JAMAAL + purulence EXTREMITIES: No edema, cyanosis. SKIN: warm to touch. No signs of rash NEUROLOGIC: Alert and answers questions appropriately RUE-midline -bleeding/oozing Medications: Inpatient Meds: Current Medications Medications (Trade) Dose Ordered Sig/Keegan Start Time Stop Time Status Last Admin Dose Admin Acetaminophen/ Hydrocodone Bitart (Lortab 10/325) 1 tab PRN Q4HRS PRN 05/08/20 00:00 05/13/20 05:39 1 TAB Acetaminophen/ Hydrocodone Bitart (Lortab 5/325) 1 tab PRN Q4HRS PRN 05/08/20 02:30 Amino Acids/ Glycerin/ Electrolytes 1,000 ml @ 80 mls/hr [id number] 05/07/20 14:30 05/13/20 00:21 80 MLS/HR Amlodipine Besylate (Norvasc) 10 mg DAILY 05/02/20 13:00 05/13/20 08:26 10 MG Celecoxib (CeleBREX) 200 mg DAILY 05/02/20 13:00 05/13/20 08:26 200 MG Fentanyl Citrate (Fentanyl 2ml Vial) 100 mcg 1X ONCE 05/07/20 13:15 05/07/20 13:18 DC 05/07/20 13:08 100 MCG Fluconazole (Diflucan) 200 mg DAILY 05/11/20 12:00 05/13/20 08:26 200 MG Fluoxetine HCl (PROzac) 20 mg DAILY 05/02/20 13:00 05/13/20 08:26 20 MG Info (CONTRAST GIVEN -- Rx MONITORING) 1 each PRN DAILY PRN 05/01/20 02:00 05/03/20 01:59 DC Iohexol (Omnipaque 300 Mg/ml) 75 ml 1X ONCE 05/01/20 02:00 05/01/20 02:01 DC 05/01/20 02:10 75 ML Ketorolac Tromethamine (Toradol 30mg Vial) 30 mg 1X ONCE 05/01/20 01:00 05/01/20 01:01 DC 05/01/20 01:22 30 MG Lactobacillus Rhamnosus (Culturelle) 1 cap BID 05/05/20 21:00 05/13/20 08:26 1 CAP Lidocaine HCl (Buffered Lidocaine 1%) 3 ml STK-MED ONCE 05/07/20 13:54 05/07/20 13:54 DC Metformin HCl (Glucophage Xr) 500 mg DAILYWBKFT 05/02/20 13:00 Metronidazole (Flagyl) 500 mg TID 05/02/20 14:00 Cancel Midazolam HCl (Versed) 5 mg 1X ONCE 05/07/20 13:15 05/07/20 13:18 DC 05/07/20 13:08 3 MG Morphine Sulfate (Morphine Sulfate) 2 mg PRN Q2HR PRN 05/08/20 00:00 Nystatin (Nystop) 1 chip BID 05/12/20 21:00 05/13/20 08:27 1 CHIP Ondansetron HCl (Zofran) 4 mg PRN Q6HRS PRN 05/01/20 03:30 05/11/20 18:00 4 MG Pantoprazole Sodium (PROTONIX VIAL for IV PUSH) 40 mg DAILYAC 05/07/20 11:30 05/08/20 11:13 DC 05/08/20 05:27 40 MG Pantoprazole Sodium (Protonix) 40 mg DAILYAC 05/09/20 07:30 05/13/20 05:38 40 MG Piperacillin Sod/ Tazobactam Sod 4.5 gm/Sodium Chloride 100 ml @ 200 mls/hr Q6HRS 05/01/20 06:00 05/13/20 05:38 200 MLS/HR Polyethylene Glycol (miraLAX PACKET) 17 gm DAILY 05/05/20 10:00 05/10/20 08:59 17 GM Potassium Chloride/Water 100 ml @ 100 mls/hr Q1H 05/06/20 12:00 05/06/20 14:07 DC Potassium Chloride (Klor-Con) 40 meq 1X ONCE 05/06/20 14:15 05/06/20 14:16 DC 05/06/20 14:15 40 MEQ Propranolol HCl (Inderal La) 80 mg DAILY 05/02/20 13:00 05/13/20 08:26 80 MG Sodium Chloride 1,000 ml @ 135 mls/hr Q7H25M 05/02/20 13:00 05/07/20 14:18 DC 05/04/20 00:34 75 MLS/HR Objective: Assessment: Diverticulitis with perforation., Repeat CT 714 now has a large abdominal abscess, status post drainage, 05/07. Cultures + for ROSE ALBICANS, LACTOBACILLUS RHAMNOSUS Morbid obesity. Hypertension. Chronic back problems. Leukocytosis, which has improved. Plan: Plan of Care Continue Zosyn ,cont fluconazole Probiotics f/u cultures Will need repeat CT imaging Continue drain management as directed General surgery following Supportive care MYRON MORGAN MD May 13, 2020 09:48
--- NOTE | 2020-05-13 10:05 | PDOC ---
Subjective: Subjective: Doing okay - mild pain around drain w/ movement. Objective: Objective: No GI concerns per nurse. Vital Signs: Vital Signs Date Time Temp Pulse Resp B/P (MAP) Pulse Ox O2 Delivery O2 Flow Rate FiO2 05/13/20 08:26 78 120/83 05/13/20 08:00 Room Air 05/13/20 07:18 97.8 18 93 97.8 Labs: GRAM STAIN Final Final NO ORGANISMS SEEN. SQUAMOUS EPI CELL:NOT APPLICABLE PMN (WBCs):MANY Unless otherwise specified, Testing Performed by: [address] [address] For Inquires, the Physician may contact the Microbiology department at [phone] ANAEROBIC-AEROBIC CULTURE Preliminary Preliminary FEW [ROSE ALBICANS] on 05/10/20 at 1803 RARE [LACTOBACILLUS RHAMNOSUS] ROSE ALBICANS LACTOBACILLUS RHAMNOSUS Unless otherwise specified, Testing Performed by: [address] [address] For Inquires, the Physician may contact the Microbiology department at [phone] PE: GEN: NAD LUNGS: CTAB HEART: RRR ABD: obese, clear yellow fluid in drain - not much NEURO/PSYCH: A & O 3 A/P: Perforated diverticulitis w/ fluid collection s/p IR drain -- Stable GI-coombs. Eventually should have outpt colonoscopy. Justicifation of Admission Dx: Justifications for Admission: Justification of Admission Dx: N/A BAO EMERSON May 13, 2020 10:05
--- NOTE | 2020-05-13 10:41 | NUR ---
SW following. Discussed with RN, pt still on IV abx, needs repeat CT scan. Pt will have drain at discharge. SW will continue to follow.
[2020-05-13 11:16] VITALS: BP 98/73
--- NOTE | 2020-05-13 12:59 | RAD ---
EXAM: CT ABDOMEN/PELVIS WITHOUT CONTRAST. HISTORY: Status post drainage of a pelvic abscess, diverticulitis. TECHNIQUE: Computed tomography of the abdomen and pelvis was performed without intravenous contrast. One or more of the following individualized dose reduction techniques were utilized for this examination: 1. Automated exposure control. 2. Adjustment of the mA and/or kV according to patient size. 3. Use of iterative reconstruction technique. COMPARISON: 05/06/2020. FINDINGS: Lung windows through the visualized portions of the bases reveal mild atelectasis. Bone windows reveal no suspicious lesions. A percutaneous drain along the right lower quadrant partially decompresses the right lower quadrant collection.. Now measures 3.9 x 2.2 cm as compared with 9.4 x 6.4 cm previously. A small amount of free pelvic fluid does not appear loculated. There is a small amount of pneumoperitoneum. Another fluid collection extends laterally and slightly superiorly from the main collection and measures 3.5 x 2.0 cm as seen on image 58. The drain partially traverses this collection. The collection also contains the appendix which is now thickened to 9 mm which may reflect secondary inflammation. Sigmoid diverticulosis is moderate. There is no small bowel obstruction. The gallbladder is surgically absent. The liver, pancreas, adrenal glands, spleen and kidneys are unremarkable without contrast. There are no pathologically enlarged lymph nodes. An intrauterine device is noted. IMPRESSION: 1. The drained collection in the right false pelvis has decreased in size but not completely resolved as above. 2. Another smaller fluid collection now extends laterally and superolaterally from the main collection. This surrounds the appendix which is thickened, suggesting secondary appendicitis. The drain partially traverses this collection. 3. Small pneumoperitoneum persists. Electronically signed by: Shree Awad MD (05/13/2020 12:56 PM) [id number]
[2020-05-13 14:20] LABS: BASO # 0.1 x10^3/uL (0.0-0.2); BASO % 1 % (0-3); EOS # 0.2 x10^3/uL (0.0-0.7); EOS % 4 % (0-3); HEMATOCRIT 33.8 % (36.0-47.0); LYMPH # 1.2 x10^3/uL (1.0-4.8); LYMPH % 20 % (24-48); MEAN CORPUSCULAR HEMOGLOBIN 26 pg (25-35); MEAN CORPUSCULAR HGB CONC 33 g/dL (31-37); MEAN CORPUSCULAR VOLUME 80 fL (79-100); MONO # 0.3 x10^3/uL (0.0-1.1); MONO % 6 % (0-9); NEUT # 4.1 x10^3/uL (1.8-7.7); NEUT % 70 % (31-73); PLATELET COUNT 279 x10^3/uL (140-400); RED CELL DISTRIBUTION WIDTH 15.4 % (11.5-14.5); WHITE BLOOD COUNT 5.8 x10^3/uL (4.0-11.0)
[2020-05-13 14:45] LABS: ALBUMIN 2.4 g/dL (3.4-5.0); ALBUMIN/GLOBULIN RATIO 0.5 (1.0-1.7); CALCIUM 8.4 mg/dL (8.5-10.1); CREATININE 0.8 mg/dL (0.6-1.0); GFR 96.1; POTASSIUM 4.1 mmol/L (3.5-5.1); TOTAL BILIRUBIN 0.2 mg/dL (0.2-1.0); TOTAL PROTEIN 6.9 g/dL (6.4-8.2)
[2020-05-13 15:10] VITALS: BP 107/76
[2020-05-13 19:00] VITALS: BP 114/77
--- NOTE | 2020-05-13 19:14 | NUR ---
Flushed drain with 10cc of NS.
[2020-05-13 23:00] VITALS: BP 116/72
[2020-05-14] MEDS: PIPERACILLIN/TAZOBACTAM 4.5 GM in IV NORMAL SALINE 100ML 100 ML IV SCH ×3 (00:11→12:00)
[2020-05-14 03:00] VITALS: BP 134/97
[2020-05-14] MEDS: PANTOPRAZOLE 40 MG TABLET.DR. PO SCH (06:05)
[2020-05-14] MEDS: HYDROcodone/APAP 10/325 1 TAB TABLET PO PRN ×2 (07:00→12:32)
[2020-05-14 07:28] VITALS: BP 137/90
[2020-05-14] MEDS: metFORMIN XR 500 MG TAB.ER.24H PO SCH (08:00)
[2020-05-14] MEDS: FLUoxetine HCL 20 MG CAPSULE PO SCH (08:38)
[2020-05-14] MEDS: LACTOBACILLUS RHAMNOSUS GG 1 CAPSULE. PO SCH (08:38)
[2020-05-14] MEDS: PROPRANOLOL ER 80 MG CAP.ER.24H. PO SCH (08:38)
[2020-05-14] MEDS: FLUCONAZOLE 100 MG TABLET. PO SCH (08:39)
[2020-05-14] MEDS: CELECOXIB 100 MG CAPSULE. PO SCH (08:39)
[2020-05-14] MEDS: amLODIPine BESYLATE 10 MG TABLET PO SCH (08:39)
[2020-05-14] MEDS: POLYETHYLENE GLYCOL 3350 17 GM PACKET. PO SCH (08:39)
[2020-05-14] MEDS: NYSTATIN TOPICAL POWDER 15GM BOTTLE. TP SCH (08:44)
--- NOTE | 2020-05-14 09:51 | PDOC ---
SURGICAL PROGRESS NOTE Subjective Patient doing well minimal pain only with walking. Tolerating diet. Would like to go home Vital Signs Vital Signs Date Time Temp Pulse Resp B/P (MAP) Pulse Ox O2 Delivery O2 Flow Rate FiO2 05/14/20 08:39 87 137/90 05/14/20 08:00 Room Air 05/14/20 07:28 97.9 20 95 97.9 05/14/20 03:00 2.0 I&O Intake and Output 05/14/20 07:00 Intake Total 2600 ml Output Total 1000 ml Balance 1600 ml Intake Oral 1200 ml IV Total 1400 ml Output Urine Total 1000 ml # Voids 4 # Bowel Movements 1 PATIENT HAS A GAGNON: No General: Alert, Oriented X3, Cooperative, No acute distress Abdomen: Normal bowel sounds, Soft, No tenderness, Other (JAMAAL drain intact with serous drainage) Labs Laboratory Tests Test 05/13/20 14:05 White Blood Count 5.8 x10^3/uL (4.0-11.0) Red Blood Count 4.20 x10^6/uL (3.50-5.40) Hemoglobin 11.0 g/dL (12.0-15.5) Hematocrit 33.8 % (36.0-47.0) Mean Corpuscular Volume 80 fL (79-100) Mean Corpuscular Hemoglobin 26 pg (25-35) Mean Corpuscular Hemoglobin Concent 33 g/dL (31-37) Red Cell Distribution Width 15.4 % (11.5-14.5) Platelet Count 279 x10^3/uL (140-400) Neutrophils (%) (Auto) 70 % (31-73) Lymphocytes (%) (Auto) 20 % (24-48) Monocytes (%) (Auto) 6 % (0-9) Eosinophils (%) (Auto) 4 % (0-3) Basophils (%) (Auto) 1 % (0-3) Neutrophils # (Auto) 4.1 x10^3/uL (1.8-7.7) Lymphocytes # (Auto) 1.2 x10^3/uL (1.0-4.8) Monocytes # (Auto) 0.3 x10^3/uL (0.0-1.1) Eosinophils # (Auto) 0.2 x10^3/uL (0.0-0.7) Basophils # (Auto) 0.1 x10^3/uL (0.0-0.2) Sodium Level 138 mmol/L (136-145) Potassium Level 4.1 mmol/L (3.5-5.1) Chloride Level 103 mmol/L (98-107) Carbon Dioxide Level 29 mmol/L (21-32) Anion Gap 6 (6-14) Blood Urea Nitrogen 7 mg/dL (7-20) Creatinine 0.8 mg/dL (0.6-1.0) Estimated GFR (Cockcroft-Gault) 96.1 BUN/Creatinine Ratio 9 (6-20) Glucose Level 107 mg/dL (70-99) Calcium Level 8.4 mg/dL (8.5-10.1) Total Bilirubin 0.2 mg/dL (0.2-1.0) Aspartate Amino Transf (AST/SGOT) 29 U/L (15-37) Alanine Aminotransferase (ALT/SGPT) 40 U/L (14-59) Alkaline Phosphatase 48 U/L (46-116) Total Protein 6.9 g/dL (6.4-8.2) Albumin 2.4 g/dL (3.4-5.0) Albumin/Globulin Ratio 0.5 (1.0-1.7) Laboratory Tests Test 05/13/20 14:05 White Blood Count 5.8 x10^3/uL (4.0-11.0) Red Blood Count 4.20 x10^6/uL (3.50-5.40) Hemoglobin 11.0 g/dL (12.0-15.5) Hematocrit 33.8 % (36.0-47.0) Mean Corpuscular Volume 80 fL (79-100) Mean Corpuscular Hemoglobin 26 pg (25-35) Mean Corpuscular Hemoglobin Concent 33 g/dL (31-37) Red Cell Distribution Width 15.4 % (11.5-14.5) Platelet Count 279 x10^3/uL (140-400) Neutrophils (%) (Auto) 70 % (31-73) Lymphocytes (%) (Auto) 20 % (24-48) Monocytes (%) (Auto) 6 % (0-9) Eosinophils (%) (Auto) 4 % (0-3) Basophils (%) (Auto) 1 % (0-3) Neutrophils # (Auto) 4.1 x10^3/uL (1.8-7.7) Lymphocytes # (Auto) 1.2 x10^3/uL (1.0-4.8) Monocytes # (Auto) 0.3 x10^3/uL (0.0-1.1) Eosinophils # (Auto) 0.2 x10^3/uL (0.0-0.7) Basophils # (Auto) 0.1 x10^3/uL (0.0-0.2) Sodium Level 138 mmol/L (136-145) Potassium Level 4.1 mmol/L (3.5-5.1) Chloride Level 103 mmol/L (98-107) Carbon Dioxide Level 29 mmol/L (21-32) Anion Gap 6 (6-14) Blood Urea Nitrogen 7 mg/dL (7-20) Creatinine 0.8 mg/dL (0.6-1.0) Estimated GFR (Cockcroft-Gault) 96.1 BUN/Creatinine Ratio 9 (6-20) Glucose Level 107 mg/dL (70-99) Calcium Level 8.4 mg/dL (8.5-10.1) Total Bilirubin 0.2 mg/dL (0.2-1.0) Aspartate Amino Transf (AST/SGOT) 29 U/L (15-37) Alanine Aminotransferase (ALT/SGPT) 40 U/L (14-59) Alkaline Phosphatase 48 U/L (46-116) Total Protein 6.9 g/dL (6.4-8.2) Albumin 2.4 g/dL (3.4-5.0) Albumin/Globulin Ratio 0.5 (1.0-1.7) Problem List Problems Medical Problems: (1) Colon perforation Status: Acute (2) Perforated diverticulum Status: Acute Assessment/Plan Diverticulitis with pelvic abscess status post drain by IR No new surgical recommendations Justicifation of Admission Dx: Justifications for Admission: Justification of Admission Dx: N/A EMILIE MCFADDEN MD May 14, 2020 09:51
--- NOTE | 2020-05-14 10:54 | PDOC ---
Subjective: Subjective: Doing better. Objective: Vital Signs: Vital Signs Date Time Temp Pulse Resp B/P (MAP) Pulse Ox O2 Delivery O2 Flow Rate FiO2 05/14/20 08:39 87 137/90 05/14/20 08:00 Room Air 05/14/20 07:28 97.9 20 95 97.9 05/14/20 03:00 2.0 Labs: Laboratory Tests Test 05/13/20 14:05 White Blood Count 5.8 x10^3/uL Red Blood Count 4.20 x10^6/uL Hemoglobin 11.0 g/dL Hematocrit 33.8 % Mean Corpuscular Volume 80 fL Mean Corpuscular Hemoglobin 26 pg Mean Corpuscular Hemoglobin Concent 33 g/dL Red Cell Distribution Width 15.4 % Platelet Count 279 x10^3/uL Neutrophils (%) (Auto) 70 % Lymphocytes (%) (Auto) 20 % Monocytes (%) (Auto) 6 % Eosinophils (%) (Auto) 4 % Basophils (%) (Auto) 1 % Neutrophils # (Auto) 4.1 x10^3/uL Lymphocytes # (Auto) 1.2 x10^3/uL Monocytes # (Auto) 0.3 x10^3/uL Eosinophils # (Auto) 0.2 x10^3/uL Basophils # (Auto) 0.1 x10^3/uL Sodium Level 138 mmol/L Potassium Level 4.1 mmol/L Chloride Level 103 mmol/L Carbon Dioxide Level 29 mmol/L Anion Gap 6 Blood Urea Nitrogen 7 mg/dL Creatinine 0.8 mg/dL Estimated GFR (Cockcroft-Gault) 96.1 BUN/Creatinine Ratio 9 Glucose Level 107 mg/dL Calcium Level 8.4 mg/dL Total Bilirubin 0.2 mg/dL Aspartate Amino Transf (AST/SGOT) 29 U/L Alanine Aminotransferase (ALT/SGPT) 40 U/L Alkaline Phosphatase 48 U/L Total Protein 6.9 g/dL Albumin 2.4 g/dL Albumin/Globulin Ratio 0.5 GRAM STAIN Final Final NO ORGANISMS SEEN. SQUAMOUS EPI CELL:NOT APPLICABLE PMN (WBCs):MANY Unless otherwise specified, Testing Performed by: [address] [address] For Inquires, the Physician may contact the Microbiology department at [phone] ANAEROBIC-AEROBIC CULTURE Final Final FEW [ROSE ALBICANS] on 05/10/20 at 1803 RARE [LACTOBACILLUS RHAMNOSUS] NO ANAEROBIC ORGANISMS ISOLATED on 05/13/20 at 1045 ROSE ALBICANS LACTOBACILLUS RHAMNOSUS Unless otherwise specified, Testing Performed by: [address] [address] For Inquires, the Physician may contact the Microbiology department at [phone] Imaging: CT A/P 05/13 IMPRESSION: 1. The drained collection in the right false pelvis has decreased in size but not completely resolved as above. 2. Another smaller fluid collection now extends laterally and superolaterally from the main collection. This surrounds the appendix which is thickened, suggesting secondary appendicitis. The drain partiallytraverses this collection. 3. Small pneumoperitoneum persists. PE: GEN: NAD LUNGS: CTAB HEART: RRR ABD: soft, non-tender NEURO/PSYCH: A & O 3 A/P: Perforated diverticulitis w/ fluid collection s/p IR drain -- Interval CT as above. Continue same per GI. Justicifation of Admission Dx: Justifications for Admission: Justification of Admission Dx: N/A BAO EMERSON May 14, 2020 10:53
--- NOTE | 2020-05-14 11:15 | PDOC ---
Infectious Disease Note Subjective: Subjective Patient without complaint Eager for discharge home today Denies fever, nausea, vomiting, shortness of breath, diarrhea, abdominal pain, rash Otherwise as above Vital Signs: Vital Signs Vital Signs Date Time Temp Pulse Resp B/P (MAP) Pulse Ox O2 Delivery O2 Flow Rate FiO2 05/14/20 08:39 87 137/90 05/14/20 08:00 Room Air 05/14/20 07:28 97.9 20 95 97.9 05/14/20 03:00 2.0 Physical Exam: PHYSICAL EXAM GENERAL: Propped up in bed, alert and in NAD HEENT: Oral cavity clear NECK: Supple LUNGS: Clear. HEART: S1, S2 regular. ABDOMEN: Obese, soft and nontender. Right-sided JAMAAL + purulence EXTREMITIES: No edema, cyanosis. SKIN: warm to touch. No signs of rash NEUROLOGIC: Alert and answers questions appropriately RUE-midline -bleeding/oozing Medications: Inpatient Meds: Current Medications Medications (Trade) Dose Ordered Sig/Keegan Start Time Stop Time Status Last Admin Dose Admin Acetaminophen/ Hydrocodone Bitart (Lortab 10/325) 1 tab PRN Q4HRS PRN 05/08/20 00:00 05/14/20 07:00 1 TAB Acetaminophen/ Hydrocodone Bitart (Lortab 5/325) 1 tab PRN Q4HRS PRN 05/08/20 02:30 Amino Acids/ Glycerin/ Electrolytes 1,000 ml @ 80 mls/hr [id number] 05/07/20 14:30 05/13/20 00:21 80 MLS/HR Amlodipine Besylate (Norvasc) 10 mg DAILY 05/02/20 13:00 05/14/20 08:39 10 MG Celecoxib (CeleBREX) 200 mg DAILY 05/02/20 13:00 05/14/20 08:39 200 MG Fentanyl Citrate (Fentanyl 2ml Vial) 100 mcg 1X ONCE 05/07/20 13:15 05/07/20 13:18 DC 05/07/20 13:08 100 MCG Fluconazole (Diflucan) 200 mg DAILY 05/11/20 12:00 05/14/20 08:39 200 MG Fluoxetine HCl (PROzac) 20 mg DAILY 05/02/20 13:00 05/14/20 08:38 20 MG Info (CONTRAST GIVEN -- Rx MONITORING) 1 each PRN DAILY PRN 05/01/20 02:00 05/03/20 01:59 DC Iohexol (Omnipaque 300 Mg/ml) 75 ml 1X ONCE 05/01/20 02:00 05/01/20 02:01 DC 05/01/20 02:10 75 ML Ketorolac Tromethamine (Toradol 30mg Vial) 30 mg 1X ONCE 05/01/20 01:00 05/01/20 01:01 DC 05/01/20 01:22 30 MG Lactobacillus Rhamnosus (Culturelle) 1 cap BID 05/05/20 21:00 05/14/20 08:38 1 CAP Lidocaine HCl (Buffered Lidocaine 1%) 3 ml STK-MED ONCE 05/07/20 13:54 05/07/20 13:54 DC Metformin HCl (Glucophage Xr) 500 mg [id number] 05/02/20 13:00 Metronidazole (Flagyl) 500 mg TID 05/02/20 14:00 Cancel Midazolam HCl (Versed) 5 mg 1X ONCE 05/07/20 13:15 05/07/20 13:18 DC 05/07/20 13:08 3 MG Morphine Sulfate (Morphine Sulfate) 2 mg PRN Q2HR PRN 05/08/20 00:00 Nystatin (Nystop) 1 chip BID 05/12/20 21:00 05/14/20 08:44 1 CHIP Ondansetron HCl (Zofran) 4 mg PRN Q6HRS PRN 05/01/20 03:30 05/11/20 18:00 4 MG Pantoprazole Sodium (PROTONIX VIAL for IV PUSH) 40 mg DAILYAC 05/07/20 11:30 05/08/20 11:13 DC 05/08/20 05:27 40 MG Pantoprazole Sodium (Protonix) 40 mg DAILYAC 05/09/20 07:30 05/14/20 06:05 40 MG Piperacillin Sod/ Tazobactam Sod 4.5 gm/Sodium Chloride 100 ml @ 200 mls/hr Q6HRS 05/01/20 06:00 05/14/20 06:05 200 MLS/HR Polyethylene Glycol (miraLAX PACKET) 17 gm DAILY 05/05/20 10:00 05/10/20 08:59 17 GM Potassium Chloride/Water 100 ml @ 100 mls/hr Q1H 05/06/20 12:00 05/06/20 14:07 DC Potassium Chloride (Klor-Con) 40 meq 1X ONCE 05/06/20 14:15 05/06/20 14:16 DC 05/06/20 14:15 40 MEQ Propranolol HCl (Inderal La) 80 mg DAILY 05/02/20 13:00 05/14/20 08:38 80 MG Sodium Chloride 1,000 ml @ 135 mls/hr [id number] 05/02/20 13:00 05/07/20 14:18 DC 05/04/20 00:34 75 MLS/HR Labs: Lab Laboratory Tests Test 05/13/20 14:05 White Blood Count 5.8 x10^3/uL (4.0-11.0) Red Blood Count 4.20 x10^6/uL (3.50-5.40) Hemoglobin 11.0 g/dL (12.0-15.5) Hematocrit 33.8 % (36.0-47.0) Mean Corpuscular Volume 80 fL (79-100) Mean Corpuscular Hemoglobin 26 pg (25-35) Mean Corpuscular Hemoglobin Concent 33 g/dL (31-37) Red Cell Distribution Width 15.4 % (11.5-14.5) Platelet Count 279 x10^3/uL (140-400) Neutrophils (%) (Auto) 70 % (31-73) Lymphocytes (%) (Auto) 20 % (24-48) Monocytes (%) (Auto) 6 % (0-9) Eosinophils (%) (Auto) 4 % (0-3) Basophils (%) (Auto) 1 % (0-3) Neutrophils # (Auto) 4.1 x10^3/uL (1.8-7.7) Lymphocytes # (Auto) 1.2 x10^3/uL (1.0-4.8) Monocytes # (Auto) 0.3 x10^3/uL (0.0-1.1) Eosinophils # (Auto) 0.2 x10^3/uL (0.0-0.7) Basophils # (Auto) 0.1 x10^3/uL (0.0-0.2) Sodium Level 138 mmol/L (136-145) Potassium Level 4.1 mmol/L (3.5-5.1) Chloride Level 103 mmol/L (98-107) Carbon Dioxide Level 29 mmol/L (21-32) Anion Gap 6 (6-14) Blood Urea Nitrogen 7 mg/dL (7-20) Creatinine 0.8 mg/dL (0.6-1.0) Estimated GFR (Cockcroft-Gault) 96.1 BUN/Creatinine Ratio 9 (6-20) Glucose Level 107 mg/dL (70-99) Calcium Level 8.4 mg/dL (8.5-10.1) Total Bilirubin 0.2 mg/dL (0.2-1.0) Aspartate Amino Transf (AST/SGOT) 29 U/L (15-37) Alanine Aminotransferase (ALT/SGPT) 40 U/L (14-59) Alkaline Phosphatase 48 U/L (46-116) Total Protein 6.9 g/dL (6.4-8.2) Albumin 2.4 g/dL (3.4-5.0) Albumin/Globulin Ratio 0.5 (1.0-1.7) Objective: Assessment: Diverticulitis with perforation., Repeat CT 714 large abdominal abscess, status post drainage, 05/07. Cultures + for ROSE ALBICANS, LACTOBACILLUS RHAMNOSUS Repeat CT abdomen May 13 1. The drained collection in the right false pelvis has decreased in size but not completely resolved as above. 2. Another smaller fluid collection now extends laterally and superolaterally from the main collection. This surrounds the appendix which is thickened, suggesting secondary appendicitis. The drain partially traverses this collection. 3. Small pneumoperitoneum persists. No surgery intervention per general surgery Morbid obesity. Hypertension. Chronic back problems. Leukocytosis, which has improved. 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 Tuesday labs CBC/BUN/creatinine. 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 Augmentin If symptoms worsen patient may need surgical intervention MYRON MORGAN MD May 14, 2020 11:15
[2020-05-14 11:55] VITALS: BP 117/66
--- NOTE | 2020-05-14 11:59 | NUR ---
JACQUELINE following. Discussed with RN, pt needing IV Invanz 1gm daily for 14 days. Pt lives in [place] and would prefer to go to [facility] outpatient infusion. JACQUELINE verified cost with Shabbir Benjamin ([facility] pharmacy) it is $30 day for the drug. JACQUELINE contacted [facility] outpatient infusion and spoke with asphalt paving supervisor, Nirmala - she is going to verify with [facility] pharmacy and let JACQUELINE know. JACQUELINE advised Nirmala of possible Invanz discount program. Jacqueline awaiting confirmation of roberts, to notify pt. JACQUELINE will continue to follow. Addendum: 05/14/20 at 1547 by VANI PHILLIPS Nirmala at [facility] called JACQUELINE a couple hours ago to advise pt owes them $20,000 and they will need approval from [facility] up, as well as money up front and a payment plan before they can accept pt for outpatient infusion. Nirmala advised JACQUELINE would be included in some email chains for plan for pt. JACQUELINE did not receive any emails, so contacted Nirmala again, Nirmala advised they're still deciding. Physicians wanting to discharge patient today, pt agreeable to coming to [facility] for infusion. JACQUELINE awaiting administration approval from [facility]. JACQUELINE will continue to follow. RN notified. Addendum: 05/14/20 at 1621 by VANI PHILLISP Jose Dumont approved outpatient infusion so pt can discharge home today. RN notifying pt of cost, and that outpatient infusion will contact her in the morning to schedule a time, as they had left before 1500 today. JACQUELINE faxed script to outpatient infusion (ph: [phone], fax: [phone]). No further SW needs.
[2020-05-14] MEDS ORDERED: ERTAPENEM 1GM IVPB (GENERIC) 50 ML IV ONE (12:00)
[2020-05-14] MEDS: AMINO AC 3%/ELECTROLYTE/GLYCER 1,000 ML IV SCH (12:10)
[2020-05-14 15:20] VITALS: BP 145/91
[2020-05-14] MEDS ORDERED: LACT1CAP19 PO (16:03)
[2020-05-14] MEDS ORDERED: HYDR-2761 PO (16:03)
--- NOTE | 2020-05-14 16:12 | PDOC3 ---
Discharge Summary Visit Information Date of Admission: May 01, 2020 Date of Discharge: May 14, 2020 Admitting Diagnosis Comment: (1) Hypertension (2) Colon perforation (3) Perforated diverticulum (4) Acute diverticulitis Final Diagnosis Problems Medical Problems: (1) Colon perforation Status: Acute (2) Perforated diverticulum Status: Acute Diverticulitis with perforation., Repeat CT 714 large abdominal abscess, status post drainage, 05/07. Cultures + for ROSE ALBICANS, LACTOBACILLUS RHAMNOSUS Morbid obesity. Hypertension. Chronic back problems. Leukocytosis, which has improved. Brief Hospital Course Allergies Allergies Coded Allergies Type Severity Reaction Last Updated Verified No Known Drug Allergies 04/25/20 No Vital Signs Vital Signs Date Time Temp Pulse Resp B/P (MAP) Pulse Ox O2 Delivery O2 Flow Rate FiO2 05/14/20 15:20 97.9 74 20 145/91 (109) 100 Room Air 97.9 05/14/20 03:00 2.0 Lab Results Laboratory Tests Test 05/13/20 14:05 White Blood Count 5.8 x10^3/uL (4.0-11.0) Red Blood Count 4.20 x10^6/uL (3.50-5.40) Hemoglobin 11.0 g/dL (12.0-15.5) Hematocrit 33.8 % (36.0-47.0) Mean Corpuscular Volume 80 fL (79-100) Mean Corpuscular Hemoglobin 26 pg (25-35) Mean Corpuscular Hemoglobin Concent 33 g/dL (31-37) Red Cell Distribution Width 15.4 % (11.5-14.5) Platelet Count 279 x10^3/uL (140-400) Neutrophils (%) (Auto) 70 % (31-73) Lymphocytes (%) (Auto) 20 % (24-48) Monocytes (%) (Auto) 6 % (0-9) Eosinophils (%) (Auto) 4 % (0-3) Basophils (%) (Auto) 1 % (0-3) Neutrophils # (Auto) 4.1 x10^3/uL (1.8-7.7) Lymphocytes # (Auto) 1.2 x10^3/uL (1.0-4.8) Monocytes # (Auto) 0.3 x10^3/uL (0.0-1.1) Eosinophils # (Auto) 0.2 x10^3/uL (0.0-0.7) Basophils # (Auto) 0.1 x10^3/uL (0.0-0.2) Sodium Level 138 mmol/L (136-145) Potassium Level 4.1 mmol/L (3.5-5.1) Chloride Level 103 mmol/L (98-107) Carbon Dioxide Level 29 mmol/L (21-32) Anion Gap 6 (6-14) Blood Urea Nitrogen 7 mg/dL (7-20) Creatinine 0.8 mg/dL (0.6-1.0) Estimated GFR (Cockcroft-Gault) 96.1 BUN/Creatinine Ratio 9 (6-20) Glucose Level 107 mg/dL (70-99) Calcium Level 8.4 mg/dL (8.5-10.1) Total Bilirubin 0.2 mg/dL (0.2-1.0) Aspartate Amino Transf (AST/SGOT) 29 U/L (15-37) Alanine Aminotransferase (ALT/SGPT) 40 U/L (14-59) Alkaline Phosphatase 48 U/L (46-116) Total Protein 6.9 g/dL (6.4-8.2) Albumin 2.4 g/dL (3.4-5.0) Albumin/Globulin Ratio 0.5 (1.0-1.7) Brief Hospital Course Ms. Pandey is a 39 old female who was admitted with abdominal discomfort and colon perforation secondary to diverticulitis, patient had a large pelvic abscess on imaging studies. Surgical consultation was C10 the recommendation was to start broad-spectrum antibiotics and to consult interventional radiology. The patient was taken to the interventional radiology suite where a CT-guided drainage of the pelvic abscess was performed report of this procedure is as follows: PATIENT: MARGIE PANDEY AACCOUNT: [id number] : 1980 LOCATION: [address] [place] [id number] AGE: 39 SEX: F EXAM STATUS: ADM IN ORD. PHYSICIAN: CAITLIN MORGAN MD REASON: LARGE PELVIC ABSCESS - NEEDS DRAINED PROCEDURE: [id number] ABSCESS DRAIN PERIT/RETR Procedure: CT-guided drainage, pelvic abscess Clinical Indication: Diverticular abscess Sedation: Conscious sedation was administered for 98 minutes. The patient was monitored by a qualified independent observer throughout the time of sedation. Please refer to the medical record for exact doses of medications utilized to achieve moderate sedation. Sterility: The procedure was performed in its entirety using appropriate elements of sterile technique. Consent: The procedure was explained in its entirety to the patient or the patients designated branch sales and service representative by a member of the treatment team, including a discussion of the risks, benefits and commonly accepted alternatives to the procedure, as well as the expected consequences of no therapy whatsoever. Discussion of the risks included, but was not limited to, those that are most frequent and those that are rare but possibly severe or life-threatening, as well as the possibility of unforeseen complications. Technique and Findings: Following informed consent, the patient was prepped and draped in the usual sterile fashion. CT imaging redemonstrates a pelvic abscess, as previously seen. 1% lidocaine was administered for local anesthesia to the skin and subcutaneous tissues. A small dermatotomy was made. Under intermittent CT guidance a 17-gauge needle was advanced into the collection. A wire was advanced through this needle into the collection over which following dilatation a 10 Icelandic drain was placed. Serous material was aspirated and sent for Gram stain and culture. No immediate complications were identified. The catheter secured in place and sterile dressings were applied. Impression: CT-guided drainage, pelvic abscess PQRS Compliance Statement: One or more of the following individualized dose reduction techniques were utilized for this examination: 1. Automated exposure control 2. Adjustment of the mA and/or kV according to patient size 3. Use of iterative reconstruction technique DICTATED and SIGNED BY: ANTHONY MUNOZ MD DATE: 05/12/20 1036 The patient continue on broad-spectrum antibiotics with Zosyn. Cultures were followed up over time by our consultants and they revealed the following: URINE CULTURE Final Final 40,000 CFU/ML YEAST on 05/06/20 at 1421 FINAL ID= [ROSE ALBICANS] Testing Performed by: [address] [address] For Inquires, the Physician may contact the Microbiology department at [phone] ROSE ALBICANS ORDERED: NYDIA/AEREBER/ERICK COMMENTS: ABDOMINAL ABSCESS FLUID Procedure Result GRAM STAIN Final Final NO ORGANISMS SEEN. SQUAMOUS EPI CELL:NOT APPLICABLE PMN (WBCs):MANY Unless otherwise specified, Testing Performed by: [address] [address] For Inquires, the Physician may contact the Microbiology department at [phone] ANAEROBIC-AEROBIC CULTURE Final Final FEW [ROSE ALBICANS] on 05/10/20 at 1803 RARE [LACTOBACILLUS RHAMNOSUS] NO ANAEROBIC ORGANISMS ISOLATED on 05/13/20 at 1045 ROSE ALBICANS LACTOBACILLUS RHAMNOSUS BLOOD CULTURE Final NO GROWTH AFTER 5 DAYS She continued to do well and on today's date was my first interaction with the patient and at this point she would deem appropriate for discharge from all the consultants at 10 point of view. She will be transitioned to Invanz for 2 weeks and subsequently will transition to p.o. Augmentin as per infectious disease solar consultant. Repeat CT of the abdomen: May 13 1. The drained collection in the right false pelvis has decreased in size but not completely resolved as above. 2. Another smaller fluid collection now extends laterally and superolaterally from the main collection. This surrounds the appendix which is thickened, suggesting secondary appendicitis. The drain partially traverses this collection. 3. Small pneumoperitoneum persists. No surgery intervention per general surgery Patient was in good spirits to be discharged home, greater than 35 minutes were spent in the discharge process the patient in counseling coordination of care and arrangements for a safe discharge PHYSICAL EXAM GENERAL: Propped up in bed, alert and in NAD HEENT: Oral cavity clear NECK: Supple LUNGS: Clear. HEART: S1, S2 regular. ABDOMEN: Obese, soft and nontender. Right-sided JAMAAL + purulence EXTREMITIES: No edema, cyanosis. SKIN: warm to touch. No signs of rash NEUROLOGIC: Alert and answers questions appropriately RUE-midline -bleeding/oozing Discharge Information Condition at Discharge: Improved Follow Up: Weeks Disposition/Orders: D/C to Home Scheduled Amlodipine Besylate (Amlodipine Besylate) 10 Mg Tablet, 10 MG PO DAILY for blood pressure, (Reported) Entered as Reported by: DAVIAN GARG on 04/25/201631 Last Action: Continued on 05/02/201218 by ANDRA BUSTILLOS Celecoxib (Celebrex) 200 Mg Capsule, 200 MG PO DAILY for inflammation for 30 Days, #30 Ref 0 (Reported) Entered as Reported by: DAVIAN GARG on 04/25/201631 Last Action: Converted on 05/02/201218 by ANDRA BUSTILLOS Fluoxetine Hcl (Fluoxetine Hcl) 20 Mg Tablet, 20 MG PO DAILY for anti depressant, (Reported) Entered as Reported by: DAVIAN GARG on 04/25/201631 Last Action: Converted on 05/02/201218 by ANDRA BUSTILLOS Lactobacillus Rhamnosus Gg (Culturelle) 1 Each Cap.sprink, 1 CAP PO BID for probiotics for 30 Days, #60 Prescribed by: DOMINGO LAM MD on 05/14/20 1603 Metformin Hcl (Metformin Hcl Er) 500 Mg Tab.er.24h, 500 MG PO DAILYWBKFT for ANTI-DIABETIC, Ref 0 (Reported) Entered as Reported by: DAVIAN GARG on 04/25/201631 Last Action: Continued on 05/02/201218 by ANDRA BUSTILLOS Propranolol Hcl (Propranolol Hcl) 80 Mg Cap.sa.24h, 80 MG PO DAILY for blood pressure, (Reported) Entered as Reported by: DAVIAN GARG on 04/25/201631 Last Action: Continued on 05/02/201218 by ANDRA BUSTILLOS Tizanidine Hcl (Tizanidine Hcl) 4 Mg Tablet, 1 TAB PO BID for muscle relaxant, #60 (Reported) Entered as Reported by: DAVIAN GARG on 04/25/201631 Last Action: Reviewed on 05/01/20 0442 by JIMBO PADRON RN Scheduled PRN Hydrocodone Bit/Acetaminophen (Hydrocodone-Apap 5-325 ) 1 Tab Tablet, 1 TAB PO PRN Q6HRS PRN for PAIN, #30 Ref 0 (Reported) Entered as Reported by: WILFREDO BARROW on 04/28/20 1450 Last Action: Continued on 05/02/209 by ANDRA BUSTILLOS Hydrocodone Bit/Acetaminophen (Hydrocodone-Apap 5-325 ) 1 Tab Tablet, 1 TAB PO PRN Q4HRS PRN for MODERATE PAIN 4-6 for 3 Days, #18 Prescribed by: DOMINGO LAM MD on 05/14/20 1603 Discontinued Medications Ciprofloxacin Hcl (Cipro) 500 Mg Tablet, 1 TAB PO BID for infection for 7 Days, #14 Ref 0 (Reported) Entered as Reported by: WILFREDO BARROW on 04/28/20 1449 Metronidazole (Metronidazole) 500 Mg Tablet, 1 TAB PO TID for infection for 7 Days, #21 Ref 0 (Reported) Entered as Reported by: WILFREDO BARROW on 04/28/20 1448 Last Action: Continued on 05/02/209 by ANDRA BUSTILLOS Justicifation of Admission Dx: Justifications for Admission: Justification of Admission Dx: N/A DOMINGO LAM MD May 14, 2020 16:12
--- NOTE | 2020-05-14 17:51 | NUR ---
Pt discharged home with out pt IV abx. SW faxed script to outpt they stated they will call the pt tomorrow to set up a time to come in. Drain flushed and drain care instructions provided for patient. Other discharge instructions and prescriptions discussed. She denied any questions. Dressing changed on midline and drain. Pt packed belongings and was assisted to wheelchair and secured in car with friend.
--- NOTE | 2020-05-14 17:56 | NUR ---
Called Nic to olive picker bed.
== END 2020-05-14 17:57 | disposition home or self-care (01) | DRG 392 ==
LOC: ER 23:37 → 6 SOUTH 05-01 02:45 → 4 NORTH 05-04 22:50
PROVIDERS: ADMIT Family Medicine; ATTEND Family Medicine
PROC: 0W9H30Z Drainage of Retroperitoneum with Drainage Device, Percutaneous Approach (ICD-10-PCS; principal; 2020-05-07)
DX: K57.20 Diverticulitis of large intestine with perforation and abscess without bleeding (principal); Z68.44 Body mass index [BMI] 60.0-69.9, adult; E28.2 Polycystic ovarian syndrome; E66.01 Morbid (severe) obesity due to excess calories; F17.210 Nicotine dependence, cigarettes, uncomplicated; F32.9 Major depressive disorder, single episode, unspecified; I10 Essential (primary) hypertension; N73.9 Female pelvic inflammatory disease, unspecified; N92.0 Excessive and frequent menstruation with regular cycle; Z82.49 Family history of ischemic heart disease and other diseases of the circulatory system; Z90.49 Acquired absence of other specified parts of digestive tract; Z97.5 Presence of (intrauterine) contraceptive device; G43.909 Migraine, unspecified, not intractable, without status migrainosus; Z79.899 Other long term (current) drug therapy
CPT/HCPCS: 36415; 36569; 49406; 74176; 74177; 80048; 80053; 81001; 85007; 85025; 85610; 86140; 87040; 87071; 87075; 87077; 87086; 87186; 96372; 96374; 96375; 99152; 99153; 99285; A4215; C1729; C1892; C1894; C9113; J1335; J1885; J2250; J2270; J2405; J2543; J3010; J3490; J7030; Q9967; G0378